=== PATIENT | male | born 1945 | race Caucasian/White ===

== ENCOUNTER → 2017-12-19 | Outpatient (CLI) | payer OTHER, MEDICARE ==
--- NOTE | 2017-12-19 10:43 | CT ---
EXAMINATION TYPE: CT foot LT wo con DATE OF EXAM: 12/19/2017 COMPARISON: HISTORY: LT calcaneal fracture CT DLP: 231 mGycm Automated exposure control for dose reduction was used. Unenhanced CT of the left foot was performed with bone and soft tissue window settings submitted. Axi al coronal and sagittal images are reviewed. FINDINGS: There is a chronic appearing fracture superior posterior margin of the os calcis. Margins are sclerot ic without significant callus formation seen. Screw defects are noted from prior surgical interventio n. No additional fractures identified of the os calcis or visualized osseous structures. Intramedulla ry lian distal tibia. Mild degenerative narrowing various PIP and DIP joints. IMPRESSION: NONUNION FRACTURE INVOLVING THE POSTERIOR SUPERIOR MARGIN OF THE OS CALCIS WITH EVIDENCE OF PRIOR RUBENS GICAL INTERVENTION.
== END | disposition home or self-care (01) ==
LOC: RADCTMAIN 08:44
PROVIDERS: ATTEND Podiatrist
DX: S92.002K Unspecified fracture of left calcaneus, subsequent encounter for fracture with nonunion (principal); Z98.890 Other specified postprocedural states

== ENCOUNTER → 2020-02-08 | Outpatient (CLI) | payer MEDICARE ==
--- NOTE | 2020-02-08 12:28 | CT ---
EXAMINATION TYPE: CT urogram wo/w con DATE OF EXAM: 02/08/2020 COMPARISON: None. HISTORY: gross hematuria CT DLP: 2644 mGycm, Automated Exposure Control for Dose Reduction was Utilized. CONTRAST: CT scan of the abdomen and pelvis is performed without oral and without and with IV Contrast, patient injected with 100 mL of Isovue 300. Urogram protocol with 3-D reconstructed images created on an [employer] workstation and reviewed. FINDINGS: KUB: Noncontrast images show no renal calculi bilaterally. Postcontrast images show symmetric cortica l medullary uptake and excretion from both kidneys. There is exophytic thin-walled 1.1 cm cyst medial ly lower pole left kidney series 10 image 42. Ureters are adequately distended without suspicious cristopher culus or hydronephrosis. There is lobulated hyperdense mass arising from the inferior bladder measuri ng 4.0 x 4.4 cm transversely axial image 78 series 10 x 3.0 cm craniocaudal dimension sagittal image 94. Poor visualization of connection to bladder wall but presumed arising from inferior portion. It i s not causing post obstructive hydronephrosis. Prostate gland below this is felt upper limits of norm al or perhaps slightly enlarged in size and mass is strongly suspicious given patient's symptoms. Bryan dder is mild moderately distended without abnormal wall thickening. LUNG BASES: No significant abnormality is appreciated. LIVER/GB: No significant abnormality is appreciated. PANCREAS: No significant abnormality is seen. SPLEEN: No significant abnormality is seen. ADRENALS: No significant abnormality is seen. BOWEL: No significant abnormality is seen. PROSTATE/SEMINAL VESICLES: Upper limits of normal in size or perhaps mildly enlarged. LYMPH NODES: No greater than 1cm abdominal or pelvic lymph nodes are appreciated. OSSEOUS STRUCTURES: Bilateral pars defect L5 level with slight grade 1 anterolisthesis L5 on S1. Mode rate disc space narrowing and vacuum disc phenomenon L5-S1 level. Mild to moderate disc space narrowi ng and anterior spurring L4-L5 level. Additional mild to moderate multilevel anterior and lateral spu rring. Facet arthropathy lower lumbar spine. OTHER: No significant additional abnormality is seen. IMPRESSION: Suspicious inferior posterior heterogeneous hyperdense bladder mass worrisome for neoplas m, other etiologies such as fungal ball or large intraluminal hematoma is not entirely excluded thoug h felt less likely. Direct visualization is warranted.
== END | disposition home or self-care (01) ==
LOC: RADCTMAIN 09:51
PROVIDERS: ATTEND Urology
DX: R31.9 Hematuria, unspecified (principal)
CPT/HCPCS: 82565; 84520; 74178; 36415; 74400; Q9967

== ENCOUNTER → 2020-02-16 | Outpatient (CLI) | payer MEDICARE ==
[2020-02-16 11:31] LABS: African American GFR (CKD) >90 (>60 ml/min/1.73 sqM); Anion Gap 6 mmol/L; Blood Urea Nitrogen 15 mg/dL (9-20); Calcium 9.2 mg/dL (8.4-10.2); Carbon Dioxide 23 mmol/L (22-30); Chloride 104 mmol/L (98-107); Glucose 88 mg/dL (74-99); Non-African American GFR(CKD) 78 (>60 ml/min/1.73 sqM); Potassium 4.6 mmol/L (3.5-5.1); Sodium 133 mmol/L (137-145)
[2020-02-16 11:36] LABS: Basophils # (A) 0.1 k/uL (0-0.2); Basophils % (A) 1 %; Eosinophils # (A) 0.2 k/uL (0-0.7); Eosinophils % (A) 3 %; HCT 40.8 % (39.0-53.0); Lymphocytes # (A) 0.8 k/uL (1.0-4.8); Lymphocytes % (A) 15 %; MCH 29.4 pg (25.0-35.0); MCHC 31.9 g/dL (31.0-37.0); MCV 92.3 fL (80.0-100.0); Mean Platelet Volume 6.8; Monocytes # (A) 0.4 k/uL (0-1.0); Monocytes % (A) 8 %; Neutrophils # (A) 3.8 k/uL (1.3-7.7); Neutrophils % (A) 71 %; Platelet Count 240 k/uL (150-450); RBC 4.43 m/uL (4.30-5.90); RDW 12.8 % (11.5-15.5); WBC 5.3 k/uL (3.8-10.6)
== END | disposition home or self-care (01) ==
LOC: LABPAT 10:36
PROVIDERS: ATTEND Urology
DX: Z01.818 Encounter for other preprocedural examination (principal); C67.9 Malignant neoplasm of bladder, unspecified
CPT/HCPCS: 36415; 80048; 85025

== ENCOUNTER → 2020-02-24 | Day surgery (SDC) | payer MEDICARE ==
[2020-02-22 12:54] VITALS: BMI 29.2
--- NOTE | 2020-02-23 20:30 | P.HPIHPCON ---
History of Present Illness H&P Date: 02/23/20 Mr tabares a 74 yo male with hx of gross hematuria, he underwent an office cystoscopy which showed a large bladder tumor, He also had a CT Urogram which showed that the bladder mass measured 10 cm. Discussed with him given this finding I recommend to proceed with TURBT. I also discussed with him the right ureteral orfice was not visualized secondary to the tumor and there is potential will need to do a right ureteral stent placement at the same setting. I discussed with him the risk of surgery includes but not limited to bleeding, infection, bladder perforation. Also discussed with him the risk from anesthesia. He understood all risks and agreed to proceed with TURBT with possibile right stent placement Consent for Procedure: I have explained the operation/procedure to the patient, including the risks, benefits, side effects, alternative therapies (including not receiving the proposed treatment or service), the likelihood of the patient achieving his/her goals, and potential recuperation problems for the procedure/sedation/analgesia, as well as any blood products, if indicated. I also explained to the patient the risks, benefits and side effects of the alternatives, as well as the risks related to not receiving the proposed procedure, care, treatment, or services. - Constitutional Constitutional: Denies chills, Denies fever Past Medical History Past Medical History: Cancer, Hyperlipidemia, Myocardial Infarction ([place]), Prostate Disorder Additional Past Medical History / Comment(s): recent blood in urine intermittently, enlarged prostate, recent dx bladder cancer Last Myocardial Infarction Date:: 2011 History of Any Multi-Drug Resistant Organisms: None Reported Past Surgical History: Heart Catheterization With Stent, Orthopedic Surgery Additional Past Surgical History / Comment(s): bilateral cataracts with lens implants, lt heel surgery bone removed Past Anesthesia/Blood Transfusion Reactions: No Reported Reaction Date of Last Stent Placement:: 2011 Smoking Status: Former smoker - Past Family History Mother Family Medical History: Cancer Medications and Allergies Home Medications Medication Instructions Recorded Confirmed Type Aspirin [Adult Low Dose Aspirin EC] 81 mg PO DAILY 08/23/15 02/22/20 History Simvastatin [Zocor] 40 mg PO DAILY 08/23/15 02/22/20 History risperiDONE [RisperDAL] 2 mg PO DAILY 08/23/15 02/22/20 History Stelazine(Unknown Dose) 1 tab PO DAILY 02/22/20 History Allergies Allergy/AdvReac Type Severity Reaction Status Date / Time No Known Allergies Allergy Verified 02/22/20 11:43 Surgical - Exam - General well developed, well nourished, no distress, no pain - Eyes PERRL, normal ocular movement - ENT normal nares, normal mucosa - Respiratory normal expansion, normal respiratory effort - Abdomen Abdomen: soft, non tender - Psychiatric oriented to time, oriented to person, oriented to place Assessment and Plan Assessment: 74 yo male with hx of large bladder tumor -OR for TURBT and possible stent placement
[~2020-02-24] MED LIST: DEXAMETHASONE SOD PHOSPHATE 4 MG/ML 1 ML VIAL IV ONE; GLYCOPYRROLATE 0.2 MG/ML 2 ML VIAL ONE; HYDROmorphone (PF) 1 MG/ML ONE; HYDROmorphone 0.5 MG/0.5 ML SYRINGE IVP PRN; LACTATED RINGERS 1,000 ML IV ONE; LACTATED RINGERS 1,000 ML IV SCH; LIDOCAINE 1% (10MG/ML) FOR IV START INTRADERMA ONE; LIDOCAINE 1% INJ 10MG/ML (20 ML MDV) ONE; NEOSTIGMINE 1 MG/ML 10 ML VIAL ONE; ONDANSETRON 4 MG/2 ML VIAL IVP ONE; PROPOFOL 10 MG/ML 20 ML VIAL IV ONE; ROCURONIUM 10 MG/ML (10 ML VIAL) IV ONE; SUCCINYLCHOLINE CHLORIDE 100 MG/5 ML SYR IV ONE; ePHEDrine SULFATE/0.9% NACL/PF 50 MG/5 ML SYRINGE IV ONE; fentaNYL (PF) 50 MCG/ML 2 ML AMP ONE
--- NOTE | 2020-02-24 13:57 | P.OP ---
Date of Procedure: 02/24/20 Preoperative Diagnosis: Bladder tumor Postoperative Diagnosis: Same Procedure(s) Performed: TURBT (large) Implants: None Anesthesia: DRAKE Surgeon: Ramana Hernandez Estimated Blood Loss (ml): 25 Pathology: other (Bladder tumor) Condition: stable Disposition: PACU Indications for Procedure: Mr tabares a 74 yo male with hx of gross hematuria, he underwent an office cystoscopy which showed a large bladder tumor, He also had a CT Urogram which showed that the bladder mass measured 10 cm. Discussed with him given this finding I recommend to proceed with TURBT. I also discussed with him the right ureteral orfice was not visualized secondary to the tumor and there is potential will need to do a right ureteral stent placement at the same setting. I discussed with him the risk of surgery includes but not limited to bleeding, infection, bladder perforation. Also discussed with him the risk from anesthesia. He understood all risks and agreed to proceed with TURBT with possible right stent placement Operative Findings: Large tumor extending from the right trigone and along the right lateral wall, approximately resection site was approximately 10 cm Description of Procedure: Patient was brought to the operating room, general anesthesia was induced. He was prepped and draped in sterile fashion placed in a dorsolithotomy position. The resectoscope fitted with a 25-Slovak sheath was inserted per urethra, cystoscopy was performed showed a large bladder tumor involving the right trigone and right lateral wall. Using the bipolar resectoscope the tumor was resected down to muscle, total area of resection was approximately 10 cm . The specimen was irrigated out using the Ellik evacuator. The area of resection was thoroughly fulgurated using cautery. Both ureteral orifices were visualized and neither were involved in the resection. Repeat cystoscopy at the end of the case showed no additional bladder tumors or evidence of bleeding. The resectoscope was withdrawn, and a 22-Slovak Hernandez was inserted with return of clear urine. The balloon was inflated with 20 mL. The patient tolerated procedure well taken to PACU in stable condition
[2020-02-24 14:05] VITALS: RESP 16; TEMP 98.6
[2020-02-24 15:38] VITALS: BP 155/78; PULSE 63
== END ==
LOC: OR 10:21
PROVIDERS: ATTEND Urology
DX: C67.2 Malignant neoplasm of lateral wall of bladder (principal); I10 Essential (primary) hypertension; R06.00 Dyspnea, unspecified; R94.39 Abnormal result of other cardiovascular function study; R42 Dizziness and giddiness; R94.31 Abnormal electrocardiogram [ECG] [EKG]; I49.1 Atrial premature depolarization; I49.3 Ventricular premature depolarization; F99 Mental disorder, not otherwise specified; E78.5 Hyperlipidemia, unspecified; I25.2 Old myocardial infarction; N40.0 Benign prostatic hyperplasia without lower urinary tract symptoms; Z79.899 Other long term (current) drug therapy; Z79.82 Long term (current) use of aspirin; Z95.5 Presence of coronary angioplasty implant and graft; Z98.890 Other specified postprocedural states; Z98.41 Cataract extraction status, right eye; Z98.42 Cataract extraction status, left eye; Z96.1 Presence of intraocular lens; Z87.39 Personal history of other diseases of the musculoskeletal system and connective tissue; Z87.891 Personal history of nicotine dependence; Z97.2 Presence of dental prosthetic device (complete) (partial); Z82.49 Family history of ischemic heart disease and other diseases of the circulatory system; Z80.9 Family history of malignant neoplasm, unspecified
CPT/HCPCS: 52240; 88307; C1769; J1100; J2710; J0690; J2405; J2001; J3010; J1170; J0330; J2704

== ENCOUNTER 2020-05-19 23:55 | Inpatient (IN) | payer MEDICARE ==
[2020-05-20 07:53] LABS: Creatine Kinase MB 1.5 ng/mL (0.0-2.4)
[2020-05-20 07:57] LABS: ALT 23 U/L (4-49); AST 71 U/L (17-59); African American GFR (CKD) 67 (>60 ml/min/1.73 sqM); Albumin 3.2 g/dL (3.5-5.0); Albumin/Globulin Ratio 0.9; Alkaline Phosphatase 49 U/L (38-126); Anion Gap 9 mmol/L; Blood Urea Nitrogen 28 mg/dL (9-20); Calcium 7.4 mg/dL (8.4-10.2); Carbon Dioxide 21 mmol/L (22-30); Chloride 100 mmol/L (98-107); Globulin 3.4 g/dL; Glucose 110 mg/dL (74-99); LDH 2017 U/L (313-618); Non-African American GFR(CKD) 58 (>60 ml/min/1.73 sqM); Potassium 5.7 mmol/L (3.5-5.1); Sodium 130 mmol/L (137-145); Total Bilirubin 0.9 mg/dL (0.2-1.3); Total Protein 6.6 g/dL (6.3-8.2)
[2020-05-20 07:59] LABS: C Reactive Protein 163.7 mg/L (<10.0)
[2020-05-20 08:04] LABS: Troponin I 0.642 ng/mL (0.000-0.034)
[2020-05-20 08:11] LABS: Appearance,Urine Cloudy (Clear); Bacteria,Urine Rare /hpf; Bilirubin,Urine Negative (Negative); Blood,Urine Moderate (Negative); Color,Urine Yellow; Glucose,Urine (UA) Negative (Negative); Granular Casts,Urine 13 /lpf (0); Hyaline Casts,Urine 10 /lpf (0-2); Ketones,Urine Negative (Negative); Leukocyte Esterase,Urine Moderate (Negative); Mucus,Urine Occasional /hpf; Nitrite,Urine Negative (Negative); Protein,Urine 2+ (Negative); RBC,Urine 48 /hpf (0-5); Specific Gravity,Urine 1.023 (1.001-1.035); Squamous Epithelial Cell,Urine <1 /hpf (0-4); Urobilinogen,Urine <2.0 mg/dL (<2.0); WBC,Urine 36 /hpf (0-5)
[2020-05-20 08:23] LABS: Basophils % (A) 0 %; Eosinophils % (A) 0 %; HCT 43.2 % (39.0-53.0); HGB 14.6 gm/dL (13.0-17.5); Lymphocytes # (A) 0.2 k/uL (1.0-4.8); Lymphocytes % (A) 6 %; MCH 28.3 pg (25.0-35.0); MCHC 33.7 g/dL (31.0-37.0); MCV 84.2 fL (80.0-100.0); Mean Platelet Volume 7.4; Monocytes # (A) 0.1 k/uL (0-1.0); Monocytes % (A) 4 %; Neutrophils # (A) 2.3 k/uL (1.3-7.7); Neutrophils % (A) 88 %; Platelet Count 155 k/uL (150-450); RBC 5.14 m/uL (4.30-5.90); RDW 12.9 % (11.5-15.5); WBC 2.7 k/uL (3.8-10.6)
[2020-05-20] MEDS ORDERED: dexAMETHasone 2 MG TAB PO SCH (09:00)
[2020-05-20] MEDS ORDERED: FAMOTIDINE 20 MG TAB PO SCH (09:00)
[2020-05-20] MEDS ORDERED: IPRATROPIUM-ALBUTEROL 3 ML NEB INHALATION PRN (09:02)
[2020-05-20] MEDS ORDERED: ACETAMINOPHEN TAB 325 MG TAB PO PRN (09:02)
--- NOTE | 2020-05-20 09:08 | P.HPIM ---
History of Present Illness This is a pleasant 75 years old male with past medical history of hyperlipidemia , coronary artery disease status post stent. Patient of Dr. Cole. His somewhat poor historian. Patient presents with dyspnea and a dry with no chest pain or abdominal pain or diarrhea. No headache or weakness or numbness. However he was complaining of from upper respiratory symptoms and sore throat as well. Patient also and he was confused, last time he got lost at [place] and he was taken to [facility] where he stayed there for 4-5 days for Covid infection as he states, he went home after that however he did not feel better. . He denies smoking, alcohol or illicit drugs Patient also states that he has history of urinary bladder cancer status post surgery [address] zee to 2 months ago as he states. He does not follow up with oncologist or has chemotherapy Vitals are stable except he has oxygen saturation of 91% on 15 L oxygen via nonrebreather BMP showed a glucose of 110, potassium 5.7, creatinine 1.24 with baseline 1.0- 1.2 C-reactive protein is elevated to 163 and LDH is also elevated at 2017. Troponin is 0.6. ProBNP 1790. Sodium 130, liver enzymes not significantly elevated. Bilirubin is normal 0.9. WBC is 2.7K with lymphopenia 0.2. Trace CBC is unremarkable. urine test strip : plus 2 protein , moderate blood and leukocytes, cloudy, while microscopy RBC 48 (H), WBC 36 (H) Chest x-ray: Diffuse airspace opacity which may represent pulmonary edema versus an infectious process with questionable small right pleural effusion per radiologist reports EKG showing normal sinus rhythm at [address]PM with no significant ST-T changes except for T-wave inversion in lead III and aVF and lead 5 and 6 patient was already started on dexamethasone, zinc and vitamin C Review of Systems CONSTITUTIONAL: No fever, no malaise, no fatigue. HEENT: No recent visual problems or hearing problems. Denied any sore throat. CARDIOVASCULAR: No orthopnea, PND, no palpitations, no syncope. PULMONARY: No chest wall tenderness, no hemoptysis. GASTROINTESTINAL: No diarrhea, no nausea, no vomiting, no abdominal pain. Normoactive bowel sounds. NEUROLOGICAL: No headaches, no weakness, no numbness. HEMATOLOGICAL: Denies any bleeding or petechiae. GENITOURINARY: Denies any burning micturition, frequency, or urgency. MUSCULOSKELETAL/RHEUMATOLOGICAL: Denies any joint pain, swelling, or any muscle pain. ENDOCRINE: Denies any polyuria or polydipsia. Past Medical History Past Medical History: Hyperlipidemia, Myocardial Infarction ([place]), Prostate Disorder, Skin Disorder Additional Past Medical History / Comment(s): wound lt heel Last Myocardial Infarction Date:: 2011 History of Any Multi-Drug Resistant Organisms: None Reported Past Surgical History: Heart Catheterization With Stent Additional Past Surgical History / Comment(s): bilateral cataracts with lens implants, lt heel surgery bone removed Past Anesthesia/Blood Transfusion Reactions: No Reported Reaction Date of Last Stent Placement:: 2011 Past Psychological History: Anxiety Smoking Status: Former smoker Past Alcohol Use History: None Reported Additional Past Alcohol Use History / Comment(s): quit smoking 1985 Past Drug Use History: None Reported - Past Family History Mother Family Medical History: Cancer Medications and Allergies Home Medications Medication Instructions Recorded Confirmed Type Aspirin [Adult Low Dose Aspirin EC] 81 mg PO DAILY 08/23/15 05/20/20 History risperiDONE [RisperDAL] 2 mg PO DAILY 08/23/15 05/20/20 History Ascorbic Acid [Vitamin C] 250 mg PO DAILY 05/20/20 05/20/20 History Atorvastatin Calcium [Lipitor] 80 mg PO DAILY 05/20/20 05/20/20 History Cholecalciferol [Vitamin D3 (10 10 mcg PO DAILY 05/20/20 05/20/20 History Mcg = 400 Iu)] Zinc 50 mg PO DAILY 05/20/20 05/20/20 History Allergies Allergy/AdvReac Type Severity Reaction Status Date / Time No Known Allergies Allergy Verified 05/20/20 07:02 Physical Exam Vitals: Vital Signs Temp Pulse Resp BP Pulse Ox 05/20/20 08:00 98.3 F 60 18 110/91 91 L Intake and Output 05/19/20 05/20/20 05/20/20 22:59 06:59 14:59 Other: Voiding Method Toilet Urinal Weight 71 kg GENERAL: The patient is alert and oriented x3, not in any acute distress. Well developed, well nourished. HEENT: Pupils are round and equally reacting to light. EOMI. No scleral icterus. No conjunctival pallor. Normocephalic, atraumatic. No pharyngeal erythema. No thyromegaly. CARDIOVASCULAR: S1 and S2 present. No murmurs, rubs, or gallops. -PULMONARY: Chest is clear to auscultation, no wheezing. Bilateral basal crepitations ABDOMEN: Soft, nontender, nondistended, normoactive bowel sounds. No palpable organomegaly. MUSCULOSKELETAL: No joint swelling or deformity. EXTREMITIES: No cyanosis, clubbing, or pedal edema. NEUROLOGICAL: Gross neurological examination did not reveal any focal deficits. SKIN: No rashes. No petechiae Results CBC & Chem 7: 05/20/20 00:30 05/20/20 00:30 Labs: Abnormal Lab Results - Last 24 Hours (Table) 05/20/20 05/20/20 05/20/20 Range/Units 00:30 00:30 00:30 WBC 2.7 L (3.8-10.6) k/uL Lymphocytes # 0.2 L (1.0-4.8) k/uL D-Dimer 0.64 H (<0.60) mg/L FEU Sodium 130 L (137-145) mmol/L Potassium 5.7 H (3.5-5.1) mmol/L Carbon Dioxide 21 L (22-30) mmol/L BUN 28 H (9-20) mg/dL Glucose 110 H (74-99) mg/dL Calcium 7.4 L (8.4-10.2) mg/dL AST 71 H (17-59) U/L Lactate Dehydrogenase 2017 H (313-618) U/L Total Creatine Kinase (55-170) U/L Troponin I (0.000-0.034) ng/mL C-Reactive Protein 163.7 H (<10.0) mg/L Albumin 3.2 L (3.5-5.0) g/dL Urine Protein (Negative) Urine Blood (Negative) Ur Leukocyte Esterase (Negative) Urine RBC (0-5) /hpf Urine WBC (0-5) /hpf Urine Bacteria (None) /hpf Hyaline Casts (0-2) /lpf Urine Mucus (None) /hpf 05/20/20 05/20/20 Range/Units 00:30 00:30 WBC (3.8-10.6) k/uL Lymphocytes # (1.0-4.8) k/uL D-Dimer (<0.60) mg/L FEU Sodium (137-145) mmol/L Potassium (3.5-5.1) mmol/L Carbon Dioxide (22-30) mmol/L BUN (9-20) mg/dL Glucose (74-99) mg/dL Calcium (8.4-10.2) mg/dL AST (17-59) U/L Lactate Dehydrogenase (313-618) U/L Total Creatine Kinase 198 H (55-170) U/L Troponin I 0.642 H* (0.000-0.034) ng/mL C-Reactive Protein (<10.0) mg/L Albumin (3.5-5.0) g/dL Urine Protein 2+ H (Negative) Urine Blood Moderate H (Negative) Ur Leukocyte Esterase Moderate H (Negative) Urine RBC 48 H (0-5) /hpf Urine WBC 36 H (0-5) /hpf Urine Bacteria Rare H (None) /hpf Hyaline Casts 10 H (0-2) /lpf Urine Mucus Occasional H (None) /hpf Thrombosis Risk Factor Assmnt - Choose All That Apply Any of the Below Risk Factors Present?: Yes Each Factor Represents 1 point: Obesity (BMI >25), Serious lung disease incl. pneumonia (< 1month) Other Risk Factors: Yes Each Risk Factor Represents 2 Points: Age 61-74 years Other congenital or acquired thrombophilia - If yes, enter type in comment: No Thrombosis Risk Factor Assessment Total Risk Factor Score: 4 Thrombosis Risk Factor Assessment Level: Moderate Risk Assessment and Plan Assessment: Acute bilateral covid pneumonia Increased inflammatory markers Acute hypoxic respiratory failure secondary to both Possible pulmonary congestion metabolic encephalopathy mild Acute kidney injury, Versus chronic kidney disease possible UTI Possible history of urinary cancer status post surgery [address] Pantoja Hyperlipidemia History of coronary artery disease Plan: this is a pleasant 75 years old male who presents with bilateral Covid pneumonia and venous congestion. He knew with steroids, zinc, vitamin C and Lovenox with pulmonary consult Elevated troponin, Check serial troponin, echocardiogram and cardiology consult. Continue with aspirin Labs and medication were reviewed.. Continue same treatment. Continue with symptomatic treatment. Resume home medication. Monitor lytes and vitals. DVT and GI prophylaxis. Further recommendations depends on the clinical course of the patient DVT prophylaxis: Subcutaneous Lovenox GI Prophylaxis: Pepcid PT/OT: Pending Prognosis is guarded
--- NOTE | 2020-05-20 09:11 | XR ---
EXAM: XR Chest, 1 View CLINICAL HISTORY: SOB, covid + TECHNIQUE: Frontal view of the chest. COMPARISON: No relevant prior studies available. FINDINGS: Lungs: Diffuse airspace opacities which may represent pulmonary edema versus an infectious process. Pleural space: Question small right pleural effusion. Heart: Mild prominence of the cardiomediastinal silhouette. Mediastinum: See above. Bones/joints: Unremarkable. IMPRESSION: 1. Diffuse airspace opacities which may represent pulmonary edema versus an infectious process. 2. Question small right pleural effusion.
[2020-05-20] MEDS: ASPIRIN 81 MG PO SCH (09:41)
[2020-05-20] MEDS: ATORVASTATIN 80 MG TAB PO SCH (09:41)
[2020-05-20] MEDS: FUROSEMIDE 10 MG/ML 4 ML VIAL IV SCH ×2 (09:41→20:15)
[2020-05-20] MEDS: ENOXAPARIN 40 MG/0.4 ML SYRINGE SQ SCH (09:42)
[2020-05-20] MEDS: risperiDONE 2 MG TAB PO SCH (09:42)
[2020-05-20] MEDS: CHOLECALCIFEROL 10 MCG (400 IU) TABLET PO SCH (09:42)
[2020-05-20] MEDS: ASCORBIC ACID 500 MG TAB PO SCH (10:22)
[2020-05-20] MEDS: ZINC SULFATE 220 MG CAP PO SCH (10:22)
--- NOTE | 2020-05-20 11:00 | ECHOF ---
Referral Reason:lv function MEASUREMENTS -------- HEIGHT: 162.6 cm WEIGHT: 70.8 kg BP: RVIDd: 3.7 cm (< 3.3) IVSd: 1.2 cm (0.6 - 1.1) LVIDd: 5.7 cm (3.9 - 5.3) LVPWd: 1.2 cm (0.6 - 1.1) IVSs: 2.0 cm LVIDs: 4.1 cm LVPWs: 2.1 cm LA Diam: 3.9 cm (2.7 - 3.8) Ao Diam: 3.5 cm (2.0 - 3.7) MV EXCURSION: 16.973 mm (> 18.000) MV EF SLOPE: 112 mm/s (70 - 150) EPSS: 1.3 cm MV E Joel: 0.82 m/s MV DecT: 231 ms MV A Joel: 0.83 m/s MV E/A Ratio: 0.99 RAP: 5.00 mmHg RVSP: 62.83 mmHg FINDINGS -------- Sinus rhythm. This was a technically good study. The left ventricular size is normal. There is borderline concentric left ventricular hypertrophy. Overall left ventricular systolic function is mild-moderately impaired with, an EF between 40 - 45 % . Basal lateral LV wall motion is hypokinetic. Basal inferior LV wall motion is hypokinetic. Basal inferoseptal LV wall motion is hypokinetic. The right ventricle is mildly enlarged. The left atrium is normal in size. The right atrium is normal in size. Interatrial and interventricular septum intact. The aortic valve is trileaflet, and appears structurally normal. No aortic stenosis or regurgitation. The mitral valve is normal. Mild tricuspid regurgitation present. There is severe pulmonary hypertension. The right ventricul ar systolic pressure, as measured by Doppler, is 62.83mmHg. Moderate pulmonic regurgitation. The aortic root size is normal. Normal inferior vena cava with normal inspiratory collapse consistent with estimated right atrial pre ssure of 5 mmHg. There is no pericardial effusion. CONCLUSIONS -------- 1. The left ventricular size is normal. 2. There is borderline concentric left ventricular hypertrophy. 3. Overall left ventricular systolic function is mild-moderately impaired with, an EF between 40 - 45 %. 4. Basal lateral LV wall motion is hypokinetic. 5. Basal inferior LV wall motion is hypokinetic. 6. Basal inferoseptal LV wall motion is hypokinetic. 7. The right ventricle is mildly enlarged. 8. The aortic valve is trileaflet, and appears structurally normal. No aortic stenosis or regurgitati on. 9. There is severe pulmonary hypertension. 10. The right ventricular systolic pressure, as measured by Doppler, is 62.83mmHg. 11. Moderate pulmonic regurgitation. 12. There is no pericardial effusion. APARTMENT GROUNDSKEEPER: Evie Flores RDCS
--- NOTE | 2020-05-20 12:31 | P.CNPUL ---
<Vonnie Sifuentes - Last Filed: 05/20/20 12:14> History of Present Illness Consult date: 05/20/20 Requesting physician: Randall E Sheet Reason for consult: dyspnea, abnormal CXR/CT Chief complaint: Denies weakness, fatigue, shortness of breath History of present illness: This is a very pleasant 75-year-old gentleman who follows with Dr. komal ward as his primary care provider. He has a history of hyperlipidemia, anxiety, bladder cancer with TURBT in January 2020. Approximately 10 days ago the patient states he was doing well and was driving from [place] to [place] to get gas. That is the last thing he remembers. He somehow ended up at [facility] and transferred later to [facility] diagnosed with CoVID 19 infection. He states he was also told he had a myocardial infarction. He was there about 1 week and then discharged home. He was discharged on vitamin C, D and zinc. He is unsure if he received any other treatment for CoVID. He's been home about 3 days and then last night he was brought here by EMS after continuing with progressive weakness, shortness of breath, poor appetite. He l suraj with his daughter [place]. Chest x-ray reveals diffuse airspace opacities representing pulmonary edema versus infectious process. Echocardiogram reveals mild to moderately impaired left ventricular systolic function with ejection fraction 40-45%. Severe pulmonary hypertension. White count 2.7. Hemoglobin 14.6. Lymphocytes 0.2. D-dimer 0.64. Sodium 1:30. Potassium 5.7. Creatinine 1.24. LDH 2017. C-reactive protein 163. Troponin 0.64, 0.70. Urine with moderate leukocytes and high WBCs. Oscar virus by PCR detected. He's been initiated on vitamin C, vitamin D, zinc. Dexamethasone at 6 mg daily. Lovenox 40 mg subcu daily. He is also started on ceftriaxone and IV diuretics. He is seen today in consultation in the emergency room. He is currently awake and alert. Resting comfortably in bed. He is oriented 3. He is currently on a nonrebreather mask with O2 saturation of 91%. He is afebrile. Hemodynamically stable. Review of Systems REVIEW OF SYSTEMS: CONSTITUTIONAL: Generalized weakness, fatigue. Denies any recent significant weight loss or weight gain. EYES: Denies change in vision. EARS, NOSE, MOUTH, THROAT: Denies headaches, denies sore throat. CARDIOVASCULAR: Denies chest pain, palpitations or syncopal episodes. RESPIRATORY: Positive for shortness of breath, cough, congestion no hemoptysis. GASTROINTESTINAL: Denies change in appetite, denies abdominal pain GENITOURINARY: Denies hematuria, denies infections. MUSKULOSKELETAL: Denies pain, denies swelling. INTEGUMENTARY: Denies rash, denies eczema. NEUROLOGICAL: Denies recent memory loss, no recent seizure activity. PSYCHIATRIC: Denies anxiety, denies depression. HEMATOLOGIC/LYMPHATIC: Denies anemia, denies enlarged lymph nodes. Past Medical History Past Medical History: Hyperlipidemia, Myocardial Infarction (DC), Prostate D isorder, Skin Disorder Additional Past Medical History / Comment(s): wound lt heel Last Myocardial Infarction Date:: 2011 History of Any Multi-Drug Resistant Organisms: None Reported Past Surgical History: Heart Catheterization With Stent Additional Past Surgical History / Comment(s): bilateral cataracts with lens implants, lt heel surgery bone removed Past Anesthesia/Blood Transfusion Reactions: No Reported Reaction Date of Last Stent Placement:: 2011 Past Psychological History: Anxiety Smoking Status: Former smoker Past Alcohol Use History: None Reported Additional Past Alcohol Use History / Comment(s): quit smoking 1985 Past Drug Use History: None Reported - Past Family History Mother Family Medical History: Cancer Medications and Allergies Home Medications Medication Instructions Recorded Confirmed Type Aspirin [Adult Low Dose Aspirin EC] 81 mg PO DAILY 08/23/15 05/20/20 History risperiDONE [RisperDAL] 2 mg PO DAILY 08/23/15 05/20/20 History Ascorbic Acid [Vitamin C] 250 mg PO DAILY 05/20/20 05/20/20 History Atorvastatin Calcium [Lipitor] 80 mg PO DAILY 05/20/20 05/20/20 History Cholecalciferol [Vitamin D3 (10 10 mcg PO DAILY 05/20/20 05/20/20 History Mcg = 400 Iu)] Zinc 50 mg PO DAILY 05/20/20 05/20/20 History Allergies Allergy/AdvReac Type Severity Reaction Status Date / Time No Known Allergies Allergy Verified 05/20/20 07:02 Physical Exam Vitals: Vital Signs Temp Pulse Resp BP Pulse Ox 05/20/20 08:00 98.3 F 60 18 110/91 91 L Intake and Output 05/19/20 05/20/20 05/20/20 22:59 06:59 14:59 Other: Voiding Method Toilet Urinal Weight 71 kg GENERAL EXAM: Alert, pleasant 75-year-old gentleman, on nonrebreather mask with O2 saturation 91%, comfortable in no apparent distress. HEAD: Normocephalic. EYES: Normal reaction of pupils, equal size. NOSE: Clear with pink turbinates. THROAT: No erythema or exudates. NECK: No masses, no JVD. CHEST: No chest wall deformity. LUNGS: Equal air entry with crackles in the bilateral posterior bases. CVS: S1 and S2 normal with no audible murmur, regular rhythm. ABDOMEN: No hepatosplenomegaly, normal bowel sounds, no guarding or rigidity. SPINE: No scoliosis or deformity SKIN: No rashes CENTRAL NERVOUS SYSTEM: No focal deficits, tone is normal in all 4 extremities. EXTREMITIES: There is no peripheral edema. No clubbing, no cyanosis. Peripheral pulses are intact. Results - Laboratory Findings CBC and BMP: 05/20/20 00:30 05/20/20 00:30 PT/INR, D-dimer D-Dimer 0.64 mg/L FEU (<0.60) H 05/20/20 00:30 Abnormal lab findings: Abnormal Labs 05/20/20 05/20/20 05/20/20 00:30 00:30 00:30 WBC 2.7 L Lymphocytes # 0.2 L D-Dimer 0.64 H Sodium 130 L Potassium 5.7 H Carbon Dioxide 21 L BUN 28 H Glucose 110 H Calcium 7.4 L AST 71 H Lactate Dehydrogenase 2017 H Total Creatine Kinase Troponin I C-Reactive Protein 163.7 H Albumin 3.2 L Urine Protein Urine Blood Ur Leukocyte Esterase Urine RBC Urine WBC Urine Bacteria Hyaline Casts Urine Mucus Coronavirus (PCR) 05/20/20 05/20/20 05/20/20 00:30 00:30 02:50 WBC Lymphocytes # D-Dimer Sodium Potassium Carbon Dioxide BUN Glucose Calcium AST Lactate Dehydrogenase Total Creatine Kinase 198 H Troponin I 0.642 H* C-Reactive Protein Albumin Urine Protein 2+ H Urine Blood Moderate H Ur Leukocyte Esterase Moderate H Urine RBC 48 H Urine WBC 36 H Urine Bacteria Rare H Hyaline Casts 10 H Urine Mucus Occasional H Coronavirus (PCR) Detected A 05/20/20 10:10 WBC Lymphocytes # D-Dimer Sodium Potassium Carbon Dioxide BUN Glucose Calcium AST Lactate Dehydrogenase Total Creatine Kinase Troponin I 0.703 H* C-Reactive Protein Albumin Urine Protein Urine Blood Ur Leukocyte Esterase Urine RBC Urine WBC Urine Bacteria Hyaline Casts Urine Mucus Coronavirus (PCR) - Diagnostic Findings Chest x-ray: image reviewed Assessment and Plan Assessment: 1 Acute hypoxic respiratory failure secondary to CoVID 19 pneumonia and the patient is currently on a nonrebreather mask with O2 saturation at 91% 2 Lymphocytopenia secondary to above 3 Elevated inflammatory markers secondary to above 4 Recent hospitalization in [place] for CoVID 19 infection for approximately one week, home 3 days prior to her returning here 5 Recent myocardial infarction according to the patient as told in [place], possible stent placement 6 Suspect ischemic cardiomyopathy with ejection fraction 40-45% 7 Troponin leak 8 Pulmonary hypertension 9 Urinary tract infection, cultures pending 10 Hyperlipidemia 11 History of anxiety 12 History of bladder cancer status post TURBT in January 2020 Plan: The patient was seen and evaluated by Dr. Perez Chest x-ray and labs reviewed Continue Decadron, Lovenox, vitamin supplements Outside the window for any further treatment Unsure of any treatment in [facility] Follow up chest x-ray, inflammatory markers in a.m. Titrate FiO2 as tolerated Continue diuretics Pro calcitonin pending We will continue to follow and make further recommendations based on his clinical status <Jerri Perez - Last Filed: 05/20/20 15:05> Physical Exam Vitals: Vital Signs Temp Pulse Resp BP Pulse Ox 05/20/20 08:00 98.3 F 60 18 110/91 91 L Intake and Output 05/20/20 05/20/20 05/20/20 06:59 14:59 22:59 Other: Voiding Method Toilet Urinal Weight 71 kg Results - Laboratory Findings CBC and BMP: 05/20/20 00:30 05/20/20 00:30 PT/INR, D-dimer D-Dimer 0.64 mg/L FEU (<0.60) H 05/20/20 00:30 Abnormal lab findings: Abnormal Labs 05/20/20 05/20/20 05/20/20 00:30 00:30 00:30 WBC 2.7 L Lymphocytes # 0.2 L D-Dimer 0.64 H Sodium 130 L Potassium 5.7 H Carbon Dioxide 21 L BUN 28 H Glucose 110 H Calcium 7.4 L AST 71 H Lactate Dehydrogenase 2017 H Total Creatine Kinase Troponin I C-Reactive Protein 163.7 H Albumin 3.2 L Urine Protein Urine Blood Ur Leukocyte Esterase Urine RBC Urine WBC Urine Bacteria Hyaline Casts Urine Mucus Coronavirus (PCR) 05/20/20 05/20/20 05/20/20 00:30 00:30 02:50 WBC Lymphocytes # D-Dimer Sodium Potassium Carbon Dioxide BUN Glucose Calcium AST Lactate Dehydrogenase Total Creatine Kinase 198 H Troponin I 0.642 H* C-Reactive Protein Albumin Urine Protein 2+ H Urine Blood Moderate H Ur Leukocyte Esterase Moderate H Urine RBC 48 H Urine WBC 36 H Urine Bacteria Rare H Hyaline Casts 10 H Urine Mucus Occasional H Coronavirus (PCR) Detected A 05/20/20 10:10 WBC Lymphocytes # D-Dimer Sodium Potassium Carbon Dioxide BUN Glucose Calcium AST Lactate Dehydrogenase Total Creatine Kinase Troponin I 0.703 H* C-Reactive Protein Albumin Urine Protein Urine Blood Ur Leukocyte Esterase Urine RBC Urine WBC Urine Bacteria Hyaline Casts Urine Mucus Coronavirus (PCR) Assessment and Plan Plan: Is a joint evaluation that was done along with the nurse practitioner. This 75-year-old male patient comes in with severe hypoxic respiratory failure and currently is on 100% nonrebreather facemask with a pulse ox of 92%. He has progressed rapidly over the past 10 days. His chest x-ray showing diffuse bilateral pulmonary infiltrates. The plan is to treat this patient's condition with a combination of IV Solu-Medrol, anticoagulation with Lovenox and if possible Tocilizumab. Note that the patient falls out of the window for Remdesivir and convalescent plasma. He is a monitored very closely. We'll monitor his chest x-ray. We'll monitor his oxygenation. Will monitor his inflammatory markers. There is a concern that he may have an underlying coronary artery disease. Echocardiogram showing impaired LV function with segmental wall motion abnormalities and he did have a positive troponin. We'll continue to follow.
--- NOTE | 2020-05-20 14:08 | P.CRDCN ---
History of Present Illness History of present illness: HISTORY OF PRESENTING ILLNESS This is a pleasant 75-year-old occasion male past medical history significant for coronary artery exact details unknown, hypertension, bladder cancer s/p TURP and dyslipidemia. He follows in the office with Mehdi. We have been asked to see in consultation for elevated troponin. He presented to the hospital with cough, increased weakness and shortness of breath. He has been diagnosed with Covid 19. He states he had previously been diagnosed with Covid at [place] and was transferred to [place] where he was told he had an CT. He was apparently discharged from there 3 days ago and was getting progressively more weak. He saw Dr. Harding in December 2019 for pre-op evaluation prior to TURP. At that time he had an echo and stress test. EF was 55%, moderate LVH, dilated LA, mild MR and mild TR. Lexiscan stress test at that time revealed a fixed defect inferiorly thought to be related to diaphragmatic attenuation. Limited echo obtained on this admission revealed impaired LV systolic function with EF 40- 45%, basal lateral, basal inferior and basal inferoseptal wall motion hypokinesia with severe pulmonary hypertension noted. RVSP 62 mmHg. DIAGNOSTICS EKG reveals sinus mechanism with T-wave inversion inferior/laterally. This is a change from the previous EKG obtained in the office last year. Chest xray duffuse airspace disease with small pleural effusion. Laboratory reviewed, WBC 2.7, hgb 14.6, plt 155, d-dimer 0.64, sodium 130, potassium 5.7 ,creatinine 1.24, troponin 0.642 and 0.703. Current cardiac medications include aspirin 81 mg daiy and atorvastatin 80 mg daily. REVIEW OF SYSTEMS At the time of my exam: CONSTITUTIONAL: Denies fever or chills. CARDIOVASCULAR: Complains of shortness of breath. Denies chest pain, orthopnea, PND or palpitations. RESPIRATORY: Denies cough. GASTROINTESTINAL: Denies abdominal pain, diarrhea, constipation, nausea or vomiting. MUSCULOSKELETAL: Denies myalgias. NEUROLOGIC: Denies numbness, tingling, headacbe or weakness. ENDOCRINE: Denies fatigue, weight change, polydipsia or polyurina. GENITOURINARY: Denies burning, hematuria or urgency with micturation. HEMATOLOGIC: Denies history of anemia or bleeding. PHYSICAL EXAMINATION Blood pressure 110/91 heart rate 60 afebrile and maintaining oxygen saturation on non-rebreather. CONSTITUTIONAL: No apparent distress. Full thorough examination was deferred secondary to cough 19 infection to prevent spread of infection. ASSESSMENT Troponin elevation secondary to COVID Covid19 Ischemic cardiomyopathy Acute systolic heart failure, clinically euvolemic. Hypertension Dyslipidemia PLAN His previous hospitalization records will need to be reviewed. It is unclear if he previously had a cardiac event to explain these echo, EKG and troponin changes. If compared to reports from the office in 12/2019 these are all new findings. Recommend optimizing his medical regimen with addition of beta blockers and VENU inhibitor, however his blood pressure and heart rates are borderline. We will continue to monitor and make recommendations accordingly. Continue aspirin and atorvastatin as previously ordered. Thank you kindly for this consultation. Nurse Practitioner note has been reviewed, I agree with a documented findings and plan of care. Patient was seen and examined. Past Medical History Past Medical History: Hyperlipidemia, Myocardial Infarction (CT), Prostate Disorder, Skin Disorder Additional Past Medical History / Comment(s): wound lt heel Last Myocardial Infarction Date:: 2011 History of Any Multi-Drug Resistant Organisms: None Reported Past Surgical History: Heart Catheterization With Stent Additional Past Surgical History / Comment(s): bilateral cataracts with lens implants, lt heel surgery bone removed Past Anesthesia/Blood Transfusion Reactions: No Reported Reaction Date of Last Stent Placement:: 2011 Past Psychological History: Anxiety Smoking Status: Former smoker Past Alcohol Use History: None Reported Additional Past Alcohol Use History / Comment(s): quit smoking 1985 Past Drug Use History: None Reported - Past Family History Mother Family Medical History: Cancer Medications and Allergies Home Medications Medication Instructions Recorded Confirmed Type Aspirin [Adult Low Dose Aspirin EC] 81 mg PO DAILY 08/23/15 05/20/20 History risperiDONE [RisperDAL] 2 mg PO DAILY 08/23/15 05/20/20 History Ascorbic Acid [Vitamin C] 250 mg PO DAILY 05/20/20 05/20/20 History Atorvastatin Calcium [Lipitor] 80 mg PO DAILY 05/20/20 05/20/20 History Cholecalciferol [Vitamin D3 (10 10 mcg PO DAILY 05/20/20 05/20/20 History Mcg = 400 Iu)] Zinc 50 mg PO DAILY 05/20/20 05/20/20 History Allergies Allergy/AdvReac Type Severity Reaction Status Date / Time No Known Allergies Allergy Verified 05/20/20 07:02 Physical Exam Vitals: Vital Signs Temp Pulse Resp BP Pulse Ox 05/20/20 08:00 98.3 F 60 18 110/91 91 L Intake and Output 05/19/20 05/20/20 05/20/20 22:59 06:59 14:59 Other: Voiding Method Toilet Urinal Weight 71 kg Results 05/20/20 00:30 05/20/20 00:30 Cardiac Enzymes 05/20/20 05/20/20 Range/Units 00:30 00:30 AST 71 H (17-59) U/L Lactate Dehydrogenase 2017 H (313-618) U/L CK-MB (CK-2) 1.5 (0.0-2.4) ng/mL Troponin I 0.642 H* (0.000-0.034) ng/mL CBC 05/20/20 Range/Units 00:30 WBC 2.7 L (3.8-10.6) k/uL RBC 5.14 (4.30-5.90) m/uL Hgb 14.6 (13.0-17.5) gm/dL Hct 43.2 (39.0-53.0) % Plt Count 155 (150-450) k/uL Comprehensive Metabolic Panel 05/20/20 Range/Units 00:30 Sodium 130 L (137-145) mmol/L Potassium 5.7 H (3.5-5.1) mmol/L Chloride 100 (98-107) mmol/L Carbon Dioxide 21 L (22-30) mmol/L BUN 28 H (9-20) mg/dL Creatinine 1.24 (0.66-1.25) mg/dL Glucose 110 H (74-99) mg/dL Calcium 7.4 L (8.4-10.2) mg/dL AST 71 H (17-59) U/L ALT 23 (4-49) U/L Alkaline Phosphatase 49 (38-126) U/L Total Protein 6.6 (6.3-8.2) g/dL Albumin 3.2 L (3.5-5.0) g/dL Current Medications Generic Name Dose Route Start Last Admin Trade Name Freq PRN Reason Stop Dose Admin Acetaminophen 325 mg 05/20/20 09:02 Acetaminophen Tab 325 Mg Tab PO Q6HR PRN Fever and/ or Pain Albuterol Sulfate 2 puff 05/20/20 09:11 Albuterol Hfa Inhaler INHALATION RT-QID PRN Shortness Of Breath Or Wheezing Ascorbic Acid 1,000 mg 05/20/20 09:00 Ascorbic Acid 500 Mg Tab PO DAILY SANKET Aspirin 81 mg 05/20/20 09:00 05/20/20 09:41 Aspirin 81 Mg PO 81 mg DAILY SANKET Administration Atorvastatin Calcium 80 mg 05/20/20 09:00 05/20/20 09:41 Atorvastatin 80 Mg Tab PO 80 mg DAILY SANKET Administration Cholecalciferol 10 mcg 05/20/20 09:00 05/20/20 09:42 Cholecalciferol 10 Mcg (400 Iu) Tablet PO 10 mcg DAILY SANKET Administration Dexamethasone 6 mg 05/20/20 09:00 05/20/20 09:41 Dexamethasone 2 Mg Tab PO 6 mg DAILY SANKET Administration Enoxaparin Sodium 40 mg 05/20/20 09:00 05/20/20 09:42 Enoxaparin 40 Mg/0.4 Ml Syringe SQ 40 mg DAILY SANKET Administration Famotidine 40 mg 05/20/20 09:00 05/20/20 09:41 Famotidine 20 Mg Tab PO 40 mg DAILY SANKET Administration Furosemide 40 mg 05/20/20 09:15 05/20/20 09:41 Furosemide 10 Mg/Ml 4 Ml Vial IV 40 mg Q12HR SANKET Administration Ceftriaxone Sodium 1 gm/ 50 mls @ 100 mls/hr 05/20/20 09:15 05/20/20 09:41 Sodium Chloride IVPB 100 mls/hr Q24HR SANKTE Administration Risperidone 2 mg 05/20/20 09:00 05/20/20 09:42 Risperidone 2 Mg Tab PO 2 mg DAILY SANKET Administration Zinc Sulfate 220 mg 05/20/20 09:00 Zinc Sulfate 220 Mg Cap PO DAILY SANKET Intake and Output 05/19/20 05/20/20 05/20/20 22:59 06:59 14:59 Other: Voiding Method Toilet Urinal Weight 71 kg 05/20/20 00:30 05/20/20 00:30
[2020-05-20] MEDS ORDERED: TOCILIZUMAB 600 MG in SODIUM CHLORIDE 0.9% 70 ML IV ONE ×2 (14:30→16:30)
[2020-05-20] MEDS ORDERED: TOCILIZUMAB 400 MG in SODIUM CHLORIDE 0.9% 80 ML IV ONE (15:06)
[2020-05-20] MEDS: methylPREDNISolone SOD SUCCI 125 MG/2 ML VIAL IV SCH (18:43)
[2020-05-20 20:20] LABS: Glucose,Whole Blood 143 mg/dL (75-99)
[2020-05-20] MEDS: INSULIN ASPART (NovoLOG) 100 UNIT/ML VIAL SQ SCH (21:07)
[2020-05-20] MEDS: ALBUTEROL HFA INHALER INHALATION PRN (22:42)
[2020-05-21] MEDS: methylPREDNISolone SOD SUCCI 125 MG/2 ML VIAL IV SCH ×5 (00:27→23:14)
[2020-05-21 01:29] LABS: Calcium 7.9 mg/dL (8.4-10.2); Magnesium 2.7 mg/dL (1.6-2.3); Potassium 4.6 mmol/L (3.5-5.1)
[2020-05-21 06:37] LABS: Glucose,Whole Blood 168 mg/dL (75-99)
[2020-05-21] MEDS: INSULIN ASPART (NovoLOG) 100 UNIT/ML VIAL SQ SCH ×4 (06:53→21:08)
--- NOTE | 2020-05-21 07:53 | XR ---
EXAMINATION TYPE: XR chest 1V DATE OF EXAM: 05/21/2020 COMPARISON: 05/20/2020 HISTORY: Shortness of breath TECHNIQUE: Single frontal view of the chest is obtained. FINDINGS: Diffuse pattern of all Dl partially consolidative airspace opacity in both lungs. Compared to the prior study difficult due to significant differences in technique but likely unchanged in the interv al. No pleural effusion or pneumothorax. Heart size normal. The osseous structures are intact. Impression: diffuse lung infiltrates when allowing for differences in technique likely unchanged since the prior study.
[2020-05-21] MEDS: ALBUTEROL HFA INHALER INHALATION PRN ×2 (08:25→11:49)
[2020-05-21 08:28] LABS: Basophils % (A) 0 %; Eosinophils % (A) 1 %; HCT 39.3 % (39.0-53.0); HGB 13.4 gm/dL (13.0-17.5); Lymphocytes # (A) 0.2 k/uL (1.0-4.8); Lymphocytes % (A) 7 %; MCH 28.9 pg (25.0-35.0); MCHC 34.2 g/dL (31.0-37.0); MCV 84.4 fL (80.0-100.0); Mean Platelet Volume 7.3; Monocytes # (A) 0.1 k/uL (0-1.0); Monocytes % (A) 4 %; Neutrophils # (A) 1.7 k/uL (1.3-7.7); Neutrophils % (A) 86 %; Platelet Count 235 k/uL (150-450); RBC 4.66 m/uL (4.30-5.90); RDW 12.8 % (11.5-15.5)
[2020-05-21 08:38] LABS: C Reactive Protein 67.4 mg/L (<10.0); Potassium 4.7 mmol/L (3.5-5.1)
[2020-05-21] MEDS: ATORVASTATIN 80 MG TAB PO SCH (10:12)
[2020-05-21] MEDS: FAMOTIDINE 20 MG TAB PO SCH (10:12)
[2020-05-21] MEDS: ENOXAPARIN 40 MG/0.4 ML SYRINGE SQ SCH (10:12)
[2020-05-21] MEDS: FUROSEMIDE 40 MG TAB PO SCH (10:13)
[2020-05-21] MEDS: CHOLECALCIFEROL 10 MCG (400 IU) TABLET PO SCH (10:13)
[2020-05-21] MEDS: ASCORBIC ACID 500 MG TAB PO SCH (10:13)
[2020-05-21] MEDS: risperiDONE 2 MG TAB PO SCH (10:13)
[2020-05-21] MEDS: ASPIRIN 81 MG PO SCH (10:13)
[2020-05-21] MEDS: ZINC SULFATE 220 MG CAP PO SCH (10:13)
[2020-05-21 12:03] LABS: Glucose,Whole Blood 239 mg/dL (75-99)
--- NOTE | 2020-05-21 12:04 | P.PN ---
Subjective Progress Note Date: 05/21/20 HISTORY OF PRESENT ILLNESS: 05/20/2020 This is a pleasant 75-year-old occasion male past medical history significant for coronary artery exact details unknown, hypertension, bladder cancer s/p TURP and dyslipidemia. He follows in the office with Mehdi. We have been asked to see in consultation for elevated troponin. He presented to the hospital with cough, increased weakness and shortness of breath. He has been diagnosed with Covid 19. He states he had previously been diagnosed with Covid at [place] and was transferred to [place] where he was told he had an [place]. He was apparently discharged from there 3 days ago and was getting progressively more weak. He saw Dr. Harding in December 2019 for pre-op evaluation prior to TURP. At that time he had an echo and stress test. EF was 55%, moderate LVH, dilated LA, mild MR and mild TR. Lexiscan stress test at that time revealed a fixed defect inferiorly thought to be related to diaphragmatic attenuation. Limited echo ob tained on this admission revealed impaired LV systolic function with EF 40-45%, basal lateral, basal inferior and basal inferoseptal wall motion hypokinesia with severe pulmonary hypertension noted. RVSP 62 mmHg. EKG reveals sinus mechanism with T-wave inversion inferior/laterally. This is a change from the previous EKG obtained in the office last year. Chest xray duffuse airspace disease with small pleural effusion. Laboratory reviewed, WBC 2.7, hgb 14.6, plt 155, d-dimer 0.64, sodium 130, p otassium 5.7 ,creatinine 1.24, troponin 0.642 and 0.703. Current cardiac medications include aspirin 81 mg daiy and atorvastatin 80 mg daily. 05/20/2020 patient remains on 15 L nonrebreather mask. Oxygen saturations around 90%. Blood pressure 125/70. He is bradycardic in the 50s on telemetry. BUN 48. Creatinine 1.65 today, up from 1.56 yesterday. chest x-ray from this morning reveals diffuse lung infiltrates that appear to be unchanged since prior exam. PHYSICAL EXAM: Thorough physical exam not completed secondary to limited evaluation/examination and due to Covid19 ASSESSMENT: Troponin elevation secondary to COVID Covid19 acute kidney injury Ischemic cardiomyopathy Acute systolic heart failure, clinically euvolemic. Hypertension Dyslipidemia PLAN: Await records from [place] to determine if patient had a recent cardiac event to explain echo and EKG findings Continue aspirin and atorvastatin Will hold off on initiating beta thierry as patient is bradycardic on telemetry Will hold off on initiating VENU/ARB due to kidney function Further recommendations pending patient course Nurse practitioner note has been reviewed by physician. Signing provider agrees with the documented findings, assessment, and plan of care. Objective - Vital Signs Vital signs: Vital Signs Temp 97.7 F 05/21/20 10:00 Pulse 59 L 05/21/20 10:00 Resp 22 05/21/20 10:00 BP 125/70 05/21/20 10:00 Pulse Ox 90 L 05/21/20 10:00 Intake & Output 05/20/20 05/21/20 05/21/20 18:59 06:59 18:59 Intake Total 330 130 Output Total 700 Balance -370 130 Weight 70 kg Intake: IV 10 10 Invasive Line 2 10 10 Intake, IV Titration 70 Amount Tocilizumab 600 mg In 70 Sodium Chloride 0.9% 70 ml @ 100 mls/hr IV ONCE ONE Rx#:[id number] Oral 250 120 Output: Urine 700 Other: Voiding Method Toilet Toilet Toilet Urinal Urinal Urinal # Voids 0 - Labs CBC & Chem 7: 05/21/20 07:57 05/21/20 07:57 Labs: Abnormal Lab Results - Last 24 Hours (Table) 05/20/20 05/20/20 05/20/20 Range/Units 00:30 10:10 20:19 WBC (3.8-10.6) k/uL Lymphocytes # (1.0-4.8) k/uL Sodium (137-145) mmol/L BUN (9-20) mg/dL Creatinine (0.66-1.25) mg/dL Glucose (74-99) mg/dL POC Glucose (mg/dL) 143 H (75-99) mg/dL Calcium (8.4-10.2) mg/dL Magnesium (1.6-2.3) mg/dL Lactate Dehydrogenase (313-618) U/L Troponin I 0.703 H* (0.000-0.034) ng/mL C-Reactive Protein (<10.0) mg/L Procalcitonin 0.19 H (0.02-0.09) ng/mL 05/21/20 05/21/20 05/21/20 Range/Units 01:00 06:25 07:57 WBC 2.0 L (3.8-10.6) k/uL Lymphocytes # 0.2 L (1.0-4.8) k/uL Sodium 133 L (137-145) mmol/L BUN 42 H (9-20) mg/dL Creatinine 1.56 H (0.66-1.25) mg/dL Glucose 154 H (74-99) mg/dL POC Glucose (mg/dL) 168 H (75-99) mg/dL Calcium 7.9 L (8.4-10.2) mg/dL Magnesium 2.7 H (1.6-2.3) mg/dL Lactate Dehydrogenase (313-618) U/L Troponin I (0.000-0.034) ng/mL C-Reactive Protein (<10.0) mg/L Procalcitonin (0.02-0.09) ng/mL 05/21/20 Range/Units 07:57 WBC (3.8-10.6) k/uL Lymphocytes # (1.0-4.8) k/uL Sodium 133 L (137-145) mmol/L BUN 48 H (9-20) mg/dL Creatinine 1.65 H (0.66-1.25) mg/dL Glucose 163 H (74-99) mg/dL POC Glucose (mg/dL) (75-99) mg/dL Calcium 8.0 L (8.4-10.2) mg/dL Magnesium (1.6-2.3) mg/dL Lactate Dehydrogenase 1556 H (313-618) U/L Troponin I (0.000-0.034) ng/mL C-Reactive Protein 67.4 H (<10.0) mg/L Procalcitonin (0.02-0.09) ng/mL
--- NOTE | 2020-05-21 13:11 | P.PN ---
Subjective Progress Note Date: 05/21/20 This is a very pleasant 75-year-old gentleman who follows with Dr. komal ward as his primary care provider. He has a history of hyperlipidemia, anxiety, bladder cancer with TURBT in January 2020. Approximately 10 days ago the patient states he was doing well and was driving from [place] to [place] to get gas. That is the last thing he remembers. He somehow ended up at [facility] and transferred later to [facility] diagnosed with CoVID 19 infection. He states he was also told he had a myocardial infarction. He was there about 1 week and then discharged home. He was discharged on vitamin C, D and zinc. He is unsure if he received any other treatment for CoVID. He's been home about 3 days and then last night he was brought here by EMS after continuing with progressive weakness, shortness of breath, poor appetite. He lives with his daughter [place]. Chest x-ray reveals diffuse airspace opacities representing pulmonary edema versus infectious process. Echocardiogram reveals mild to moderately impaired left ventricular systolic function with ejection fraction 40-45%. Severe pulmonary hypertension. White count 2.7. Hemoglobin 14.6. Lymphocytes 0.2. D-dimer 0.64. Sodium 1:30. Potassium 5.7. Creatinine 1.24. LDH 2017. C-reactive protein 163. Troponin 0.64, 0.70. Urine with moderate leukocytes and high WBCs. Oscar virus by PCR detected. He's been initiated on vitamin C, vitamin D, zinc. Dexamethasone at 6 mg daily. Lovenox 40 mg subcu daily. He is also started on ceftriaxone and IV diuretics. He is seen today in consultation in the emergency room. He is currently awake and alert. Resting comfortably in bed. He is oriented 3. He is currently on a nonrebreather mask with O2 saturation of 91%. He is afebrile. Hemodynamically stable. On today's evaluation of 05/21/2020, the patient is still doing poorly. He is currently on 100% nonrebreather facemask and a 15 L high flow. His chest x-ray showing diffuse bilateral pulmonary infiltrates, interstitial, peripherally distributed, without any major interval change compared to yesterday's chest x- ray. His oxygenation is still poor. With this current oxygen flow, the patient is pulse oxing 97%. His LDH level today that 1556 and his CRP level is at 67. His creatinine is at 1.6 with a BUN of 48 and a sodium level of 133. His white cell count is currently at 2 with a hemoglobin of 13.4 and platelets of 255. His pro-calcitonin level was 0.22. I have this patient currently on IV Solu- Medrol 60 mg every 6 hours. He is on Lovenox for DVT prophylaxis. His d-dimer was at 0.48. He is lethargic. He is communicating. He is not altered mentally for now. He is quite weak. Occasional cough. No significant sputum production. Objective - Vital Signs Vital signs: Vital Signs Temp 97.7 F 05/21/20 10:00 Pulse 59 L 05/21/20 10:00 Resp 22 05/21/20 10:00 BP 125/70 05/21/20 10:00 Pulse Ox 90 L 05/21/20 10:00 Intake & Output 05/20/20 05/21/20 05/21/20 18:59 06:59 18:59 Intake Total 330 130 Output Total 700 Balance -370 130 Weight 70 kg Intake: IV 10 10 Invasive Line 2 10 10 Intake, IV Titration 70 Amount Tocilizumab 600 mg In 70 Sodium Chloride 0.9% 70 ml @ 100 mls/hr IV ONCE ONE Rx#:[id number] Oral 250 120 Output: Urine 700 Other: Voiding Method Toilet Toilet Toilet Urinal Urinal Urinal # Voids 0 - Exam GENERAL EXAM: Alert, pleasant 75-year-old gentleman, on nonrebreather mask with O2 saturation 91%, comfortable in no apparent distress. The patient is on 100% nonrebreather facemask and the patient is also on 15 L oxygen by nasal cannula, high flow. He is assuming this I was shiloh position. He was also requested to sleep on his abdomen. HEAD: Normocephalic. EYES: Normal reaction of pupils, equal size. NOSE: Clear with pink turbinates. THROAT: No erythema or exudates. NECK: No masses, no JVD. CHEST: No chest wall deformity. LUNGS: Equal air entry with crackles in the bilateral posterior bases. CVS: S1 and S2 normal with no audible murmur, regular rhythm. ABDOMEN: No hepatosplenomegaly, normal bowel sounds, no guarding or rigidity. SPINE: No scoliosis or deformity SKIN: No rashes CENTRAL NERVOUS SYSTEM: No focal deficits, tone is normal in all 4 extremities. EXTREMITIES: There is no peripheral edema. No clubbing, no cyanosis. Peripheral pulses are intact. - Labs CBC & Chem 7: 05/21/20 07:57 05/21/20 07:57 Labs: Abnormal Lab Results - Last 24 Hours (Table) 05/20/20 05/20/20 05/21/20 Range/Units 00:30 20:19 01:00 WBC (3.8-10.6) k/uL Lymphocytes # (1.0-4.8) k/uL Sodium 133 L (137-145) mmol/L BUN 42 H (9-20) mg/dL Creatinine 1.56 H (0.66-1.25) mg/dL Glucose 154 H (74-99) mg/dL POC Glucose (mg/dL) 143 H (75-99) mg/dL Calcium 7.9 L (8.4-10.2) mg/dL Magnesium 2.7 H (1.6-2.3) mg/dL Lactate Dehydrogenase (313-618) U/L C-Reactive Protein (<10.0) mg/L Procalcitonin 0.19 H (0.02-0.09) ng/mL 05/21/20 05/21/20 05/21/20 Range/Units 06:25 07:57 07:57 WBC 2.0 L (3.8-10.6) k/uL Lymphocytes # 0.2 L (1.0-4.8) k/uL Sodium (137-145) mmol/L BUN (9-20) mg/dL Creatinine (0.66-1.25) mg/dL Glucose (74-99) mg/dL POC Glucose (mg/dL) 168 H (75-99) mg/dL Calcium (8.4-10.2) mg/dL Magnesium (1.6-2.3) mg/dL Lactate Dehydrogenase (313-618) U/L C-Reactive Protein (<10.0) mg/L Procalcitonin 0.22 H (0.02-0.09) ng/mL 05/21/20 05/21/20 Range/Units 07:57 12:01 WBC (3.8-10.6) k/uL Lymphocytes # (1.0-4.8) k/uL Sodium 133 L (137-145) mmol/L BUN 48 H (9-20) mg/dL Creatinine 1.65 H (0.66-1.25) mg/dL Glucose 163 H (74-99) mg/dL POC Glucose (mg/dL) 239 H (75-99) mg/dL Calcium 8.0 L (8.4-10.2) mg/dL Magnesium (1.6-2.3) mg/dL Lactate Dehydrogenase 1556 H (313-618) U/L C-Reactive Protein 67.4 H (<10.0) mg/L Procalcitonin (0.02-0.09) ng/mL Assessment and Plan Plan: 1 Acute hypoxic respiratory failure secondary to CoVID 19 pneumonia and the patient is currently on a nonrebreather mask with O2 saturation at 91% in a ddition to high flow oxygen at 15 L. Condition probably is either stable or slightly worse compared to yesterday as the patient is still having some episodes of desaturation. His oxygen saturations are positional, better when he is on his side or on his abdomen. Will prefer some prone positioning while him being on a high flow oxygen and 100% nonrebreather facemask. LDH is elevated. D-dimer is nonelevated. 2 Lymphocytopenia secondary to above 3 Elevated inflammatory markers secondary to above, his LDH level is coming down is downtrending so is the CRP. LDH is 1556 and the CRP is down to 67 4 Recent hospitalization in [place] for CoVID 19 infection for approximately one week, home 3 days prior to her returning here 5 Recent myocardial infarction according to the patient as told in [place], possible stent placement 6 Suspect ischemic cardiomyopathy with ejection fraction 40-45% 7 Troponin leak 8 Pulmonary hypertension 9 Urinary tract infection is suspected, cultures are pending and the patient is on no antibiotics for now 10 Hyperlipidemia 11 History of anxiety 12 History of bladder cancer status post TURBT in January 2020 Plan: Chest x-ray and labs reviewed Continue IV Solu-Medrol, Lovenox, vitamin supplements Outside the window for any further treatment Unsure of any treatment in [place] [facility] Follow up chest x-ray, inflammatory markers the findings are stable for now. Titrate FiO2 as tolerated Continue diuretics Pro calcitonin is low at 0.1 and 0.2 We will continue to follow and make further recommendations based on his clinical status, condition is critical and the patient may end up being transferred to the ICU there is any worsening or decompensation in his respiratory status.
[2020-05-21 16:42] LABS: Glucose,Whole Blood 144 mg/dL (75-99)
--- NOTE | 2020-05-21 17:35 | P.PN ---
Subjective This is a pleasant 75 years old male with past medical history of hyperlipidemia , coronary artery disease status post stent. Patient of Dr. Cole. His somewhat poor historian. Patient presents with dyspnea and a dry with no chest pain or abdominal pain or diarrhea. No headache or weakness or numbness. However he was complaining of from upper respiratory symptoms and sore throat as well. Patient also and he was confused, last time he got lost at [place] and he was taken to [facility] where he stayed there for 4-5 days for Covid infection as he states, he went home after that however he did not feel better. . He denies smoking, alcohol or illicit drugs Patient also states that he has history of urinary bladder cancer status post surgery [address] zee to 2 months ago as he states. He does not follow up with oncologist or has chemotherapy Vitals are stable except he has oxygen saturation of 91% on 15 L oxygen via nonrebreather BMP showed a glucose of 110, potassium 5.7, creatinine 1.24 with baseline 1.0- 1.2 C-reactive protein is elevated to 163 and LDH is also elevated at 2017. Troponin is 0.6. ProBNP 1790. Sodium 130, liver enzymes not significantly elevated. Bilirubin is normal 0.9. WBC is 2.7K with lymphopenia 0.2. Trace CBC is unremarkable. urine test strip : plus 2 protein , moderate blood and leukocytes, cloudy, while microscopy RBC 48 (H), WBC 36 (H) Chest x-ray: Diffuse airspace opacity which may represent pulmonary edema versus an infectious process with questionable small right pleural effusion per radiologist reports EKG showing normal sinus rhythm at [address]PM with no significant ST-T changes except for T-wave inversion in lead III and aVF and lead 5 and 6 patient was already started on dexamethasone, zinc and vitamin C 05/21/2020 Patient feels better regarding his dyspnea however he still hypoxic and low 90s high 80s needeing 15 L/m Oxygen via nasal cannula Creatinine trended up slightly, change Lasix to oral. Echocardiogram showed ejection fraction of 40-45% showing ischemic cardiomyopathy, he is on oral Lasix currently. Also His urine analysis is suspicious for UTI, recent urine culture. Ceftriaxone was started Patient currently on Solu-Medrol, vitamin C, zinc and aspirin 81 mg with Lovenox DVT prophylaxis. 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 HEENT: No recent visual problems or hearing problems. Denied any sore throat. CARDIOVASCULAR: No orthopnea, PND, no palpitations, no syncope. PULMONARY: No chest wall tenderness, no hemoptysis. GASTROINTESTINAL: No diarrhea, no nausea, no vomiting, no abdominal pain. Normoactive bowel sounds. NEUROLOGICAL: No headaches, no weakness, no numbness. Active Medications Generic Name Dose Route Start Last Admin Trade Name Freq PRN Reason Stop Dose Admin Acetaminophen 325 mg 05/20/20 09:02 Acetaminophen Tab 325 Mg Tab PO Q6HR PRN Fever and/ or Pain Albuterol Sulfate 2 puff 05/20/20 09:11 05/21/20 11:49 Albuterol Hfa Inhaler INHALATION 2 puff RT-QID PRN Administration Shortness Of Breath Or Wheezing Ascorbic Acid 1,000 mg 05/20/20 09:00 05/21/20 10:13 Ascorbic Acid 500 Mg Tab PO 1,000 mg DAILY SANKET Administration Aspirin 81 mg 05/20/20 09:00 05/21/20 10:13 Aspirin 81 Mg PO 81 mg DAILY SANKET Administration Atorvastatin Calcium 80 mg 05/20/20 09:00 05/21/20 10:12 Atorvastatin 80 Mg Tab PO 80 mg DAILY SANKET Administration Cholecalciferol 10 mcg 05/20/20 09:00 05/21/20 10:13 Cholecalciferol 10 Mcg (400 Iu) Tablet PO 10 mcg DAILY SANKET Administration Enoxaparin Sodium 40 mg 05/20/20 09:00 05/21/20 10:12 Enoxaparin 40 Mg/0.4 Ml Syringe SQ 40 mg DAILY SANKET Administration Famotidine 40 mg 05/21/20 09:00 05/21/20 10:12 Famotidine 20 Mg Tab PO 40 mg DAILY SANKET Administration Furosemide 40 mg 05/21/20 09:00 05/21/20 10:13 Furosemide 40 Mg Tab PO 40 mg DAILY SANKET Administration Insulin Aspart 0 unit 05/20/20 21:00 05/21/20 12:33 Insulin Aspart (Novolog) 100 Unit/Ml Vial SQ 8 unit ACHS SANKET Administration Protocol Methylprednisolone Sodium Succinate 60 mg 05/20/20 18:00 05/21/20 12:34 Methylprednisolone Sod Succi 125 Mg/2 Ml Vial IV 60 mg Q6HR SANKET Administration Risperidone 2 mg 05/20/20 09:00 05/21/20 10:13 Risperidone 2 Mg Tab PO 2 mg DAILY SANKET Administration Zinc Sulfate 220 mg 05/20/20 09:00 05/21/20 10:13 Zinc Sulfate 220 Mg Cap PO 220 mg DAILY SANKET Administration Objective - Vital Signs Vital signs: Vital Signs Temp 97.7 F 05/21/20 10:00 Pulse 59 L 05/21/20 10:00 Resp 22 05/21/20 10:00 BP 125/70 05/21/20 10:00 Pulse Ox 90 L 05/21/20 10:00 Intake & Output 05/20/20 05/21/20 05/21/20 18:59 06:59 18:59 Intake Total 330 130 Output Total 700 Balance -370 130 Weight 70 kg Intake: IV 10 10 Invasive Line 2 10 10 Intake, IV Titration 70 Amount Tocilizumab 600 mg In 70 Sodium Chloride 0.9% 70 ml @ 100 mls/hr IV ONCE ONE Rx#:[id number] Oral 250 120 Output: Urine 700 Other: Voiding Method Toilet Toilet Toilet Urinal Urinal Urinal # Voids 0 - Exam GENERAL: The patient is alert and oriented x3, not in any acute distress. Well developed, well nourished. HEENT: Pupils are round and equally reacting to light. EOMI. No scleral icterus. No conjunctival pallor. Normocephalic, atraumatic. No pharyngeal erythema. No thyromegaly. CARDIOVASCULAR: S1 and S2 present. No murmurs, rubs, or gallops. PULMONARY: Chest is clear to auscultation, no wheezing or crackles. ABDOMEN: Soft, nontender, nondistended, normoactive bowel sounds. No palpable organomegaly. MUSCULOSKELETAL: No joint swelling or deformity. EXTREMITIES: No cyanosis, clubbing, or pedal edema. NEUROLOGICAL: Gross neurological examination did not reveal any focal deficits. SKIN: No rashes. no petechiae. - Labs CBC & Chem 7: 05/21/20 07:57 05/21/20 07:57 Labs: Abnormal Lab Results - Last 24 Hours (Table) 05/20/20 05/20/20 05/21/20 Range/Units 00:30 20:19 01:00 WBC (3.8-10.6) k/uL Lymphocytes # (1.0-4.8) k/uL Sodium 133 L (137-145) mmol/L BUN 42 H (9-20) mg/dL Creatinine 1.56 H (0.66-1.25) mg/dL Glucose 154 H (74-99) mg/dL POC Glucose (mg/dL) 143 H (75-99) mg/dL Calcium 7.9 L (8.4-10.2) mg/dL Magnesium 2.7 H (1.6-2.3) mg/dL Lactate Dehydrogenase (313-618) U/L C-Reactive Protein (<10.0) mg/L Procalcitonin 0.19 H (0.02-0.09) ng/mL 05/21/20 05/21/20 05/21/20 Range/Units 06:25 07:57 07:57 WBC 2.0 L (3.8-10.6) k/uL Lymphocytes # 0.2 L (1.0-4.8) k/uL Sodium (137-145) mmol/L BUN (9-20) mg/dL Creatinine (0.66-1.25) mg/dL Glucose (74-99) mg/dL POC Glucose (mg/dL) 168 H (75-99) mg/dL Calcium (8.4-10.2) mg/dL Magnesium (1.6-2.3) mg/dL Lactate Dehydrogenase (313-618) U/L C-Reactive Protein (<10.0) mg/L Procalcitonin 0.22 H (0.02-0.09) ng/mL 05/21/20 05/21/20 Range/Units 07:57 12:01 WBC (3.8-10.6) k/uL Lymphocytes # (1.0-4.8) k/uL Sodium 133 L (137-145) mmol/L BUN 48 H (9-20) mg/dL Creatinine 1.65 H (0.66-1.25) mg/dL Glucose 163 H (74-99) mg/dL POC Glucose (mg/dL) 239 H (75-99) mg/dL Calcium 8.0 L (8.4-10.2) mg/dL Magnesium (1.6-2.3) mg/dL Lactate Dehydrogenase 1556 H (313-618) U/L C-Reactive Protein 67.4 H (<10.0) mg/L Procalcitonin (0.02-0.09) ng/mL Assessment and Plan Assessment: Acute bilateral covid pneumonia Increased inflammatory markers Acute hypoxic respiratory failure secondary to above ischemic cardiomyopathy with ejection fraction 40-45% with wall hypokinesia Severe pulmonary hypertension and moderate pulmonary regurgitation metabolic encephalopathy mild Acute kidney injury, Versus chronic kidney disease possible UTI Possible history of urinary cancer status post surgery [address] Pantoja Hyperlipidemia History of coronary artery disease Plan: this is a pleasant 75 years old male who presents with bilateral Covid pneumonia with cardiomyopathy, He knew with steroids, zinc, vitamin C and Lovenox with pulmonary consult Elevated troponin, change IV Lasix to oral, and cardiology consult. Continue wi th aspirin Labs and medication were reviewed.. Continue same treatment. Continue with symptomatic treatment. Resume home medication. Monitor lytes and vitals. DVT and GI prophylaxis. Further recommendations depends on the clinical course of the patient DVT prophylaxis: Subcutaneous Lovenox GI Prophylaxis: Pepcid PT/OT: Pending Prognosis is guarded
[2020-05-21 18:59] LABS: Appearance,Urine Clear (Clear); Bilirubin,Urine Negative (Negative); Blood,Urine Trace (Negative); Color,Urine Yellow; Glucose,Urine (UA) Negative (Negative); Hyaline Casts,Urine 10 /lpf (0-2); Ketones,Urine Negative (Negative); Leukocyte Esterase,Urine Negative (Negative); Mucus,Urine Rare /hpf; Nitrite,Urine Negative (Negative); PH, Urine 5.5 (5.0-8.0); Protein,Urine Trace (Negative); RBC,Urine 2 /hpf (0-5); Specific Gravity,Urine 1.017 (1.001-1.035); Urobilinogen,Urine <2.0 mg/dL (<2.0); WBC,Urine 5 /hpf (0-5)
[2020-05-21 20:30] LABS: Glucose,Whole Blood 120 mg/dL (75-99)
[2020-05-22] MEDS: INSULIN ASPART (NovoLOG) 100 UNIT/ML VIAL SQ SCH ×4 (06:57→20:47)
[2020-05-22] MEDS: methylPREDNISolone SOD SUCCI 125 MG/2 ML VIAL IV SCH ×4 (06:57→23:44)
[2020-05-22] MEDS: ALBUTEROL HFA INHALER INHALATION PRN ×4 (08:11→20:42)
[2020-05-22 09:43] LABS: Basophils % (A) 0 %; Eosinophils % (A) 0 %; HCT 39.3 % (39.0-53.0); HGB 13.6 gm/dL (13.0-17.5); Lymphocytes # (A) 0.1 k/uL (1.0-4.8); Lymphocytes % (A) 3 %; MCH 29.3 pg (25.0-35.0); MCHC 34.8 g/dL (31.0-37.0); MCV 84.4 fL (80.0-100.0); Mean Platelet Volume 7.1; Monocytes # (A) 0.2 k/uL (0-1.0); Monocytes % (A) 3 %; Neutrophils # (A) 5.2 k/uL (1.3-7.7); Neutrophils % (A) 93 %; Platelet Count 305 k/uL (150-450); RBC 4.65 m/uL (4.30-5.90); RDW 12.7 % (11.5-15.5); WBC 5.6 k/uL (3.8-10.6)
[2020-05-22 09:57] LABS: Magnesium 3.1 mg/dL (1.6-2.3); Potassium 4.9 mmol/L (3.5-5.1)
[2020-05-22] MEDS ORDERED: FUROSEMIDE 10 MG/ML 4 ML VIAL IV STA (10:22)
--- NOTE | 2020-05-22 10:22 | P.PN ---
Subjective Progress Note Date: 05/22/20 This is a very pleasant 75-year-old gentleman who follows with Dr. komal ward as his primary care provider. He has a history of hyperlipidemia, anxiety, bladder cancer with TURBT in January 2020. Approximately 10 days ago the patient states he was doing well and was driving from [place] to [place] to get gas. That is the last thing he remembers. He somehow ended up at [facility] and transferred later to [facility] diagnosed with CoVID 19 infection. He states he was also told he had a myocardial infarction. He was there about 1 week and then discharged home. He was discharged on vitamin C, D and zinc. He is unsure if he received any other treatment for CoVID. He's been home about 3 days and then last night he was brought here by EMS after continuing with progressive weakness, shortness of breath, poor appetite. He lives with his daughter [place]. Chest x-ray reveals diffuse airspace opacities representing pulmonary edema versus infectious process. Echocardiogram reveals mild to moderately impaired left ventricular systolic function with ejection fraction 40-45%. Severe pulmonary hypertension. White count 2.7. Hemoglobin 14.6. Lymphocytes 0.2. D-dimer 0.64. Sodium 1:30. Potassium 5.7. Creatinine 1.24. LDH 2017. C-reactive protein 163. Troponin 0.64, 0.70. Urine with moderate leukocytes and high WBCs. Oscar virus by PCR detected. He's been initiated on vitamin C, vitamin D, zinc. Dexamethasone at 6 mg daily. Lovenox 40 mg subcu daily. He is also started on ceftriaxone and IV diuretics. He is seen today in consultation in the emergency room. He is currently awake and alert. Resting comfortably in bed. He is oriented 3. He is currently on a nonrebreather mask with O2 saturation of 91%. He is afebrile. Hemodynamically stable. On today's evaluation of 05/21/2020, the patient is still doing poorly. He is currently on 100% nonrebreather facemask and a 15 L high flow. His chest x-ray showing diffuse bilateral pulmonary infiltrates, interstitial, peripherally distributed, without any major interval change compared to yesterday's chest x- ray. His oxygenation is still poor. With this current oxygen flow, the patient is pulse oxing 97%. His LDH level today that 1556 and his CRP level is at 67. His creatinine is at 1.6 with a BUN of 48 and a sodium level of 133. His white cell count is currently at 2 with a hemoglobin of 13.4 and platelets of 255. His pro-calcitonin level was 0.22. I have this patient currently on IV Solu- Medrol 60 mg every 6 hours. He is on Lovenox for DVT prophylaxis. His d-dimer was at 0.48. He is lethargic. He is communicating. He is not altered mentally for now. He is quite weak. Occasional cough. No significant sputum production. On 05/21/2020 at around 6. lactic this morning the patient was found to be profoundly hypoxic with a pulse ox of 84% as the patient was off his high flow and office 100% nonrebreather. Facemask. Immediately, he was placed on a BiPAP which is currently running at a pressure of 12/5 cm of water with an FiO2 of 80%. The patient is much more comfortable. However, he continues to be tachypneic with a respiratory rate of 35. Is able to generate a tidal volume of 418. His chest x-ray showing increased interstitial infiltrates bilaterally and the patient is still on a combination of treatment and he is on IV Solu-Medrol 60 mg every 6 hours and he is also recieved Tocilizumab 600 milligrams IV 1 dose on 05/20/2020. His echocardiogram also showed LV dysfunction with segmental wall motion abnormalities. His ejection fraction is around 45%. He is free of any chest pain. His blood work today and inflammatory markers are still pending. His LDH and CRP were quite elevated and he has a low pro- calcitonin level. His creatinine is at 1.5 and his white cell count is 5.6 with a hemoglobin of 15.6. No chest x-ray from today and this will be ordered based on his worsening oxygenation. His current FiO2 is at 85%. Objective - Vital Signs Vital signs: Vital Signs Temp 97.7 F 05/22/20 00:00 Pulse 55 L 05/22/20 06:55 Resp 31 H 05/22/20 06:55 BP 110/62 05/22/20 04:00 Pulse Ox 93 L 05/22/20 08:12 Intake & Output 05/21/20 05/22/20 05/22/20 18:59 06:59 18:59 Intake Total 130 100 Output Total 500 Balance 130 -400 Weight 70.5 kg Intake: IV 10 Invasive Line 2 10 Oral 120 100 Output: Urine 500 Other: Voiding Method Toilet Toilet Urinal Urinal # Voids 1 - Exam GENERAL EXAM: Alert, pleasant 75-year-old gentleman, and the patient is cu rrently on a BiPAP at a pressure of 13/5 with an FiO2 of 85%. He carries a high minute ventilation. He is short of breath even while on the BiPAP. HEAD: Normocephalic. EYES: Normal reaction of pupils, equal size. NOSE: Clear with pink turbinates. THROAT: No erythema or exudates. NECK: No masses, no JVD. CHEST: No chest wall deformity. LUNGS: Equal air entry with crackles in the bilateral posterior bases. CVS: S1 and S2 normal with no audible murmur, regular rhythm. ABDOMEN: No hepatosplenomegaly, normal bowel sounds, no guarding or rigidity. SPINE: No scoliosis or deformity SKIN: No rashes CENTRAL NERVOUS SYSTEM: No focal deficits, tone is normal in all 4 extremities. EXTREMITIES: There is no peripheral edema. No clubbing, no cyanosis. Peripheral pulses are intact. - Labs CBC & Chem 7: 05/22/20 08:59 05/22/20 08:59 Labs: Abnormal Lab Results - Last 24 Hours (Table) 05/21/20 05/21/20 05/21/20 Range/Units 07:57 12:01 16:41 Lymphocytes # (1.0-4.8) k/uL BUN (9-20) mg/dL Creatinine (0.66-1.25) mg/dL Glucose (74-99) mg/dL POC Glucose (mg/dL) 239 H 144 H (75-99) mg/dL Calcium (8.4-10.2) mg/dL Magnesium (1.6-2.3) mg/dL Procalcitonin 0.22 H (0.02-0.09) ng/mL Urine Protein (Negative) Urine Blood (Negative) Hyaline Casts (0-2) /lpf Urine Mucus (None) /hpf 05/21/20 05/21/20 05/22/20 Range/Units 18:15 20:28 08:59 Lymphocytes # 0.1 L (1.0-4.8) k/uL BUN (9-20) mg/dL Creatinine (0.66-1.25) mg/dL Glucose (74-99) mg/dL POC Glucose (mg/dL) 120 H (75-99) mg/dL Calcium (8.4-10.2) mg/dL Magnesium (1.6-2.3) mg/dL Procalcitonin (0.02-0.09) ng/mL Urine Protein Trace H (Negative) Urine Blood Trace H (Negative) Hyaline Casts 10 H (0-2) /lpf Urine Mucus Rare H (None) /hpf 05/22/20 Range/Units 08:59 Lymphocytes # (1.0-4.8) k/uL BUN 56 H (9-20) mg/dL Creatinine 1.52 H (0.66-1.25) mg/dL Glucose 142 H (74-99) mg/dL POC Glucose (mg/dL) (75-99) mg/dL Calcium 8.0 L (8.4-10.2) mg/dL Magnesium 3.1 H (1.6-2.3) mg/dL Procalcitonin (0.02-0.09) ng/mL Urine Protein (Negative) Urine Blood (Negative) Hyaline Casts (0-2) /lpf Urine Mucus (None) /hpf Assessment and Plan Plan: 1 Acute hypoxic respiratory failure secondary to CoVID 19 pneumonia , ages condition has decompensated. The patient is currently more short of breath and at the same time the patient failed nasal cannula high flow with 100% nonrebreather facemask. He is currently on a BiPAP at a pressure of 14/5 cm of water and FiO2 of 85%. He has high respiratory rate. He has a high minute ventilation. He may benefit from ICU transfer. The inflammatorymarkers and chest x-ray are to follow. 2 Lymphocytopenia secondary to above 3 Elevated inflammatory markers secondary to above, his LDH level is coming down is downtrending so is the CRP. LDH is 1556 and the CRP is down to 67 4 Recent hospitalization in [place] for CoVID 19 infection for approximately one week, home 3 days prior to her returning here 5 Recent myocardial infarction according to the patient as told in [place], possible stent placement 6 Suspect ischemic cardiomyopathy with ejection fraction 40-45% 7 Troponin leak 8 Pulmonary hypertension 9 Urinary tract infection is suspected, cultures are pending and the patient is on no antibiotics for now 10 Hyperlipidemia 11 History of anxiety 12 History of bladder cancer status post TURBT in January 2020 Plan: Chance for this patient to the intensive care unit Keep the same BiPAP settings Obtain a chest x-ray Obtain stat inflammatory markers He of Lasix 40 mg IV push, and stop the oral Lasix Continue IV Solu-Medrol, Lovenox, vitamin supplements Outside the window for any further treatment Unsure of any treatment in [facility] Received a dose of Tocilizamab 600 mg x1 Pro calcitonin is low at 0.1 and 0.2 We will continue to follow
[2020-05-22] MEDS: ASCORBIC ACID 500 MG TAB PO SCH (10:27)
[2020-05-22] MEDS: FAMOTIDINE 20 MG TAB PO SCH (10:27)
[2020-05-22] MEDS: CHOLECALCIFEROL 10 MCG (400 IU) TABLET PO SCH (10:27)
[2020-05-22] MEDS: ASPIRIN 81 MG PO SCH (10:27)
[2020-05-22] MEDS: ATORVASTATIN 80 MG TAB PO SCH (10:27)
[2020-05-22] MEDS: ZINC SULFATE 220 MG CAP PO SCH (10:28)
[2020-05-22] MEDS: risperiDONE 2 MG TAB PO SCH (10:28)
[2020-05-22] MEDS: ENOXAPARIN 40 MG/0.4 ML SYRINGE SQ SCH (10:36)
[2020-05-22 11:11] LABS: Glucose,Whole Blood 151 mg/dL (75-99)
--- NOTE | 2020-05-22 12:33 | P.PN ---
Subjective Progress Note Date: 05/22/20 HISTORY OF PRESENT ILLNESS: 05/20/2020 This is a pleasant 75-year-old occasion male past medical history significant for coronary artery exact details unknown, hypertension, bladder cancer s/p TURP and dyslipidemia. He follows in the office with Mehdi. We have been asked to see in consultation for elevated troponin. He presented to the hospital with cough, increased weakness and shortness of breath. He has been diagnosed with Covid 19. He states he had previously been diagnosed with Covid at [facility] and was transferred to [place] where he was told he had an MN. He was apparently discharged from there 3 days ago and was getting progressively more weak. He saw Dr. Harding in December 2019 for pre-op evaluation prior to TURP. At that time he had an echo and stress test. EF was 55%, moderate LVH, dilated LA, mild MR and mild TR. Lexiscan stress test at that time revealed a fixed defect inferiorly thought to be related to diaphragmatic attenuation. Limited echo ob tained on this admission revealed impaired LV systolic function with EF 40-45%, basal lateral, basal inferior and basal inferoseptal wall motion hypokinesia with severe pulmonary hypertension noted. RVSP 62 mmHg. EKG reveals sinus mechanism with T-wave inversion inferior/laterally. This is a change from the previous EKG obtained in the office last year. Chest xray duffuse airspace disease with small pleural effusion. Laboratory reviewed, WBC 2.7, hgb 14.6, plt 155, d-dimer 0.64, sodium 130, p otassium 5.7 ,creatinine 1.24, troponin 0.642 and 0.703. Current cardiac medications include aspirin 81 mg daiy and atorvastatin 80 mg daily. 05/21/2020 patient remains on 15 L nonrebreather mask. Oxygen saturations around 90%. Blood pressure 125/70. He is bradycardic in the 50s on telemetry. BUN 48. Creatinine 1.65 today, up from 1.56 yesterday. chest x-ray from this morning reveals diffuse lung infiltrates that appear to be unchanged since prior exam. 05/22/2020 Patient continued to have worsening oxygen saturations. He was placed on BiPAP this morning. Blood pressure 105/64. He is afebrile. He remains in sinus mechanism on telemetry. Records from [place] have not been received yet. PHYSICAL EXAM: Thorough physical exam not completed secondary to limited evaluation/examination and due to Covid19 ASSESSMENT: Troponin elevation secondary to COVID Covid19 acute kidney injury Ischemic cardiomyopathy Acute systolic heart failure, clinically euvolemic. Hypertension Dyslipidemia PLAN: Await records from [place] to determine if patient had a recent cardiac event to explain echo and EKG findings Continue aspirin and atorvastatin Will hold off on initiating beta thierry as patient is bradycardic on telemetry Will hold off on initiating VENU/ARB due to kidney function Further recommendations pending patient course Nurse practitioner note has been reviewed by physician. Signing provider agrees with the documented findings, assessment, and plan of care. Objective - Vital Signs Vital signs: Vital Signs Temp 98.3 F 05/22/20 11:30 Pulse 48 L 05/22/20 12:00 Resp 29 H 05/22/20 12:00 BP 129/75 05/22/20 12:00 Pulse Ox 92 L 05/22/20 12:00 Intake & Output 05/21/20 05/22/20 05/22/20 18:59 06:59 18:59 Intake Total 130 100 20 Output Total 500 675 Balance 130 -400 -655 Weight 70.5 kg Intake: IV 10 20 0.9 sodium chloride 20 Invasive Line 2 10 Oral 120 100 Output: Urine 500 675 Other: Voiding Method Toilet Toilet Toilet Urinal Urinal Urinal # Voids 1 1 - Labs CBC & Chem 7: 05/22/20 08:59 05/22/20 08:59 Labs: Abnormal Lab Results - Last 24 Hours (Table) 05/21/20 05/21/20 05/21/20 Range/Units 16:41 18:15 20:28 Lymphocytes # (1.0-4.8) k/uL BUN (9-20) mg/dL Creatinine (0.66-1.25) mg/dL Glucose (74-99) mg/dL POC Glucose (mg/dL) 144 H 120 H (75-99) mg/dL Calcium (8.4-10.2) mg/dL Magnesium (1.6-2.3) mg/dL C-Reactive Protein (<10.0) mg/L Urine Protein Trace H (Negative) Urine Blood Trace H (Negative) Hyaline Casts 10 H (0-2) /lpf Urine Mucus Rare H (None) /hpf 05/22/20 05/22/20 05/22/20 Range/Units 08:59 08:59 08:59 Lymphocytes # 0.1 L (1.0-4.8) k/uL BUN 56 H (9-20) mg/dL Creatinine 1.52 H (0.66-1.25) mg/dL Glucose 142 H (74-99) mg/dL POC Glucose (mg/dL) (75-99) mg/dL Calcium 8.0 L (8.4-10.2) mg/dL Magnesium 3.1 H (1.6-2.3) mg/dL C-Reactive Protein 32.0 H (<10.0) mg/L Urine Protein (Negative) Urine Blood (Negative) Hyaline Casts (0-2) /lpf Urine Mucus (None) /hpf 05/22/20 Range/Units 11:10 Lymphocytes # (1.0-4.8) k/uL BUN (9-20) mg/dL Creatinine (0.66-1.25) mg/dL Glucose (74-99) mg/dL POC Glucose (mg/dL) 151 H (75-99) mg/dL Calcium (8.4-10.2) mg/dL Magnesium (1.6-2.3) mg/dL C-Reactive Protein (<10.0) mg/L Urine Protein (Negative) Urine Blood (Negative) Hyaline Casts (0-2) /lpf Urine Mucus (None) /hpf
--- NOTE | 2020-05-22 13:16 | XR ---
EXAMINATION TYPE: XR chest 1V portable DATE OF EXAM: 05/22/2020 COMPARISON: 05/21/2020 HISTORY: Shortness of breath TECHNIQUE: Single frontal view of the chest is obtained. FINDINGS: Diffuse tiny airspace opacities diffusely throughout both lungs unchanged when compared to the prior study. There is no pleural effusion or pneumothorax. Heart size is normal. The osseous structures are intact. IMPRESSION: Diffuse lung opacities unchanged compared to prior study.
--- NOTE | 2020-05-22 14:34 | P.PN ---
Subjective This is a pleasant 75 years old male with past medical history of hyperlipidemia , coronary artery disease status post stent. Patient of Dr. Cole. His somewhat poor historian. Patient presents with dyspnea and a dry with no chest pain or abdominal pain or diarrhea. No headache or weakness or numbness. However he was complaining of from upper respiratory symptoms and sore throat as well. Patient also and he was confused, last time he got lost at [place] and he was taken to [facility] where he stayed there for 4-5 days for Covid infection as he states, he went home after that however he did not feel better. . He denies smoking, alcohol or illicit drugs Patient also states that he has history of urinary bladder cancer status post surgery [address] zee to 2 months ago as he states. He does not follow up with oncologist or has chemotherapy Vitals are stable except he has oxygen saturation of 91% on 15 L oxygen via nonrebreather BMP showed a glucose of 110, potassium 5.7, creatinine 1.24 with baseline 1.0- 1.2 C-reactive protein is elevated to 163 and LDH is also elevated at 2017. Troponin is 0.6. ProBNP 1790. Sodium 130, liver enzymes not significantly elevated. Bilirubin is normal 0.9. WBC is 2.7K with lymphopenia 0.2. Trace CBC is unremarkable. urine test strip : plus 2 protein , moderate blood and leukocytes, cloudy, while microscopy RBC 48 (H), WBC 36 (H) Chest x-ray: Diffuse airspace opacity which may represent pulmonary edema versus an infectious process with questionable small right pleural effusion per radiologist reports EKG showing normal sinus rhythm at [address] with no significant [address]-T changes except for T-wave inversion in lead III and aVF and lead 5 and 6 patient was already started on dexamethasone, zinc and vitamin C 05/21/2020 Patient feels better regarding his dyspnea however he still hypoxic and low 90s high 80s needeing 15 L/m Oxygen via nasal cannula Creatinine trended up slightly, change Lasix to oral. Echocardiogram showed ejection fraction of 40-45% showing ischemic cardiomyopathy, he is on oral Lasix currently. Also His urine analysis is suspicious for UTI, recent urine culture. Ceftriaxone was started Patient currently on Solu-Medrol, vitamin C, zinc and aspirin 81 mg with Lovenox DVT prophylaxis. Patient is status post 1 dose of actemra per public relations sales marketing 05/22/2020 Dear morning around 6:00 patient was A-teamed for hypoxia with oxygen saturation dropped to 79% while on her home and nonrebreather mask. Eventually patient was placed on BiPAP and his saturation improved, patient needed to go to the ICU for close monitoring and risk of intubation if his breathing got worse. History is x-ray showing worsening infiltrate when I reviewed by myself especially on both lower areas of the lungs. He remains on Solu-Medrol 60 mg, vitamin C and zinc and he is status post 1 dose of actemra 2 days ago, today he got 1 dose of IV Lasix. Ceftriaxone was discontinued today because repeat urinalysis showing no signs of infection. Cardiology on the case for his ischemic cardiomyopathy and acute systolic CHF, he is on aspirin 81 mg but no beta thierry for bradycardia or VENU inhibitor for ANITA, creatinine is stable about 1.5, was 1.2 upon admission Prognosis remains guarded Review of Systems CONSTITUTIONAL: No fever, no malaise, no fatigue. HEENT: No recent visual problems or hearing problems. Denied any sore throat. CARDIOVASCULAR: No orthopnea, PND, no palpitations, no syncope. PULMONARY: No chest wall tenderness, no hemoptysis. GASTROINTESTINAL: No diarrhea, no nausea, no vomiting, no abdominal pain. Normoactive bowel sounds. NEUROLOGICAL: No headaches, no weakness, no numbness. Active Medications Generic Name Dose Route Start Last Admin Trade Name Freq PRN Reason Stop Dose Admin Acetaminophen 325 mg 05/20/20 09:02 Acetaminophen Tab 325 Mg Tab PO Q6HR PRN Fever and/ or Pain Albuterol Sulfate 2 puff 05/20/20 09:11 05/22/20 11:14 Albuterol Hfa Inhaler INHALATION 2 puff RT-QID PRN Administration Shortness Of Breath Or Wheezing Ascorbic Acid 1,000 mg 05/20/20 09:00 05/22/20 10:27 Ascorbic Acid 500 Mg Tab PO Not Given DAILY [facility] Aspirin 81 mg 05/20/20 09:00 05/22/20 10:27 Aspirin 81 Mg PO Not Given DAILY [facility] Atorvastatin Calcium 80 mg 05/20/20 09:00 05/22/20 10:27 Atorvastatin 80 Mg Tab PO Not Given DAILY [facility] Cholecalciferol 10 mcg 05/20/20 09:00 05/22/20 10:27 Cholecalciferol 10 Mcg (400 Iu) Tablet PO Not Given DAILY [facility] Enoxaparin Sodium 40 mg 05/20/20 09:00 05/22/20 10:36 Enoxaparin 40 Mg/0.4 Ml Syringe SQ 40 mg DAILY [facility] Administration Famotidine 40 mg 05/21/20 09:00 05/22/20 10:27 Famotidine 20 Mg Tab PO Not Given DAILY [facility] Insulin Aspart 0 unit 05/20/20 21:00 05/22/20 12:44 Insulin Aspart (Novolog) 100 Unit/Ml Vial SQ 2 unit ACHS [facility] Administration Protocol Methylprednisolone Sodium Succinate 60 mg 05/20/20 18:00 05/22/20 12:43 Methylprednisolone Sod Succi 125 Mg/2 Ml Vial IV 60 mg Q6HR [facility] Administration Risperidone 2 mg 05/20/20 09:00 05/22/20 10:28 Risperidone 2 Mg Tab PO Not Given DAILY [facility] Zinc Sulfate 220 mg 05/20/20 09:00 05/22/20 10:28 Zinc Sulfate 220 Mg Cap PO Not Given DAILY [facility] Objective - Vital Signs Vital signs: Vital Signs Temp 98.3 F 05/22/20 11:30 Pulse 48 L 05/22/20 12:00 Resp 29 H 05/22/20 12:00 BP 129/75 05/22/20 12:00 Pulse Ox 92 L 05/22/20 12:00 Intake & Output 05/21/20 05/22/20 05/22/20 18:59 06:59 18:59 Intake Total 130 100 20 Output Total 500 675 Balance 130 -400 -655 Weight 70.5 kg Intake: IV 10 20 0.9 sodium chloride 20 Invasive Line 2 10 Oral 120 100 Output: Urine 500 675 Other: Voiding Method Toilet Toilet Toilet Urinal Urinal Urinal # Voids 1 1 - Exam GENERAL: The patient is alert and oriented x3, not in any acute distress. Well developed, well nourished. HEENT: Pupils are round and equally reacting to light. EOMI. No scleral icterus. No conjunctival pallor. Normocephalic, atraumatic. No pharyngeal erythema. No thyromegaly. CARDIOVASCULAR: S1 and S2 present. No murmurs, rubs, or gallops. PULMONARY: Chest is clear to auscultation, no wheezing or crackles. ABDOMEN: Soft, nontender, nondistended, normoactive bowel sounds. No palpable organomegaly. MUSCULOSKELETAL: No joint swelling or deformity. EXTREMITIES: No cyanosis, clubbing, or pedal edema. NEUROLOGICAL: Gross neurological examination did not reveal any focal deficits. SKIN: No rashes. no petechiae. - Labs CBC & Chem 7: 05/22/20 08:59 05/22/20 08:59 Labs: Abnormal Lab Results - Last 24 Hours (Table) 05/21/20 05/21/20 05/21/20 Range/Units 16:41 18:15 20:28 Lymphocytes # (1.0-4.8) k/uL BUN (9-20) mg/dL Creatinine (0.66-1.25) mg/dL Glucose (74-99) mg/dL POC Glucose (mg/dL) 144 H 120 H (75-99) mg/dL Calcium (8.4-10.2) mg/dL Magnesium (1.6-2.3) mg/dL C-Reactive Protein (<10.0) mg/L Urine Protein Trace H (Negative) Urine Blood Trace H (Negative) Hyaline Casts 10 H (0-2) /lpf Urine Mucus Rare H (None) /hpf 05/22/20 05/22/20 05/22/20 Range/Units 08:59 08:59 08:59 Lymphocytes # 0.1 L (1.0-4.8) k/uL BUN 56 H (9-20) mg/dL Creatinine 1.52 H (0.66-1.25) mg/dL Glucose 142 H (74-99) mg/dL POC Glucose (mg/dL) (75-99) mg/dL Calcium 8.0 L (8.4-10.2) mg/dL Magnesium 3.1 H (1.6-2.3) mg/dL C-Reactive Protein 32.0 H (<10.0) mg/L Urine Protein (Negative) Urine Blood (Negative) Hyaline Casts (0-2) /lpf Urine Mucus (None) /hpf 05/22/20 Range/Units 11:10 Lymphocytes # (1.0-4.8) k/uL BUN (9-20) mg/dL Creatinine (0.66-1.25) mg/dL Glucose (74-99) mg/dL POC Glucose (mg/dL) 151 H (75-99) mg/dL Calcium (8.4-10.2) mg/dL Magnesium (1.6-2.3) mg/dL C-Reactive Protein (<10.0) mg/L Urine Protein (Negative) Urine Blood (Negative) Hyaline Casts (0-2) /lpf Urine Mucus (None) /hpf Assessment and Plan Assessment: Acute bilateral covid pneumonia Increased inflammatory markers Acute hypoxic respiratory failure secondary to above ischemic cardiomyopathy with ejection fraction 40-45% with wall hypokinesia Severe pulmonary hypertension and moderate pulmonary regurgitation metabolic encephalopathy mild Acute kidney injury, Versus chronic kidney disease possible UTI Possible history of urinary cancer status post surgery [address] Pantoja Hyperlipidemia History of coronary artery disease Plan: this is a pleasant 75 years old male who presents with bilateral Covid pneumonia with cardiomyopathy, He knew with steroids, zinc, vitamin C and Lovenox with pulmonary/critical care consult Continue with Lasix as needed, cardiology consult. Continue with aspirin Labs and medication were reviewed.. Continue same treatment. Continue with symptomatic treatment. Resume home medication. Monitor lytes and vitals. DVT and GI prophylaxis. Further recommendations depends on the clinical course of the patient DVT prophylaxis: Subcutaneous Lovenox GI Prophylaxis: Pepcid PT/OT: Pending Prognosis is guarded
[2020-05-22 17:38] LABS: Glucose,Whole Blood 155 mg/dL (75-99)
[2020-05-22 20:26] LABS: Glucose,Whole Blood 144 mg/dL (75-99)
[2020-05-23 04:34] LABS: Basophils % (A) 0 %; Eosinophils % (A) 0 %; HCT 40.2 % (39.0-53.0); HGB 13.2 gm/dL (13.0-17.5); Lymphocytes # (A) 0.2 k/uL (1.0-4.8); Lymphocytes % (A) 3 %; MCH 28.2 pg (25.0-35.0); MCHC 32.9 g/dL (31.0-37.0); MCV 85.7 fL (80.0-100.0); Monocytes # (A) 0.2 k/uL (0-1.0); Monocytes % (A) 4 %; Neutrophils # (A) 5.3 k/uL (1.3-7.7); Neutrophils % (A) 92 %; Platelet Count 334 k/uL (150-450); RBC 4.69 m/uL (4.30-5.90); RDW 12.7 % (11.5-15.5); WBC 5.8 k/uL (3.8-10.6)
[2020-05-23] MEDS: methylPREDNISolone SOD SUCCI 125 MG/2 ML VIAL IV SCH ×4 (05:03→23:05)
[2020-05-23 05:37] LABS: Albumin 3.2 g/dL (3.5-5.0); C Reactive Protein 23.2 mg/L (<10.0); Calcium 8.1 mg/dL (8.4-10.2); Total Bilirubin 0.4 mg/dL (0.2-1.3); Total Protein 6.2 g/dL (6.3-8.2)
[2020-05-23] MEDS: INSULIN ASPART (NovoLOG) 100 UNIT/ML VIAL SQ SCH ×4 (06:35→22:01)
[2020-05-23 06:36] LABS: Glucose,Whole Blood 128 mg/dL (75-99)
[2020-05-23] MEDS: ALBUTEROL HFA INHALER INHALATION PRN ×3 (07:14→20:03)
--- NOTE | 2020-05-23 07:38 | XR ---
EXAMINATION TYPE: XR chest 1V portable DATE OF EXAM: 05/23/2020 Comparison: 05/22/2020 Clinical History: 75-year-old male shortness of breath, covid positive Findings: Heart upper limits of normal in size. Fine interstitial and groundglass opacities bilaterally persist without significant change. No pleural effusion. Impression: Fine ground glass infiltrates persist bilaterally.
[2020-05-23] MEDS: ATORVASTATIN 80 MG TAB PO SCH (11:06)
[2020-05-23] MEDS: FAMOTIDINE 20 MG TAB PO SCH (11:06)
[2020-05-23] MEDS: ENOXAPARIN 40 MG/0.4 ML SYRINGE SQ SCH (11:06)
[2020-05-23] MEDS: ASPIRIN 81 MG PO SCH (11:06)
[2020-05-23] MEDS: risperiDONE 2 MG TAB PO SCH (11:06)
[2020-05-23] MEDS: ZINC SULFATE 220 MG CAP PO SCH (11:07)
[2020-05-23] MEDS: ASCORBIC ACID 500 MG TAB PO SCH (11:07)
[2020-05-23] MEDS: CHOLECALCIFEROL 10 MCG (400 IU) TABLET PO SCH (11:08)
--- NOTE | 2020-05-23 11:12 | P.PN ---
Subjective Progress Note Date: 05/23/20 Principal diagnosis: CoVID 19 pneumonia This is a very pleasant 75-year-old gentleman who follows with Dr. Cole as his primary care provider. He has a history of hyperlipidemia, anxiety, bladder cancer with TURBT in January 2020. Approximately 10 days ago the patient sta celia he was doing well and was driving from [place] to [place] to get gas. That is the last thing he remembers. He somehow ended up at [facility] and transferred later to [facility] diagnosed with CoVID 19 infection. He states he was also told he had a myocardial infarction. He was there about 1 week and then discharged home. He was discharged on vitamin C, D and zinc. He is unsure if he received any other treatment for CoVID. He's been home about 3 days and then last night he was brought here by EMS after continuing with progressive weakness, shortness of breath, poor appetite. He lives with his daughter [place]. Chest x-ray reveals diffuse airspace opacities representing pulmonary edema versus infectious process. Echocardiogram reveals mild to moderately impaired left ventricular systolic function with ejection fraction 40-45%. Severe pulmonary hypertension. White count 2.7. Hemoglobin 14.6. Lymphocytes 0.2. D-dimer 0.64. Sodium 1:30. Potassium 5.7. Creatinine 1.24. LDH 2017. C-reactive protein 163. Troponin 0.64, 0.70. Urine with moderate leukocytes and high WBCs. Oscar virus by PCR detected. He's been initiated on vitamin C, vitamin D, zinc. Dexamethasone at 6 mg daily. Lovenox 40 mg subcu daily. He is also started on ceftriaxone and IV diuretics. He is seen today in consultation in the emergency room. He is currently awake and alert. Resting comfortably in bed. He is oriented 3. He is currently on a nonrebreather mask with O2 saturation of 91%. He is afebrile. Hemodynamically stable. On today's evaluation of 05/21/2020, the patient is still doing poorly. He is currently on 100% nonrebreather facemask and a 15 L high flow. His chest x-ray showing diffuse bilateral pulmonary infiltrates, interstitial, peripherally distributed, without any major interval change compared to yesterday's chest x- ray. His oxygenation is still poor. With this current oxygen flow, the patient is pulse oxing 97%. His LDH level today that 1556 and his CRP level is at 67. His creatinine is at 1.6 with a BUN of 48 and a sodium level of 133. His white cell count is currently at 2 with a hemoglobin of 13.4 and platelets of 255. His pro-calcitonin level was 0.22. I have this patient currently on IV Solu- Medrol 60 mg every 6 hours. He is on Lovenox for DVT prophylaxis. His d-dimer was at 0.48. He is lethargic. He is communicating. He is not altered mentally for now. He is quite weak. Occasional cough. No significant sputum production. On 05/21/2020 at around 6. lactic this morning the patient was found to be pro foundly hypoxic with a pulse ox of 84% as the patient was off his high flow and office 100% nonrebreather. Facemask. Immediately, he was placed on a BiPAP which is currently running at a pressure of 12/5 cm of water with an FiO2 of 80%. The patient is much more comfortable. However, he continues to be tachypneic with a respiratory rate of 35. Is able to generate a tidal volume of 418. His chest x-ray showing increased interstitial infiltrates bilaterally and the patient is still on a combination of treatment and he is on IV Solu-Medrol 60 mg every 6 hours and he is also recieved Tocilizumab 600 milligrams IV 1 dose on 05/20/2020. His echocardiogram also showed LV dysfunction with seg mental wall motion abnormalities. His ejection fraction is around 45%. He is free of any chest pain. His blood work today and inflammatory markers are still pending. His LDH and CRP were quite elevated and he has a low pro-calcitonin level. His creatinine is at 1.5 and his white cell count is 5.6 with a hemoglobin of 15.6. No chest x-ray from today and this will be ordered based on his worsening oxygenation. His current FiO2 is at 85%. The patient is seen today 05/23/2020 in follow-up in the intensive care unit. He is currently sitting up in bed. Awake and alert in no acute distress. He remains on BiPAP 15/5 and 75% FiO2 to maintain O2 saturation the high 80s and low 90s. He is somewhat anxious. Asking to go home. A bit confused this morning. This x-ray continues to show fine groundglass infiltrates bilaterally. White count 5.8. Hemoglobin 13.2. Lymphocytes 0.2. D-dimer 0.56. Sodium 140. Potassium 5.0. Creatinine 1.45. LDH 1450. C-reactive protein 23.2. Follow up urinalysis clear. He remains on IV Solu-Medrol, vitamin supplements. Objective - Vital Signs Vital signs: Vital Signs Temp 97.9 F 05/23/20 04:00 Pulse 48 L 05/23/20 07:00 Resp 25 H 05/23/20 07:00 BP 137/88 05/23/20 07:00 Pulse Ox 94 L 05/23/20 07:00 Intake & Output 05/22/20 05/23/20 05/23/20 18:59 06:59 18:59 Intake Total 550 100 Output Total 1125 400 0 Balance -575 -300 0 Weight 70.1 kg Intake: IV 100 0.9 sodium chloride 100 Oral 450 100 Output: Urine 1125 400 0 Other: Voiding Method Urinal Urinal # Voids 1 - Exam GENERAL EXAM: Alert, pleasant 75-year-old gentleman, and the patient is currently on a BiPAP at a pressure of 15/ with an FiO2 of 75%. He carries a high minute ventilation. He is short of breath even while on the BiPAP. HEAD: Normocephalic. EYES: Normal reaction of pupils, equal size. NOSE: Clear with pink turbinates. THROAT: No erythema or exudates. NECK: No masses, no JVD. CHEST: No chest wall deformity. LUNGS: Equal air entry with crackles in the bilateral posterior bases. CVS: S1 and S2 normal with no audible murmur, regular rhythm. ABDOMEN: No hepatosplenomegaly, normal bowel sounds, no guarding or rigidity. SPINE: No scoliosis or deformity SKIN: No rashes CENTRAL NERVOUS SYSTEM: No focal deficits, tone is normal in all 4 extremities. EXTREMITIES: There is no peripheral edema. No clubbing, no cyanosis. Peripheral pulses are intact. - Labs CBC & Chem 7: 05/23/20 03:09 05/23/20 03:09 Labs: Abnormal Lab Results - Last 24 Hours (Table) 05/22/20 05/22/20 05/22/20 Range/Units 08:59 08:59 11:10 Lymphocytes # (1.0-4.8) k/uL BUN (9-20) mg/dL Creatinine (0.66-1.25) mg/dL Glucose (74-99) mg/dL POC Glucose (mg/dL) 151 H (75-99) mg/dL Calcium (8.4-10.2) mg/dL Lactate Dehydrogenase (313-618) U/L Creatine Kinase (55-170) U/L C-Reactive Protein 32.0 H (<10.0) mg/L Total Protein (6.3-8.2) g/dL Albumin (3.5-5.0) g/dL Procalcitonin 0.10 H (0.02-0.09) ng/mL 05/22/20 05/22/20 05/23/20 Range/Units 17:36 20:25 03:09 Lymphocytes # 0.2 L (1.0-4.8) k/uL BUN (9-20) mg/dL Creatinine (0.66-1.25) mg/dL Glucose (74-99) mg/dL POC Glucose (mg/dL) 155 H 144 H (75-99) mg/dL Calcium (8.4-10.2) mg/dL Lactate Dehydrogenase (313-618) U/L Creatine Kinase (55-170) U/L C-Reactive Protein (<10.0) mg/L Total Protein (6.3-8.2) g/dL Albumin (3.5-5.0) g/dL Procalcitonin (0.02-0.09) ng/mL 05/23/20 05/23/20 Range/Units 03:09 06:34 Lymphocytes # (1.0-4.8) k/uL BUN 58 H (9-20) mg/dL Creatinine 1.45 H (0.66-1.25) mg/dL Glucose 139 H (74-99) mg/dL POC Glucose (mg/dL) 128 H (75-99) mg/dL Calcium 8.1 L (8.4-10.2) mg/dL Lactate Dehydrogenase 1450 H (313-618) U/L Creatine Kinase 376 H (55-170) U/L C-Reactive Protein 23.2 H (<10.0) mg/L Total Protein 6.2 L (6.3-8.2) g/dL Albumin 3.2 L (3.5-5.0) g/dL Procalcitonin (0.02-0.09) ng/mL Assessment and Plan Assessment: 1 Acute hypoxic respiratory failure secondary to CoVID 19 pneumonia and the patient is currently on BiPAP 15/5 and 75% FiO2. 2 Lymphocytopenia secondary to above 3 Elevated inflammatory markers secondary to above 4 Recent hospitalization in [place] for CoVID 19 infection for approximately one week, home 3 days prior to her returning here 5 Recent myocardial infarction according to the patient as told in [place], possible stent placement 6 Suspect ischemic cardiomyopathy with ejection fraction 40-45% 7 Troponin leak 8 Pulmonary hypertension 9 Urinary tract infection, cultures pending 10 Hyperlipidemia 11 History of anxiety 12 History of bladder cancer status post TURBT in January 2020 Plan: The patient was seen and evaluated by Dr. Kaba Chest x-ray and labs reviewed We'll attempt to switch to AirVo high flow versus the BiPAP Continue Solu-Medrol, Lovenox, vitamin supplements Unsure of any treatment in [facility] He did receive a dose of [id number] mg 1 Follow up chest x-ray, inflammatory markers in a.m. Titrate FiO2 as tolerated We will continue to follow and make further recommendations based on his clinical status
[2020-05-23 11:26] LABS: Glucose,Whole Blood 143 mg/dL (75-99)
--- NOTE | 2020-05-23 12:11 | P.PN ---
Subjective Progress Note Date: 05/23/20 HISTORY OF PRESENT ILLNESS: 05/20/2020 This is a pleasant 75-year-old occasion male past medical history significant for coronary artery exact details unknown, hypertension, bladder cancer s/p TURP and dyslipidemia. He follows in the office with Mehdi. We have been asked to see in consultation for elevated troponin. He presented to the hospital with cough, increased weakness and shortness of breath. He has been diagnosed with Covid 19. He states he had previously been diagnosed with Covid at [place] and was transferred to [place] where he was told he had an NE. He was apparently discharged from there 3 days ago and was getting progressively more weak. He saw Dr. Harding in December 2019 for pre-op evaluation prior to TURP. At that time he had an echo and stress test. EF was 55%, moderate LVH, dilated LA, mild MR and mild TR. Lexiscan stress test at that time revealed a fixed defect inferiorly thought to be related to diaphragmatic attenuation. Limited echo ob tained on this admission revealed impaired LV systolic function with EF 40-45%, basal lateral, basal inferior and basal inferoseptal wall motion hypokinesia with severe pulmonary hypertension noted. RVSP 62 mmHg. EKG reveals sinus mechanism with T-wave inversion inferior/laterally. This is a change from the previous EKG obtained in the office last year. Chest xray duffuse airspace disease with small pleural effusion. Laboratory reviewed, WBC 2.7, hgb 14.6, plt 155, d-dimer 0.64, sodium 130, p otassium 5.7 ,creatinine 1.24, troponin 0.642 and 0.703. Current cardiac medications include aspirin 81 mg daiy and atorvastatin 80 mg daily. 05/21/2020 patient remains on 15 L nonrebreather mask. Oxygen saturations around 90%. Blood pressure 125/70. He is bradycardic in the 50s on telemetry. BUN 48. Creatinine 1.65 today, up from 1.56 yesterday. chest x-ray from this morning reveals diffuse lung infiltrates that appear to be unchanged since prior exam. 05/22/2020 Patient continued to have worsening oxygen saturations. He was placed on BiPAP this morning. Blood pressure 105/64. He is afebrile. He remains in sinus mechanism on telemetry. Records from [place] have not been received yet. Addendum entered and electronically signed by Rubia Gavin NP-C 05/22/20 13:24: Records from [facility] in [place] received and reviewed: Patient hospitalized there from 05/12/2020-05/17/2020 after being transferred from [facility]. Diagnosed with acute coronary syndrome/NSTEMI and nonsustained ventricular tachycardia. Patient had 2 runs of ventricular tachycardia at [place]. Patient received Lopressor which resolved his arrhythmias but dropped his blood pressure. Patient was found to have ST depressions on his EKG when he arrived at [facility]. Patient remained bradycardic with a heart rate in the 40s at that time. Troponin level was 32.0. Echocardiogram at that time revealed ejection fraction 45-50% Initially cardiac catheterization was recommended. However after talking with the patient and his sister they decided on medical management as patient did not want to have a cardiac catheterization performed and the sister stated that the patient has a history of schizophrenia with multiple personalities and is not compliant with his medications. 05/23/2020 Patient remains in intensive care unit. Patient remains on BiPAP. Blood pressure 137/88. He is maintaining sinus mechanism in the 40s. BUN 50. Creat inine 1.45. PHYSICAL EXAM: Thorough physical exam not completed secondary to limited evaluation/examination and due to Covid19 ASSESSMENT: Troponin elevation secondary to COVID Covid19 Acute kidney injury Ischemic cardiomyopathy Acute systolic heart failure, clinically euvolemic. Hypertension Dyslipidemia Recent NSTEMI, treated medically PLAN: Continue ICU management per Dr. Kaba Continue aspirin and atorvastatin Will hold off on initiating beta thierry as patient is bradycardic on telemetry Will hold off on initiating VENU/ARB due to kidney function Further recommendations pending patient course Nurse practitioner note has been reviewed by physician. Signing provider agrees with the documented findings, assessment, and plan of care. Objective - Vital Signs Vital signs: Vital Signs Temp 97.6 F 05/23/20 08:00 Pulse 54 L 05/23/20 11:00 Resp 12 05/23/20 11:00 BP 133/73 05/23/20 11:00 Pulse Ox 97 05/23/20 11:00 Intake & Output 05/22/20 05/23/20 05/23/20 18:59 06:59 18:59 Intake Total 550 100 300 Output Total 1125 400 500 Balance -575 -300 -200 Weight 70.1 kg Intake: IV 100 0.9 sodium chloride 100 Oral 450 100 300 Output: Urine 1125 400 500 Other: Voiding Method Urinal Urinal # Voids 1 1 - Labs CBC & Chem 7: 05/23/20 03:09 05/23/20 03:09 Labs: Abnormal Lab Results - Last 24 Hours (Table) 05/22/20 05/22/20 05/22/20 Range/Units 08:59 08:59 17:36 Lymphocytes # (1.0-4.8) k/uL BUN (9-20) mg/dL Creatinine (0.66-1.25) mg/dL Glucose (74-99) mg/dL POC Glucose (mg/dL) 155 H (75-99) mg/dL Calcium (8.4-10.2) mg/dL Lactate Dehydrogenase (313-618) U/L Creatine Kinase (55-170) U/L C-Reactive Protein 32.0 H (<10.0) mg/L Total Protein (6.3-8.2) g/dL Albumin (3.5-5.0) g/dL Procalcitonin 0.10 H (0.02-0.09) ng/mL 05/22/20 05/23/20 05/23/20 Range/Units 20:25 03:09 03:09 Lymphocytes # 0.2 L (1.0-4.8) k/uL BUN 58 H (9-20) mg/dL Creatinine 1.45 H (0.66-1.25) mg/dL Glucose 139 H (74-99) mg/dL POC Glucose (mg/dL) 144 H (75-99) mg/dL Calcium 8.1 L (8.4-10.2) mg/dL Lactate Dehydrogenase 1450 H (313-618) U/L Creatine Kinase 376 H (55-170) U/L C-Reactive Protein 23.2 H (<10.0) mg/L Total Protein 6.2 L (6.3-8.2) g/dL Albumin 3.2 L (3.5-5.0) g/dL Procalcitonin (0.02-0.09) ng/mL 05/23/20 05/23/20 Range/Units 06:34 11:24 Lymphocytes # (1.0-4.8) k/uL BUN (9-20) mg/dL Creatinine (0.66-1.25) mg/dL Glucose (74-99) mg/dL POC Glucose (mg/dL) 128 H 143 H (75-99) mg/dL Calcium (8.4-10.2) mg/dL Lactate Dehydrogenase (313-618) U/L Creatine Kinase (55-170) U/L C-Reactive Protein (<10.0) mg/L Total Protein (6.3-8.2) g/dL Albumin (3.5-5.0) g/dL Procalcitonin (0.02-0.09) ng/mL
[2020-05-23 16:29] LABS: Glucose,Whole Blood 152 mg/dL (75-99)
[2020-05-23 16:51] LABS: Ferritin 374.3 ng/mL (22.0-322.0)
[2020-05-23] MEDS: FUROSEMIDE 40 MG TAB PO SCH (21:54)
[2020-05-23 21:56] LABS: Glucose,Whole Blood 209 mg/dL (75-99)
--- NOTE | 2020-05-23 23:41 | P.PN ---
Subjective This is a pleasant 75 years old male with past medical history of hyperlipidemia , coronary artery disease status post stent. Patient of Dr. Cole. His somewhat poor historian. Patient presents with dyspnea and a dry with no chest pain or abdominal pain or diarrhea. No headache or weakness or numbness. However he was complaining of from upper respiratory symptoms and sore throat as well. Patient also and he was confused, last time he got lost at [place] and he was taken to [facility] where he stayed there for 4-5 days for Covid infection as he states, he went home after that however he did not feel better. . He denies smoking, alcohol or illicit drugs Patient also states that he has history of urinary bladder cancer status post surgery [address] zee to 2 months ago as he states. He does not follow up with oncologist or has chemotherapy Vitals are stable except he has oxygen saturation of 91% on 15 L oxygen via nonrebreather BMP showed a glucose of 110, potassium 5.7, creatinine 1.24 with baseline 1.0- 1.2 C-reactive protein is elevated to 163 and LDH is also elevated at 2017. Troponin is 0.6. ProBNP 1790. Sodium 130, liver enzymes not significantly elevated. Bilirubin is normal 0.9. WBC is 2.7K with lymphopenia 0.2. Trace CBC is unremarkable. urine test strip : plus 2 protein , moderate blood and leukocytes, cloudy, while microscopy RBC 48 (H), WBC 36 (H) Chest x-ray: Diffuse airspace opacity which may represent pulmonary edema versus an infectious process with questionable small right pleural effusion per radiologist reports EKG showing normal sinus rhythm at [address]PM with no significant [address]-T changes except for T-wave inversion in lead III and aVF and lead 5 and 6 patient was already started on dexamethasone, zinc and vitamin C 05/21/2020 Patient feels better regarding his dyspnea however he still hypoxic and low 90s high 80s needeing 15 L/m Oxygen via nasal cannula Creatinine trended up slightly, change Lasix to oral. Echocardiogram showed ejection fraction of 40-45% showing ischemic cardiomyopathy, he is on oral Lasix currently. Also His urine analysis is suspicious for UTI, recent urine culture. Ceftriaxone was started Patient currently on Solu-Medrol, vitamin C, zinc and aspirin 81 mg with Lovenox DVT prophylaxis. Patient is status post 1 dose of actemra per sequins stringer 05/22/2020 Dear morning around 6:00 patient was A-teamed for hypoxia with oxygen saturation dropped to 79% while on her home and nonrebreather mask. Eventually patient was placed on BiPAP and his saturation improved, patient needed to go to the ICU for close monitoring and risk of intubation if his breathing got worse. History is x-ray showing worsening infiltrate when I reviewed by myself especially on both lower areas of the lungs. He remains on Solu-Medrol 60 mg, vitamin C and zinc and he is status post 1 dose of actemra 2 days ago, today he got 1 dose of IV Lasix. Ceftriaxone was discontinued today because repeat urinalysis showing no signs of infection. Cardiology on the case for his ischemic cardiomyopathy and acute systolic CHF, he is on aspirin 81 mg but no beta thierry for bradycardia or VENU inhibitor for ANITA, creatinine is stable about 1.5, was 1.2 upon admission Prognosis remains guarded 05/23/2020 Patient today showed improvement in his respiratory status as he was able to be taken off the BiPAP machine and placed on AIRVO 60 L. Also on and off through the chest x-ray by myself it shows there is some worsening atelectasis centrally but better aeration and improved interstitial infiltrates at the periphery Also creatinine showing slightly trending down to 1.4, no more Lasix. Inflammatory markers slightly improving with LDH down to 1450 and C-reactive protein down to 23 while the 2073. Patient still slightly bradycardic but less tachypneic He remains on Solu-Medrol 60 mg and vitamin C and zinc (he is status post 1 dose of actemra days ago.) Review of Systems CONSTITUTIONAL: No fever, no malaise, no fatigue. HEENT: No recent visual problems or hearing problems. Denied any sore throat. CARDIOVASCULAR: No orthopnea, PND, no palpitations, no syncope. PULMONARY: No chest wall tenderness, no hemoptysis. GASTROINTESTINAL: No diarrhea, no nausea, no vomiting, no abdominal pain. Normoactive bowel sounds. NEUROLOGICAL: No headaches, no weakness, no numbness. Active Medications Generic Name Dose Route Start Last Admin Trade Name Freq PRN Reason Stop Dose Admin Acetaminophen 325 mg 05/20/20 09:02 Acetaminophen Tab 325 Mg Tab PO Q6HR PRN Fever and/ or Pain Albuterol Sulfate 2 puff 03/26/21 09:11 05/23/20 20:03 Albuterol Hfa Inhaler INHALATION 2 puff RT-QID PRN Administration Shortness Of Breath Or Wheezing Ascorbic Acid 1,000 mg 05/20/20 09:00 05/23/20 11:07 Ascorbic Acid 500 Mg Tab PO 1,000 mg DAILY SANKET Administration Aspirin 81 mg 05/20/20 09:00 05/23/20 11:06 Aspirin 81 Mg PO 81 mg DAILY SANKET Administration Atorvastatin Calcium 80 mg 05/20/20 09:00 05/23/20 11:06 Atorvastatin 80 Mg Tab PO 80 mg DAILY SANKET Administration Cholecalciferol 10 mcg 05/20/20 09:00 05/23/20 11:08 Cholecalciferol 10 Mcg (400 Iu) Tablet PO 10 mcg DAILY SANKET Administration Enoxaparin Sodium 40 mg 05/20/20 09:00 05/23/20 11:06 Enoxaparin 40 Mg/0.4 Ml Syringe SQ 40 mg DAILY SANKET Administration Famotidine 40 mg 05/21/20 09:00 05/23/20 11:06 Famotidine 20 Mg Tab PO 40 mg DAILY SANKET Administration Insulin Aspart 0 unit 05/20/20 21:00 05/23/20 22:01 Insulin Aspart (Novolog) 100 Unit/Ml Vial SQ 6 unit ACHS SANKET Administration Protocol Methylprednisolone Sodium Succinate 60 mg 05/20/20 18:00 05/23/20 23:05 Methylprednisolone Sod Succi 125 Mg/2 Ml Vial IV 60 mg Q6HR SANKET Administration Risperidone 2 mg 05/20/20 09:00 05/23/20 11:06 Risperidone 2 Mg Tab PO 2 mg DAILY SANKET Administration Zinc Sulfate 220 mg 05/20/20 09:00 05/23/20 11:07 Zinc Sulfate 220 Mg Cap PO 220 mg DAILY SANKET Administration Objective - Vital Signs Vital signs: Vital Signs Temp 97.6 F 05/23/20 08:00 Pulse 54 L 05/23/20 11:00 Resp 12 05/23/20 11:00 BP 133/73 05/23/20 11:00 Pulse Ox 97 05/23/20 11:00 Intake & Output 05/22/20 05/23/20 05/23/20 18:59 06:59 18:59 Intake Total 550 100 300 Output Total 1125 400 500 Balance -575 -300 -200 Weight 70.1 kg Intake: IV 100 0.9 sodium chloride 100 Oral 450 100 300 Output: Urine 1125 400 500 Other: Voiding Method Urinal Urinal # Voids 1 1 - Exam GENERAL: The patient is alert and oriented x3, not in any acute distress. Well developed, well nourished. HEENT: Pupils are round and equally reacting to light. EOMI. No scleral icterus. No conjunctival pallor. Normocephalic, atraumatic. No pharyngeal erythema. No thyromegaly. CARDIOVASCULAR: S1 and S2 present. No murmurs, rubs, or gallops. PULMONARY: Chest is clear to auscultation, no wheezing or crackles. ABDOMEN: Soft, nontender, nondistended, normoactive bowel sounds. No palpable organomegaly. MUSCULOSKELETAL: No joint swelling or deformity. EXTREMITIES: No cyanosis, clubbing, or pedal edema. NEUROLOGICAL: Gross neurological examination did not reveal any focal deficits. SKIN: No rashes. no petechiae. - Labs CBC & Chem 7: 05/23/20 03:09 05/23/20 03:09 Labs: Abnormal Lab Results - Last 24 Hours (Table) 05/22/20 05/22/20 05/22/20 Range/Units 08:59 17:36 20:25 Lymphocytes # (1.0-4.8) k/uL BUN (9-20) mg/dL Creatinine (0.66-1.25) mg/dL Glucose (74-99) mg/dL POC Glucose (mg/dL) 155 H 144 H (75-99) mg/dL Calcium (8.4-10.2) mg/dL Lactate Dehydrogenase (313-618) U/L Creatine Kinase (55-170) U/L C-Reactive Protein (<10.0) mg/L Total Protein (6.3-8.2) g/dL Albumin (3.5-5.0) g/dL Procalcitonin 0.10 H (0.02-0.09) ng/mL 05/23/20 05/23/20 05/23/20 Range/Units 03:09 03:09 06:34 Lymphocytes # 0.2 L (1.0-4.8) k/uL BUN 58 H (9-20) mg/dL Creatinine 1.45 H (0.66-1.25) mg/dL Glucose 139 H (74-99) mg/dL POC Glucose (mg/dL) 128 H (75-99) mg/dL Calcium 8.1 L (8.4-10.2) mg/dL Lactate Dehydrogenase 1450 H (313-618) U/L Creatine Kinase 376 H (55-170) U/L C-Reactive Protein 23.2 H (<10.0) mg/L Total Protein 6.2 L (6.3-8.2) g/dL Albumin 3.2 L (3.5-5.0) g/dL Procalcitonin (0.02-0.09) ng/mL 05/23/20 Range/Units 11:24 Lymphocytes # (1.0-4.8) k/uL BUN (9-20) mg/dL Creatinine (0.66-1.25) mg/dL Glucose (74-99) mg/dL POC Glucose (mg/dL) 143 H (75-99) mg/dL Calcium (8.4-10.2) mg/dL Lactate Dehydrogenase (313-618) U/L Creatine Kinase (55-170) U/L C-Reactive Protein (<10.0) mg/L Total Protein (6.3-8.2) g/dL Albumin (3.5-5.0) g/dL Procalcitonin (0.02-0.09) ng/mL Assessment and Plan Assessment: Acute bilateral covid pneumonia Increased inflammatory markers Acute hypoxic respiratory failure secondary to above ischemic cardiomyopathy with ejection fraction 40-45% with wall hypokinesia Severe pulmonary hypertension and moderate pulmonary regurgitation metabolic encephalopathy mild Acute kidney injury, Versus chronic kidney disease possible UTI Possible history of urinary cancer status post surgery [address] Pantoja Hyperlipidemia History of coronary artery disease Plan: this is a pleasant 75 years old male who presents with bilateral Covid pneumo dot with cardiomyopathy, He knew with steroids, zinc, vitamin C and Lovenox with pulmonary/critical care consult Continue with Lasix as needed, cardiology consult. Continue with aspirin Labs and medication were reviewed.. Continue same treatment. Continue with symptomatic treatment. Resume home medication. Monitor lytes and vitals. DVT and GI prophylaxis. Further recommendations depends on the clinical course of the patient DVT prophylaxis: Subcutaneous Lovenox GI Prophylaxis: Pepcid PT/OT: Pending Prognosis is guarded
[2020-05-24] MEDS: methylPREDNISolone SOD SUCCI 125 MG/2 ML VIAL IV SCH ×4 (05:25→23:08)
[2020-05-24 07:06] LABS: Glucose,Whole Blood 137 mg/dL (75-99)
[2020-05-24] MEDS: INSULIN ASPART (NovoLOG) 100 UNIT/ML VIAL SQ SCH ×4 (07:15→20:30)
[2020-05-24] MEDS: ATORVASTATIN 80 MG TAB PO SCH (07:16)
[2020-05-24] MEDS: FAMOTIDINE 20 MG TAB PO SCH (07:16)
[2020-05-24] MEDS: ASCORBIC ACID 500 MG TAB PO SCH (07:16)
[2020-05-24] MEDS: ASPIRIN 81 MG PO SCH (07:16)
[2020-05-24] MEDS: ENOXAPARIN 40 MG/0.4 ML SYRINGE SQ SCH (07:16)
[2020-05-24] MEDS: ZINC SULFATE 220 MG CAP PO SCH (07:16)
[2020-05-24] MEDS: CHOLECALCIFEROL 10 MCG (400 IU) TABLET PO SCH (07:17)
[2020-05-24] MEDS: risperiDONE 2 MG TAB PO SCH (07:17)
[2020-05-24 07:34] LABS: Calcium 8.4 mg/dL (8.4-10.2)
[2020-05-24 11:39] LABS: Glucose,Whole Blood 140 mg/dL (75-99)
[2020-05-24] MEDS: ALBUTEROL HFA INHALER INHALATION PRN ×2 (11:56→15:56)
--- NOTE | 2020-05-24 12:36 | P.PN ---
Subjective This is a pleasant 75-year-old occasion male past medical history significant for coronary artery exact details unknown, hypertension, bladder cancer s/p TURP and dyslipidemia. He follows in the office with Mehdi. We have been asked to see in consultation for elevated troponin. He presented to the hospital with cough, increased weakness and shortness of breath. He has been diagnosed with Covid 19. He states he had previously been diagnosed with Covid at [place] and was transferred to [place] where he was told he had an ND. He was apparently discharged from there 3 days ago and was getting progressively more weak. He saw Dr. Harding in December 2019 for pre-op evaluation prior to TURP. At that time he had an echo and stress test. EF was 55%, moderate LVH, dilated LA, mild MR and mild TR. Lexiscan stress test at that time revealed a fixed defect inferiorly thought to be related to diaphragmatic attenuation. Limited echo obtained on this admission revealed impaired LV systolic function with EF 40- 45%, basal lateral, basal inferior and basal inferoseptal wall motion hypokinesia with severe pulmonary hypertension noted. RVSP 62 mmHg. EKG reveals sinus mechanism with T-wave inversion inferior/laterally. This is a change from the previous EKG obtained in the office last year. Chest xray duffuse airspace disease with small pleural effusion. Laboratory reviewed on 05/20/20: , WBC 2.7, hgb 14.6, plt 155, d-dimer 0.64, sodium 130, potassium 5.7 ,creatinine 1.24, troponin 0.642 and 0.703. Records from [facility] in [place] received and reviewed: Patient hospitalized there from 05/12/2020-05/17/2020 after being transferred from [facility]. Diagnosed with acute coronary syndrome/NSTEMI and nonsustained ventricular tachycardia. Patient had 2 runs of ventricular tachycardia at [facility]. Patient received Lopressor which resolved his arrhythmias but dropped his blood pressure. Patient was found to have ST depressions on his EKG when he arrived at [facility]. Patient remained bradycardic with a heart rate in the 40s at that time. Troponin level was 32.0. Echocardiogram at that time revealed ejection fraction 45-50% Initially cardiac catheterization was recommended. However after talking with the patient and his sister they decided on medical management as patient did not want to have a cardiac catheterization performed and the sister stated that the patient has a history of schizophrenia with multiple personalities and is not compliant with his medications. 05/24/2020 Patient transferred out of ICU. BP 119/64, HR 57, afebrile, maintaing oxygen saturations on airvo, Laboratory reviewed, sodium 142, K 5.0, serum creatinine improving at 1.00, BUN 51. Current cardiac medications include aspirin 81 mg daily and atorvastatin 80 mg daily. PHYSICAL EXAM: Thorough physical exam not completed secondary to limited evaluation/examination and due to Covid19 ASSESSMENT: Troponin elevation secondary to COVID Covid19 infection Acute kidney injury- improving Ischemic cardiomyopathy Acute systolic heart failure, clinically euvolemic. Hypertension Dyslipidemia Recent NSTEMI, treated medically PLAN: Continue aspirin and atorvastatin Will continue to hold off on initiating beta thierry as patient is bradycardic on telemetry Will continue to hold off on initiating VENU/ARB due to kidney function We will sign at this time. Please reach out for any other questions or concerns. Patient will follow up in the office with Dr. Harding. Nurse practitioner note has been reviewed by physician. Signing provider agrees with the documented findings, assessment, and plan of care. Objective - Vital Signs Vital signs: Vital Signs Temp 97.8 F 05/24/20 08:38 Pulse 57 L 05/24/20 08:38 Resp 18 05/24/20 08:38 BP 119/64 05/24/20 08:38 Pulse Ox 99 05/24/20 08:38 Intake & Output 05/23/20 05/24/20 05/24/20 18:59 06:59 18:59 Intake Total 300 300 Output Total 625 125 Balance -325 -125 300 Weight 68.5 kg Intake: Oral 300 300 Output: Urine 625 125 Other: Voiding Method Urinal Urinal Urinal # Voids 1 - Labs CBC & Chem 7: 05/23/20 03:09 05/24/20 06:29 Labs: Abnormal Lab Results - Last 24 Hours (Table) 05/23/20 05/23/20 05/23/20 Range/Units 03:09 11:24 16:28 Chloride (98-107) mmol/L BUN (9-20) mg/dL Glucose (74-99) mg/dL POC Glucose (mg/dL) 143 H 152 H (75-99) mg/dL Ferritin 374.3 H (22.0-322.0) ng/mL 05/23/20 05/24/20 05/24/20 Range/Units 21:55 06:29 07:05 Chloride 109 H (98-107) mmol/L BUN 51 H (9-20) mg/dL Glucose 148 H (74-99) mg/dL POC Glucose (mg/dL) 209 H 137 H (75-99) mg/dL Ferritin (22.0-322.0) ng/mL
--- NOTE | 2020-05-24 14:20 | P.PN ---
Subjective This is a pleasant 75 years old male with past medical history of hyperlipidemia , coronary artery disease status post stent. Patient of Dr. Cole. His somewhat poor historian. Patient presents with dyspnea and a dry with no chest pain or abdominal pain or diarrhea. No headache or weakness or numbness. However he was complaining of from upper respiratory symptoms and sore throat as well. Patient also and he was confused, last time he got lost at [place] and he was taken to [facility] where he stayed there for 4-5 days for Covid infection as he states, he went home after that however he did not feel better. . He denies smoking, alcohol or illicit drugs Patient also states that he has history of urinary bladder cancer status post surgery [address] zee to 2 months ago as he states. He does not follow up with oncologist or has chemotherapy Vitals are stable except he has oxygen saturation of 91% on 15 L oxygen via nonrebreather BMP showed a glucose of 110, potassium 5.7, creatinine 1.24 with baseline 1.0- 1.2 C-reactive protein is elevated to 163 and LDH is also elevated at 2017. Troponin is 0.6. ProBNP 1790. Sodium 130, liver enzymes not significantly elevated. Bilirubin is normal 0.9. WBC is 2.7K with lymphopenia 0.2. Trace CBC is unremarkable. urine test strip : plus 2 protein , moderate blood and leukocytes, cloudy, while microscopy RBC 48 (H), WBC 36 (H) Chest x-ray: Diffuse airspace opacity which may represent pulmonary edema versus an infectious process with questionable small right pleural effusion per radiologist reports EKG showing normal sinus rhythm at 73 BPM with no significant ST-T changes except for T-wave inversion in lead III and aVF and lead 5 and 6 patient was already started on dexamethasone, zinc and vitamin C 05/21/2020 Patient feels better regarding his dyspnea however he still hypoxic and low 90s high 80s needeing 15 L/m Oxygen via nasal cannula Creatinine trended up slightly, change Lasix to oral. Echocardiogram showed ejection fraction of 40-45% showing ischemic cardiomyopathy, he is on oral Lasix currently. Also His urine analysis is suspicious for UTI, recent urine culture. Ceftriaxone was started Patient currently on Solu-Medrol, vitamin C, zinc and aspirin 81 mg with Lovenox DVT prophylaxis. Patient is status post 1 dose of actemra per fretted instruments inspector 05/22/2020 Dear morning around 6:00 patient was A-teamed for hypoxia with oxygen saturation dropped to 79% while on her home and nonrebreather mask. Eventually patient was placed on BiPAP and his saturation improved, patient needed to go to the ICU for close monitoring and risk of intubation if his breathing got worse. History is x-ray showing worsening infiltrate when I reviewed by myself especially on both lower areas of the lungs. He remains on Solu-Medrol 60 mg, vitamin C and zinc and he is status post 1 dose of actemra 2 days ago, today he got 1 dose of IV Lasix. Ceftriaxone was discontinued today because repeat urinalysis showing no signs of infection. Cardiology on the case for his ischemic cardiomyopathy and acute systolic CHF, he is on aspirin 81 mg but no beta thierry for bradycardia or VENU inhibitor for ANITA, creatinine is stable about 1.5, was 1.2 upon admission Prognosis remains guarded 05/23/2020 Patient today showed improvement in his respiratory status as he was able to be taken off the BiPAP machine and placed on AIRVO 60 L. Also on and off through the chest x-ray by myself it shows there is some worsening atelectasis centrally but better aeration and improved interstitial infiltrates at the periphery Also creatinine showing slightly trending down to 1.4, no more Lasix. Inflammatory markers slightly improving with LDH down to 1450 and C-reactive protein down to 23 while the 2073. Patient still slightly bradycardic but less tachypneic He remains on Solu-Medrol 60 mg and vitamin C and zinc (he is status post 1 dose of actemra days ago.) 05/24/2020 Patient was transferred to the general medical floor today. He is seen in 4 S. unit. Distal with some dyspnea needing 60 L of oxygen via airvo. Still slightly bradycardic but his breathing is easy or compared to yesterday. Patient with no chest pain or dyspnea. Patient remains on salmeterol 6 mg, oral Lasix 40 mg daily. Antibiotics are stopped, continue with vitamin C and zinc Review of Systems CONSTITUTIONAL: No fever, no malaise, no fatigue. HEENT: No recent visual problems or hearing problems. Denied any sore throat. CARDIOVASCULAR: No orthopnea, PND, no palpitations, no syncope. PULMONARY: No chest wall tenderness, no hemoptysis. GASTROINTESTINAL: No diarrhea, no nausea, no vomiting, no abdominal pain. Normoactive bowel sounds. NEUROLOGICAL: No headaches, no weakness, no numbness. Active Medications Generic Name Dose Route Start Last Admin Trade Name Freq PRN Reason Stop Dose Admin Acetaminophen 325 mg 05/20/20 09:02 Acetaminophen Tab 325 Mg Tab PO Q6HR PRN Fever and/ or Pain Albuterol Sulfate 2 puff 05/20/20 09:11 05/23/20 20:03 Albuterol Hfa Inhaler INHALATION 2 puff RT-QID PRN Administration Shortness Of Breath Or Wheezing Ascorbic Acid 1,000 mg 05/20/20 09:00 05/23/20 11:07 Ascorbic Acid 500 Mg Tab PO 1,000 mg DAILY SANKET Administration Aspirin 81 mg 05/20/20 09:00 05/23/20 11:06 Aspirin 81 Mg PO 81 mg DAILY SANKET Administration Atorvastatin Calcium 80 mg 05/20/20 09:00 05/23/20 11:06 Atorvastatin 80 Mg Tab PO 80 mg DAILY SANKET Administration Cholecalciferol 10 mcg 05/20/20 09:00 05/23/20 11:08 Cholecalciferol 10 Mcg (400 Iu) Tablet PO 10 mcg DAILY SANKET Administration Enoxaparin Sodium 40 mg 05/20/20 09:00 05/23/20 11:06 Enoxaparin 40 Mg/0.4 Ml Syringe SQ 40 mg DAILY SANKET Administration Famotidine 40 mg 05/21/20 09:00 05/23/20 11:06 Famotidine 20 Mg Tab PO 40 mg DAILY SANKET Administration Insulin Aspart 0 unit 05/20/20 21:00 05/23/20 22:01 Insulin Aspart (Novolog) 100 Unit/Ml Vial SQ 6 unit ACHS SANKET Administration Protocol Methylprednisolone Sodium Succinate 60 mg 05/20/20 18:00 05/23/20 23:05 Methylprednisolone Sod Succi 125 Mg/2 Ml Vial IV 60 mg Q6HR SANKET Administration Risperidone 2 mg 05/20/20 09:00 05/23/20 11:06 Risperidone 2 Mg Tab PO 2 mg DAILY SANKET Administration Zinc Sulfate 220 mg 05/20/20 09:00 05/23/20 11:07 Zinc Sulfate 220 Mg Cap PO 220 mg DAILY SANKET Administration Objective - Vital Signs Vital signs: Vital Signs Temp 97.8 F 05/24/20 08:38 Pulse 57 L 05/24/20 08:38 Resp 18 05/24/20 08:38 BP 119/64 05/24/20 08:38 Pulse Ox 95 05/24/20 11:56 Intake & Output 05/23/20 05/24/20 05/24/20 18:59 06:59 18:59 Intake Total 300 300 Output Total 625 125 Balance -325 -125 300 Weight 68.5 kg Intake: Oral 300 300 Output: Urine 625 125 Other: Voiding Method Urinal Urinal Urinal # Voids 1 - Exam GENERAL: The patient is alert and oriented x3, not in any acute distress. Well developed, well nourished. HEENT: Pupils are round and equally reacting to light. EOMI. No scleral icterus. No conjunctival pallor. Normocephalic, atraumatic. No pharyngeal erythema. No thyromegaly. CARDIOVASCULAR: S1 and S2 present. No murmurs, rubs, or gallops. PULMONARY: Chest is clear to auscultation, no wheezing or crackles. ABDOMEN: Soft, nontender, nondistended, normoactive bowel sounds. No palpable organomegaly. MUSCULOSKELETAL: No joint swelling or deformity. EXTREMITIES: No cyanosis, clubbing, or pedal edema. NEUROLOGICAL: Gross neurological examination did not reveal any focal deficits. SKIN: No rashes. no petechiae. - Labs CBC & Chem 7: 05/23/20 03:09 05/24/20 06:29 Labs: Abnormal Lab Results - Last 24 Hours (Table) 05/23/20 05/23/20 05/23/20 Range/Units 03:09 16:28 21:55 Chloride (98-107) mmol/L BUN (9-20) mg/dL Glucose (74-99) mg/dL POC Glucose (mg/dL) 152 H 209 H (75-99) mg/dL Ferritin 374.3 H (22.0-322.0) ng/mL 05/24/20 05/24/20 05/24/20 Range/Units 06:29 07:05 11:38 Chloride 109 H (98-107) mmol/L BUN 51 H (9-20) mg/dL Glucose 148 H (74-99) mg/dL POC Glucose (mg/dL) 137 H 140 H (75-99) mg/dL Ferritin (22.0-322.0) ng/mL Assessment and Plan Assessment: Acute bilateral covid pneumonia Increased inflammatory markers Acute hypoxic respiratory failure secondary to above ischemic cardiomyopathy with ejection fraction 40-45% with wall hypokinesia Severe pulmonary hypertension and moderate pulmonary regurgitation metabolic encephalopathy mild Acute kidney injury, Versus chronic kidney disease possible UTI Possible history of urinary cancer status post surgery [address] Pantoja Hyperlipidemia History of coronary artery disease Plan: this is a pleasant 75 years old male who presents with bilateral Covid pneumonia with cardiomyopathy, He knew with steroids, zinc, vitamin C and Lovenox with pulmonary/critical care consult Continue with Lasix as needed, cardiology consult. Continue with aspirin Labs and medication were reviewed.. Continue same treatment. Continue with symptomatic treatment. Resume home medication. Monitor lytes and vitals. DVT and GI prophylaxis. Further recommendations depends on the clinical course of the patient DVT prophylaxis: Subcutaneous Lovenox GI Prophylaxis: Pepcid PT/OT: Pending Prognosis is guarded
[2020-05-24 16:47] LABS: Glucose,Whole Blood 205 mg/dL (75-99)
--- NOTE | 2020-05-24 18:33 | P.PN ---
Subjective Progress Note Date: 05/24/20 Principal diagnosis: CoVID 19 pneumonia This is a very pleasant 75-year-old gentleman who follows with Dr. Cole as his primary care provider. He has a history of hyperlipidemia, anxiety, bladder cancer with TURBT in January 2020. Approximately 10 days ago the patient sta celia he was doing well and was driving from [place] to [place] to get gas. That is the last thing he remembers. He somehow ended up at [facility] and transferred later to [facility] diagnosed with CoVID 19 infection. He states he was also told he had a myocardial infarction. He was there about 1 week and then discharged home. He was discharged on vitamin C, D and zinc. He is unsure if he received any other treatment for CoVID. He's been home about 3 days and then last night he was brought here by EMS after continuing with progressive weakness, shortness of breath, poor appetite. He lives with his daughter [place]. Chest x-ray reveals diffuse airspace opacities representing pulmonary edema versus infectious process. Echocardiogram reveals mild to moderately impaired left ventricular systolic function with ejection fraction 40-45%. Severe pulmonary hypertension. White count 2.7. Hemoglobin 14.6. Lymphocytes 0.2. D-dimer 0.64. Sodium 1:30. Potassium 5.7. Creatinine 1.24. LDH 2017. C-reactive protein 163. Troponin 0.64, 0.70. Urine with moderate leukocytes and high WBCs. Oscar virus by PCR detected. He's been initiated on vitamin C, vitamin D, zinc. Dexamethasone at 6 mg daily. Lovenox 40 mg subcu daily. He is also started on ceftriaxone and IV diuretics. He is seen today in consultation in the emergency room. He is currently awake and alert. Resting comfortably in bed. He is oriented 3. He is currently on a nonrebreather mask with O2 saturation of 91%. He is afebrile. Hemodynamically stable. On today's evaluation of 05/21/2020, the patient is still doing poorly. He is currently on 100% nonrebreather facemask and a 15 L high flow. His chest x-ray showing diffuse bilateral pulmonary infiltrates, interstitial, peripherally distributed, without any major interval change compared to yesterday's chest x- ray. His oxygenation is still poor. With this current oxygen flow, the patient is pulse oxing 97%. His LDH level today that 1556 and his CRP level is at 67. His creatinine is at 1.6 with a BUN of 48 and a sodium level of 133. His white cell count is currently at 2 with a hemoglobin of 13.4 and platelets of 255. His pro-calcitonin level was 0.22. I have this patient currently on IV Solu- Medrol 60 mg every 6 hours. He is on Lovenox for DVT prophylaxis. His d-dimer was at 0.48. He is lethargic. He is communicating. He is not altered mentally for now. He is quite weak. Occasional cough. No significant sputum production. On 05/21/2020 at around 6. lactic this morning the patient was found to be pro foundly hypoxic with a pulse ox of 84% as the patient was off his high flow and office 100% nonrebreather. Facemask. Immediately, he was placed on a BiPAP which is currently running at a pressure of 12/5 cm of water with an FiO2 of 80%. The patient is much more comfortable. However, he continues to be tachypneic with a respiratory rate of 35. Is able to generate a tidal volume of 418. His chest x-ray showing increased interstitial infiltrates bilaterally and the patient is still on a combination of treatment and he is on IV Solu-Medrol 60 mg every 6 hours and he is also recieved Tocilizumab 600 milligrams IV 1 dose on 05/20/2020. His echocardiogram also showed LV dysfunction with seg mental wall motion abnormalities. His ejection fraction is around 45%. He is free of any chest pain. His blood work today and inflammatory markers are still pending. His LDH and CRP were quite elevated and he has a low pro-calcitonin level. His creatinine is at 1.5 and his white cell count is 5.6 with a hemoglobin of 15.6. No chest x-ray from today and this will be ordered based on his worsening oxygenation. His current FiO2 is at 85%. The patient is seen today 05/23/2020 in follow-up in the intensive care unit. He is currently sitting up in bed. Awake and alert in no acute distress. He remains on BiPAP 15/5 and 75% FiO2 to maintain O2 saturation the high 80s and low 90s. He is somewhat anxious. Asking to go home. A bit confused this morning. This x-ray continues to show fine groundglass infiltrates bilaterally. White count 5.8. Hemoglobin 13.2. Lymphocytes 0.2. D-dimer 0.56. Sodium 140. Potassium 5.0. Creatinine 1.45. LDH 1450. C-reactive protein 23.2. Follow up urinalysis clear. He remains on IV Solu-Medrol, vitamin supplements. The patient is seen today 05/24/2020 in follow-up in the intensive care unit. He is currently sitting up in a chair at the bedside. Awake and alert in no acute distress. He is currently on AirVo high flow oxygen at 60 L and 80% FiO2 with O2 saturation 90%. Sodium 142. Potassium 5.0. Creatinine 1.00. Glucose 148. He remains on IV Solu-Medrol, Lovenox, vitamin supplements. Objective - Vital Signs Vital signs: Vital Signs Temp 97.8 F 05/24/20 13:31 Pulse 51 L 05/24/20 13:31 Resp 18 05/24/20 13:31 BP 119/50 05/24/20 13:31 Pulse Ox 97 05/24/20 13:31 Intake & Output 05/23/20 05/24/20 05/24/20 18:59 06:59 18:59 Intake Total 300 600 Output Total 625 125 Balance -325 -125 600 Weight 68.5 kg Intake: Oral 300 600 Output: Urine 625 125 Other: Voiding Method Urinal Urinal Urinal # Voids 1 - Exam GENERAL EXAM: Alert, pleasant 75-year-old gentleman, and the patient is currently on AirVo high flow oxygen at 60 L and 80% FiO2 HEAD: Normocephalic. EYES: Normal reaction of pupils, equal size. NOSE: Clear with pink turbinates. THROAT: No erythema or exudates. NECK: No masses, no JVD. CHEST: No chest wall deformity. LUNGS: Equal air entry with crackles in the bilateral posterior bases. CVS: S1 and S2 normal with no audible murmur, regular rhythm. ABDOMEN: No hepatosplenomegaly, normal bowel sounds, no guarding or rigidity. SPINE: No scoliosis or deformity SKIN: No rashes CENTRAL NERVOUS SYSTEM: No focal deficits, tone is normal in all 4 extremities. EXTREMITIES: There is no peripheral edema. No clubbing, no cyanosis. Peripheral pulses are intact. - Labs CBC & Chem 7: 05/23/20 03:09 05/24/20 06:29 Labs: Abnormal Lab Results - Last 24 Hours (Table) 05/23/20 05/24/20 05/24/20 Range/Units 21:55 06:29 07:05 Chloride 109 H (98-107) mmol/L BUN 51 H (9-20) mg/dL Glucose 148 H (74-99) mg/dL POC Glucose (mg/dL) 209 H 137 H (75-99) mg/dL 05/24/20 05/24/20 Range/Units 11:38 16:45 Chloride (98-107) mmol/L BUN (9-20) mg/dL Glucose (74-99) mg/dL POC Glucose (mg/dL) 140 H 205 H (75-99) mg/dL Assessment and Plan Assessment: 1 Acute hypoxic respiratory failure secondary to CoVID 19 pneumonia and the patient is currently on AirVo high flow oxygen at 60 L and 80% FiO2 2 Lymphocytopenia secondary to above 3 Elevated inflammatory markers secondary to above 4 Recent hospitalization in [place] for CoVID 19 infection for approximately one week, home 3 days prior to her returning here 5 Recent myocardial infarction according to the patient as told in [place], possible stent placement 6 Suspect ischemic cardiomyopathy with ejection fraction 40-45% 7 Troponin leak 8 Pulmonary hypertension 9 Urinary tract infection, cultures pending 10 Hyperlipidemia 11 History of anxiety 12 History of bladder cancer status post TURBT in January 2020 Plan: The patient was seen and evaluated by Dr. Kaba Continue Solu-Medrol, Lovenox, vitamin supplements He did receive a dose of Tocilizumab 600 mg 1 Titrate FiO2 as tolerated We will continue to follow I, the cosigning physician, performed a history & physical examination of the patient. Lungs sounds crackles in the bilateral posterior bases. Maintaining good O2 saturations in the 90s on AirVo high flow oxygen at 60 L and 80% FiO2. I discussed the assessment and plan of care with my nurse practitioner, Vonnie Sifuentes. I attest to the above note as dictated by her.
[2020-05-24 20:23] LABS: Glucose,Whole Blood 181 mg/dL (75-99)
[2020-05-25] MEDS: methylPREDNISolone SOD SUCCI 125 MG/2 ML VIAL IV SCH ×3 (05:04→17:32)
[2020-05-25 06:57] LABS: Glucose,Whole Blood 118 mg/dL (75-99)
[2020-05-25] MEDS: INSULIN ASPART (NovoLOG) 100 UNIT/ML VIAL SQ SCH ×4 (07:59→21:04)
[2020-05-25] MEDS: ASCORBIC ACID 500 MG TAB PO SCH ×2 (08:17→08:18)
[2020-05-25] MEDS: ATORVASTATIN 80 MG TAB PO SCH (08:17)
[2020-05-25] MEDS: ZINC SULFATE 220 MG CAP PO SCH (08:17)
[2020-05-25] MEDS: ASPIRIN 81 MG PO SCH (08:17)
[2020-05-25] MEDS: ENOXAPARIN 40 MG/0.4 ML SYRINGE SQ SCH (08:17)
[2020-05-25] MEDS: FAMOTIDINE 20 MG TAB PO SCH (08:17)
[2020-05-25] MEDS: risperiDONE 2 MG TAB PO SCH (08:18)
[2020-05-25] MEDS: CHOLECALCIFEROL 10 MCG (400 IU) TABLET PO SCH (08:28)
--- NOTE | 2020-05-25 10:44 | XR ---
EXAMINATION TYPE: XR chest 1V portable DATE OF EXAM: 05/25/2020 COMPARISON: 05/23/2020 INDICATION: Covid. TECHNIQUE: Single frontal view of the chest is obtained. FINDINGS: The heart size is normal. The pulmonary vasculature is prominent. Diffuse opacity through the bilateral lung ruvalcaba. Degree of inspiration is somewhat limited. IMPRESSION: 1. Diffuse increased lung markings and prominent pulmonary vascular markings. Correlate for atypical pneumonia or volume overload with pulmonary edema. Findings are worsening from comparison.
[2020-05-25 11:26] LABS: Glucose,Whole Blood 136 mg/dL (75-99)
[2020-05-25] MEDS: ALBUTEROL HFA INHALER INHALATION PRN ×3 (11:38→20:06)
--- NOTE | 2020-05-25 14:16 | P.PN ---
Subjective This is a pleasant 75 years old male with past medical history of hyperlipidemia , coronary artery disease status post stent. Patient of Dr. Cole. His somewhat poor historian. Patient presents with dyspnea and a dry with no chest pain or abdominal pain or diarrhea. No headache or weakness or numbness. However he was complaining of from upper respiratory symptoms and sore throat as well. Patient also and he was confused, last time he got lost at [place] and he was taken to [facility] where he stayed there for 4-5 days for Covid infection as he states, he went home after that however he did not feel better. . He denies smoking, alcohol or illicit drugs Patient also states that he has history of urinary bladder cancer status post surgery [address] zee to 2 months ago as he states. He does not follow up with oncologist or has chemotherapy Vitals are stable except he has oxygen saturation of 91% on 15 L oxygen via nonrebreather BMP showed a glucose of 110, potassium 5.7, creatinine 1.24 with baseline 1.0- 1.2 C-reactive protein is elevated to 163 and LDH is also elevated at 2017. Troponin is 0.6. ProBNP 1790. Sodium 130, liver enzymes not significantly elevated. Bilirubin is normal 0.9. WBC is 2.7K with lymphopenia 0.2. Trace CBC is unremarkable. urine test strip : plus 2 protein , moderate blood and leukocytes, cloudy, while microscopy RBC 48 (H), WBC 36 (H) Chest x-ray: Diffuse airspace opacity which may represent pulmonary edema versus an infectious process with questionable small right pleural effusion per radiologist reports EKG showing normal sinus rhythm at [address]PM with no significant ST-T changes except for T-wave inversion in lead III and aVF and lead 5 and 6 patient was already started on dexamethasone, zinc and vitamin C 05/21/2020 Patient feels better regarding his dyspnea however he still hypoxic and low 90s high 80s needeing 15 L/m Oxygen via nasal cannula Creatinine trended up slightly, change Lasix to oral. Echocardiogram showed ejection fraction of 40-45% showing ischemic cardiomyopathy, he is on oral Lasix currently. Also His urine analysis is suspicious for UTI, recent urine culture. Ceftriaxone was started Patient currently on Solu-Medrol, vitamin C, zinc and aspirin 81 mg with Lovenox DVT prophylaxis. Patient is status post 1 dose of actemra per manager general 05/22/2020 Dear morning around 6:00 patient was A-teamed for hypoxia with oxygen saturation dropped to 79% while on her home and nonrebreather mask. Eventually patient was placed on BiPAP and his saturation improved, patient needed to go to the ICU for close monitoring and risk of intubation if his breathing got worse. History is x-ray showing worsening infiltrate when I reviewed by myself especially on both lower areas of the lungs. He remains on Solu-Medrol 60 mg, vitamin C and zinc and he is status post 1 dose of actemra 2 days ago, today he got 1 dose of IV Lasix. Ceftriaxone was discontinued today because repeat urinalysis showing no signs of infection. Cardiology on the case for his ischemic cardiomyopathy and acute systolic CHF, he is on aspirin 81 mg but no beta thierry for bradycardia or VENU inhibitor for ANITA, creatinine is stable about 1.5, was 1.2 upon admission Prognosis remains guarded 05/23/2020 Patient today showed improvement in his respiratory status as he was able to be taken off the BiPAP machine and placed on AIRVO 60 L. Also on and off through the chest x-ray by myself it shows there is some worsening atelectasis centrally but better aeration and improved interstitial infiltrates at the periphery Also creatinine showing slightly trending down to 1.4, no more Lasix. Inflammatory markers slightly improving with LDH down to 1450 and C-reactive protein down to 23 while the 2073. Patient still slightly bradycardic but less tachypneic He remains on Solu-Medrol 60 mg and vitamin C and zinc (he is status post 1 dose of actemra days ago.) 05/24/2020 Patient was transferred to the general medical floor today. He is seen in 4 S. unit. Distal with some dyspnea needing 60 L of oxygen via airvo. Still slightly bradycardic but his breathing is easy or compared to yesterday. Patient with no chest pain or dyspnea. Patient remains on salmeterol 6 mg, oral Lasix 40 mg daily. Antibiotics are stopped, continue with vitamin C and zinc 05/25/2020 Patient still on airvo at 60 L/m. Patient is able to talk without interruption due to dyspnea however his toe mildly tachypneic. Patient is with no new complaints He has no labs today but chest x-ray showed increased lung markings suspicious for atypical pneumonia versus fluid overload No change in her recommendation by pulmonary team. To continue with Medrol 60 mg and vitamins. While keep monitoring closely his pulmonary function. Prognosis remains guarded Review of Systems CONSTITUTIONAL: No fever, no malaise, no fatigue. HEENT: No recent visual problems or hearing problems. Denied any sore throat. CARDIOVASCULAR: No orthopnea, PND, no palpitations, no syncope. PULMONARY: No chest wall tenderness, no hemoptysis. GASTROINTESTINAL: No diarrhea, no nausea, no vomiting, no abdominal pain. Normoactive bowel sounds. NEUROLOGICAL: No headaches, no weakness, no numbness. Active Medications Generic Name Dose Route Start Last Admin Trade Name Freq PRN Reason Stop Dose Admin Acetaminophen 325 mg 05/20/20 09:02 Acetaminophen Tab 325 Mg Tab PO Q6HR PRN Fever and/ or Pain Albuterol Sulfate 2 puff 05/20/20 09:11 05/25/20 11:38 Albuterol Hfa Inhaler INHALATION 2 puff RT-QID PRN Administration Shortness Of Breath Or Wheezing Ascorbic Acid 1,000 mg 05/20/20 09:00 05/25/20 08:18 Ascorbic Acid 500 Mg Tab PO 1,000 mg DAILY SANKET Administration Aspirin 81 mg 05/20/20 09:00 05/25/20 08:17 Aspirin 81 Mg PO 81 mg DAILY SANKET Administration Atorvastatin Calcium 80 mg 05/20/20 09:00 05/25/20 08:17 Atorvastatin 80 Mg Tab PO 80 mg DAILY SANKET Administration Cholecalciferol 10 mcg 05/20/20 09:00 05/25/20 08:28 Cholecalciferol 10 Mcg (400 Iu) Tablet PO 10 mcg DAILY SANKET Administration Enoxaparin Sodium 40 mg 05/20/20 09:00 05/25/20 08:17 Enoxaparin 40 Mg/0.4 Ml Syringe SQ 40 mg DAILY SANKET Administration Famotidine 40 mg 05/21/20 09:00 05/25/20 08:17 Famotidine 20 Mg Tab PO 40 mg DAILY SANKET Administration Insulin Aspart 0 unit 05/20/20 21:00 05/25/20 12:05 Insulin Aspart (Novolog) 100 Unit/Ml Vial SQ 1 unit ACHS SANKET Administration Protocol Methylprednisolone Sodium Succinate 60 mg 05/20/20 18:00 05/25/20 12:05 Methylprednisolone Sod Succi 125 Mg/2 Ml Vial IV 60 mg Q6HR SNAKET Administration Risperidone 2 mg 05/20/20 09:00 05/25/20 08:18 Risperidone 2 Mg Tab PO 2 mg DAILY SANKET Administration Zinc Sulfate 220 mg 05/20/20 09:00 05/25/20 08:17 Zinc Sulfate 220 Mg Cap PO 220 mg DAILY SANKET Administration Objective - Vital Signs Vital signs: Vital Signs Temp 97.9 F 05/25/20 09:44 Pulse 56 L 05/25/20 09:44 Resp 18 05/25/20 09:44 BP 123/62 05/25/20 09:44 Pulse Ox 96 05/25/20 09:44 Intake & Output 05/24/20 05/25/20 05/25/20 18:59 06:59 18:59 Intake Total 600 600 Output Total 700 500 Balance 600 -700 100 Weight 66.5 kg Intake: Oral 600 600 Output: Urine 700 500 Other: Voiding Method Urinal Urinal Urinal # Voids 1 - Exam GENERAL: The patient is alert and oriented x3, not in any acute distress. Well developed, well nourished. HEENT: Pupils are round and equally reacting to light. EOMI. No scleral icterus. No conjunctival pallor. Normocephalic, atraumatic. No pharyngeal erythema. No thyromegaly. CARDIOVASCULAR: S1 and S2 present. No murmurs, rubs, or gallops. PULMONARY: Chest is clear to auscultation, no wheezing or crackles. ABDOMEN: Soft, nontender, nondistended, normoactive bowel sounds. No palpable organomegaly. MUSCULOSKELETAL: No joint swelling or deformity. EXTREMITIES: No cyanosis, clubbing, or pedal edema. NEUROLOGICAL: Gross neurological examination did not reveal any focal deficits. SKIN: No rashes. no petechiae. - Labs CBC & Chem 7: 05/23/20 03:09 05/24/20 06:29 Labs: Abnormal Lab Results - Last 24 Hours (Table) 05/24/20 05/24/20 05/25/20 Range/Units 16:45 20:21 06:54 POC Glucose (mg/dL) 205 H 181 H 118 H (75-99) mg/dL 05/25/20 Range/Units 11:22 POC Glucose (mg/dL) 136 H (75-99) mg/dL Assessment and Plan Assessment: Acute bilateral covid pneumonia Increased inflammatory markers Acute hypoxic respiratory failure secondary to above ischemic cardiomyopathy with ejection fraction 40-45% with wall hypokinesia Severe pulmonary hypertension and moderate pulmonary regurgitation metabolic encephalopathy mild Acute kidney injury, Versus chronic kidney disease possible UTI Possible history of urinary cancer status post surgery [address] Pantoja Hyperlipidemia History of coronary artery disease Plan: this is a pleasant 75 years old male who presents with bilateral Covid pneumonia with cardiomyopathy, He knew with steroids, zinc, vitamin C and Lovenox with pulmonary/critical care consult Continue with Lasix as needed, cardiology consult. Continue with aspirin Labs and medication were reviewed.. Continue same treatment. Continue with symptomatic treatment. Resume home medication. Monitor lytes and vitals. DVT and GI prophylaxis. Further recommendations depends on the clinical course of the patient DVT prophylaxis: Subcutaneous Lovenox GI Prophylaxis: Pepcid PT/OT: Pending Prognosis is guarded
[2020-05-25] MEDS ORDERED: HALOPERIDOL LACTATE 5 MG/ML 1 ML VIAL IM ONE (15:00)
[2020-05-25 16:44] LABS: Glucose,Whole Blood 167 mg/dL (75-99)
--- NOTE | 2020-05-25 18:43 | P.PN ---
Subjective Progress Note Date: 05/25/20 Principal diagnosis: CoVID 19 pneumonia This is a very pleasant 75-year-old gentleman who follows with Dr. Cole as his primary care provider. He has a history of hyperlipidemia, anxiety, bladder cancer with TURBT in January 2020. Approximately 10 days ago the patient sta celia he was doing well and was driving from [place] to [place] to get gas. That is the last thing he remembers. He somehow ended up at [facility] and transferred later to [facility] diagnosed with CoVID 19 infection. He states he was also told he had a myocardial infarction. He was there about 1 week and then discharged home. He was discharged on vitamin C, D and zinc. He is unsure if he received any other treatment for CoVID. He's been home about 3 days and then last night he was brought here by EMS after continuing with progressive weakness, shortness of breath, poor appetite. He lives with his daughter [place]. Chest x-ray reveals diffuse airspace opacities representing pulmonary edema versus infectious process. Echocardiogram reveals mild to moderately impaired left ventricular systolic function with ejection fraction 40-45%. Severe pulmonary hypertension. White count 2.7. Hemoglobin 14.6. Lymphocytes 0.2. D-dimer 0.64. Sodium 1:30. Potassium 5.7. Creatinine 1.24. LDH 2017. C-reactive protein 163. Troponin 0.64, 0.70. Urine with moderate leukocytes and high WBCs. Oscar virus by PCR detected. He's been initiated on vitamin C, vitamin D, zinc. Dexamethasone at 6 mg daily. Lovenox 40 mg subcu daily. He is also started on ceftriaxone and IV diuretics. He is seen today in consultation in the emergency room. He is currently awake and alert. Resting comfortably in bed. He is oriented 3. He is currently on a nonrebreather mask with O2 saturation of 91%. He is afebrile. Hemodynamically stable. On today's evaluation of 05/21/2020, the patient is still doing poorly. He is currently on 100% nonrebreather facemask and a 15 L high flow. His chest x-ray showing diffuse bilateral pulmonary infiltrates, interstitial, peripherally distributed, without any major interval change compared to yesterday's chest x- ray. His oxygenation is still poor. With this current oxygen flow, the patient is pulse oxing 97%. His LDH level today that 1556 and his CRP level is at 67. His creatinine is at 1.6 with a BUN of 48 and a sodium level of 133. His white cell count is currently at 2 with a hemoglobin of 13.4 and platelets of 255. His pro-calcitonin level was 0.22. I have this patient currently on IV Solu- Medrol 60 mg every 6 hours. He is on Lovenox for DVT prophylaxis. His d-dimer was at 0.48. He is lethargic. He is communicating. He is not altered mentally for now. He is quite weak. Occasional cough. No significant sputum production. On 05/21/2020 at around 6. lactic this morning the patient was found to be pro foundly hypoxic with a pulse ox of 84% as the patient was off his high flow and office 100% nonrebreather. Facemask. Immediately, he was placed on a BiPAP which is currently running at a pressure of 12/5 cm of water with an FiO2 of 80%. The patient is much more comfortable. However, he continues to be tachypneic with a respiratory rate of 35. Is able to generate a tidal volume of 418. His chest x-ray showing increased interstitial infiltrates bilaterally and the patient is still on a combination of treatment and he is on IV Solu-Medrol 60 mg every 6 hours and he is also recieved Tocilizumab 600 milligrams IV 1 dose on 05/20/2020. His echocardiogram also showed LV dysfunction with seg mental wall motion abnormalities. His ejection fraction is around 45%. He is free of any chest pain. His blood work today and inflammatory markers are still pending. His LDH and CRP were quite elevated and he has a low pro-calcitonin level. His creatinine is at 1.5 and his white cell count is 5.6 with a hemoglobin of 15.6. No chest x-ray from today and this will be ordered based on his worsening oxygenation. His current FiO2 is at 85%. The patient is seen today 05/23/2020 in follow-up in the intensive care unit. He is currently sitting up in bed. Awake and alert in no acute distress. He remains on BiPAP 15/5 and 75% FiO2 to maintain O2 saturation the high 80s and low 90s. He is somewhat anxious. Asking to go home. A bit confused this morning. This x-ray continues to show fine groundglass infiltrates bilaterally. White count 5.8. Hemoglobin 13.2. Lymphocytes 0.2. D-dimer 0.56. Sodium 140. Potassium 5.0. Creatinine 1.45. LDH 1450. C-reactive protein 23.2. Follow up urinalysis clear. He remains on IV Solu-Medrol, vitamin supplements. The patient is seen today 05/24/2020 in follow-up in the intensive care unit. He is currently sitting up in a chair at the bedside. Awake and alert in no acute distress. He is currently on AirVo high flow oxygen at 60 L and 80% FiO2 with O2 saturation 90%. Sodium 142. Potassium 5.0. Creatinine 1.00. Glucose 148. He remains on IV Solu-Medrol, Lovenox, vitamin supplements. The patient is seen today 05/25/2020 in follow-up on the regular medical floor. He is currently resting comfortably in bed. Awake and alert in no acute distress. He is still requiring AirVo high flow oxygen at 15 L and 90% FiO2. Utilizing BiPAP at night at 14/5 and 75% FiO2. Continued on IV Solu-Medrol, Lovenox, vitamin supplements. Chest x-ray continues to show diffuse increased lung markings and prominent pulmonary vascular markings. A bit worse compared to previous. Blood glucose 167. Objective - Vital Signs Vital signs: Vital Signs Temp 98 F 05/25/20 17:38 Pulse 55 L 05/25/20 17:38 Resp 18 05/25/20 17:38 BP 141/65 05/25/20 17:38 Pulse Ox 95 05/25/20 17:38 Intake & Output 05/24/20 05/25/20 05/25/20 18:59 06:59 18:59 Intake Total 600 600 Output Total 700 500 Balance 600 -700 100 Weight 66.5 kg Intake: Oral 600 600 Output: Urine 700 500 Other: Voiding Method Urinal Urinal Urinal # Voids 1 - Exam GENERAL EXAM: Alert, pleasant 75-year-old gentleman, currently on AirVo high flow oxygen at 60 L and 90% FiO2 HEAD: Normocephalic. EYES: Normal reaction of pupils, equal size. NOSE: Clear with pink turbinates. THROAT: No erythema or exudates. NECK: No masses, no JVD. CHEST: No chest wall deformity. LUNGS: Equal air entry with crackles in the bilateral posterior bases. CVS: S1 and S2 normal with no audible murmur, regular rhythm. ABDOMEN: No hepatosplenomegaly, normal bowel sounds, no guarding or rigidity. SPINE: No scoliosis or deformity SKIN: No rashes CENTRAL NERVOUS SYSTEM: No focal deficits, tone is normal in all 4 extremities. EXTREMITIES: There is no peripheral edema. No clubbing, no cyanosis. Peripheral pulses are intact. - Labs CBC & Chem 7: 05/23/20 03:09 05/24/20 06:29 Labs: Abnormal Lab Results - Last 24 Hours (Table) 05/24/20 05/25/20 05/25/20 Range/Units 20:21 06:54 11:22 POC Glucose (mg/dL) 181 H 118 H 136 H (75-99) mg/dL 05/25/20 Range/Units 16:42 POC Glucose (mg/dL) 167 H (75-99) mg/dL Assessment and Plan Assessment: 1 Acute hypoxic respiratory failure secondary to CoVID 19 pneumonia. Received tocilizumab 2 Lymphocytopenia secondary to above 3 Elevated inflammatory markers secondary to above 4 Recent hospitalization in [place] for CoVID 19 infection for approximately one week, home 3 days prior to her returning here 5 Recent myocardial infarction according to the patient as told in [place], possible stent placement 6 Suspect ischemic cardiomyopathy with ejection fraction 40-45% 7 Troponin leak 8 Pulmonary hypertension 9 Hyperlipidemia 10 History of anxiety 11 History of bladder cancer status post TURBT in January 2020 Plan: The patient was seen and evaluated by Dr. Kaba Continue Solu-Medrol, Lovenox, vitamin supplements Remains on AirVo high flow nasal cannula alternating with BiPAP Titrate FiO2 as tolerated Prognosis is guarded We will continue to follow I, the cosigning physician, performed a history & physical examination of the patient. Lungs sounds crackles in the bilateral posterior bases. Maintaining g ood O2 saturations in the 90s on AirVo high flow oxygen at 60 L and 90% FiO2. I discussed the assessment and plan of care with my nurse practitioner, Vonnie Sifuentes. I attest to the above note as dictated by her.
[2020-05-25 20:14] LABS: Glucose,Whole Blood 163 mg/dL (75-99)
[2020-05-26] MEDS ORDERED: HALOPERIDOL LACTATE 5 MG/ML 1 ML VIAL IM ONE (00:04)
[2020-05-26] MEDS: methylPREDNISolone SOD SUCCI 125 MG/2 ML VIAL IV SCH ×5 (00:21→22:41)
[2020-05-26] MEDS ORDERED: HALOPERIDOL LACTATE 5 MG/ML 1 ML VIAL ONE (04:02)
[2020-05-26 07:11] LABS: Glucose,Whole Blood 120 mg/dL (75-99)
[2020-05-26] MEDS: INSULIN ASPART (NovoLOG) 100 UNIT/ML VIAL SQ SCH ×4 (08:24→20:33)
[2020-05-26 09:08] LABS: African American GFR (CKD) >90 (>60 ml/min/1.73 sqM); Anion Gap 3 mmol/L; Blood Urea Nitrogen 40 mg/dL (9-20); C Reactive Protein 7.7 mg/L (<10.0); Calcium 8.5 mg/dL (8.4-10.2); Carbon Dioxide 27 mmol/L (22-30); Chloride 106 mmol/L (98-107); Glucose 153 mg/dL (74-99); LDH 1603 U/L (313-618); Magnesium 3.1 mg/dL (1.6-2.3); Non-African American GFR(CKD) 85 (>60 ml/min/1.73 sqM); Potassium 5.2 mmol/L (3.5-5.1); Sodium 136 mmol/L (137-145)
[2020-05-26] MEDS: ASPIRIN 81 MG PO SCH (09:35)
[2020-05-26] MEDS: ATORVASTATIN 80 MG TAB PO SCH (09:35)
[2020-05-26] MEDS: FAMOTIDINE 20 MG TAB PO SCH (09:35)
[2020-05-26] MEDS: CHOLECALCIFEROL 10 MCG (400 IU) TABLET PO SCH (09:35)
[2020-05-26] MEDS: risperiDONE 2 MG TAB PO SCH (09:35)
[2020-05-26] MEDS: ENOXAPARIN 40 MG/0.4 ML SYRINGE SQ SCH (09:35)
[2020-05-26] MEDS: ASCORBIC ACID 500 MG TAB PO SCH (09:35)
[2020-05-26] MEDS: ZINC SULFATE 220 MG CAP PO SCH (09:35)
[2020-05-26 11:41] LABS: Glucose,Whole Blood 128 mg/dL (75-99)
[2020-05-26] MEDS: ALBUTEROL HFA INHALER INHALATION PRN ×3 (12:05→20:44)
--- NOTE | 2020-05-26 12:22 | P.PN ---
Subjective This is a pleasant 75 years old male with past medical history of hyperlipidemia , coronary artery disease status post stent. Patient of Dr. Cole. His somewhat poor historian. Patient presents with dyspnea and a dry with no chest pain or abdominal pain or diarrhea. No headache or weakness or numbness. However he was complaining of from upper respiratory symptoms and sore throat as well. Patient also and he was confused, last time he got lost at [place] and he was taken to [facility] where he stayed there for 4-5 days for Covid infection as he states, he went home after that however he did not feel better. . He denies smoking, alcohol or illicit drugs Patient also states that he has history of urinary bladder cancer status post surgery [address] zee to 2 months ago as he states. He does not follow up with oncologist or has chemotherapy Vitals are stable except he has oxygen saturation of 91% on 15 L oxygen via nonrebreather BMP showed a glucose of 110, potassium 5.7, creatinine 1.24 with baseline 1.0- 1.2 C-reactive protein is elevated to 163 and LDH is also elevated at 2017. Troponin is 0.6. ProBNP 1790. Sodium 130, liver enzymes not significantly elevated. Bilirubin is normal 0.9. WBC is 2.7K with lymphopenia 0.2. Trace CBC is unremarkable. urine test strip : plus 2 protein , moderate blood and leukocytes, cloudy, while microscopy RBC 48 (H), WBC 36 (H) Chest x-ray: Diffuse airspace opacity which may represent pulmonary edema versus an infectious process with questionable small right pleural effusion per radiologist reports EKG showing normal sinus rhythm at [address] with no significant ST-T changes except for T-wave inversion in lead III and aVF and lead 5 and 6 patient was already started on dexamethasone, zinc and vitamin C 05/21/2020 Patient feels better regarding his dyspnea however he still hypoxic and low 90s high 80s needeing 15 L/m Oxygen via nasal cannula Creatinine trended up slightly, change Lasix to oral. Echocardiogram showed ejection fraction of 40-45% showing ischemic cardiomyopathy, he is on oral Lasix currently. Also His urine analysis is suspicious for UTI, recent urine culture. Ceftriaxone was started Patient currently on Solu-Medrol, vitamin C, zinc and aspirin 81 mg with Lovenox DVT prophylaxis. 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 Eventually patient was placed on BiPAP and his saturation improved, patient needed to go to the ICU for close monitoring and risk of intubation if his breathing got worse. History is x-ray showing worsening infiltrate when I reviewed by myself especially on both lower areas of the lungs. He remains on Solu-Medrol 60 mg, vitamin C and zinc and he is status post 1 dose of actemra 2 days ago, today he got 1 dose of IV Lasix. Ceftriaxone was discontinued today because repeat urinalysis showing no signs of infection. Cardiology on the case for his ischemic cardiomyopathy and acute systolic CHF, he is on aspirin 81 mg but no beta thierry for bradycardia or VENU inhibitor for ANITA, creatinine is stable about 1.5, was 1.2 upon admission Prognosis remains guarded 05/23/2020 Patient today showed improvement in his respiratory status as he was able to be taken off the BiPAP machine and placed on AIRVO 60 L. Also on and off through the chest x-ray by myself it shows there is some worsening atelectasis centrally but better aeration and improved interstitial infiltrates at the periphery Also creatinine showing slightly trending down to 1.4, no more Lasix. Inflammatory markers slightly improving with LDH down to 1450 and C-reactive protein down to 23 while the 2073. Patient still slightly bradycardic but less tachypneic He remains on Solu-Medrol 60 mg and vitamin C and zinc (he is status post 1 dose of actemra days ago.) 05/24/2020 Patient was transferred to the general medical floor today. He is seen in 4 S. unit. Distal with some dyspnea needing 60 L of oxygen via airvo. Still slightly bradycardic but his breathing is easy or compared to yesterday. Patient with no chest pain or dyspnea. Patient remains on salmeterol 6 mg, oral Lasix 40 mg daily. Antibiotics are stopped, continue with vitamin C and zinc 05/25/2020 Patient still on airvo at 60 L/m. Patient is able to talk without interruption due to dyspnea however his toe mildly tachypneic. Patient is with no new complaints He has no labs today but chest x-ray showed increased lung markings suspicious for atypical pneumonia versus fluid overload No change in her recommendation by pulmonary team. To continue with Medrol 60 mg and vitamins. While keep monitoring closely his pulmonary function. Prognosis remains guarded 05/26/2020 The patient today shown some improvement in his dyspnea and tachypnea, his oxygen delivery is lowered to 30 L/m via high flow nasal cannula with keeping oxygen saturation at 92% d-dimer is only slightly up at 1.2.lactate dehydrogenase is still elevated to 1603. But C-reactive protein came back to normal at 7.7 Patient is currently on Solu-Medrol 60 mg, vitamin C, D and zinc. and baby aspirin Review of Systems CONSTITUTIONAL: No fever, no malaise, no fatigue. HEENT: No recent visual problems or hearing problems. Denied any sore throat. CARDIOVASCULAR: No orthopnea, PND, no palpitations, no syncope. PULMONARY: No chest wall tenderness, no hemoptysis. GASTROINTESTINAL: No diarrhea, no nausea, no vomiting, no abdominal pain. Normoactive bowel sounds. NEUROLOGICAL: No headaches, no weakness, no numbness. Active Medications Generic Name Dose Route Start Last Admin Trade Name Freq PRN Reason Stop Dose Admin Acetaminophen 325 mg 05/20/20 09:02 Acetaminophen Tab 325 Mg Tab PO Q6HR PRN Fever and/ or Pain Albuterol Sulfate 2 puff 05/20/20 09:11 05/26/20 12:05 Albuterol Hfa Inhaler INHALATION 2 puff RT-QID PRN Administration Shortness Of Breath Or Wheezing Ascorbic Acid 1,000 mg 05/20/20 09:00 05/26/20 09:35 Ascorbic Acid 500 Mg Tab PO 1,000 mg DAILY SANKET Administration Aspirin 81 mg 05/20/20 09:00 05/26/20 09:35 Aspirin 81 Mg PO 81 mg DAILY SANKET Administration Atorvastatin Calcium 80 mg 05/20/20 09:00 05/26/20 09:35 Atorvastatin 80 Mg Tab PO 80 mg DAILY SANKET Administration Cholecalciferol 10 mcg 05/20/20 09:00 05/26/20 09:35 Cholecalciferol 10 Mcg (400 Iu) Tablet PO 10 mcg DAILY SANKET Administration Enoxaparin Sodium 40 mg 05/20/20 09:00 05/26/20 09:35 Enoxaparin 40 Mg/0.4 Ml Syringe SQ 40 mg DAILY SANKET Administration Famotidine 40 mg 05/21/20 09:00 05/26/20 09:35 Famotidine 20 Mg Tab PO 40 mg DAILY SANKET Administration Insulin Aspart 0 unit 05/20/20 21:00 05/26/20 11:57 Insulin Aspart (Novolog) 100 Unit/Ml Vial SQ Not Given ACHS SANKET Protocol Methylprednisolone Sodium Succinate 60 mg 05/20/20 18:00 05/26/20 12:02 Methylprednisolone Sod Succi 125 Mg/2 Ml Vial IV 60 mg Q6HR SANKET Administration Risperidone 2 mg 05/20/20 09:00 05/26/20 09:35 Risperidone 2 Mg Tab PO 2 mg DAILY SANKET Administration Zinc Sulfate 220 mg 05/20/20 09:00 05/26/20 09:35 Zinc Sulfate 220 Mg Cap PO 220 mg DAILY SANKET Administration Objective - Vital Signs Vital signs: Vital Signs Temp 97.7 F 05/26/20 09:22 Pulse 58 L 05/26/20 09:22 Resp 18 05/26/20 09:22 BP 136/66 05/26/20 09:22 Pulse Ox 92 L 05/26/20 09:22 Intake & Output 05/25/20 05/26/20 05/26/20 18:59 06:59 18:59 Intake Total 600 Output Total 500 Balance 100 Weight 67.5 kg Intake: Oral 600 Output: Urine 500 Other: Voiding Method Urinal Urinal # Voids 1 - Exam GENERAL: The patient is alert and oriented x3, not in any acute distress. Well developed, well nourished. HEENT: Pupils are round and equally reacting to light. EOMI. No scleral icterus. No conjunctival pallor. Normocephalic, atraumatic. No pharyngeal erythema. No thyromegaly. CARDIOVASCULAR: S1 and S2 present. No murmurs, rubs, or gallops. PULMONARY: Chest is clear to auscultation, no wheezing or crackles. ABDOMEN: Soft, nontender, nondistended, normoactive bowel sounds. No palpable organomegaly. MUSCULOSKELETAL: No joint swelling or deformity. EXTREMITIES: No cyanosis, clubbing, or pedal edema. NEUROLOGICAL: Gross neurological examination did not reveal any focal deficits. SKIN: No rashes. no petechiae. - Labs CBC & Chem 7: 05/23/20 03:09 05/26/20 08:30 Labs: Abnormal Lab Results - Last 24 Hours (Table) 05/25/20 05/25/20 05/26/20 Range/Units 16:42 20:14 07:09 D-Dimer (<0.60) mg/L FEU Sodium (137-145) mmol/L Potassium (3.5-5.1) mmol/L BUN (9-20) mg/dL Glucose (74-99) mg/dL POC Glucose (mg/dL) 167 H 163 H 120 H (75-99) mg/dL Magnesium (1.6-2.3) mg/dL Lactate Dehydrogenase (313-618) U/L 05/26/20 05/26/20 05/26/20 Range/Units 08:30 08:30 11:39 D-Dimer 1.27 H (<0.60) mg/L FEU Sodium 136 L (137-145) mmol/L Potassium 5.2 H (3.5-5.1) mmol/L BUN 40 H (9-20) mg/dL Glucose 153 H (74-99) mg/dL POC Glucose (mg/dL) 128 H (75-99) mg/dL Magnesium 3.1 H (1.6-2.3) mg/dL Lactate Dehydrogenase 1603 H (313-618) U/L Assessment and Plan Assessment: Acute bilateral covid pneumonia Increased inflammatory markers Acute hypoxic respiratory failure secondary to above ischemic cardiomyopathy with ejection fraction 40-45% with wall hypokinesia Severe pulmonary hypertension and moderate pulmonary regurgitation metabolic encephalopathy mild Acute kidney injury, Versus chronic kidney disease possible UTI Possible history of urinary cancer status post surgery [address] Pantoja Hyperlipidemia History of coronary artery disease Plan: this is a pleasant 75 years old male who presents with bilateral Covid pneumonia with cardiomyopathy, He knew with steroids, zinc, vitamin C and Lovenox with pulmonary/critical care consult Continue with Lasix as needed, cardiology consult. Continue with aspirin Labs and medication were reviewed.. Continue same treatment. Continue with symptomatic treatment. Resume home medication. Monitor lytes and vitals. DVT and GI prophylaxis. Further recommendations depends on the clinical course of the patient DVT prophylaxis: Subcutaneous Lovenox GI Prophylaxis: Pepcid PT/OT: Pending Prognosis is guarded
--- NOTE | 2020-05-26 15:51 | P.PN ---
Subjective Progress Note Date: 05/26/20 Principal diagnosis: CoVID 19 pneumonia This is a very pleasant 75-year-old gentleman who follows with Dr. Cole as his primary care provider. He has a history of hyperlipidemia, anxiety, bladder cancer with TURBT in January 2020. Approximately 10 days ago the patient sta celia he was doing well and was driving from [place] to [place] to get gas. That is the last thing he remembers. He somehow ended up at [facility] and transferred later to [facility] diagnosed with CoVID 19 infection. He states he was also told he had a myocardial infarction. He was there about 1 week and then discharged home. He was discharged on vitamin C, D and zinc. He is unsure if he received any other treatment for CoVID. He's been home about 3 days and then last night he was brought here by EMS after continuing with progressive weakness, shortness of breath, poor appetite. He lives with his daughter [place]. Chest x-ray reveals diffuse airspace opacities representing pulmonary edema versus infectious process. Echocardiogram reveals mild to moderately impaired left ventricular systolic function with ejection fraction 40-45%. Severe pulmonary hypertension. White count 2.7. Hemoglobin 14.6. Lymphocytes 0.2. D-dimer 0.64. Sodium 1:30. Potassium 5.7. Creatinine 1.24. LDH 2017. C-reactive protein 163. Troponin 0.64, 0.70. Urine with moderate leukocytes and high WBCs. Oscar virus by PCR detected. He's been initiated on vitamin C, vitamin D, zinc. Dexamethasone at 6 mg daily. Lovenox 40 mg subcu daily. He is also started on ceftriaxone and IV diuretics. He is seen today in consultation in the emergency room. He is currently awake and alert. Resting comfortably in bed. He is oriented 3. He is currently on a nonrebreather mask with O2 saturation of 91%. He is afebrile. Hemodynamically stable. On today's evaluation of 05/21/2020, the patient is still doing poorly. He is currently on 100% nonrebreather facemask and a 15 L high flow. His chest x-ray showing diffuse bilateral pulmonary infiltrates, interstitial, peripherally distributed, without any major interval change compared to yesterday's chest x- ray. His oxygenation is still poor. With this current oxygen flow, the patient is pulse oxing 97%. His LDH level today that 1556 and his CRP level is at 67. His creatinine is at 1.6 with a BUN of 48 and a sodium level of 133. His white cell count is currently at 2 with a hemoglobin of 13.4 and platelets of 255. His pro-calcitonin level was 0.22. I have this patient currently on IV Solu- Medrol 60 mg every 6 hours. He is on Lovenox for DVT prophylaxis. His d-dimer was at 0.48. He is lethargic. He is communicating. He is not altered mentally for now. He is quite weak. Occasional cough. No significant sputum production. On 05/21/2020 at around 6. lactic this morning the patient was found to be pro foundly hypoxic with a pulse ox of 84% as the patient was off his high flow and office 100% nonrebreather. Facemask. Immediately, he was placed on a BiPAP which is currently running at a pressure of 12/5 cm of water with an FiO2 of 80%. The patient is much more comfortable. However, he continues to be tachypneic with a respiratory rate of 35. Is able to generate a tidal volume of 418. His chest x-ray showing increased interstitial infiltrates bilaterally and the patient is still on a combination of treatment and he is on IV Solu-Medrol 60 mg every 6 hours and he is also recieved Tocilizumab 600 milligrams IV 1 dose on 05/20/2020. His echocardiogram also showed LV dysfunction with seg mental wall motion abnormalities. His ejection fraction is around 45%. He is free of any chest pain. His blood work today and inflammatory markers are still pending. His LDH and CRP were quite elevated and he has a low pro-calcitonin level. His creatinine is at 1.5 and his white cell count is 5.6 with a hemoglobin of 15.6. No chest x-ray from today and this will be ordered based on his worsening oxygenation. His current FiO2 is at 85%. The patient is seen today 05/23/2020 in follow-up in the intensive care unit. He is currently sitting up in bed. Awake and alert in no acute distress. He remains on BiPAP 15/5 and 75% FiO2 to maintain O2 saturation the high 80s and low 90s. He is somewhat anxious. Asking to go home. A bit confused this morning. This x-ray continues to show fine groundglass infiltrates bilaterally. White count 5.8. Hemoglobin 13.2. Lymphocytes 0.2. D-dimer 0.56. Sodium 140. Potassium 5.0. Creatinine 1.45. LDH 1450. C-reactive protein 23.2. Follow up urinalysis clear. He remains on IV Solu-Medrol, vitamin supplements. The patient is seen today 05/24/2020 in follow-up in the intensive care unit. He is currently sitting up in a chair at the bedside. Awake and alert in no acute distress. He is currently on AirVo high flow oxygen at 60 L and 80% FiO2 with O2 saturation 90%. Sodium 142. Potassium 5.0. Creatinine 1.00. Glucose 148. He remains on IV Solu-Medrol, Lovenox, vitamin supplements. The patient is seen today 05/25/2020 in follow-up on the regular medical floor. He is currently resting comfortably in bed. Awake and alert in no acute distress. He is still requiring AirVo high flow oxygen at 15 L and 90% FiO2. Utilizing BiPAP at night at 14/5 and 75% FiO2. Continued on IV Solu-Medrol, Lovenox, vitamin supplements. Chest x-ray continues to show diffuse increased lung markings and prominent pulmonary vascular markings. A bit worse compared to previous. Blood glucose 167. The patient is seen today 05/26/2020 in follow-up on the regular medical floor. He is awake and alert in no acute distress. Resting comfortably in bed. He continues on the AirVo high flow oxygen device at 30 L and 80% FiO2 to maintain O2 saturations in the 90s. He did pull off his device earlier this morning and found to have O2 saturations in the 40s. He did recover and is improved. Chest x-ray is stable.D-dimer 1.27. Sodium 136. Potassium 5.2. Bicarb 27. Creatinine 0.88. LDH 1603. C-reactive protein 7.7. Continued on IV Solu- Medrol, Lovenox, vitamin supplements. Objective - Vital Signs Vital signs: Vital Signs Temp 97.6 F 05/26/20 14:24 Pulse 51 L 05/26/20 14:24 Resp 17 05/26/20 14:24 BP 136/60 05/26/20 14:24 Pulse Ox 94 L 05/26/20 14:24 Intake & Output 05/25/20 05/26/20 05/26/20 18:59 06:59 18:59 Intake Total 600 Output Total 500 Balance 100 Weight 67.5 kg 67.5 kg Intake: Oral 600 Output: Urine 500 Other: Voiding Method Urinal Urinal # Voids 1 - Exam GENERAL EXAM: Alert, pleasant 75-year-old gentleman, currently on AirVo high flow oxygen at 30 L and 80% FiO2 HEAD: Normocephalic. EYES: Normal reaction of pupils, equal size. NOSE: Clear with pink turbinates. THROAT: No erythema or exudates. NECK: No masses, no JVD. CHEST: No chest wall deformity. LUNGS: Equal air entry with crackles in the bilateral posterior bases. CVS: S1 and S2 normal with no audible murmur, regular rhythm. ABDOMEN: No hepatosplenomegaly, normal bowel sounds, no guarding or rigidity. SPINE: No scoliosis or deformity SKIN: No rashes CENTRAL NERVOUS SYSTEM: No focal deficits, tone is normal in all 4 extremities. EXTREMITIES: There is no peripheral edema. No clubbing, no cyanosis. Peripheral pulses are intact. - Labs CBC & Chem 7: 05/23/20 03:09 05/26/20 08:30 Labs: Abnormal Lab Results - Last 24 Hours (Table) 05/25/20 05/25/20 05/26/20 Range/Units 16:42 20:14 07:09 D-Dimer (<0.60) mg/L FEU Sodium (137-145) mmol/L Potassium (3.5-5.1) mmol/L BUN (9-20) mg/dL Glucose (74-99) mg/dL POC Glucose (mg/dL) 167 H 163 H 120 H (75-99) mg/dL Magnesium (1.6-2.3) mg/dL Lactate Dehydrogenase (313-618) U/L 05/26/20 05/26/20 05/26/20 Range/Units 08:30 08:30 11:39 D-Dimer 1.27 H (<0.60) mg/L FEU Sodium 136 L (137-145) mmol/L Potassium 5.2 H (3.5-5.1) mmol/L BUN 40 H (9-20) mg/dL Glucose 153 H (74-99) mg/dL POC Glucose (mg/dL) 128 H (75-99) mg/dL Magnesium 3.1 H (1.6-2.3) mg/dL Lactate Dehydrogenase 1603 H (313-618) U/L Assessment and Plan Assessment: 1 Acute hypoxic respiratory failure secondary to CoVID 19 pneumonia. Received tocilizumab 2 Lymphocytopenia secondary to above 3 Elevated inflammatory markers secondary to above 4 Recent hospitalization in [place] for CoVID 19 infection for approximately one week, home 3 days prior to her returning here 5 Recent myocardial infarction according to the patient as told in [place], possible stent placement 6 Suspect ischemic cardiomyopathy with ejection fraction 40-45% 7 Troponin leak 8 Pulmonary hypertension 9 Hyperlipidemia 10 History of anxiety 11 History of bladder cancer status post TURBT in January 2020 Plan: The patient was seen and evaluated by Dr. Kaba Continue Solu-Medrol, Lovenox, vitamin supplements Titrate FiO2 as tolerated Prognosis is guarded We will continue to follow I, the cosigning physician, performed a history & physical examination of the patient. Lungs sounds crackles in the bilateral posterior bases. Maintaining good O2 saturations in the 90s on AirVo high flow oxygen at 30 L and 80% FiO2. I discussed the assessment and plan of care with my nurse practitioner, Vonnie Sifuentes. I attest to the above note as dictated by her.
[2020-05-26 17:07] LABS: Glucose,Whole Blood 226 mg/dL (75-99)
[2020-05-26 20:23] LABS: Glucose,Whole Blood 212 mg/dL (75-99)
[2020-05-26 22:44] LABS: LD Isoenzymes 1 22 % (19-38); LD Isoenzymes 2 34 % (30-43); LD Isoenzymes 3 25 % (16-26); LD Isoenzymes 4 12 % (3-12); LD Isoenzymes 5 7 % (3-14); Lactacte Dehydrogenase(LD) ISO 579 U/L (120-250)
[2020-05-27] MEDS: methylPREDNISolone SOD SUCCI 125 MG/2 ML VIAL IV SCH ×3 (05:13→17:04)
[2020-05-27 07:13] LABS: Glucose,Whole Blood 121 mg/dL (75-99)
[2020-05-27] MEDS: ALBUTEROL HFA INHALER INHALATION PRN ×4 (07:31→19:53)
[2020-05-27] MEDS: ZINC SULFATE 220 MG CAP PO SCH (08:45)
[2020-05-27] MEDS: ENOXAPARIN 40 MG/0.4 ML SYRINGE SQ SCH (08:45)
[2020-05-27] MEDS: ATORVASTATIN 80 MG TAB PO SCH (08:45)
[2020-05-27] MEDS: ASPIRIN 81 MG PO SCH (08:45)
[2020-05-27] MEDS: FAMOTIDINE 20 MG TAB PO SCH (08:45)
[2020-05-27] MEDS: CHOLECALCIFEROL 10 MCG (400 IU) TABLET PO SCH (08:46)
[2020-05-27] MEDS: risperiDONE 2 MG TAB PO SCH (08:46)
[2020-05-27] MEDS: INSULIN ASPART (NovoLOG) 100 UNIT/ML VIAL SQ SCH ×4 (08:46→21:19)
[2020-05-27 11:31] LABS: Glucose,Whole Blood 200 mg/dL (75-99)
--- NOTE | 2020-05-27 16:25 | P.PN ---
Subjective Progress Note Date: 05/27/20 The patient is seen today 05/27/2020 in follow-up in the regular medical floor. He is currently sitting up in a chair at the bedside. Awake and alert in no acute distress. He remains on Arava high flow oxygen down to 30 L and 65% FiO2. Still desaturates with minimal activity. He's been afebrile. Hemodynamically stable. Blood glucose 200. The chest on 0.03. He remains on Lovenox, IV Solu-Medrol, vitamin supplements. Objective - Vital Signs Vital signs: Vital Signs Temp 97.4 F L 05/27/20 14:00 Pulse 58 L 05/27/20 14:00 Resp 20 05/27/20 14:00 BP 103/57 05/27/20 14:00 Pulse Ox 91 L 05/27/20 14:00 Intake & Output 05/26/20 05/27/20 05/27/20 18:59 06:59 18:59 Output Total 700 Balance -700 Weight 67.5 kg 69 kg Output: Urine 700 Other: Voiding Method Urinal - Exam GENERAL EXAM: Alert, pleasant 75-year-old gentleman, currently on AirVo high flow oxygen at 30 L and 65% FiO2 HEAD: Normocephalic. EYES: Normal reaction of pupils, equal size. NOSE: Clear with pink turbinates. THROAT: No erythema or exudates. NECK: No masses, no JVD. CHEST: No chest wall deformity. LUNGS: Equal air entry with crackles in the bilateral posterior bases. CVS: S1 and S2 normal with no audible murmur, regular rhythm. ABDOMEN: No hepatosplenomegaly, normal bowel sounds, no guarding or rigidity. SPINE: No scoliosis or deformity SKIN: No rashes CENTRAL NERVOUS SYSTEM: No focal deficits, tone is normal in all 4 extremities. EXTREMITIES: There is no peripheral edema. No clubbing, no cyanosis. Peripheral pulses are intact. - Labs CBC & Chem 7: 05/23/20 03:09 05/26/20 08:30 Labs: Abnormal Lab Results - Last 24 Hours (Table) 05/22/20 05/26/20 05/26/20 Range/Units 11:43 16:44 20:14 POC Glucose (mg/dL) 226 H 212 H (75-99) mg/dL LD Isoenzymes 579 H (120-250) U/L 05/27/20 05/27/20 Range/Units 07:11 11:29 POC Glucose (mg/dL) 121 H 200 H (75-99) mg/dL LD Isoenzymes (120-250) U/L Assessment and Plan Assessment: 1 Acute hypoxic respiratory failure secondary to CoVID 19 pneumonia. Received t ocilizumab 2 Lymphocytopenia secondary to above 3 Elevated inflammatory markers secondary to above 4 Recent hospitalization in [place] for CoVID 19 infection for approximately one week, home 3 days prior to her returning here 5 Recent myocardial infarction according to the patient as told in [place], possible stent placement 6 Suspect ischemic cardiomyopathy with ejection fraction 40-45% 7 Troponin leak 8 Pulmonary hypertension 9 Hyperlipidemia 10 History of anxiety 11 History of bladder cancer status post TURBT in January 2020 Plan: The patient was seen and evaluated by Dr. Kaba Continue Solu-Medrol, Lovenox, vitamin supplements Titrate FiO2 as tolerated, may switch over to high flow nasal cannula We will continue to follow I, the cosigning physician, performed a history & physical examination of the patient. Lungs sounds crackles in the bilateral posterior bases. Maintaining good O2 saturations in the 90s on AirVo high flow oxygen at 30 L and 65% FiO2. I discussed the assessment and plan of care with my nurse practitioner, Vonnie Sifuentes. I attest to the above note as dictated by her.
[2020-05-27 16:37] LABS: Glucose,Whole Blood 191 mg/dL (75-99)
[2020-05-27 20:44] LABS: Glucose,Whole Blood 188 mg/dL (75-99)
[2020-05-28] MEDS: methylPREDNISolone SOD SUCCI 125 MG/2 ML VIAL IV SCH ×5 (00:35→23:11)
[2020-05-28 07:04] LABS: Glucose,Whole Blood 118 mg/dL (75-99)
[2020-05-28] MEDS: INSULIN ASPART (NovoLOG) 100 UNIT/ML VIAL SQ SCH ×4 (07:15→21:11)
--- NOTE | 2020-05-28 07:55 | P.PN ---
Subjective Progress Note Date: 05/27/20 75 years old male with past medical history of hyperlipidemia , coronary artery disease status post stent. Patient of Dr. Cole. His somewhat poor historian. Patient presents with dyspnea and a dry with no chest pain or abdominal pain or diarrhea. No headache or weakness or numbness. However he wa s complaining of from upper respiratory symptoms and sore throat as well. Patient also and he was confused, last time he got lost at [place] and he was taken to [facility] where he stayed there for 4-5 days for Covid infection as he states, he went home after that however he did not feel better. . He denies smoking, alcohol or illicit drugs Patient also states that he has history of urinary bladder cancer status post surgery [address] zee to 2 months ago as he states. He does not follow up with oncologist or has chemotherapy 05/27/2020 Patient is seen and evaluated in follow-up in the regular medical floor. He is currently sitting up in a chair at the bedside. Awake and alert in no acute distress. He remains on Arava high flow oxygen down to 30 L and 65% FiO2. Still desaturates with minimal activity. He's been afebrile. Hemodynamically stable. Blood glucose 200. The chest on 0.03. He remains on Lovenox, IV Solu- Medrol, vitamin supplements. Pulmonary service on board and recommending to titrate FiO2 as able; patient might be switched over to high flow nasal cannula Objective - Vital Signs Vital signs: Vital Signs Temp 97.8 F 05/27/20 05:09 Pulse 42 L 05/27/20 05:09 Resp 19 05/27/20 05:09 BP 156/66 05/27/20 05:09 Pulse Ox 99 05/27/20 09:04 Intake & Output 05/26/20 05/27/20 05/27/20 18:59 06:59 18:59 Output Total 700 Balance -700 Weight 67.5 kg 69 kg Output: Urine 700 Other: Voiding Method Urinal - Exam GENERAL EXAM: Alert, pleasant 75-year-old gentleman, currently on AirVo high flow oxygen at 30 L and 65% FiO2 HEAD: Normocephalic. NECK: No masses, no JVD. CHEST: No chest wall deformity. LUNGS: Equal air entry with crackles in the bilateral posterior bases. CVS: S1 and S2 normal with no audible murmur, regular rhythm. ABDOMEN: No hepatosplenomegaly, normal bowel sounds, no guarding or rigidity. CENTRAL NERVOUS SYSTEM: No focal deficits, tone is normal in all 4 extremities. EXTREMITIES: There is no peripheral edema. No clubbing, no cyanosis. Peripheral pulses are intact. - Labs CBC & Chem 7: 05/23/20 03:09 05/26/20 08:30 Labs: Abnormal Lab Results - Last 24 Hours (Table) 05/22/20 05/26/20 05/26/20 Range/Units 11:43 11:39 16:44 POC Glucose (mg/dL) 128 H 226 H (75-99) mg/dL LD Isoenzymes 579 H (120-250) U/L 05/26/20 05/27/20 Range/Units 20:14 07:11 POC Glucose (mg/dL) 212 H 121 H (75-99) mg/dL LD Isoenzymes (120-250) U/L Assessment and Plan Assessment: Acute bilateral covid pneumonia Increased inflammatory markers Acute hypoxic respiratory failure secondary to above ischemic cardiomyopathy with ejection fraction 40-45% with wall hypokinesia Severe pulmonary hypertension and moderate pulmonary regurgitation metabolic encephalopathy mild Acute kidney injury, Versus chronic kidney disease possible UTI Possible history of urinary cancer status post surgery [address] Pantoja Hyperlipidemia History of coronary artery disease Plan: 75 years old male who presents with bilateral Covid pneumonia with cardiomyopathy, He knew with steroids, zinc, vitamin C and Lovenox with pulmonary/critical care consult Continue with Lasix as needed, cardiology consult. Continue with aspirin Labs and medication were reviewed.. Continue same treatment. Continue with symptomatic treatment. Resume home medication. Monitor lytes and vitals. DVT and GI prophylaxis. Further recommendations depends on the clinical course of the patient DVT prophylaxis: Subcutaneous Lovenox GI Prophylaxis: Pepcid PT/OT: Pending Prognosis is guarded
[2020-05-28] MEDS: ALBUTEROL HFA INHALER INHALATION PRN ×4 (08:22→20:40)
[2020-05-28] MEDS: ASPIRIN 81 MG PO SCH (09:25)
[2020-05-28] MEDS: FAMOTIDINE 20 MG TAB PO SCH (09:25)
[2020-05-28] MEDS: ZINC SULFATE 220 MG CAP PO SCH (09:25)
[2020-05-28] MEDS: ATORVASTATIN 80 MG TAB PO SCH (09:25)
[2020-05-28] MEDS: CHOLECALCIFEROL 10 MCG (400 IU) TABLET PO SCH (09:25)
[2020-05-28] MEDS: risperiDONE 2 MG TAB PO SCH (09:25)
[2020-05-28] MEDS: ASCORBIC ACID 500 MG TAB PO SCH (09:25)
[2020-05-28] MEDS: ENOXAPARIN 40 MG/0.4 ML SYRINGE SQ SCH (09:26)
[2020-05-28 11:49] LABS: Glucose,Whole Blood 116 mg/dL (75-99)
--- NOTE | 2020-05-28 16:21 | P.PN ---
Subjective Progress Note Date: 05/28/20 The patient is seen today 05/27/2020 in follow-up in the regular medical floor. He is currently sitting up in a chair at the bedside. Awake and alert in no acute distress. He remains on Arava high flow oxygen down to 30 L and 65% FiO2. Still desaturates with minimal activity. He's been afebrile. Hemodynamically stable. Blood glucose 200. The chest on 0.03. He remains on Lovenox, IV Solu-Medrol, vitamin supplements. The patient is seen today 05/28/2020 in follow-up on the regular medical floor. He is currently sitting up in a chair at the bedside. Awake and alert in no acute distress. He remains on AirVo high flow oxygen at 50 L and 85% FiO2. He had pulled it off at one point his O2 saturation dropped into the 70s. Subsequently required within minutes of replacing that device. He remains on Lovenox, IV Solu-Medrol, vitamin supplements. Objective - Vital Signs Vital signs: Vital Signs Temp 97.7 F 05/28/20 14:00 Pulse 65 05/28/20 14:00 Resp 22 05/28/20 14:00 BP 113/59 05/28/20 14:00 Pulse Ox 93 L 05/28/20 14:00 Intake & Output 05/27/20 05/28/20 05/28/20 18:59 06:59 18:59 Intake Total 250 Output Total 500 900 Balance -500 -650 Weight 69.5 kg Intake: Oral 250 Output: Urine 500 900 Other: Voiding Method Urinal # Voids 2 # Bowel Movements 2 - Exam GENERAL EXAM: Alert, pleasant 75-year-old gentleman, currently on AirVo high flow oxygen at 50 L and 85% FiO2 HEAD: Normocephalic. EYES: Normal reaction of pupils, equal size. NOSE: Clear with pink turbinates. THROAT: No erythema or exudates. NECK: No masses, no JVD. CHEST: No chest wall deformity. LUNGS: Equal air entry with crackles in the bilateral posterior bases. CVS: S1 and S2 normal with no audible murmur, regular rhythm. ABDOMEN: No hepatosplenomegaly, normal bowel sounds, no guarding or rigidity. SPINE: No scoliosis or deformity SKIN: No rashes CENTRAL NERVOUS SYSTEM: No focal deficits, tone is normal in all 4 extremities. EXTREMITIES: There is no peripheral edema. No clubbing, no cyanosis. Peripheral pulses are intact. - Labs CBC & Chem 7: 05/23/20 03:09 05/26/20 08:30 Labs: Abnormal Lab Results - Last 24 Hours (Table) 05/27/20 05/27/20 05/28/20 Range/Units 16:36 20:39 07:02 POC Glucose (mg/dL) 191 H 188 H 118 H (75-99) mg/dL 05/28/20 Range/Units 11:48 POC Glucose (mg/dL) 116 H (75-99) mg/dL Assessment and Plan Assessment: 1 Acute hypoxic respiratory failure secondary to CoVID 19 pneumonia. Received tocilizumab 2 Lymphocytopenia secondary to above 3 Elevated inflammatory markers secondary to above 4 Recent hospitalization in [place] for CoVID 19 infection for approximately one week, home 3 days prior to her returning here 5 Recent myocardial infarction according to the patient as told in [place], possible stent placement 6 Suspect ischemic cardiomyopathy with ejection fraction 40-45% 7 Troponin leak 8 Pulmonary hypertension 9 Hyperlipidemia 10 History of anxiety 11 History of bladder cancer status post TURBT in January 2020 Plan: The patient was seen and evaluated by Dr. Kaba Continue Solu-Medrol, Lovenox, vitamin supplements Titrate FiO2 down to 70% May need subacute rehabilitation We will continue to follow I, the cosigning physician, performed a history & physical examination of the patient. Lungs sounds crackles in the bilateral posterior bases. Maintaining good O2 saturations in the 90s on AirVo high flow oxygen at 50 L and 85% FiO2. I discussed the assessment and plan of care with my nurse practitioner, Vonnie Sifuentes. I attest to the above note as dictated by her.
[2020-05-28 16:45] LABS: Glucose,Whole Blood 137 mg/dL (75-99)
--- NOTE | 2020-05-28 17:21 | P.PN ---
Subjective Progress Note Date: 05/28/20 Principal diagnosis: Acute hypoxic respiratory failure secondary to CoVID 19 pneumonia 75 years old male with past medical history of hyperlipidemia , coronary artery disease status post stent. Patient of Dr. Cole. His somewhat poor historian. Patient presents with dyspnea and a dry with no chest pain or abdominal pain or diarrhea. No headache or weakness or numbness. However he was complaining of from upper respiratory symptoms and sore throat as well. Patient also and he was confused, last time he got lost at [place] and he was taken to [facility] where he stayed there for 4-5 days for Covid infection as he states, he went home after that however he did not feel better. . He denies smoking, alcohol or illicit drugs Patient also states that he has history of urinary bladder cancer status post surgery [address] zee to 2 months ago as he states. He does not follow up with oncologist or has chemotherapy 05/27/2020 Patient is seen and evaluated in follow-up in the regular medical floor. He is currently sitting up in a chair at the bedside. Awake and alert in no acute distress. He remains on Arava high flow oxygen down to 30 L and 65% FiO2. Still desaturates with minimal activity. He's been afebrile. Hemodynamically stable. Blood glucose 200. The chest on 0.03. He remains on Lovenox, IV Solu- Medrol, vitamin supplements. Pulmonary service on board and recommending to titrate FiO2 as able; patient anna ht be switched over to high flow nasal cannula 05/28/2020 Patient is seen and evaluated in follow-up on the regular medical floor. He is currently sitting up in a chair at the bedside. Awake and alert in no acute distress. He remains on AirVo high flow oxygen at 50 L and 85% FiO2. He had pulled it off at one point his O2 saturation dropped into the 70s. Subsequently required within minutes of replacing that device. He remains on Lovenox, IV Solu-Medrol, vitamin supplements. Patient is being followed by pulmonary service and recommending to continue Solu-Medrol, Lovenox and vitamin supplements; continue to titrate FiO2 down as able; recommending possible subacute rehab once stable for discharge Objective - Vital Signs Vital signs: Vital Signs Temp 98.1 F 05/28/20 10:08 Pulse 67 05/28/20 10:08 Resp 19 05/28/20 10:08 BP 116/62 05/28/20 10:08 Pulse Ox 90 L 05/28/20 10:08 Intake & Output 05/27/20 05/28/20 05/28/20 18:59 06:59 18:59 Intake Total 250 Output Total 500 900 Balance -500 -650 Weight 69.5 kg Intake: Oral 250 Output: Urine 500 900 Other: Voiding Method Urinal - Exam GENERAL EXAM: Alert, pleasant 75-year-old gentleman, currently on AirVo high flow oxygen at 30 L and 65% FiO2 HEAD: Normocephalic. NECK: No masses, no JVD. CHEST: No chest wall deformity. LUNGS: Equal air entry with crackles in the bilateral posterior bases. CVS: S1 and S2 normal with no audible murmur, regular rhythm. ABDOMEN: No hepatosplenomegaly, normal bowel sounds, no guarding or rigidity. CENTRAL NERVOUS SYSTEM: No focal deficits, tone is normal in all 4 extremities. EXTREMITIES: There is no peripheral edema. No clubbing, no cyanosis. Peripheral pulses are intact. - Labs CBC & Chem 7: 05/23/20 03:09 05/26/20 08:30 Labs: Abnormal Lab Results - Last 24 Hours (Table) 05/27/20 05/27/20 05/28/20 Range/Units 16:36 20:39 07:02 POC Glucose (mg/dL) 191 H 188 H 118 H (75-99) mg/dL Assessment and Plan Assessment: Acute bilateral covid pneumonia Increased inflammatory markers Acute hypoxic respiratory failure secondary to above ischemic cardiomyopathy with ejection fraction 40-45% with wall hypokinesia Severe pulmonary hypertension and moderate pulmonary regurgitation metabolic encephalopathy mild Acute kidney injury, Versus chronic kidney disease possible UTI Possible history of urinary cancer status post surgery [address] Pantoja Hyperlipidemia History of coronary artery disease Plan: 75 years old male who presents with bilateral Covid pneumonia with cardiomyopathy, He knew with steroids, zinc, vitamin C and Lovenox with pulmonary/critical care consult Continue with Lasix as needed, cardiology consult. Continue with aspirin Labs and medication were reviewed.. Continue same treatment. Continue with symptomatic treatment. Resume home medication. Monitor lytes and vitals. DVT and GI prophylaxis. Further recommendations depends on the clinical course of the patient DVT prophylaxis: Subcutaneous Lovenox GI Prophylaxis: Pepcid PT/OT: Pending Prognosis is guarded
[2020-05-28 21:03] LABS: Glucose,Whole Blood 222 mg/dL (75-99)
[2020-05-29] MEDS: methylPREDNISolone SOD SUCCI 125 MG/2 ML VIAL IV SCH ×4 (05:19→23:03)
[2020-05-29 07:18] LABS: Glucose,Whole Blood 113 mg/dL (75-99)
[2020-05-29] MEDS: INSULIN ASPART (NovoLOG) 100 UNIT/ML VIAL SQ SCH ×4 (07:28→21:14)
[2020-05-29] MEDS: ALBUTEROL HFA INHALER INHALATION PRN ×4 (08:04→19:48)
[2020-05-29] MEDS: ENOXAPARIN 40 MG/0.4 ML SYRINGE SQ SCH (08:17)
[2020-05-29] MEDS: FAMOTIDINE 20 MG TAB PO SCH (08:18)
[2020-05-29] MEDS: ZINC SULFATE 220 MG CAP PO SCH (08:18)
[2020-05-29] MEDS: risperiDONE 2 MG TAB PO SCH (08:18)
[2020-05-29] MEDS: ATORVASTATIN 80 MG TAB PO SCH (08:18)
[2020-05-29] MEDS: CHOLECALCIFEROL 10 MCG (400 IU) TABLET PO SCH (08:18)
[2020-05-29] MEDS: ASCORBIC ACID 500 MG TAB PO SCH (08:18)
[2020-05-29] MEDS: ASPIRIN 81 MG PO SCH (08:18)
[2020-05-29 10:49] LABS: Basophils % (A) 0 %; Eosinophils % (A) 0 %; HCT 41.2 % (39.0-53.0); HGB 13.6 gm/dL (13.0-17.5); Lymphocytes # (A) 0.2 k/uL (1.0-4.8); Lymphocytes % (A) 2 %; MCH 28.5 pg (25.0-35.0); MCHC 33.1 g/dL (31.0-37.0); Mean Platelet Volume 7.2; Monocytes # (A) 0.4 k/uL (0-1.0); Monocytes % (A) 4 %; Neutrophils % (A) 94 %; Platelet Count 370 k/uL (150-450); RBC 4.79 m/uL (4.30-5.90); RDW 13.1 % (11.5-15.5); WBC 9.6 k/uL (3.8-10.6)
[2020-05-29 10:58] LABS: African American GFR (CKD) >90 (>60 ml/min/1.73 sqM); Anion Gap 3 mmol/L; Blood Urea Nitrogen 38 mg/dL (9-20); Calcium 8.2 mg/dL (8.4-10.2); Carbon Dioxide 27 mmol/L (22-30); Chloride 102 mmol/L (98-107); Glucose 109 mg/dL (74-99); LDH 1242 U/L (313-618); Non-African American GFR(CKD) 88 (>60 ml/min/1.73 sqM); Potassium 5.3 mmol/L (3.5-5.1); Sodium 132 mmol/L (137-145)
[2020-05-29 11:10] LABS: C Reactive Protein 5.5 mg/L (<10.0)
[2020-05-29 11:35] LABS: Glucose,Whole Blood 100 mg/dL (75-99)
--- NOTE | 2020-05-29 16:10 | P.PN ---
Subjective Progress Note Date: 05/29/20 Principal diagnosis: Acute hypoxic respiratory failure secondary to CoVID 19 pneumonia 75 years old male with past medical history of hyperlipidemia , coronary artery disease status post stent. Patient of Dr. Cole. His somewhat poor historian. Patient presents with dyspnea and a dry with no chest pain or abdominal pain or diarrhea. No headache or weakness or numbness. However he was complaining of from upper respiratory symptoms and sore throat as well. Patient also and he was confused, last time he got lost at [place] and he was taken to [facility] where he stayed there for 4-5 days for Covid infection as he states, he went home after that however he did not feel better. . He denies smoking, alcohol or illicit drugs Patient also states that he has history of urinary bladder cancer status post surgery [address] zee to 2 months ago as he states. He does not follow up with oncologist or has chemotherapy 05/27/2020 Patient is seen and evaluated in follow-up in the regular medical floor. He is currently sitting up in a chair at the bedside. Awake and alert in no acute distress. He remains on Arava high flow oxygen down to 30 L and 65% FiO2. Still desaturates with minimal activity. He's been afebrile. Hemodynamically stable. Blood glucose 200. The chest on 0.03. He remains on Lovenox, IV Solu- Medrol, vitamin supplements. Pulmonary service on board and recommending to titrate FiO2 as able; patient anna ht be switched over to high flow nasal cannula 05/28/2020 Patient is seen and evaluated in follow-up on the regular medical floor. He is currently sitting up in a chair at the bedside. Awake and alert in no acute distress. He remains on AirVo high flow oxygen at 50 L and 85% FiO2. He had pulled it off at one point his O2 saturation dropped into the 70s. Subsequently required within minutes of replacing that device. He remains on Lovenox, IV Solu-Medrol, vitamin supplements. Patient is being followed by pulmonary service and recommending to continue Solu-Medrol, Lovenox and vitamin supplements; continue to titrate FiO2 down as able; recommending possible subacute rehab once stable for discharge 05/29/2020 Patient is seen and evaluated in room at bedside; remains on O2 with HFNC at 50%; remains on 55 L with SpO2 90 Lab review shows an upward trend in d-dimer from 1.27 on initial exam up to 1.44; potassium at 5.3; B UN/creatinine of 38/0.8 to; LDH trending down slowly down to 1242; patient remains on subcu Lovenox, IV Solu-Medrol and vitamin supplements; we will continue to trend inflammatory markers and continue to wean oxygen off as able; plan for discharge to skilled rehab once clinically stable Objective - Vital Signs Vital signs: Vital Signs Temp 97.7 F 05/29/20 05:24 Pulse 49 L 05/29/20 05:24 Resp 18 05/29/20 08:00 BP 118/76 05/29/20 05:24 Pulse Ox 90 L 05/29/20 08:04 Intake & Output 05/28/20 05/29/20 05/29/20 18:59 06:59 18:59 Output Total 700 Balance -700 Weight 68 kg Output: Urine 700 Other: Voiding Method Urinal # Voids 2 # Bowel Movements 2 0 - Exam GENERAL EXAM: Alert, pleasant 75-year-old gentleman, currently on AirVo high flow oxygen at 30 L and 65% FiO2 HEAD: Normocephalic. NECK: No masses, no JVD. CHEST: No chest wall deformity. LUNGS: Equal air entry with crackles in the bilateral posterior bases. CVS: S1 and S2 normal with no audible murmur, regular rhythm. ABDOMEN: No hepatosplenomegaly, normal bowel sounds, no guarding or rigidity. CENTRAL NERVOUS SYSTEM: No focal deficits, tone is normal in all 4 extremities. EXTREMITIES: There is no peripheral edema. No clubbing, no cyanosis. Peripheral pulses are intact. - Labs CBC & Chem 7: 05/29/20 10:08 05/29/20 10:08 Labs: Abnormal Lab Results - Last 24 Hours (Table) 05/28/20 05/28/20 05/28/20 Range/Units 11:48 16:43 21:01 POC Glucose (mg/dL) 116 H 137 H 222 H (75-99) mg/dL 05/29/20 Range/Units 07:17 POC Glucose (mg/dL) 113 H (75-99) mg/dL Assessment and Plan Assessment: Acute bilateral covid pneumonia Increased inflammatory markers Acute hypoxic respiratory failure secondary to above ischemic cardiomyopathy with ejection fraction 40-45% with wall hypokinesia Severe pulmonary hypertension and moderate pulmonary regurgitation metabolic encephalopathy mild Acute kidney injury, Versus chronic kidney disease possible UTI Possible history of urinary cancer status post surgery [address] Pantoja Hyperlipidemia History of coronary artery disease Plan: 75 years old male who presents with bilateral Covid pneumonia with cardiomyopathy, He knew with steroids, zinc, vitamin C and Lovenox with pulmonary/critical care consult Continue with Lasix as needed, cardiology consult. Continue with aspirin Labs and medication were reviewed.. Continue same treatment. Continue with symptomatic treatment. Resume home medication. Monitor lytes and vitals. DVT and GI prophylaxis. Further recommendations depends on the clinical course of the patient DVT prophylaxis: Subcutaneous Lovenox GI Prophylaxis: Pepcid PT/OT: Pending Prognosis is guarded
--- NOTE | 2020-05-29 16:11 | P.PN ---
Subjective Progress Note Date: 05/29/20 The patient is seen today 05/27/2020 in follow-up in the regular medical floor. He is currently sitting up in a chair at the bedside. Awake and alert in no acute distress. He remains on Arava high flow oxygen down to 30 L and 65% FiO2. Still desaturates with minimal activity. He's been afebrile. Hemodynamically stable. Blood glucose 200. The chest on 0.03. He remains on Lovenox, IV Solu-Medrol, vitamin supplements. The patient is seen today 05/28/2020 in follow-up on the regular medical floor. He is currently sitting up in a chair at the bedside. Awake and alert in no acute distress. He remains on AirVo high flow oxygen at 50 L and 85% FiO2. He had pulled it off at one point his O2 saturation dropped into the 70s. Subsequently required within minutes of replacing that device. He remains on Lovenox, IV Solu-Medrol, vitamin supplements. Patient is seen today 05/29/2020 in follow-up on the regular medical floor. Currently resting comfortably in bed. Awake and alert in no acute distress. Still requiring 50 L high flow AirVo nasal cannula at 55% FiO2. White count 9.6. Hemoglobin 13.6. D-dimer 1.44. Sodium 132. Potassium 5.3. Creatinine 0.82. LDH 1242. C-reactive protein 5.5. He remains on IV Solu-Medrol, Lovenox, vitamin supplements. Objective - Vital Signs Vital signs: Vital Signs Temp 97.9 F 05/29/20 14:00 Pulse 87 05/29/20 14:00 Resp 19 05/29/20 14:00 BP 116/67 05/29/20 14:00 Pulse Ox 89 L 05/29/20 15:58 Intake & Output 05/28/20 05/29/20 05/29/20 18:59 06:59 18:59 Output Total 700 Balance -700 Weight 68 kg Output: Urine 700 Other: Voiding Method Urinal # Voids 2 1 # Bowel Movements 2 0 - Exam GENERAL EXAM: Alert, pleasant 75-year-old gentleman, currently on AirVo high flow oxygen at 50 L and 55% FiO2 HEAD: Normocephalic. EYES: Normal reaction of pupils, equal size. NOSE: Clear with pink turbinates. THROAT: No erythema or exudates. NECK: No masses, no JVD. CHEST: No chest wall deformity. LUNGS: Equal air entry with crackles in the bilateral posterior bases. CVS: S1 and S2 normal with no audible murmur, regular rhythm. ABDOMEN: No hepatosplenomegaly, normal bowel sounds, no guarding or rigidity. SPINE: No scoliosis or deformity SKIN: No rashes CENTRAL NERVOUS SYSTEM: No focal deficits, tone is normal in all 4 extremities. EXTREMITIES: There is no peripheral edema. No clubbing, no cyanosis. Peripheral pulses are intact. - Labs CBC & Chem 7: 05/29/20 10:08 05/29/20 10:08 Labs: Abnormal Lab Results - Last 24 Hours (Table) 05/28/20 05/28/20 05/29/20 Range/Units 16:43 21:01 07:17 Neutrophils # (1.3-7.7) k/uL Lymphocytes # (1.0-4.8) k/uL D-Dimer (<0.60) mg/L FEU Sodium (137-145) mmol/L Potassium (3.5-5.1) mmol/L BUN (9-20) mg/dL Glucose (74-99) mg/dL POC Glucose (mg/dL) 137 H 222 H 113 H (75-99) mg/dL Calcium (8.4-10.2) mg/dL Lactate Dehydrogenase (313-618) U/L 05/29/20 05/29/20 05/29/20 Range/Units 10:08 10:08 10:08 Neutrophils # 9.0 H (1.3-7.7) k/uL Lymphocytes # 0.2 L (1.0-4.8) k/uL D-Dimer 1.44 H (<0.60) mg/L FEU Sodium 132 L (137-145) mmol/L Potassium 5.3 H (3.5-5.1) mmol/L BUN 38 H (9-20) mg/dL Glucose 109 H (74-99) mg/dL POC Glucose (mg/dL) (75-99) mg/dL Calcium 8.2 L (8.4-10.2) mg/dL Lactate Dehydrogenase 1242 H (313-618) U/L 05/29/20 Range/Units 11:33 Neutrophils # (1.3-7.7) k/uL Lymphocytes # (1.0-4.8) k/uL D-Dimer (<0.60) mg/L FEU Sodium (137-145) mmol/L Potassium (3.5-5.1) mmol/L BUN (9-20) mg/dL Glucose (74-99) mg/dL POC Glucose (mg/dL) 100 H (75-99) mg/dL Calcium (8.4-10.2) mg/dL Lactate Dehydrogenase (313-618) U/L Assessment and Plan Assessment: 1 Acute hypoxic respiratory failure secondary to CoVID 19 pneumonia. Received tocilizumab 2 Lymphocytopenia secondary to above 3 Elevated inflammatory markers secondary to above 4 Recent hospitalization in [place] for CoVID 19 infection for approximately one week, home 3 days prior to her returning here 5 Recent myocardial infarction according to the patient as told in [place], possible stent placement 6 Suspect ischemic cardiomyopathy with ejection fraction 40-45% 7 Troponin leak 8 Pulmonary hypertension 9 Hyperlipidemia 10 History of anxiety 11 History of bladder cancer status post TURBT in January 2020 Plan: The patient was seen and evaluated by Dr. Kaba Continue Solu-Medrol, Lovenox, vitamin supplements Continue to titrate down the FiO2 as tolerated Probable home oxygen Follow-up chest x-ray in a.m. May need subacute rehabilitation We will continue to follow I, the cosigning physician, performed a history & physical examination of the patient. Lungs sounds crackles in the bilateral posterior bases. Maintaining good O2 saturations in the 90s on AirVo high flow oxygen at 50 L and 55% FiO2. I discussed the assessment and plan of care with my nurse practitioner, Vonnie Sifuentes. I attest to the above note as dictated by her.
[2020-05-29 16:28] LABS: Ferritin 323.9 ng/mL (22.0-322.0)
[2020-05-29 17:41] LABS: Glucose,Whole Blood 126 mg/dL (75-99)
[2020-05-29 20:50] LABS: Glucose,Whole Blood 157 mg/dL (75-99)
[2020-05-30] MEDS: methylPREDNISolone SOD SUCCI 125 MG/2 ML VIAL IV SCH ×3 (05:11→17:48)
[2020-05-30 07:16] LABS: Glucose,Whole Blood 105 mg/dL (75-99)
[2020-05-30] MEDS: INSULIN ASPART (NovoLOG) 100 UNIT/ML VIAL SQ SCH ×4 (07:23→21:34)
[2020-05-30] MEDS: ALBUTEROL HFA INHALER INHALATION PRN ×3 (07:38→15:55)
--- NOTE | 2020-05-30 08:25 | XR ---
OF EXAM: 05/30/2020 Comparison: 05/25/2020 Clinical History: 75-year-old male CoVID pneumonia Findings: Heart upper limits of normal in size. Diffuse interstitial and peripheral groundglass opacities persi st without significant change. No pleural effusion. Impression: Similar interstitial and peripheral changes of COVID pneumonia.
[2020-05-30 08:52] LABS: Basophils # (A) 0.02 X 10*3/uL (0.00-0.10); Basophils % (A) 0.2 %; Eosinophils # (A) 0 X 10*3/uL (0.04-0.35); Eosinophils % (A) 0 %; HCT 39.5 % (39.6-50.0); HGB 13.1 g/dL (13.0-17.0); Lymphocytes # (A) 0.19 X 10*3/uL (0.90-5.00); Lymphocytes % (A) 1.9 %; MCH 28.5 pg (27.0-32.0); MCHC 33.2 g/dL (32.0-37.0); MCV 85.9 fL (80.0-97.0); Mean Platelet Volume 10.6 fL (9.5-12.2); Monocytes # (A) 0.57 X 10*3/uL (0.20-1.00); Monocytes % (A) 5.7 %; Neutrophils # (A) 9.14 X 10*3/uL (1.80-7.70); Neutrophils % (A) 90.6 %; Platelet Count 375 X 10*3/uL (140-440); RDW 12.9 % (11.5-14.5); WBC 10.08 X 10*3/uL (4.50-10.00)
[2020-05-30 09:09] LABS: African American GFR (CKD) 108.5 (60.0-200.0); Anion Gap 2.8 mmol/L (4.00-12.00); BUN/Creat Ratio 48.57 Ratio (12.00-20.00); Calcium 8.1 mg/dL (8.7-10.3); Carbon Dioxide 25.2 mmol/L (21.6-31.8); Non-African American GFR(CKD) 93.6 (60.0-200.0); Potassium 5.5 mmol/L (3.5-5.5)
[2020-05-30] MEDS: risperiDONE 2 MG TAB PO SCH (09:47)
[2020-05-30] MEDS: ASPIRIN 81 MG PO SCH (09:47)
[2020-05-30] MEDS: CHOLECALCIFEROL 10 MCG (400 IU) TABLET PO SCH (09:47)
[2020-05-30] MEDS: ATORVASTATIN 80 MG TAB PO SCH (09:47)
[2020-05-30] MEDS: ENOXAPARIN 40 MG/0.4 ML SYRINGE SQ SCH (09:48)
[2020-05-30] MEDS: ASCORBIC ACID 500 MG TAB PO SCH (09:48)
[2020-05-30] MEDS: ZINC SULFATE 220 MG CAP PO SCH (09:48)
[2020-05-30] MEDS: FAMOTIDINE 20 MG TAB PO SCH (09:49)
[2020-05-30 12:10] LABS: Glucose,Whole Blood 114 mg/dL (75-99)
[2020-05-30 13:29] VITALS: BMI 26.3
[2020-05-30] MEDS ORDERED: SODIUM POLYSTYRENE SULFONATE 15 GM/60 ML BOTTLE PO STA (13:43)
--- NOTE | 2020-05-30 13:45 | P.PN ---
Subjective Principal diagnosis: Acute hypoxic respiratory failure secondary to CoVID 19 pneumonia 75 years old male with past medical history of hyperlipidemia , coronary artery disease status post stent. Patient of Dr. Cole. His somewhat poor historian. Patient presents with dyspnea and a dry with no chest pain or abdominal pain or diarrhea. No headache or weakness or numbness. However he was complaining of from upper respiratory symptoms and sore throat as well. Patient also and he was confused, last time he got lost at [place] and he was taken to [facility] where he stayed there for 4-5 days for Covid infection as he states, he went home after that however he did not feel better. . He denies smoking, alcohol or illicit drugs Patient also states that he has history of urinary bladder cancer status post surgery [address] zee to 2 months ago as he states. He does not follow up with oncologist or has chemotherapy 05/27/2020 Patient is seen and evaluated in follow-up in the regular medical floor. He is currently sitting up in a chair at the bedside. Awake and alert in no acute distress. He remains on Arava high flow oxygen down to 30 L and 65% FiO2. Still desaturates with minimal activity. He's been afebrile. Hemodynamically stable. Blood glucose 200. The chest on 0.03. He remains on Lovenox, IV Solu- Medrol, vitamin supplements. Pulmonary service on board and recommending to titrate FiO2 as able; patient might be switched over to high flow nasal cannula 05/28/2020 Patient is seen and evaluated in follow-up on the regular medical floor. He is currently sitting up in a chair at the bedside. Awake and alert in no acute distress. He remains on AirVo high flow oxygen at 50 L and 85% FiO2. He had pulled it off at one point his O2 saturation dropped into the 70s. Subsequently required within minutes of replacing that device. He remains on Lovenox, IV Solu-Medrol, vitamin supplements. Patient is being followed by pulmonary service and recommending to continue Solu-Medrol, Lovenox and vitamin supplements; continue to titrate FiO2 down as able; recommending possible subacute rehab once stable for discharge 05/29/2020 Patient is seen and evaluated in room at bedside; remains on O2 with HFNC at 50%; remains on 55 L with SpO2 90 Lab review shows an upward trend in d-dimer from 1.27 on initial exam up to 1.44; potassium at 5.3; B UN/creatinine of 38/0.8 to; LDH trending down slowly down to 1242; patient remains on subcu Lovenox, IV Solu-Medrol and vitamin supplements; we will continue to trend inflammatory markers and continue to wean oxygen off as able; plan for discharge to skilled rehab once clinically stable 05/30/2020 Patient remains on Airvo presently 90% FiO2 with the oxygen flow rate of around 25 L patient clinically looks well at this time. Serum sodium remains at 133 potassium is 5.5. Patient will be given a dose of And patient was started on low potassium diet Constitutional: Denied any fatigue denied any fever. Cardio vascular: denied any chest pain, palpitations Gastrointestinal denied any nausea vomiting Pulmonary: Denied any shortness of breath cough Neurologic denied any new focal deficits All inpatient medications were reviewed and appropriate changes in these medications as dictated in the interval history and assessment and plan. Objective - Vital Signs Vital signs: Vital Signs Temp 96.8 F L 05/30/20 10:00 Pulse 55 L 05/30/20 10:00 Resp 19 05/30/20 08:00 BP 113/63 05/30/20 10:00 Pulse Ox 94 L 05/30/20 11:28 Intake & Output 05/29/20 05/30/20 05/30/20 18:59 06:59 18:59 Intake Total 600 Output Total 600 Balance 600 -600 Weight 69.5 kg 69.5 kg Intake: Oral 600 Output: Urine 600 Other: Voiding Method Urinal # Voids 2 # Bowel Movements 0 - Exam PHYSICAL EXAMINATION: GENERAL: The patient is alert and oriented x3, not in any acute distress. Well developed, well nourished. is on high flow oxygen HEENT: Pupils are round and equally reacting to light. EOMI. No scleral icterus. No conjunctival pallor. Normocephalic, atraumatic. No pharyngeal erythema. No thyromegaly. CARDIOVASCULAR: S1 and S2 present. No murmurs, rubs, or gallops. PULMONARY: Chest is clear to auscultation, no wheezing or crackles. ABDOMEN: Soft, nontender, nondistended, normoactive bowel sounds. No palpable organomegaly. MUSCULOSKELETAL: No joint swelling or deformity. EXTREMITIES: No cyanosis, clubbing, or pedal edema. NEUROLOGICAL: Gross neurological examination did not reveal any focal deficits. SKIN: No rashes. - Labs CBC & Chem 7: 05/30/20 05:53 05/30/20 05:53 Labs: Abnormal Lab Results - Last 24 Hours (Table) 05/29/20 05/29/20 05/29/20 Range/Units 10:08 17:40 20:47 WBC (4.50-10.00) X 10*3/uL Hct (39.6-50.0) % Immature Gran # (0.00-0.04) X 10*3/uL Neutrophils # (1.80-7.70) X 10*3/uL Lymphocytes # (0.90-5.00) X 10*3/uL Eosinophils # (0.04-0.35) X 10*3/uL Sodium (135-145) mmol/L Anion Gap (4.00-12.00) mmol/L BUN (9.0-27.0) mg/dL BUN/Creatinine Ratio (12.00-20.00) Ratio Glucose (70-110) mg/dL POC Glucose (mg/dL) 126 H 157 H (75-99) mg/dL Calcium (8.7-10.3) mg/dL Ferritin 323.9 H (22.0-322.0) ng/mL 05/30/20 05/30/20 05/30/20 Range/Units 05:53 05:53 07:14 WBC 10.08 H (4.50-10.00) X 10*3/uL Hct 39.5 L (39.6-50.0) % Immature Gran # 0.16 H (0.00-0.04) X 10*3/uL Neutrophils # 9.14 H (1.80-7.70) X 10*3/uL Lymphocytes # 0.19 L (0.90-5.00) X 10*3/uL Eosinophils # 0 L (0.04-0.35) X 10*3/uL Sodium 133 L (135-145) mmol/L Anion Gap 2.80 L (4.00-12.00) mmol/L BUN 34.0 H (9.0-27.0) mg/dL BUN/Creatinine Ratio 48.57 H (12.00-20.00) Ratio Glucose 112 H (70-110) mg/dL POC Glucose (mg/dL) 105 H (75-99) mg/dL Calcium 8.1 L (8.7-10.3) mg/dL Ferritin (22.0-322.0) ng/mL 05/30/20 Range/Units 12:08 WBC (4.50-10.00) X 10*3/uL Hct (39.6-50.0) % Immature Gran # (0.00-0.04) X 10*3/uL Neutrophils # (1.80-7.70) X 10*3/uL Lymphocytes # (0.90-5.00) X 10*3/uL Eosinophils # (0.04-0.35) X 10*3/uL Sodium (135-145) mmol/L Anion Gap (4.00-12.00) mmol/L BUN (9.0-27.0) mg/dL BUN/Creatinine Ratio (12.00-20.00) Ratio Glucose (70-110) mg/dL POC Glucose (mg/dL) 114 H (75-99) mg/dL Calcium (8.7-10.3) mg/dL Ferritin (22.0-322.0) ng/mL Assessment and Plan Plan: Acute bilateral covid pneumonia : Patient is in requirements have, patient remains on steroids, zinc, vitamin C pulmonary following the patient, monitor inflammatory markers Acute hypoxic respiratory failure secondary to above ischemic cardiomyopathy with ejection fraction 40-45% with wall hypokinesia, pat ient is a euvolemic at this time Severe pulmonary hypertension and moderate pulmonary regurgitation metabolic encephalopathy mild Acute kidney injury, Versus chronic kidney disease possible UTI Possible history of urinary cancer status post surgery 2 Hyperlipidemia History of coronary artery disease DVT prophylaxis: Subcutaneous Lovenox GI Prophylaxis: Pepcid PT/OT: Evaluating Prognosis is guarded
[2020-05-30 17:01] LABS: Glucose,Whole Blood 114 mg/dL (75-99)
--- NOTE | 2020-05-30 18:10 | P.PN ---
Subjective Progress Note Date: 05/30/20 Principal diagnosis: COVID 19 pneumonia This is a very pleasant 75-year-old gentleman who follows with Dr. komal ward as his primary care provider. He has a history of hyperlipidemia, anxiety, bladder cancer with TURBT in January 2020. Approximately [address] ates he was doing well and was driving from [place] to [place] to get gas. That is the last thing he remembers. He somehow ended up at [facility] and transferred later to [facility] diagnosed with CoVID 19 infection. He states he was also told he had a myocardial infarction. He was there about 1 week and then discharged home. He was discharged on vitamin C, D and zinc. He is unsure if he received any other treatment for CoVID. He's been home about 3 days and then last night he was brought here by EMS after continuing with progressive weakness, shortness of breath, poor appetite. He lives with his daughter [place]. Chest x-ray reveals diffuse airspace opacities representing pulmonary edema versus infectious process. Echocardiogram reveals mild to moderately impaired left ventricular systolic function with ejection fraction 40-45%. Severe pulmonary hypertension. White count 2.7. Hemoglobin 14.6. Lymphocytes 0.2. D-dimer 0.64. Sodium 1:30. Potassium 5.7. Creatinine 1.24. LDH 2017. C-reactive protein 163. Troponin 0.64, 0.70. Urine with moderate leukocytes and high WBCs. Oscar virus by PCR detected. He's been initiated on vitamin C, vitamin D, zinc. Dexamethasone at 6 mg daily. Lovenox 40 mg subcu daily. He is also started on ceftriaxone and IV diuretics. He is seen today in consultation in the emergency room. He is currently awake and alert. Resting comfortably in bed. He is oriented 3. He is currently on a nonrebreather mask with O2 saturation of 91%. He is afebrile. Hemodynamically stable. On 05/30/2020 patient seen in follow-up medical surgical floor, patient remains on interval currently at 25 L and FiO2 of 90%, and partial nonrebreather mask his pulse ox is 88-94%, he looks comfortable, she is sitting up in the chair, no acute distress, no worsening dyspnea, no compressive chest pain, no cough or congestion. His chest x-ray shows similar interstitial and peripheral changes of Covid pneumonia. She remains on IV steroids in the form Solu-Medrol 60 mg every 6 hours, he is on prophylactic Lovenox 40 mg daily, he is on vitamins. Patient was not a candidate for Remdesivir, she was treated with standard treatm ent. He also received antibiotics for possibility of urinary tract infection. Objective - Vital Signs Vital signs: Vital Signs Temp 96.9 F L 05/30/20 14:00 Pulse 59 L 05/30/20 14:00 Resp 16 05/30/20 14:00 BP 123/61 05/30/20 14:00 Pulse Ox 94 L 05/30/20 15:55 Intake & Output 05/29/20 05/30/20 05/30/20 18:59 06:59 18:59 Intake Total 600 Output Total 600 Balance 600 -600 Weight 69.5 kg 69.5 kg Intake: Oral 600 Output: Urine 600 Other: Voiding Method Urinal # Voids 2 # Bowel Movements 0 - Exam GENERAL EXAM: Alert, very pleasant, 75-year-old white male, on interval, at 25 L and FiO2 of 90% in addition to partial nonrebreather mask, comfortable in no apparent distress. HEAD: Normocephalic/atraumatic. EYES: Normal reaction of pupils, equal size. Conjunctiva pink, sclera white. NOSE: Clear with pink turbinates. THROAT: No erythema or exudates. NECK: No masses, no JVD, no thyroid enlargement, no adenopathy. CHEST: No chest wall deformity. Symmetrical expansion. LUNGS: Equal air entry with no crackles, wheeze, rhonchi or dullness. CVS: Regular rate and rhythm, normal S1 and S2, no gallops, no murmurs, no rubs ABDOMEN: Soft, nontender. No hepatosplenomegaly, normal bowel sounds, no guarding or rigidity. EXTREMITIES: No clubbing, no edema, no cyanosis, 2+ pulses and upper and lower extremities. MUSCULOSKELETAL: Muscle strength and tone normal. SPINE: No scoliosis or deformity SKIN: No rashes CENTRAL NERVOUS SYSTEM: Alert and oriented -3. No focal deficits, tone is normal in all 4 extremities. PSYCHIATRIC: Alert and oriented -3. Appropriate affect. Intact judgment and insight. - Labs CBC & Chem 7: 05/30/20 05:53 05/30/20 05:53 Labs: Abnormal Lab Results - Last 24 Hours (Table) 05/29/20 05/30/20 05/30/20 Range/Units 20:47 05:53 05:53 WBC 10.08 H (4.50-10.00) X 10*3/uL Hct 39.5 L (39.6-50.0) % Immature Gran # 0.16 H (0.00-0.04) X 10*3/uL Neutrophils # 9.14 H (1.80-7.70) X 10*3/uL Lymphocytes # 0.19 L (0.90-5.00) X 10*3/uL Eosinophils # 0 L (0.04-0.35) X 10*3/uL Sodium 133 L (135-145) mmol/L Anion Gap 2.80 L (4.00-12.00) mmol/L BUN 34.0 H (9.0-27.0) mg/dL BUN/Creatinine Ratio 48.57 H (12.00-20.00) Ratio Glucose 112 H (70-110) mg/dL POC Glucose (mg/dL) 157 H (75-99) mg/dL Calcium 8.1 L (8.7-10.3) mg/dL 05/30/20 05/30/20 05/30/20 Range/Units 07:14 12:08 17:00 WBC (4.50-10.00) X 10*3/uL Hct (39.6-50.0) % Immature Gran # (0.00-0.04) X 10*3/uL Neutrophils # (1.80-7.70) X 10*3/uL Lymphocytes # (0.90-5.00) X 10*3/uL Eosinophils # (0.04-0.35) X 10*3/uL Sodium (135-145) mmol/L Anion Gap (4.00-12.00) mmol/L BUN (9.0-27.0) mg/dL BUN/Creatinine Ratio (12.00-20.00) Ratio Glucose (70-110) mg/dL POC Glucose (mg/dL) 105 H 114 H 114 H (75-99) mg/dL Calcium (8.7-10.3) mg/dL Assessment and Plan Plan: Assessment: #1. Acute hypoxic rest or failure secondary to COVID 19 pneumonia, was not candidate for Remdesivir #2. Increased inflammatory markers lymphopenia related to the above #3. Recent hospitalization in [place] for COVID 19 infection for one week and patient was home for 3 days prior to returning to the hospital at [facility] #4. Recent myocardial infarction with stent placement #5. Suspect ischemic cardiomyopathy with ejection fraction of 40-45% #6. Troponin leak #7. Pulmonary hypertension #8. Hyperlipidemia #9. History of anxiety #10. History of bladder cancer status post TURBT in January 2020 Plan: We will remove the ear fold, keep the patient partial non-rebreather mask, wean FiO2, obtain follow-up d-dimer, and follow-up inflammatory markers, provided sounds from her, encourage deep breathing and coughing, continue current dose s teroids, vitamins, and anti-coagulation. Increase activity as tolerated, we'll continue to follow I performed a history & physical examination of the patient and discussed their management with my nurse practitioner, Nydia Oviedo. I reviewed the nurse practitioner's note and agree with the documented findings and plan of care. Lung sounds are positive for diminished breath sounds The findings and the impression was discussed with the patient. I attest to the documentation by the nurse practitioner. Time with Patient: Less than 30
[2020-05-30 21:09] LABS: Glucose,Whole Blood 221 mg/dL (75-99)
[2020-05-31] MEDS: methylPREDNISolone SOD SUCCI 125 MG/2 ML VIAL IV SCH ×3 (00:15→09:56)
[2020-05-31 07:03] LABS: Glucose,Whole Blood 97 mg/dL (75-99)
[2020-05-31] MEDS: INSULIN ASPART (NovoLOG) 100 UNIT/ML VIAL SQ SCH ×4 (08:09→23:06)
[2020-05-31] MEDS: ALBUTEROL HFA INHALER INHALATION PRN ×4 (08:50→19:51)
[2020-05-31] MEDS: CHOLECALCIFEROL 10 MCG (400 IU) TABLET PO SCH (09:56)
[2020-05-31] MEDS: ASCORBIC ACID 500 MG TAB PO SCH (09:56)
[2020-05-31] MEDS: ZINC SULFATE 220 MG CAP PO SCH (09:56)
[2020-05-31] MEDS: risperiDONE 2 MG TAB PO SCH (09:56)
[2020-05-31] MEDS: ATORVASTATIN 80 MG TAB PO SCH (09:56)
[2020-05-31] MEDS: ASPIRIN 81 MG PO SCH (09:56)
[2020-05-31] MEDS: FAMOTIDINE 20 MG TAB PO SCH (09:56)
[2020-05-31] MEDS: ENOXAPARIN 40 MG/0.4 ML SYRINGE SQ SCH (09:57)
[2020-05-31 11:27] LABS: Glucose,Whole Blood 157 mg/dL (75-99)
[2020-05-31 13:20] LABS: African American GFR (CKD) 102.7 (60.0-200.0); C Reactive Protein <0.4 mg/dL (0.0-0.8); Calcium 8.5 mg/dL (8.7-10.3); Carbon Dioxide 26.8 mmol/L (21.6-31.8); Chloride 102 mmol/L (96-109); Glucose 96 mg/dL (70-110); LDH 525 U/L (120-246); Non-African American GFR(CKD) 88.6 (60.0-200.0); Potassium 5.5 mmol/L (3.5-5.5); Sodium 134 mmol/L (135-145)
--- NOTE | 2020-05-31 15:13 | P.PN ---
Subjective Principal diagnosis: Acute hypoxic respiratory failure secondary to CoVID 19 pneumonia 75 years old male with past medical history of hyperlipidemia , coronary artery disease status post stent. Patient of Dr. Cole. His somewhat poor historian. Patient presents with dyspnea and a dry with no chest pain or abdominal pain or diarrhea. No headache or weakness or numbness. However he was complaining of from upper respiratory symptoms and sore throat as well. Patient also and he was confused, last time he got lost at [place] and he was taken to [facility] where he stayed there for 4-5 days for Covid infection as he states, he went home after that however he did not feel better. . He denies smoking, alcohol or illicit drugs Patient also states that he has history of urinary bladder cancer status post surgery [address] zee to 2 months ago as he states. He does not follow up with oncologist or has chemotherapy 05/27/2020 Patient is seen and evaluated in follow-up in the regular medical floor. He is currently sitting up in a chair at the bedside. Awake and alert in no acute distress. He remains on Arava high flow oxygen down to 30 L and 65% FiO2. Still desaturates with minimal activity. He's been afebrile. Hemodynamically stable. Blood glucose 200. The chest on 0.03. He remains on Lovenox, IV Solu- Medrol, vitamin supplements. Pulmonary service on board and recommending to titrate FiO2 as able; patient might be switched over to high flow nasal cannula 05/28/2020 Patient is seen and evaluated in follow-up on the regular medical floor. He is currently sitting up in a chair at the bedside. Awake and alert in no acute distress. He remains on AirVo high flow oxygen at 50 L and 85% FiO2. He had pulled it off at one point his O2 saturation dropped into the 70s. Subsequently required within minutes of replacing that device. He remains on Lovenox, IV Solu-Medrol, vitamin supplements. Patient is being followed by pulmonary service and recommending to continue Solu-Medrol, Lovenox and vitamin supplements; continue to titrate FiO2 down as able; recommending possible subacute rehab once stable for discharge 05/29/2020 Patient is seen and evaluated in room at bedside; remains on O2 with HFNC at 50%; remains on 55 L with SpO2 90 Lab review shows an upward trend in d-dimer from 1.27 on initial exam up to 1.44; potassium at 5.3; B UN/creatinine of 38/0.8 to; LDH trending down slowly down to 1242; patient remains on subcu Lovenox, IV Solu-Medrol and vitamin supplements; we will continue to trend inflammatory markers and continue to wean oxygen off as able; plan for discharge to skilled rehab once clinically stable 05/30/2020 Patient remains on Airvo presently 90% FiO2 with the oxygen flow rate of around 25 L patient clinically looks well at this time. Serum sodium remains at 133 potassium is 5.5. Patient will be given a dose of And patient was started on low potassium diet. 05/31/2020 Patient's potassium is still high but stable at around 5.5 serum sodium did improve patient remains on defer liters of oxygen with 85% FiO2. Constitutional: Denied any fatigue denied any fever. Cardio vascular: denied any chest pain, palpitations Gastrointestinal denied any nausea vomiting Pulmonary: Denied any shortness of breath cough Neurologic denied any new focal deficits All inpatient medications were reviewed and appropriate changes in these medications as dictated in the interval history and assessment and plan. Objective - Vital Signs Vital signs: Vital Signs Temp 98.3 F 05/31/20 14:25 Pulse 52 L 05/31/20 14:25 Resp 22 05/31/20 14:25 BP 122/65 05/31/20 14:25 Pulse Ox 85 L 05/31/20 14:25 Intake & Output 05/30/20 05/31/20 05/31/20 18:59 06:59 18:59 Intake Total 600 Output Total 2100 Balance 600 -2100 Weight 69.5 kg 67.5 kg Intake: Oral 600 Output: Urine 2100 Other: Voiding Method Urinal Urinal # Voids 4 # Bowel Movements 0 - Exam PHYSICAL EXAMINATION: GENERAL: The patient is alert and oriented x3, not in any acute distress. Well developed, well nourished. is on high flow oxygen HEENT: Pupils are round and equally reacting to light. EOMI. No scleral icterus. No conjunctival pallor. Normocephalic, atraumatic. No pharyngeal erythema. No thyromegaly. CARDIOVASCULAR: S1 and S2 present. No murmurs, rubs, or gallops. PULMONARY: Chest is clear to auscultation, no wheezing or crackles. ABDOMEN: Soft, nontender, nondistended, normoactive bowel sounds. No palpable organomegaly. MUSCULOSKELETAL: No joint swelling or deformity. EXTREMITIES: No cyanosis, clubbing, or pedal edema. NEUROLOGICAL: Gross neurological examination did not reveal any focal deficits. SKIN: No rashes. - Labs CBC & Chem 7: 05/30/20 05:53 05/31/20 06:05 Labs: Abnormal Lab Results - Last 24 Hours (Table) 05/30/20 05/30/20 05/31/20 Range/Units 17:00 21:09 06:05 D-Dimer 1.30 H (<0.60) mg/L FEU Sodium (135-145) mmol/L BUN (9.0-27.0) mg/dL BUN/Creatinine Ratio (12.00-20.00) Ratio POC Glucose (mg/dL) 114 H 221 H (75-99) mg/dL Calcium (8.7-10.3) mg/dL Lactate Dehydrogenase (120-246) U/L 05/31/20 05/31/20 Range/Units 06:05 11:24 D-Dimer (<0.60) mg/L FEU Sodium 134 L (135-145) mmol/L BUN 32.0 H (9.0-27.0) mg/dL BUN/Creatinine Ratio 40.00 H (12.00-20.00) Ratio POC Glucose (mg/dL) 157 H (75-99) mg/dL Calcium 8.5 L (8.7-10.3) mg/dL Lactate Dehydrogenase 525 H (120-246) U/L Assessment and Plan Plan: Acute bilateral covid pneumonia : Patient is in requirements have, patient remains on steroids, zinc, vitamin C pulmonary following the patient, monitor inflammatory markers Acute hypoxic respiratory failure secondary to above ischemic cardiomyopathy with ejection fraction 40-45% with wall hypokinesia, patient is a euvolemic at this time Severe pulmonary hypertension and moderate pulmonary regurgitation metabolic encephalopathy mild Acute kidney injury, Versus chronic kidney disease possible UTI Possible history of urinary cancer status post surgery 2 Hyperlipidemia History of coronary artery disease DVT prophylaxis: Subcutaneous Lovenox GI Prophylaxis: Pepcid PT/OT: Evaluating Prognosis is guarded
--- NOTE | 2020-05-31 16:27 | P.PN ---
Subjective Progress Note Date: 05/31/20 Principal diagnosis: COVID 19 pneumonia This is a very pleasant 75-year-old gentleman who follows with Dr. komal ward as his primary care provider. He has a history of hyperlipidemia, anxiety, bladder cancer with TURBT in January 2020. Approximately [address] ates he was doing well and was driving from [place] to [place] to get gas. That is the last thing he remembers. He somehow ended up at [facility] and transferred later to [facility] diagnosed with CoVID 19 infection. He states he was also told he had a myocardial infarction. He was there about 1 week and then discharged home. He was discharged on vitamin C, D and zinc. He is unsure if he received any other treatment for CoVID. He's been home about 3 days and then last night he was brought here by EMS after continuing with progressive weakness, shortness of breath, poor appetite. He lives with his daughter [place]. Chest x-ray reveals diffuse airspace opacities representing pulmonary edema versus infectious process. Echocardiogram reveals mild to moderately impaired left ventricular systolic function with ejection fraction 40-45%. Severe pulmonary hypertension. White count 2.7. Hemoglobin 14.6. Lymphocytes 0.2. D-dimer 0.64. Sodium 1:30. Potassium 5.7. Creatinine 1.24. LDH 2017. C-reactive protein 163. Troponin 0.64, 0.70. Urine with moderate leukocytes and high WBCs. Oscar virus by PCR detected. He's been initiated on vitamin C, vitamin D, zinc. Dexamethasone at 6 mg daily. Lovenox 40 mg subcu daily. He is also started on ceftriaxone and IV diuretics. He is seen today in consultation in the emergency room. He is currently awake and alert. Resting comfortably in bed. He is oriented 3. He is currently on a nonrebreather mask with O2 saturation of 91%. He is afebrile. Hemodynamically stable. On 05/30/2020 patient seen in follow-up medical surgical floor, patient remains on interval currently at 25 L and FiO2 of 90%, and partial nonrebreather mask his pulse ox is 88-94%, he looks comfortable, she is sitting up in the chair, no acute distress, no worsening dyspnea, no compressive chest pain, no cough or congestion. His chest x-ray shows similar interstitial and peripheral changes of Covid pneumonia. She remains on IV steroids in the form Solu-Medrol 60 mg every 6 hours, he is on prophylactic Lovenox 40 mg daily, he is on vitamins. Patient was not a candidate for Remdesivir, she was treated with standard treatm ent. He also received antibiotics for possibility of urinary tract infection. On 05/31/2020 patient seen in follow-up on medical floor, remains on interval at 45 L and FiO2 of 60%, and his pulse ox is greater than 94%, overall his FiO2 requirements are improving. No new chest x-ray today, no worsening dyspnea, in no acute distress, no fever or chills, no chest discomfort, no nausea or vomiting. Patient was not a candidate for Remdesivir, he was treated with Decadron, on prophylactic dose of Lovenox, and vitamins. D-dimer slightly improved on today's labs, 1.3, sodium is 134, and her serum electrolytes are within normal limits, B1 is 32, creatinine 0.8, LDH is 525, CRP is less than 0.4 Objective - Vital Signs Vital signs: Vital Signs Temp 98.3 F 05/31/20 14:25 Pulse 52 L 05/31/20 14:25 Resp 22 05/31/20 14:25 BP 122/65 05/31/20 14:25 Pulse Ox 85 L 05/31/20 14:25 Intake & Output 05/30/20 05/31/20 05/31/20 18:59 06:59 18:59 Intake Total 600 Output Total 2100 Balance 600 -2100 Weight 69.5 kg 67.5 kg Intake: Oral 600 Output: Urine 2100 Other: Voiding Method Urinal Urinal # Voids 4 # Bowel Movements 0 - Exam GENERAL EXAM: Alert, very pleasant, 75-year-old white male, onAirvo at 45 L/m, FiO2 of 60% pulse ox of 94% comfortable in no apparent distress. HEAD: Normocephalic/atraumatic. EYES: Normal reaction of pupils, equal size. Conjunctiva pink, sclera white. NOSE: Clear with pink turbinates. THROAT: No erythema or exudates. NECK: No masses, no JVD, no thyroid enlargement, no adenopathy. CHEST: No chest wall deformity. Symmetrical expansion. LUNGS: Equal air entry with no crackles, wheeze, rhonchi or dullness. CVS: Regular rate and rhythm, normal S1 and S2, no gallops, no murmurs, no rubs ABDOMEN: Soft, nontender. No hepatosplenomegaly, normal bowel sounds, no guarding or rigidity. EXTREMITIES: No clubbing, no edema, no cyanosis, 2+ pulses and upper and lower extremities. MUSCULOSKELETAL: Muscle strength and tone normal. SPINE: No scoliosis or deformity SKIN: No rashes CENTRAL NERVOUS SYSTEM: Alert and oriented -3. No focal deficits, tone is normal in all 4 extremities. PSYCHIATRIC: Alert and oriented -3. Appropriate affect. Intact judgment and insight. - Labs CBC & Chem 7: 05/30/20 05:53 05/31/20 06:05 Labs: Abnormal Lab Results - Last 24 Hours (Table) 05/30/20 05/30/20 05/31/20 Range/Units 17:00 21:09 06:05 D-Dimer 1.30 H (<0.60) mg/L FEU Sodium (135-145) mmol/L BUN (9.0-27.0) mg/dL BUN/Creatinine Ratio (12.00-20.00) Ratio POC Glucose (mg/dL) 114 H 221 H (75-99) mg/dL Calcium (8.7-10.3) mg/dL Lactate Dehydrogenase (120-246) U/L 05/31/20 05/31/20 Range/Units 06:05 11:24 D-Dimer (<0.60) mg/L FEU Sodium 134 L (135-145) mmol/L BUN 32.0 H (9.0-27.0) mg/dL BUN/Creatinine Ratio 40.00 H (12.00-20.00) Ratio POC Glucose (mg/dL) 157 H (75-99) mg/dL Calcium 8.5 L (8.7-10.3) mg/dL Lactate Dehydrogenase 525 H (120-246) U/L Assessment and Plan Plan: Assessment: #1. Acute hypoxic rest or failure secondary to COVID 19 pneumonia, was not c andidate for Remdesivir #2. Increased inflammatory markers lymphopenia related to the above #3. Recent hospitalization in [place] for COVID 19 infection for one week and patient was home for 3 days prior to returning to the hospital at [facility] #4. Recent myocardial infarction with stent placement #5. Suspect ischemic cardiomyopathy with ejection fraction of 40-45% #6. Troponin leak #7. Pulmonary hypertension #8. Hyperlipidemia #9. History of anxiety #10. History of bladder cancer status post TURBT in January 2020 Plan: Continue current medical treatment, will cut back IV steroids to 40 mg every 8 hours, FiO2 requirements are improving, continue weaning FiO2 to maintain O2 sat between 88-90%, encourage deep breathing and coughing, continue current dose Lovenox, we'll continue to follow I performed a history & physical examination of the patient and discussed their management with my nurse practitioner, Nydia Oviedo. I reviewed the nurse practitioner's note and agree with the documented findings and plan of care. Lung sounds are positive for diminished breath sounds The findings and the impression was discussed with the patient. I attest to the documentation by the nurse practitioner. Time with Patient: Less than 30
[2020-05-31 17:13] LABS: Glucose,Whole Blood 120 mg/dL (75-99)
[2020-05-31 20:14] LABS: Glucose,Whole Blood 132 mg/dL (75-99)
[2020-05-31] MEDS: methylPREDNISolone SOD SUCCI 40 MG/ML 1 ML VIAL IV SCH (23:39)
[2020-06-01] MEDS: ALBUTEROL HFA INHALER INHALATION PRN ×4 (07:26→19:52)
[2020-06-01 07:37] LABS: Glucose,Whole Blood 82 mg/dL (75-99)
[2020-06-01] MEDS: INSULIN ASPART (NovoLOG) 100 UNIT/ML VIAL SQ SCH ×4 (09:09→21:18)
[2020-06-01] MEDS: ASPIRIN 81 MG PO SCH (09:13)
[2020-06-01] MEDS: ASCORBIC ACID 500 MG TAB PO SCH (09:13)
[2020-06-01] MEDS: ATORVASTATIN 80 MG TAB PO SCH (09:13)
[2020-06-01] MEDS: ZINC SULFATE 220 MG CAP PO SCH (09:13)
[2020-06-01] MEDS: FAMOTIDINE 20 MG TAB PO SCH (09:13)
[2020-06-01] MEDS: CHOLECALCIFEROL 10 MCG (400 IU) TABLET PO SCH (09:14)
[2020-06-01] MEDS: risperiDONE 2 MG TAB PO SCH (09:14)
[2020-06-01] MEDS: methylPREDNISolone SOD SUCCI 40 MG/ML 1 ML VIAL IV SCH ×2 (09:14→16:19)
[2020-06-01] MEDS: ENOXAPARIN 40 MG/0.4 ML SYRINGE SQ SCH (09:14)
[2020-06-01 11:56] LABS: Glucose,Whole Blood 102 mg/dL (75-99)
--- NOTE | 2020-06-01 15:31 | P.PN ---
Subjective Principal diagnosis: Acute hypoxic respiratory failure secondary to CoVID 19 pneumonia 75 years old male with past medical history of hyperlipidemia , coronary artery disease status post stent. Patient of Dr. Cole. His somewhat poor historian. Patient presents with dyspnea and a dry with no chest pain or abdominal pain or diarrhea. No headache or weakness or numbness. However he was complaining of from upper respiratory symptoms and sore throat as well. Patient also and he was confused, last time he got lost at [place] and he was taken to [facility] where he stayed there for 4-5 days for Covid infection as he states, he went home after that however he did not feel better. . He denies smoking, alcohol or illicit drugs Patient also states that he has history of urinary bladder cancer status post surgery [address] zee to 2 months ago as he states. He does not follow up with oncologist or has chemotherapy 05/27/2020 Patient is seen and evaluated in follow-up in the regular medical floor. He is currently sitting up in a chair at the bedside. Awake and alert in no acute distress. He remains on Arava high flow oxygen down to 30 L and 65% FiO2. Still desaturates with minimal activity. He's been afebrile. Hemodynamically stable. Blood glucose 200. The chest on 0.03. He remains on Lovenox, IV Solu- Medrol, vitamin supplements. Pulmonary service on board and recommending to titrate FiO2 as able; patient might be switched over to high flow nasal cannula 05/28/2020 Patient is seen and evaluated in follow-up on the regular medical floor. He is currently sitting up in a chair at the bedside. Awake and alert in no acute distress. He remains on AirVo high flow oxygen at 50 L and 85% FiO2. He had pulled it off at one point his O2 saturation dropped into the 70s. Subsequently required within minutes of replacing that device. He remains on Lovenox, IV Solu-Medrol, vitamin supplements. Patient is being followed by pulmonary service and recommending to continue Solu-Medrol, Lovenox and vitamin supplements; continue to titrate FiO2 down as able; recommending possible subacute rehab once stable for discharge 05/29/2020 Patient is seen and evaluated in room at bedside; remains on O2 with HFNC at 50%; remains on 55 L with SpO2 90 Lab review shows an upward trend in d-dimer from 1.27 on initial exam up to 1.44; potassium at 5.3; B UN/creatinine of 38/0.8 to; LDH trending down slowly down to 1242; patient remains on subcu Lovenox, IV Solu-Medrol and vitamin supplements; we will continue to trend inflammatory markers and continue to wean oxygen off as able; plan for discharge to skilled rehab once clinically stable 05/30/2020 Patient remains on Airvo presently 90% FiO2 with the oxygen flow rate of around 25 L patient clinically looks well at this time. Serum sodium remains at 133 potassium is 5.5. Patient will be given a dose of And patient was started on low potassium diet. 05/31/2020 Patient's potassium is still high but stable at around 5.5 serum sodium did improve patient remains on defer liters of oxygen with 85% FiO2. 06/01/2020 Patient still remains on a 50 L of oxygen and 90% FiO2 on airvo, although patient clinically looks good denied any complaints at this time. Constitutional: Denied any fatigue denied any fever. Cardio vascular: denied any chest pain, palpitations Gastrointestinal denied any nausea vomiting Pulmonary: Denied any shortness of breath cough Neurologic denied any new focal deficits All inpatient medications were reviewed and appropriate changes in these medications as dictated in the interval history and assessment and plan. Objective - Vital Signs Vital signs: Vital Signs Temp 97.7 F 06/01/20 10:00 Pulse 53 L 06/01/20 10:00 Resp 18 06/01/20 10:00 BP 94/60 06/01/20 10:00 Pulse Ox 89 L 06/01/20 11:19 Intake & Output 05/31/20 06/01/20 06/01/20 18:59 06:59 18:59 Weight 66 kg Other: Voiding Method Urinal Urinal Urinal # Voids 4 # Bowel Movements 2 - Exam PHYSICAL EXAMINATION: GENERAL: The patient is alert and oriented x3, not in any acute distress. Well developed, well nourished. is on high flow oxygen HEENT: Pupils are round and equally reacting to light. EOMI. No scleral icterus. No conjunctival pallor. Normocephalic, atraumatic. No pharyngeal erythema. No thyromegaly. CARDIOVASCULAR: S1 and S2 present. No murmurs, rubs, or gallops. PULMONARY: Chest is clear to auscultation, no wheezing or crackles. ABDOMEN: Soft, nontender, nondistended, normoactive bowel sounds. No palpable organomegaly. MUSCULOSKELETAL: No joint swelling or deformity. EXTREMITIES: No cyanosis, clubbing, or pedal edema. NEUROLOGICAL: Gross neurological examination did not reveal any focal deficits. SKIN: No rashes. - Labs CBC & Chem 7: 05/30/20 05:53 05/31/20 06:05 Labs: Abnormal Lab Results - Last 24 Hours (Table) 05/31/20 05/31/20 06/01/20 Range/Units 16:26 20:12 11:54 POC Glucose (mg/dL) 120 H 132 H 102 H (75-99) mg/dL Assessment and Plan Plan: Acute bilateral covid pneumonia : Patient is in requirements have, patient remains on steroids, zinc, vitamin C pulmonary following the patient, monitor inflammatory markers Acute hypoxic respiratory failure secondary to above ischemic cardiomyopathy with ejection fraction 40-45% with wall hypokinesia, patient is a euvolemic at this time Severe pulmonary hypertension and moderate pulmonary regurgitation metabolic encephalopathy mild Acute kidney injury, Versus chronic kidney disease possible UTI Possible history of urinary cancer status post surgery 2 Hyperlipidemia History of coronary artery disease DVT prophylaxis: Subcutaneous Lovenox GI Prophylaxis: Pepcid PT/OT: Evaluating Prognosis is guarded
--- NOTE | 2020-06-01 16:09 | P.PN ---
Subjective Progress Note Date: 06/01/20 Principal diagnosis: COVID 19 pneumonia This is a very pleasant 75-year-old gentleman who follows with Dr. komal ward as his primary care provider. He has a history of hyperlipidemia, anxiety, bladder cancer with TURBT in January 2020. Approximately [address] ates he was doing well and was driving from [place] to [place] to get gas. That is the last thing he remembers. He somehow ended up at [facility] and transferred later to [facility] diagnosed with CoVID 19 infection. He states he was also told he had a myocardial infarction. He was there about 1 week and then discharged home. He was discharged on vitamin C, D and zinc. He is unsure if he received any other treatment for CoVID. He's been home about 3 days and then last night he was brought here by EMS after continuing with progressive weakness, shortness of breath, poor appetite. He lives with his daughter [place]. Chest x-ray reveals diffuse airspace opacities representing pulmonary edema versus infectious process. Echocardiogram reveals mild to moderately impaired left ventricular systolic function with ejection fraction 40-45%. Severe pulmonary hypertension. White count 2.7. Hemoglobin 14.6. Lymphocytes 0.2. D-dimer 0.64. Sodium 1:30. Potassium 5.7. Creatinine 1.24. LDH 2017. C-reactive protein 163. Troponin 0.64, 0.70. Urine with moderate leukocytes and high WBCs. Oscar virus by PCR detected. He's been initiated on vitamin C, vitamin D, zinc. Dexamethasone at 6 mg daily. Lovenox 40 mg subcu daily. He is also started on ceftriaxone and IV diuretics. He is seen today in consultation in the emergency room. He is currently awake and alert. Resting comfortably in bed. He is oriented 3. He is currently on a nonrebreather mask with O2 saturation of 91%. He is afebrile. Hemodynamically stable. On 05/30/2020 patient seen in follow-up medical surgical floor, patient remains on interval currently at 25 L and FiO2 of 90%, and partial nonrebreather mask his pulse ox is 88-94%, he looks comfortable, she is sitting up in the chair, no acute distress, no worsening dyspnea, no compressive chest pain, no cough or congestion. His chest x-ray shows similar interstitial and peripheral changes of Covid pneumonia. She remains on IV steroids in the form Solu-Medrol 60 mg every 6 hours, he is on prophylactic Lovenox 40 mg daily, he is on vitamins. Patient was not a candidate for Remdesivir, she was treated with standard treatm ent. He also received antibiotics for possibility of urinary tract infection. On 05/31/2020 patient seen in follow-up on medical floor, remains on interval at 45 L and FiO2 of 60%, and his pulse ox is greater than 94%, overall his FiO2 requirements are improving. No new chest x-ray today, no worsening dyspnea, in no acute distress, no fever or chills, no chest discomfort, no nausea or vomiting. Patient was not a candidate for Remdesivir, he was treated with Decadron, on prophylactic dose of Lovenox, and vitamins. D-dimer slightly improved on today's labs, 1.3, sodium is 134, and her serum electrolytes are within normal limits, B1 is 32, creatinine 0.8, LDH is 525, CRP is less than 0.4 On 06/01/2020 patient seen in follow-up on medical surgical floor, morning he had episode of resp distress, he remains on Airvo, at 50 L and FiO2 of 90%, in addition to 100% non-rebreather mask because of the earlier episode and the soles of desaturation into the 70s, 100% nonrebreather mask was removed, the flow was increased to 60 L and FiO2 was less than 90%, and his pulse ox is 89- 94%, patient is breathing comfortably, he states he is feeling much better since this morning, afebrile, no complaints of chest pain, she was outside the window for Remdesivir, he is receiving standard treatment in the form of Solu-Medrol, vitamins, and prophylactic Lovenox, his labs have been reviewed, showing d-dimer of 1.30, sodium is 134, the rest of electrolytes were unremarkable, BUN is 32, creatinine 0.8, limits her markers are improving, LDH is down to 525, and CRP is down to less than 0.4 on today's labs Objective - Vital Signs Vital signs: Vital Signs Temp 97.7 F 06/01/20 10:00 Pulse 53 L 06/01/20 10:00 Resp 18 06/01/20 10:00 BP 94/60 06/01/20 10:00 Pulse Ox 90 L 06/01/20 16:05 Intake & Output 05/31/20 06/01/20 06/01/20 18:59 06:59 18:59 Weight 66 kg Other: Voiding Method Urinal Urinal Urinal # Voids 4 # Bowel Movements 2 - Exam GENERAL EXAM: Alert, very pleasant, 75-year-old white male, onAirvo at 50 L/m, FiO2 of 90% in addition to 100% nonrebreather pulse ox of 98% comfortable in no apparent distress. HEAD: Normocephalic/atraumatic. EYES: Normal reaction of pupils, equal size. Conjunctiva pink, sclera white. NOSE: Clear with pink turbinates. THROAT: No erythema or exudates. NECK: No masses, no JVD, no thyroid enlargement, no adenopathy. CHEST: No chest wall deformity. Symmetrical expansion. LUNGS: Equal air entry with no crackles, wheeze, rhonchi or dullness. CVS: Regular rate and rhythm, normal S1 and S2, no gallops, no murmurs, no rubs ABDOMEN: Soft, nontender. No hepatosplenomegaly, normal bowel sounds, no guar ding or rigidity. EXTREMITIES: No clubbing, no edema, no cyanosis, 2+ pulses and upper and lower extremities. MUSCULOSKELETAL: Muscle strength and tone normal. SPINE: No scoliosis or deformity SKIN: No rashes CENTRAL NERVOUS SYSTEM: Alert and oriented -3. No focal deficits, tone is normal in all 4 extremities. PSYCHIATRIC: Alert and oriented -3. Appropriate affect. Intact judgment and insight. - Labs CBC & Chem 7: 05/30/20 05:53 05/31/20 06:05 Labs: Abnormal Lab Results - Last 24 Hours (Table) 05/31/20 05/31/20 06/01/20 Range/Units 16:26 20:12 11:54 POC Glucose (mg/dL) 120 H 132 H 102 H (75-99) mg/dL Assessment and Plan Plan: Assessment: #1. Acute hypoxic respiratory failure secondary to COVID 19 pneumonia, was not candidate for Remdesivir #2. Increased inflammatory markers lymphopenia related to the above #3. Recent hospitalization in [place] for COVID 19 infection for one week and patient was home for 3 days prior to returning to the hospital at [facility] #4. Recent myocardial infarction with stent placement #5. Suspect ischemic cardiomyopathy with ejection fraction of 40-45% #6. Troponin leak #7. Pulmonary hypertension #8. Hyperlipidemia #9. History of anxiety #10. History of bladder cancer status post TURBT in January 2020 Plan: Continue current medical treatment, continue Solu-Medrol, we'll increase the flow on Airvo to 60 L, FiO2 is currently at 90%, nonrebreather mask was removed, maintaining O2 saturations between 89-98%, continue current dose Lovenox, follow-up chest x-ray in the morning, follow inflammatory markers, we'll continue to follow clinical course and make recommendations accordingly. I performed a history & physical examination of the patient and discussed their management with my nurse practitioner, Nydia Oveido. I reviewed the nurse practitioner's note and agree with the documented findings and plan of care. Lung sounds are positive for diminished breath sounds The findings and the im pression was discussed with the patient. I attest to the documentation by the nurse practitioner. Time with Patient: Less than 30
[2020-06-01 17:04] LABS: Glucose,Whole Blood 88 mg/dL (75-99)
[2020-06-01 21:10] LABS: Glucose,Whole Blood 142 mg/dL (75-99)
[2020-06-02] MEDS: methylPREDNISolone SOD SUCCI 40 MG/ML 1 ML VIAL IV SCH ×3 (00:38→15:57)
[2020-06-02 07:14] LABS: Glucose,Whole Blood 101 mg/dL (75-99)
[2020-06-02] MEDS: INSULIN ASPART (NovoLOG) 100 UNIT/ML VIAL SQ SCH ×4 (07:25→21:04)
[2020-06-02] MEDS: ZINC SULFATE 220 MG CAP PO SCH (07:29)
[2020-06-02] MEDS: ASCORBIC ACID 500 MG TAB PO SCH (07:29)
[2020-06-02] MEDS: ATORVASTATIN 80 MG TAB PO SCH (07:30)
[2020-06-02] MEDS: ASPIRIN 81 MG PO SCH (07:30)
[2020-06-02] MEDS: risperiDONE 2 MG TAB PO SCH (07:30)
[2020-06-02] MEDS: CHOLECALCIFEROL 10 MCG (400 IU) TABLET PO SCH (07:30)
[2020-06-02] MEDS: ENOXAPARIN 40 MG/0.4 ML SYRINGE SQ SCH (07:30)
[2020-06-02] MEDS: FAMOTIDINE 20 MG TAB PO SCH (07:30)
[2020-06-02] MEDS: ALBUTEROL HFA INHALER INHALATION PRN ×4 (08:03→19:09)
[2020-06-02 11:46] LABS: Glucose,Whole Blood 98 mg/dL (75-99)
--- NOTE | 2020-06-02 12:52 | P.PN ---
Subjective Principal diagnosis: Acute hypoxic respiratory failure secondary to CoVID 19 pneumonia 75 years old male with past medical history of hyperlipidemia , coronary artery disease status post stent. Patient of Dr. Cole. His somewhat poor historian. Patient presents with dyspnea and a dry with no chest pain or abdominal pain or diarrhea. No headache or weakness or numbness. However he was complaining of from upper respiratory symptoms and sore throat as well. Patient also and he was confused, last time he got lost at [place] and he was taken to [facility] where he stayed there for 4-5 days for Covid infection as he states, he went home after that however he did not feel better. . He denies smoking, alcohol or illicit drugs Patient also states that he has history of urinary bladder cancer status post surgery [address] zee to 2 months ago as he states. He does not follow up with oncologist or has chemotherapy 05/27/2020 Patient is seen and evaluated in follow-up in the regular medical floor. He is currently sitting up in a chair at the bedside. Awake and alert in no acute distress. He remains on Arava high flow oxygen down to 30 L and 65% FiO2. Still desaturates with minimal activity. He's been afebrile. Hemodynamically stable. Blood glucose 200. The chest on 0.03. He remains on Lovenox, IV Solu- Medrol, vitamin supplements. Pulmonary service on board and recommending to titrate FiO2 as able; patient might be switched over to high flow nasal cannula 05/28/2020 Patient is seen and evaluated in follow-up on the regular medical floor. He is currently sitting up in a chair at the bedside. Awake and alert in no acute distress. He remains on AirVo high flow oxygen at 50 L and 85% FiO2. He had pulled it off at one point his O2 saturation dropped into the 70s. Subsequently required within minutes of replacing that device. He remains on Lovenox, IV Solu-Medrol, vitamin supplements. Patient is being followed by pulmonary service and recommending to continue Solu-Medrol, Lovenox and vitamin supplements; continue to titrate FiO2 down as able; recommending possible subacute rehab once stable for discharge 05/29/2020 Patient is seen and evaluated in room at bedside; remains on O2 with HFNC at 50%; remains on 55 L with SpO2 90 Lab review shows an upward trend in d-dimer from 1.27 on initial exam up to 1.44; potassium at 5.3; B UN/creatinine of 38/0.8 to; LDH trending down slowly down to 1242; patient remains on subcu Lovenox, IV Solu-Medrol and vitamin supplements; we will continue to trend inflammatory markers and continue to wean oxygen off as able; plan for discharge to skilled rehab once clinically stable 05/30/2020 Patient remains on Airvo presently 90% FiO2 with the oxygen flow rate of around 25 L patient clinically looks well at this time. Serum sodium remains at 133 potassium is 5.5. Patient will be given a dose of And patient was started on low potassium diet. 05/31/2020 Patient's potassium is still high but stable at around 5.5 serum sodium did improve patient remains on defer liters of oxygen with 85% FiO2. 06/01/2020 Patient still remains on a 50 L of oxygen and 90% FiO2 on airvo, although patient clinically looks good denied any complaints at this time. 06/02/2020 . There is no change in the his oxygen requirements. obtain basic metabolic profile for tomorrow. Constitutional: Denied any fatigue denied any fever. Cardio vascular: denied any chest pain, palpitations Gastrointestinal denied any nausea vomiting Pulmonary: Denied any shortness of breath cough Neurologic denied any new focal deficits All inpatient medications were reviewed and appropriate changes in these medications as dictated in the interval history and assessment and plan. Objective - Vital Signs Vital signs: Vital Signs Temp 97.8 F 06/02/20 10:00 Pulse 66 06/02/20 10:00 Resp 20 06/02/20 10:00 BP 111/55 06/02/20 10:00 Pulse Ox 93 L 06/02/20 10:00 Intake & Output 06/01/20 06/02/20 06/02/20 18:59 06:59 18:59 Intake Total 500 650 Output Total 200 Balance 500 450 Weight 67 kg Intake: Oral 650 Other 500 Output: Urine 200 Other: Voiding Method Urinal Urinal Urinal # Voids 2 - Exam PHYSICAL EXAMINATION: GENERAL: The patient is alert and oriented x3, not in any acute distress. Well developed, well nourished. is on high flow oxygen HEENT: Pupils are round and equally reacting to light. EOMI. No scleral icterus. No conjunctival pallor. Normocephalic, atraumatic. No pharyngeal erythema. No thyromegaly. CARDIOVASCULAR: S1 and S2 present. No murmurs, rubs, or gallops. PULMONARY: Chest is clear to auscultation, no wheezing or crackles. ABDOMEN: Soft, nontender, nondistended, normoactive bowel sounds. No palpable organomegaly. MUSCULOSKELETAL: No joint swelling or deformity. EXTREMITIES: No cyanosis, clubbing, or pedal edema. NEUROLOGICAL: Gross neurological examination did not reveal any focal deficits. SKIN: No rashes. - Labs CBC & Chem 7: 05/30/20 05:53 05/31/20 06:05 Labs: Abnormal Lab Results - Last 24 Hours (Table) 06/01/20 06/02/20 Range/Units 20:55 07:09 POC Glucose (mg/dL) 142 H 101 H (75-99) mg/dL Assessment and Plan Plan: Acute bilateral covid pneumonia : Patient is in requirements have, patient remains on steroids, zinc, vitamin C pulmonary following the patient, monitor inflammatory markers Acute hypoxic respiratory failure secondary to above ischemic cardiomyopathy with ejection fraction 40-45% with wall hypokinesia, patient is a euvolemic at this time Severe pulmonary hypertension and moderate pulmonary regurgitation metabolic encephalopathy mild Acute kidney injury, Versus chronic kidney disease possible UTI Possible history of urinary cancer status post surgery 2 Hyperlipidemia History of coronary artery disease DVT prophylaxis: Subcutaneous Lovenox GI Prophylaxis: Pepcid PT/OT: Evaluating Prognosis is guarded
--- NOTE | 2020-06-02 15:10 | XR ---
EXAMINATION TYPE: XR chest 1V portable DATE OF EXAM: 06/02/2020 HISTORY: Shortness of breath. COMPARISON: 05/30/2020 TECHNIQUE: Single view of the chest is submitted. FINDINGS: Demonstrated are scattered senescent parenchymal change. Worsening infiltrates throughout both lung [place]. The heart is stable. Hilar and mediastinal structures are within normal limits. Degenerative changes are seen of the dorsal spine. IMPRESSION: 1. Worsening infiltrates throughout both lung ruvalc[place].
[2020-06-02 16:55] LABS: Glucose,Whole Blood 98 mg/dL (75-99)
--- NOTE | 2020-06-02 16:56 | P.PN ---
Subjective Progress Note Date: 06/02/20 Principal diagnosis: COVID 19 pneumonia This is a very pleasant 75-year-old gentleman who follows with Dr. komal ward as his primary care provider. He has a history of hyperlipidemia, anxiety, bladder cancer with TURBT in January 2020. Approximately [address] ates he was doing well and was driving from [place] to [place] to get gas. That is the last thing he remembers. He somehow ended up at [facility] and transferred later to [facility] diagnosed with CoVID 19 infection. He states he was also told he had a myocardial infarction. He was there about 1 week and then discharged home. He was discharged on vitamin C, D and zinc. He is unsure if he received any other treatment for CoVID. He's been home about 3 days and then last night he was brought here by EMS after continuing with progressive weakness, shortness of breath, poor appetite. He lives with his daughter [place]. Chest x-ray reveals diffuse airspace opacities representing pulmonary edema versus infectious process. Echocardiogram reveals mild to moderately impaired left ventricular systolic function with ejection fraction 40-45%. Severe pulmonary hypertension. White count 2.7. Hemoglobin 14.6. Lymphocytes 0.2. D-dimer 0.64. Sodium 1:30. Potassium 5.7. Creatinine 1.24. LDH 2017. C-reactive protein 163. Troponin 0.64, 0.70. Urine with moderate leukocytes and high WBCs. Oscar virus by PCR detected. He's been initiated on vitamin C, vitamin D, zinc. Dexamethasone at 6 mg daily. Lovenox 40 mg subcu daily. He is also started on ceftriaxone and IV diuretics. He is seen today in consultation in the emergency room. He is currently awake and alert. Resting comfortably in bed. He is oriented 3. He is currently on a nonrebreather mask with O2 saturation of 91%. He is afebrile. Hemodynamically stable. On 05/30/2020 patient seen in follow-up medical surgical floor, patient remains on interval currently at 25 L and FiO2 of 90%, and partial nonrebreather mask his pulse ox is 88-94%, he looks comfortable, she is sitting up in the chair, no acute distress, no worsening dyspnea, no compressive chest pain, no cough or congestion. His chest x-ray shows similar interstitial and peripheral changes of Covid pneumonia. She remains on IV steroids in the form Solu-Medrol 60 mg every 6 hours, he is on prophylactic Lovenox 40 mg daily, he is on vitamins. Patient was not a candidate for Remdesivir, she was treated with standard treatm ent. He also received antibiotics for possibility of urinary tract infection. On 05/31/2020 patient seen in follow-up on medical floor, remains on interval at 45 L and FiO2 of 60%, and his pulse ox is greater than 94%, overall his FiO2 requirements are improving. No new chest x-ray today, no worsening dyspnea, in no acute distress, no fever or chills, no chest discomfort, no nausea or vomiting. Patient was not a candidate for Remdesivir, he was treated with Decadron, on prophylactic dose of Lovenox, and vitamins. D-dimer slightly improved on today's labs, 1.3, sodium is 134, and her serum electrolytes are within normal limits, B1 is 32, creatinine 0.8, LDH is 525, CRP is less than 0.4 On 06/01/2020 patient seen in follow-up on medical surgical floor, morning he had episode of resp distress, he remains on Airvo, at 50 L and FiO2 of 90%, in addition to 100% non-rebreather mask because of the earlier episode and the soles of desaturation into the 70s, 100% nonrebreather mask was removed, the flow was increased to 60 L and FiO2 was less than 90%, and his pulse ox is 89- 94%, patient is breathing comfortably, he states he is feeling much better since this morning, afebrile, no complaints of chest pain, she was outside the window for Remdesivir, he is receiving standard treatment in the form of Solu-Medrol, vitamins, and prophylactic Lovenox, his labs have been reviewed, showing d-dimer of 1.30, sodium is 134, the rest of electrolytes were unremarkable, BUN is 32, creatinine 0.8, limits her markers are improving, LDH is down to 525, and CRP is down to less than 0.4 on today's labs On 06/02/2020 patient seen in follow-up on medical surgical floor. Still requiring high flow oxygen and nonrebreather mask, Airvo is currently at 60 L and FiO2 of 90% in addition to 100% nonrebreather and his pulse ox is 93%, intermittently patient is experiencing respiratory distress, desaturates when he removes his nonrebreather mask into the 70s. At rest he is breathing comfortably, no acute distress, he did sit up in the chair today, he is currently back in bed, complains of chest discomfort, his been afebrile, hemodynamically has been stable. Chest x-ray today shows worsening infiltrates throughout both lung ruvalcaba. Sounds are positive for coarse crackles throughout his lung ruvalcaba. Clinically he does not appear to be fluid overload although his previous echocardiogram did show mild to moderate impairment of left ventricular systolic function and EF of 40-45%, no lower extremity swelling, no JVD. No nausea or vomiting, he is tolerating oral intake. Objective - Vital Signs Vital signs: Vital Signs Temp 97.6 F 06/02/20 14:00 Pulse 56 L 06/02/20 14:00 Resp 22 06/02/20 14:00 BP 128/73 06/02/20 14:00 Pulse Ox 91 L 06/02/20 14:00 Intake & Output 06/01/20 06/02/20 06/02/20 18:59 06:59 18:59 Intake Total 500 650 Output Total 200 775 Balance 500 450 -775 Weight 67 kg Intake: Oral 650 Other 500 Output: Urine 200 775 Other: Voiding Method Urinal Urinal Urinal # Voids 2 - Exam GENERAL EXAM: Alert, very pleasant, 75-year-old white male, onAirvo at 50 L/m, FiO2 of 90% in addition to 100% nonrebreather pulse ox of 91% comfortable in no apparent distress. HEAD: Normocephalic/atraumatic. EYES: Normal reaction of pupils, equal size. Conjunctiva pink, sclera white. NOSE: Clear with pink turbinates. THROAT: No erythema or exudates. NECK: No masses, no JVD, no thyroid enlargement, no adenopathy. CHEST: No chest wall deformity. Symmetrical expansion. LUNGS: Equal air entry with no crackles, wheeze, rhonchi or dullness. CVS: Regular rate and rhythm, normal S1 and S2, no gallops, no murmurs, no rubs ABDOMEN: Soft, nontender. No hepatosplenomegaly, normal bowel sounds, no guarding or rigidity. EXTREMITIES: No clubbing, no edema, no cyanosis, 2+ pulses and upper and lower extremities. MUSCULOSKELETAL: Muscle strength and tone normal. SPINE: No scoliosis or deformity SKIN: No rashes CENTRAL NERVOUS SYSTEM: Alert and oriented -3. No focal deficits, tone is normal in all 4 extremities. PSYCHIATRIC: Alert and oriented -3. Appropriate affect. Intact judgment and insight. - Labs CBC & Chem 7: 05/30/20 05:53 05/31/20 06:05 Labs: Abnormal Lab Results - Last 24 Hours (Table) 06/01/20 06/02/20 Range/Units 20:55 07:09 POC Glucose (mg/dL) 142 H 101 H (75-99) mg/dL Assessment and Plan Plan: Assessment: #1. Acute hypoxic respiratory failure secondary to COVID 19 pneumonia, was not candidate for Remdesivir #2. Increased inflammatory markers lymphopenia related to the above #3. Recent hospitalization in [place] for COVID 19 infection for one week and patient was home for 3 days prior to returning to the hospital at [facility] #4. Recent myocardial infarction with stent placement #5. Suspect ischemic cardiomyopathy with ejection fraction of 40-45% #6. Troponin leak #7. Pulmonary hypertension #8. Hyperlipidemia #9. History of anxiety #10. History of bladder cancer status post TURBT in January 2020 Plan: Continue current medical treatment, today's chest x-ray shows worsening infiltrates throughout both lung ruvalcaba, we'll send her proBNP level although clinically patient does not look fluid overloaded, we will increase the IV Solu- Medrol to 60 mg every 6 hours, he may be placed on BiPAP support if develops respiratory fatigue. Overall prognosis is extremely guarded I performed a history & physical examination of the patient and discussed their management with my nurse practitioner, Nydia Oviedo. I reviewed the nurse practitioner's note and agree with the documented findings and plan of care. Lung sounds are positive for diminished breath sounds The findings and the impression was discussed with the patient. I attest to the documentation by the nurse practitioner. Time with Patient: Less than 30
[2020-06-02] MEDS: methylPREDNISolone SOD SUCCI 125 MG/2 ML VIAL IV SCH (17:23)
[2020-06-02 20:33] LABS: Glucose,Whole Blood 212 mg/dL (75-99)
[2020-06-03] MEDS: methylPREDNISolone SOD SUCCI 125 MG/2 ML VIAL IV SCH ×4 (00:59→17:07)
[2020-06-03 06:59] LABS: Glucose,Whole Blood 97 mg/dL (75-99)
[2020-06-03] MEDS: INSULIN ASPART (NovoLOG) 100 UNIT/ML VIAL SQ SCH ×3 (07:15→17:04)
[2020-06-03] MEDS: ALBUTEROL HFA INHALER INHALATION PRN ×2 (07:28→16:13)
[2020-06-03] MEDS: ASCORBIC ACID 500 MG TAB PO SCH (08:19)
[2020-06-03] MEDS: ASPIRIN 81 MG PO SCH (08:19)
[2020-06-03] MEDS: ATORVASTATIN 80 MG TAB PO SCH (08:20)
[2020-06-03] MEDS: CHOLECALCIFEROL 10 MCG (400 IU) TABLET PO SCH (08:20)
[2020-06-03] MEDS: risperiDONE 2 MG TAB PO SCH (08:20)
[2020-06-03] MEDS: FAMOTIDINE 20 MG TAB PO SCH (08:20)
[2020-06-03] MEDS: ZINC SULFATE 220 MG CAP PO SCH (08:20)
[2020-06-03] MEDS: ENOXAPARIN 40 MG/0.4 ML SYRINGE SQ SCH (08:24)
[2020-06-03 08:59] LABS: HCT 44.2 % (39.6-50.0); HGB 14.5 g/dL (13.0-17.0); MCH 28.3 pg (27.0-32.0); MCHC 32.8 g/dL (32.0-37.0); MCV 86.3 fL (80.0-97.0); Mean Platelet Volume 10.6 fL (9.5-12.2); Platelet Count 264 X 10*3/uL (140-440); RBC 5.12 X 10*6/uL (4.40-5.60); RDW 13.2 % (11.5-14.5); WBC 10.33 X 10*3/uL (4.50-10.00)
[2020-06-03 10:31] LABS: African American GFR (CKD) 102.7 (60.0-200.0); Anion Gap 6.8 mmol/L (4.00-12.00); BUN/Creat Ratio 36.25 Ratio (12.00-20.00); Calcium 8.5 mg/dL (8.7-10.3); Carbon Dioxide 27.2 mmol/L (21.6-31.8); Non-African American GFR(CKD) 88.6 (60.0-200.0); Potassium 5.4 mmol/L (3.5-5.5)
[2020-06-03 11:21] LABS: Glucose,Whole Blood 217 mg/dL (75-99)
[2020-06-03] MEDS: MORPHINE SULFATE 2 MG/ML SYRINGE IVP PRN (11:26)
--- NOTE | 2020-06-03 12:21 | XR ---
EXAMINATION TYPE: XR chest 1V portable DATE OF EXAM: 06/03/2020 Comparison: 06/02/2020 Clinical History: 75-year-old male worsening hypoxia Findings: Heart upper limits of normal in size. Patchy bilateral airspace opacity is relatively unchanged. No p neumothorax or pleural effusion. Impression: Patchy bilateral airspace disease remains unchanged. No pneumothorax or pleural effusion.
--- NOTE | 2020-06-03 15:34 | P.PN ---
Subjective Progress Note Date: 06/03/20 Acute hypoxic respiratory failure secondary to CoVID 19 pneumonia 75 years old male with past medical history of hyperlipidemia , coronary artery disease status post stent. Patient of Dr. Cole. His somewhat poor historian. Patient presents with dyspnea and a dry with no chest pain or abdominal pain or diarrhea. No headache or weakness or numbness. However he was complaining of from upper respiratory symptoms and sore throat as well. Patient also and he was confused, last time he got lost at [place] and he was taken to [facility] where he stayed there for 4-5 days for Covid infe ction as he states, he went home after that however he did not feel better. . He denies smoking, alcohol or illicit drugs Patient also states that he has history of urinary bladder cancer status post surgery [address] zee to 2 months ago as he states. He does not follow up with oncologist or has chemotherapy 05/27/2020 Patient is seen and evaluated in follow-up in the regular medical floor. He is currently sitting up in a chair at the bedside. Awake and alert in no acute distress. He remains on Arava high flow oxygen down to 30 L and 65% FiO2. Still desaturates with minimal activity. He's been afebrile. Hemodynamically stable. Blood glucose 200. The chest on 0.03. He remains on Lovenox, IV Solu- Medrol, vitamin supplements. Pulmonary service on board and recommending to titrate FiO2 as able; patient might be switched over to high flow nasal cannula 05/28/2020 Patient is seen and evaluated in follow-up on the regular medical floor. He is currently sitting up in a chair at the bedside. Awake and alert in no acute distress. He remains on AirVo high flow oxygen at 50 L and 85% FiO2. He had pulled it off at one point his O2 saturation dropped into the 70s. Subsequently required within minutes of replacing that device. He remains on Lovenox, IV Solu-Medrol, vitamin supplements. Patient is being followed by pulmonary service and recommending to continue Solu-Medrol, Lovenox and vitamin supplements; continue to titrate FiO2 down as able; recommending possible subacute rehab once stable for discharge 05/29/2020 Patient is seen and evaluated in room at bedside; remains on O2 with HFNC at 50%; remains on 55 L with SpO2 90 Lab review shows an upward trend in d-dimer from 1.27 on initial exam up to 1.44; potassium at 5.3; B UN/creatinine of 38/0.8 to; LDH trending down slowly down to 1242; patient remains on subcu Lovenox, IV Solu-Medrol and vitamin supplements; we will continue to trend inflammatory markers and continue to wean oxygen off as able; plan for discharge to skilled rehab once clinically stable 05/30/2020 Patient remains on Airvo presently 90% FiO2 with the oxygen flow rate of around 25 L patient clinically looks well at this time. Serum sodium remains at 133 p otassium is 5.5. Patient will be given a dose of And patient was started on low potassium diet. 05/31/2020 Patient's potassium is still high but stable at around 5.5 serum sodium did improve patient remains on defer liters of oxygen with 85% FiO2. 06/01/2020 Patient still remains on a 50 L of oxygen and 90% FiO2 on airvo, although patient clinically looks good denied any complaints at this time. 06/02/2020 . There is no change in the his oxygen requirements. obtain basic metabolic profile for tomorrow. 06/03/2020 Patient's oxygen requirements have increased and patient is now maintained on BiPAP as he continued to remove mask and nasal cannula multiple times. Discussed with the patient about CODE STATUS and patient will be no code. Pulmonary is following. Constitutional: Denied any fatigue denied any fever. Cardio vascular: denied any chest pain, palpitations Gastrointestinal denied any nausea vomiting Pulmonary: Denied any shortness of breath although is short of breath requiring more oxygen currently on BiPAP Neurologic denied any new focal deficits All inpatient medications were reviewed and appropriate changes in these medications as dictated in the interval history and assessment and plan. Objective - Vital Signs Vital signs: Vital Signs Temp 98.7 F 06/03/20 14:00 Pulse 53 L 06/03/20 14:00 Resp 22 06/03/20 14:00 BP 134/79 06/03/20 14:00 Pulse Ox 92 L 06/03/20 14:00 Intake & Output 06/02/20 06/03/20 06/03/20 18:59 06:59 18:59 Output Total 775 1300 Balance -775 -1300 Weight 67.2 kg Output: Urine 775 1300 Other: Voiding Method Urinal Urinal - Exam GENERAL: The patient is alert and oriented x3, not in any acute distress. Well developed, well nourished. Patient transitioned to BiPAP HEENT: Pupils are round and equally reacting to light. EOMI. No scleral icterus. No conjunctival pallor. Normocephalic, atraumatic. No pharyngeal erythema. No thyromegaly. CARDIOVASCULAR: S1 and S2 present. No murmurs, rubs, or gallops. PULMONARY: Diminished breath sounds with coarse bronchi noted ABDOMEN: Soft, nontender, nondistended, normoactive bowel sounds. No palpable organomegaly. MUSCULOSKELETAL: No joint swelling or deformity. EXTREMITIES: No cyanosis, clubbing, or pedal edema. NEUROLOGICAL: Gross neurological examination did not reveal any focal deficits. diffusely weak SKIN: No rashes. - Labs CBC & Chem 7: 06/03/20 04:49 06/03/20 04:49 Labs: Abnormal Lab Results - Last 24 Hours (Table) 06/02/20 06/03/20 06/03/20 Range/Units 20:31 04:49 04:49 WBC 10.33 H (4.50-10.00) X 10*3/uL Sodium 134 L (135-145) mmol/L BUN 29.0 H (9.0-27.0) mg/dL BUN/Creatinine Ratio 36.25 H (12.00-20.00) Ratio POC Glucose (mg/dL) 212 H (75-99) mg/dL Calcium 8.5 L (8.7-10.3) mg/dL 06/03/20 Range/Units 11:12 WBC (4.50-10.00) X 10*3/uL Sodium (135-145) mmol/L BUN (9.0-27.0) mg/dL BUN/Creatinine Ratio (12.00-20.00) Ratio POC Glucose (mg/dL) 217 H (75-99) mg/dL Calcium (8.7-10.3) mg/dL Assessment and Plan Assessment: Acute bilateral covid pneumonia : Patient oxygen requirements have increased and currently on BiPAP, patient remains on steroids, zinc, vitamin C pulmonary following the patient, monitor inflammatory markers Acute hypoxic respiratory failure secondary to above ischemic cardiomyopathy with ejection fraction 40-45% with wall hypokinesia, patient is a euvolemic at this time Severe pulmonary hypertension and moderate pulmonary regurgitation metabolic encephalopathy mild Acute kidney injury, Versus chronic kidney disease possible UTI Possible history of urinary cancer status post surgery 2 Hyperlipidemia History of coronary artery disease DVT prophylaxis: Subcutaneous Lovenox GI Prophylaxis: Pepcid Plan: Continue with current medications. Oxygen requirements have increased and patient is now maintained on BiPAP as patient continued to remove nasal cannula airvo and any facial masks. Oxygen is 91-92% on 100% BiPAP Discussed with the patient about CODE STATUS and patient is no code. Pulmonary is following. Chest x-ray today shows unchanged patchy bilateral airspace disease with no pneumothorax or pleural effusion noted. labs within normal limits. Prognosis remains extremely poor and guarded.
[2020-06-03 16:32] LABS: Glucose,Whole Blood 88 mg/dL (75-99)
--- NOTE | 2020-06-03 16:50 | P.PN ---
Subjective Progress Note Date: 06/03/20 Principal diagnosis: COVID 19 pneumonia This is a very pleasant 75-year-old gentleman who follows with Dr. komal ward as his primary care provider. He has a history of hyperlipidemia, anxiety, bladder cancer with TURBT in January 2020. Approximately [address] ates he was doing well and was driving from [place] to [place] to get gas. That is the last thing he remembers. He somehow ended up at [facility] and transferred later to [facility] diagnosed with CoVID 19 infection. He states he was also told he had a myocardial infarction. He was there about 1 week and then discharged home. He was discharged on vitamin C, D and zinc. He is unsure if he received any other treatment for CoVID. He's been home about 3 days and then last night he was brought here by EMS after continuing with progressive weakness, shortness of breath, poor appetite. He lives with his daughter [place]. Chest x-ray reveals diffuse airspace opacities representing pulmonary edema versus infectious process. Echocardiogram reveals mild to moderately impaired left ventricular systolic function with ejection fraction 40-45%. Severe pulmonary hypertension. White count 2.7. Hemoglobin 14.6. Lymphocytes 0.2. D-dimer 0.64. Sodium 1:30. Potassium 5.7. Creatinine 1.24. LDH 2017. C-reactive protein 163. Troponin 0.64, 0.70. Urine with moderate leukocytes and high WBCs. Oscar virus by PCR detected. He's been initiated on vitamin C, vitamin D, zinc. Dexamethasone at 6 mg daily. Lovenox 40 mg subcu daily. He is also started on ceftriaxone and IV diuretics. He is seen today in consultation in the emergency room. He is currently awake and alert. Resting comfortably in bed. He is oriented 3. He is currently on a nonrebreather mask with O2 saturation of 91%. He is afebrile. Hemodynamically stable. On 05/30/2020 patient seen in follow-up medical surgical floor, patient remains on interval currently at 25 L and FiO2 of 90%, and partial nonrebreather mask his pulse ox is 88-94%, he looks comfortable, she is sitting up in the chair, no acute distress, no worsening dyspnea, no compressive chest pain, no cough or congestion. His chest x-ray shows similar interstitial and peripheral changes of Covid pneumonia. She remains on IV steroids in the form Solu-Medrol 60 mg every 6 hours, he is on prophylactic Lovenox 40 mg daily, he is on vitamins. Patient was not a candidate for Remdesivir, she was treated with standard treatm ent. He also received antibiotics for possibility of urinary tract infection. On 05/31/2020 patient seen in follow-up on medical floor, remains on interval at 45 L and FiO2 of 60%, and his pulse ox is greater than 94%, overall his FiO2 requirements are improving. No new chest x-ray today, no worsening dyspnea, in no acute distress, no fever or chills, no chest discomfort, no nausea or vomiting. Patient was not a candidate for Remdesivir, he was treated with Decadron, on prophylactic dose of Lovenox, and vitamins. D-dimer slightly improved on today's labs, 1.3, sodium is 134, and her serum electrolytes are within normal limits, B1 is 32, creatinine 0.8, LDH is 525, CRP is less than 0.4 On 06/01/2020 patient seen in follow-up on medical surgical floor, morning he had episode of resp distress, he remains on Airvo, at 50 L and FiO2 of 90%, in addition to 100% non-rebreather mask because of the earlier episode and the soles of desaturation into the 70s, 100% nonrebreather mask was removed, the flow was increased to 60 L and FiO2 was less than 90%, and his pulse ox is 89- 94%, patient is breathing comfortably, he states he is feeling much better since this morning, afebrile, no complaints of chest pain, she was outside the window for Remdesivir, he is receiving standard treatment in the form of Solu-Medrol, vitamins, and prophylactic Lovenox, his labs have been reviewed, showing d-dimer of 1.30, sodium is 134, the rest of electrolytes were unremarkable, BUN is 32, creatinine 0.8, limits her markers are improving, LDH is down to 525, and CRP is down to less than 0.4 on today's labs On 06/02/2020 patient seen in follow-up on medical surgical floor. Still requiring high flow oxygen and nonrebreather mask, Airvo is currently at 60 L and FiO2 of 90% in addition to 100% nonrebreather and his pulse ox is 93%, intermittently patient is experiencing respiratory distress, desaturates when he removes his nonrebreather mask into the 70s. At rest he is breathing comfortably, no acute distress, he did sit up in the chair today, he is currently back in bed, complains of chest discomfort, his been afebrile, hemodynamically has been stable. Chest x-ray today shows worsening infiltrates throughout both lung ruvalcaba. Sounds are positive for coarse crackles throughout his lung ruvalcaba. Clinically he does not appear to be fluid overload although his previous echocardiogram did show mild to moderate impairment of left ventricular systolic function and EF of 40-45%, no lower extremity swelling, no JVD. No nausea or vomiting, he is tolerating oral intake. On 06/03/2020 is seen in follow-up on medical surgical floor, this morning he again removed his Airvo and significantly desaturated, was in significant respiratory distress, even with the Airvo and her percent nonrebreather mask was only saturating 83%. Subsequently he was placed on BiPAP support, with pressures of 14/7 and FiO2 of 100%, he was given a dose of morphine, he continues on high-dose IV steroids 60 mg every 6 hours, liver he has been very slow to improve, as a matter fact he has not shown much improvement in terms of oxygenation improvement on the chest x-ray. Follow-up chest x-ray today shows p atchy bilateral airspace disease which is unchanged compared to yesterday's exam. His labs have been reviewed, showing orbital, 10.3, hemoglobin is 14.5, sodium is 135, potassium is 5.4, BUN is 29, creatinine 0.8, his last set of LDH and CRP was back on 05/31/2020 and was improving and was down to 525 for LDH and CRP of less than 0.4. After stabilizing patient's respiratory status with BiPAP support, steroids, anxiolytics, and morphine, patient is looking of breathing much easier. Compliant with BiPAP, industrial health and safety professor was placed at the bedside to monitor the patient and prevent him from removing his oxygen. I discussed CODE STATUS with the patient, who made it clear he does not want to be placed on life-support, intubation, or resuscitation. This was communicated to the patient's daughter on the phone, the family agrees with patient's decision, for now we'll continue supportive care Objective - Vital Signs Vital signs: Vital Signs Temp 98.7 F 06/03/20 14:00 Pulse 53 L 06/03/20 14:00 Resp 22 06/03/20 14:00 BP 134/79 06/03/20 14:00 Pulse Ox 92 L 06/03/20 14:00 Intake & Output 06/02/20 06/03/20 06/03/20 18:59 06:59 18:59 Output Total 775 1300 Balance -775 -1300 Weight 67.2 kg Output: Urine 775 1300 Other: Voiding Method Urinal Urinal - Exam GENERAL EXAM: Alert, very pleasant, 75-year-old white male, placed on BiPAP burgos pport with pressures of 14/7 and FiO2 100%, appears to be much more comfortable, compliant with BiPAP HEAD: Normocephalic/atraumatic. EYES: Normal reaction of pupils, equal size. Conjunctiva pink, sclera white. NOSE: Clear with pink turbinates. THROAT: No erythema or exudates. NECK: No masses, no JVD, no thyroid enlargement, no adenopathy. CHEST: No chest wall deformity. Symmetrical expansion. LUNGS: Equal air entry with no crackles, wheeze, rhonchi or dullness. CVS: Regular rate and rhythm, normal S1 and S2, no gallops, no murmurs, no rubs ABDOMEN: Soft, nontender. No hepatosplenomegaly, normal bowel sounds, no guarding or rigidity. EXTREMITIES: No clubbing, no edema, no cyanosis, 2+ pulses and upper and lower extremities. MUSCULOSKELETAL: Muscle strength and tone normal. SPINE: No scoliosis or deformity SKIN: No rashes CENTRAL NERVOUS SYSTEM: Alert and oriented -3. No focal deficits, tone is normal in all 4 extremities. PSYCHIATRIC: Alert and oriented -3. Appropriate affect. Intact judgment and insight. - Labs CBC & Chem 7: 06/03/20 04:49 06/03/20 04:49 Labs: Abnormal Lab Results - Last 24 Hours (Table) 06/02/20 06/03/20 06/03/20 Range/Units 20:31 04:49 04:49 WBC 10.33 H (4.50-10.00) X 10*3/uL Sodium 134 L (135-145) mmol/L BUN 29.0 H (9.0-27.0) mg/dL BUN/Creatinine Ratio 36.25 H (12.00-20.00) Ratio POC Glucose (mg/dL) 212 H (75-99) mg/dL Calcium 8.5 L (8.7-10.3) mg/dL 06/03/20 Range/Units 11:12 WBC (4.50-10.00) X 10*3/uL Sodium (135-145) mmol/L BUN (9.0-27.0) mg/dL BUN/Creatinine Ratio (12.00-20.00) Ratio POC Glucose (mg/dL) 217 H (75-99) mg/dL Calcium (8.7-10.3) mg/dL Assessment and Plan Plan: Assessment: #1. Acute hypoxic respiratory failure secondary to COVID 19 pneumonia, was not candidate for Remdesivir #2. Increased inflammatory markers lymphopenia related to the above, improved #3. Recent hospitalization in [place] for COVID 19 infection for one week and patient was home for 3 days prior to returning to the hospital [facility] #4. Recent myocardial infarction with stent placement #5. Suspect ischemic cardiomyopathy with ejection fraction of 40-45% #6. Troponin leak #7. Pulmonary hypertension #8. Hyperlipidemia #9. History of anxiety #10. History of bladder cancer status post TURBT in January 2020 Plan: Continue current medical treatment, continue IV Solu-Medrol, BiPAP support with pressures of 14/70 and FiO2 of 100%, wean FiO2 to maintain O2 sat at or above 90% as well as the patient is asymptomatic, use morphine for episodes of breathlessness, and anxiety, and increased compliance with BiPAP support. Patient's breathing has improved he is tolerating BiPAP support very well, may need a dose of IV Lasix, continue same dose Lovenox, discussed CODE STATUS with the patient who is awake and alert and oriented 3, and patient does not wish to be intubated placed on life-support and does not wish aggressive resuscitation. Patient's daughter was notified of the patient's decision, she agrees with his wishes, code status will be switched to DO NOT RESUSCITATE, will continue with supportive treatment, overall prognosis is poor and guarded. spanish speaking babysitter placed at the bedside to prevent patient from removing his oxygen device I performed a history & physical examination of the patient and discussed their management with my nurse practitioner, Nydia Oviedo. I reviewed the nurse practitioner's note and agree with the documented findings and plan of care. Lung sounds are positive for diminished breath sounds The findings and the impression was discussed with the patient. I attest to the documentation by the nurse practitioner. Time with Patient: Less than 30
[2020-06-03 20:45] LABS: Glucose,Whole Blood 122 mg/dL (75-99)
[2020-06-04] MEDS: INSULIN ASPART (NovoLOG) 100 UNIT/ML VIAL SQ SCH ×5 (01:20→20:59)
[2020-06-04] MEDS: methylPREDNISolone SOD SUCCI 125 MG/2 ML VIAL IV SCH ×3 (01:21→12:25)
[2020-06-04 07:24] LABS: Glucose,Whole Blood 107 mg/dL (75-99)
[2020-06-04] MEDS: ALBUTEROL HFA INHALER INHALATION PRN ×3 (08:30→16:44)
[2020-06-04] MEDS: FAMOTIDINE 20 MG TAB PO SCH (08:32)
[2020-06-04] MEDS: ASCORBIC ACID 500 MG TAB PO SCH (08:32)
[2020-06-04] MEDS: ATORVASTATIN 80 MG TAB PO SCH (08:32)
[2020-06-04] MEDS: risperiDONE 2 MG TAB PO SCH (08:32)
[2020-06-04] MEDS: ZINC SULFATE 220 MG CAP PO SCH (08:32)
[2020-06-04] MEDS: ASPIRIN 81 MG PO SCH (08:32)
[2020-06-04] MEDS: CHOLECALCIFEROL 10 MCG (400 IU) TABLET PO SCH (08:32)
[2020-06-04] MEDS: ENOXAPARIN 40 MG/0.4 ML SYRINGE SQ SCH (08:35)
[2020-06-04 11:36] LABS: Glucose,Whole Blood 108 mg/dL (75-99)
--- NOTE | 2020-06-04 12:27 | P.PN ---
Subjective Progress Note Date: 06/04/20 Principal diagnosis: Acute hypoxic respiratory failure secondary to coVID 19 pneumonia This is a very pleasant 75-year-old gentleman who follows with Dr. komal ward as his primary care provider. He has a history of hyperlipidemia, anxiety, bladder cancer with TURBT in January 2020. Approximately 10 days ago the patient states he was doing well and was driving from [place] to [place] to get gas. That is the last thing he remembers. He somehow ended up at [facility] and transferred later to [facility] diagnosed with CoVID 19 infection. He states he was also told he had a myocardial infarction. He was there about 1 week and then discharged home. He was discharged on vitamin C, D and zinc. He is unsure if he received any other treatment for CoVID. He's been home about 3 days and then last night he was brought here by EMS after continuing with progressive weakness, shortness of breath, poor appetite. He lives with his daughter [place]. Chest x-ray reveals diffuse airspace opacities representing pulmonary edema versus infectious process. Echocardiogram reveals mild to moderately impaired left ventricular systolic function with ejection fraction 40-45%. Severe pulmonary hypertension. White count 2.7. Hemoglobin 14.6. Lymphocytes 0.2. D-dimer 0.64. Sodium 1:30. Potassium 5.7. Creatinine 1.24. LDH 2017. C-reactive protein 163. Troponin 0.64, 0.70. Urine with moderate leukocytes and high WBCs. Oscar virus by PCR detected. He's been initiated on vitamin C, vitamin D, zinc. Dexamethasone at 6 mg daily. Lovenox 40 mg subcu daily. He is also started on ceftriaxone and IV diuretics. He is seen today in consultation in the emergency room. He is currently awake and alert. Resting comfortably in bed. He is oriented 3. He is currently on a nonrebreather mask with O2 saturation of 91%. He is afebrile. Hemodynamically stable. On 05/30/2020 patient seen in follow-up medical surgical floor, patient remains on interval currently at 25 L and FiO2 of 90%, and partial nonrebreather mask his pulse ox is 88-94%, he looks comfortable, she is sitting up in the chair, no acute distress, no worsening dyspnea, no compressive chest pain, no cough or congestion. His chest x-ray shows similar interstitial and peripheral changes of Covid pneumonia. She remains on IV steroids in the form Solu-Medrol 60 mg every 6 hours, he is on prophylactic Lovenox 40 mg daily, he is on vitamins. Patient was not a candidate for Remdesivir, she was treated with standard treatment. He also received antibiotics for possibility of urinary tract infection. On 05/31/2020 patient seen in follow-up on medical floor, remains on interval at 45 L and FiO2 of 60%, and his pulse ox is greater than 94%, overall his FiO2 requirements are improving. No new chest x-ray today, no worsening dyspnea, in no acute distress, no fever or chills, no chest discomfort, no nausea or vomiting. Patient was not a candidate for Remdesivir, he was treated with Decadron, on prophylactic dose of Lovenox, and vitamins. D-dimer slightly improved on today's labs, 1.3, sodium is 134, and her serum electrolytes are within normal limits, B1 is 32, creatinine 0.8, LDH is 525, CRP is less than 0.4 On 06/01/2020 patient seen in follow-up on medical surgical floor, morning he had episode of resp distress, he remains on Airvo, at 50 L and FiO2 of 90%, in addition to 100% non-rebreather mask because of the earlier episode and the soles of desaturation into the 70s, 100% nonrebreather mask was removed, the flow was increased to 60 L and FiO2 was less than 90%, and his pulse ox is 89- 94%, patient is breathing comfortably, he states he is feeling much better since this morning, afebrile, no complaints of chest pain, she was outside the window for Remdesivir, he is receiving standard treatment in the form of Solu-Medrol, vitamins, and prophylactic Lovenox, his labs have been reviewed, showing d-dimer of 1.30, sodium is 134, the rest of electrolytes were unremarkable, BUN is 32, creatinine 0.8, limits her markers are improving, LDH is down to 525, and CRP is down to less than 0.4 on today's labs On 06/02/2020 patient seen in follow-up on medical surgical floor. Still requiring high flow oxygen and nonrebreather mask, Airvo is currently at 60 L and FiO2 of 90% in addition to 100% nonrebreather and his pulse ox is 93%, intermittently patient is experiencing respiratory distress, desaturates when he removes his nonrebreather mask into the 70s. At rest he is breathing comfortably, no acute distress, he did sit up in the chair today, he is currently back in bed, complains of chest discomfort, his been afebrile, hemodynamically has been stable. Chest x-ray today shows worsening infiltrates throughout both lung ruvalcaba. Sounds are positive for coarse crackles throughout his lung ruvalcaba. Clinically he does not appear to be fluid overload although his previous echocardiogram did show mild to moderate impairment of left ventricular systolic function and EF of 40-45%, no lower extremity swelling, no JVD. No nausea or vomiting, he is tolerating oral intake. On 06/03/2020 is seen in follow-up on medical surgical floor, this morning he again removed his Airvo and significantly desaturated, was in significant respiratory distress, even with the Airvo and her percent nonrebreather mask was only saturating 83%. Subsequently he was placed on BiPAP support, with pressures of 14/7 and FiO2 of 100%, he was given a dose of morphine, he continues on high-dose IV steroids 60 mg every 6 hours, liver he has been very slow to improve, as a matter fact he has not shown much improvement in terms of oxygenation improvement on the chest x-ray. Follow-up chest x-ray today shows patchy bilateral airspace disease which is unchanged compared to yesterday's exam. His labs have been reviewed, showing orbital, 10.3, hemoglobin is 14.5, sodium is 135, potassium is 5.4, BUN is 29, creatinine 0.8, his last set of LDH and CRP was back on 05/31/2020 and was improving and was down to 525 for LDH and CRP of less than 0.4. After stabilizing patient's respiratory status with BiPAP support, steroids, anxiolytics, and morphine, patient is looking of breathing much easier. Compliant with BiPAP, fire safety director was placed at the bedside to monitor the patient and prevent him from removing his oxygen. I discussed CODE STATUS with the patient, who made it clear he does not want to be placed on life-support, intubation, or resuscitation. This was communicated to the patient's daughter on the phone, the family agrees with patient's decision, for now we'll continue supportive care Patient was reevaluated today on 06/04/2020, remains on relatively significant amount of oxygen. Surprisingly the patient is not in much distress, he is now on BiPAP, FiO2 is 100%, and O2 sats is 92%. Intermittently on AIRVO with high flow. At any rate patient is basically about the same. Remains on the different medications as listed below. No labs were noted today except blood sugar 108. Elects lites are normal renal profile is normal CBC is relatively normal and his BNP level is normal his last LDH few days ago was 525. Chest x- ray continues to show bilateral interstitial infiltrates, seems to be more dense in the right lower lobe area. Objective - Vital Signs Vital signs: Vital Signs Temp 98.6 F 06/04/20 09:50 Pulse 86 06/04/20 09:50 Resp 15 06/04/20 09:50 BP 128/67 06/04/20 09:50 Pulse Ox 92 L 06/04/20 09:50 Intake & Output 06/03/20 06/04/20 06/04/20 18:59 06:59 18:59 Output Total 600 Balance -600 Weight 64.5 kg Output: Urine 600 Other: Voiding Method Urinal Urinal # Voids 2 - Exam Physical Exam: Revealed a 75-year-old white male on BiPAP at 14/7 FiO2 100%, seems to be comfortable. Head: Atraumatic, normocephalic. HEENT:[Neck is supple.] [No neck masses.] [No thyromegaly.] [No JVD.] Chest: [Symmetrical chest expansion and crackles at the bases. Cardiac Exam: [Normal S1 and S2, no S3 gallop, no murmur.] Abdomen: [Soft, nontender, no megaly, no rebound, no guarding, normal bowel sounds.] Extremities: [No clubbing, no edema, no cyanosis.] Neurological Exam: [No focal neurologic deficit.] Alert oriented 3. Psychiatric: Normal mood affect and normal mental status examination. Musculoskeletal: No deformities noted limitation range of motion - Labs CBC & Chem 7: 06/03/20 04:49 06/03/20 04:49 Labs: Abnormal Lab Results - Last 24 Hours (Table) 06/03/20 06/04/20 06/04/20 Range/Units 20:44 07:20 11:35 POC Glucose (mg/dL) 122 H 107 H 108 H (75-99) mg/dL Assessment and Plan Assessment: Impression: Acute hypoxic respiratory failure secondary to acute coVID 19 pneumonia History of ischemic cardiomyopathy and LV dysfunction with ejection fraction of 40%. Pulmonary hypertension Dyslipidemia History of bladder cancer Generalized anxiety disorder History of coronary artery disease and previous stent placement. Recommendation: Continue present supportive care measures Continue BiPAP and high FiO2, titrate accordingly. Intermittently placed on high flow nasal cannula Continue Lovenox. Agree with DO NOT RESUSCITATE CODE STATUS. Patient apparently wished DO NOT RESUSCITATE CODE STATUS few days ago Prognosis is quite poor and guarded We'll continue to follow. Time with Patient: Less than 30
--- NOTE | 2020-06-04 12:57 | P.PN ---
Subjective Principal diagnosis: Acute hypoxic respiratory failure secondary to CoVID 19 pneumonia 75 years old male with past medical history of hyperlipidemia , coronary artery disease status post stent. Patient of Dr. Cole. His somewhat poor historian. Patient presents with dyspnea and a dry with no chest pain or abdominal pain or diarrhea. No headache or weakness or numbness. However he was complaining of from upper respiratory symptoms and sore throat as well. Patient also and he was confused, last time he got lost at [place] and he was taken to [facility] where he stayed there for 4-5 days for Covid infection as he states, he went home after that however he did not feel better. . He denies smoking, alcohol or illicit drugs Patient also states that he has history of urinary bladder cancer status post surgery [address] zee to 2 months ago as he states. He does not follow up with oncologist or has chemotherapy 05/27/2020 Patient is seen and evaluated in follow-up in the regular medical floor. He is currently sitting up in a chair at the bedside. Awake and alert in no acute distress. He remains on Arava high flow oxygen down to 30 L and 65% FiO2. Still desaturates with minimal activity. He's been afebrile. Hemodynamically stable. Blood glucose 200. The chest on 0.03. He remains on Lovenox, IV Solu- Medrol, vitamin supplements. Pulmonary service on board and recommending to titrate FiO2 as able; patient might be switched over to high flow nasal cannula 05/28/2020 Patient is seen and evaluated in follow-up on the regular medical floor. He is currently sitting up in a chair at the bedside. Awake and alert in no acute distress. He remains on AirVo high flow oxygen at 50 L and 85% FiO2. He had pulled it off at one point his O2 saturation dropped into the 70s. Subsequently required within minutes of replacing that device. He remains on Lovenox, IV Solu-Medrol, vitamin supplements. Patient is being followed by pulmonary service and recommending to continue Solu-Medrol, Lovenox and vitamin supplements; continue to titrate FiO2 down as able; recommending possible subacute rehab once stable for discharge 05/29/2020 Patient is seen and evaluated in room at bedside; remains on O2 with HFNC at 50%; remains on 55 L with SpO2 90 Lab review shows an upward trend in d-dimer from 1.27 on initial exam up to 1.44; potassium at 5.3; B UN/creatinine of 38/0.8 to; LDH trending down slowly down to 1242; patient remains on subcu Lovenox, IV Solu-Medrol and vitamin supplements; we will continue to trend inflammatory markers and continue to wean oxygen off as able; plan for discharge to skilled rehab once clinically stable 05/30/2020 Patient remains on Airvo presently 90% FiO2 with the oxygen flow rate of around 25 L patient clinically looks well at this time. Serum sodium remains at 133 potassium is 5.5. Patient will be given a dose of And patient was started on low potassium diet. 05/31/2020 Patient's potassium is still high but stable at around 5.5 serum sodium did improve patient remains on defer liters of oxygen with 85% FiO2. 06/01/2020 Patient still remains on a 50 L of oxygen and 90% FiO2 on airvo, although patient clinically looks good denied any complaints at this time. 06/02/2020 . There is no change in the his oxygen requirements. obtain basic metabolic profile for tomorrow. 06/04/2020 Patient is presently on BiPAP 100% FiO2 patient appears to have some worsening in his overall respiratory status although patient clinically looks well doesn't like to wear BiPAP. Constitutional: Denied any fatigue denied any fever. Cardio vascular: denied any chest pain, palpitations Gastrointestinal denied any nausea vomiting Pulmonary: Mentioned in HPI Neurologic denied any new focal deficits All inpatient medications were reviewed and appropriate changes in these medications as dictated in the interval history and assessment and plan. Objective - Vital Signs Vital signs: Vital Signs Temp 98.6 F 06/04/20 09:50 Pulse 86 06/04/20 09:50 Resp 15 06/04/20 09:50 BP 128/67 06/04/20 09:50 Pulse Ox 92 L 06/04/20 09:50 Intake & Output 06/03/20 06/04/20 06/04/20 18:59 06:59 18:59 Output Total 600 Balance -600 Weight 64.5 kg Output: Urine 600 Other: Voiding Method Urinal Urinal # Voids 2 - Exam PHYSICAL EXAMINATION: GENERAL: The patient is alert and oriented x3, not in any acute distress. Well developed, well nourished. is on high flow oxygen HEENT: Pupils are round and equally reacting to light. EOMI. No scleral icterus. No conjunctival pallor. Normocephalic, atraumatic. No pharyngeal erythema. No thyromegaly. CARDIOVASCULAR: S1 and S2 present. No murmurs, rubs, or gallops. PULMONARY: Chest is clear to auscultation, no wheezing or crackles. ABDOMEN: Soft, nontender, nondistended, normoactive bowel sounds. No palpable organomegaly. MUSCULOSKELETAL: No joint swelling or deformity. EXTREMITIES: No cyanosis, clubbing, or pedal edema. NEUROLOGICAL: Gross neurological examination did not reveal any focal deficits. SKIN: No rashes. - Labs CBC & Chem 7: 06/03/20 04:49 06/03/20 04:49 Labs: Abnormal Lab Results - Last 24 Hours (Table) 06/03/20 06/04/20 06/04/20 Range/Units 20:44 07:20 11:35 POC Glucose (mg/dL) 122 H 107 H 108 H (75-99) mg/dL Assessment and Plan Plan: Acute bilateral covid pneumonia : Patient is in requirements have, patient remains on steroids, zinc, vitamin C pulmonary following the patient, monitor inflammatory markers the patient is presently on BiPAP Acute hypoxic respiratory failure secondary to above ischemic cardiomyopathy with ejection fraction 40-45% with wall hypokinesia, patient is a euvolemic at this time Severe pulmonary hypertension and moderate pulmonary regurgitation metabolic encephalopathy mild Acute kidney injury, Versus chronic kidney disease possible UTI history of urinary cancer status post surgery 2 Hyperlipidemia History of coronary artery disease DVT prophylaxis: Subcutaneous Lovenox GI Prophylaxis: Pepcid PT/OT: Evaluating Prognosis is guarded
[2020-06-04] MEDS: FUROSEMIDE 10 MG/ML 4 ML VIAL IV SCH (13:08)
[2020-06-04] MEDS: methylPREDNISolone SOD SUCCI 40 MG/ML 1 ML VIAL IV SCH ×2 (15:01→23:27)
[2020-06-04 16:27] LABS: Glucose,Whole Blood 110 mg/dL (75-99)
[2020-06-04 20:47] LABS: Glucose,Whole Blood 105 mg/dL (75-99)
[2020-06-05] MEDS: FAMOTIDINE 20 MG TAB PO SCH (06:44)
[2020-06-05] MEDS: ATORVASTATIN 80 MG TAB PO SCH (06:44)
[2020-06-05] MEDS: CHOLECALCIFEROL 10 MCG (400 IU) TABLET PO SCH (06:44)
[2020-06-05] MEDS: ASPIRIN 81 MG PO SCH (06:44)
[2020-06-05] MEDS: ASCORBIC ACID 500 MG TAB PO SCH (06:44)
[2020-06-05] MEDS: risperiDONE 2 MG TAB PO SCH (06:45)
[2020-06-05] MEDS: ZINC SULFATE 220 MG CAP PO SCH (06:45)
[2020-06-05 07:21] LABS: Glucose,Whole Blood 105 mg/dL (75-99)
[2020-06-05] MEDS: INSULIN ASPART (NovoLOG) 100 UNIT/ML VIAL SQ SCH ×4 (07:41→21:01)
[2020-06-05] MEDS: methylPREDNISolone SOD SUCCI 40 MG/ML 1 ML VIAL IV SCH ×3 (07:43→23:27)
[2020-06-05] MEDS: FUROSEMIDE 10 MG/ML 4 ML VIAL IV SCH (07:43)
[2020-06-05] MEDS: ENOXAPARIN 40 MG/0.4 ML SYRINGE SQ SCH (07:44)
[2020-06-05] MEDS: ALBUTEROL HFA INHALER INHALATION PRN ×3 (08:48→20:20)
[2020-06-05 11:20] LABS: Glucose,Whole Blood 100 mg/dL (75-99)
--- NOTE | 2020-06-05 13:24 | P.PN ---
Subjective Principal diagnosis: Acute hypoxic respiratory failure secondary to CoVID 19 pneumonia 75 years old male with past medical history of hyperlipidemia , coronary artery disease status post stent. Patient of Dr. Cole. His somewhat poor historian. Patient presents with dyspnea and a dry with no chest pain or abdominal pain or diarrhea. No headache or weakness or numbness. However he was complaining of from upper respiratory symptoms and sore throat as well. Patient also and he was confused, last time he got lost at [place] and he was taken to [facility] where he stayed there for 4-5 days for Covid infection as he states, he went home after that however he did not feel better. . He denies smoking, alcohol or illicit drugs Patient also states that he has history of urinary bladder cancer status post surgery [address] zee to 2 months ago as he states. He does not follow up with oncologist or has chemotherapy 05/27/2020 Patient is seen and evaluated in follow-up in the regular medical floor. He is currently sitting up in a chair at the bedside. Awake and alert in no acute distress. He remains on Arava high flow oxygen down to 30 L and 65% FiO2. Still desaturates with minimal activity. He's been afebrile. Hemodynamically stable. Blood glucose 200. The chest on 0.03. He remains on Lovenox, IV Solu- Medrol, vitamin supplements. Pulmonary service on board and recommending to titrate FiO2 as able; patient might be switched over to high flow nasal cannula 05/28/2020 Patient is seen and evaluated in follow-up on the regular medical floor. He is currently sitting up in a chair at the bedside. Awake and alert in no acute distress. He remains on AirVo high flow oxygen at 50 L and 85% FiO2. He had pulled it off at one point his O2 saturation dropped into the 70s. Subsequently required within minutes of replacing that device. He remains on Lovenox, IV Solu-Medrol, vitamin supplements. Patient is being followed by pulmonary service and recommending to continue Solu-Medrol, Lovenox and vitamin supplements; continue to titrate FiO2 down as able; recommending possible subacute rehab once stable for discharge 05/29/2020 Patient is seen and evaluated in room at bedside; remains on O2 with HFNC at 50%; remains on 55 L with SpO2 90 Lab review shows an upward trend in d-dimer from 1.27 on initial exam up to 1.44; potassium at 5.3; B UN/creatinine of 38/0.8 to; LDH trending down slowly down to 1242; patient remains on subcu Lovenox, IV Solu-Medrol and vitamin supplements; we will continue to trend inflammatory markers and continue to wean oxygen off as able; plan for discharge to skilled rehab once clinically stable 05/30/2020 Patient remains on Airvo presently 90% FiO2 with the oxygen flow rate of around 25 L patient clinically looks well at this time. Serum sodium remains at 133 potassium is 5.5. Patient will be given a dose of And patient was started on low potassium diet. 05/31/2020 Patient's potassium is still high but stable at around 5.5 serum sodium did improve patient remains on defer liters of oxygen with 85% FiO2. 06/01/2020 Patient still remains on a 50 L of oxygen and 90% FiO2 on airvo, although patient clinically looks good denied any complaints at this time. 06/02/2020 . There is no change in the his oxygen requirements. obtain basic metabolic profile for tomorrow. 06/04/2020 Patient is presently on BiPAP 100% FiO2 patient appears to have some worsening in his overall respiratory status although patient clinically looks well doesn't like to wear BiPAP. 06/05/2020 Patient is presently on BiPAP 100% FiO2. Patient has not been eating or drinking much because of the BiPAP and patient is bit concerned about it although patient is alert oriented 3 and doesn't have any complaints or doesn't have any shortness of breath. Constitutional: Denied any fatigue denied any fever. Cardio vascular: denied any chest pain, palpitations Gastrointestinal denied any nausea vomiting Pulmonary: Mentioned in HPI Neurologic denied any new focal deficits All inpatient medications were reviewed and appropriate changes in these medications as dictated in the interval history and assessment and plan. Objective - Vital Signs Vital signs: Vital Signs Temp 98.1 F 06/05/20 09:43 Pulse 55 L 06/05/20 09:43 Resp 29 H 06/05/20 09:43 BP 139/88 06/05/20 09:43 Pulse Ox 91 L 06/05/20 09:43 Intake & Output 06/04/20 06/05/20 06/05/20 18:59 06:59 18:59 Output Total 1300 Balance -1300 Weight 62.5 kg Output: Urine 1300 Other: Voiding Method Urinal Urinal Urinal # Voids 1 - Exam PHYSICAL EXAMINATION: GENERAL: The patient is alert and oriented x3, not in any acute distress. Well developed, well nourished. is on high flow oxygen HEENT: Pupils are round and equally reacting to light. EOMI. No scleral icterus. No conjunctival pallor. Normocephalic, atraumatic. No pharyngeal erythema. No thyromegaly. CARDIOVASCULAR: S1 and S2 present. No murmurs, rubs, or gallops. PULMONARY: Chest is clear to auscultation, no wheezing or crackles. ABDOMEN: Soft, nontender, nondistended, normoactive bowel sounds. No palpable organomegaly. MUSCULOSKELETAL: No joint swelling or deformity. EXTREMITIES: No cyanosis, clubbing, or pedal edema. NEUROLOGICAL: Gross neurological examination did not reveal any focal deficits. SKIN: No rashes. - Labs CBC & Chem 7: 06/03/20 04:49 06/03/20 04:49 Labs: Abnormal Lab Results - Last 24 Hours (Table) 06/04/20 06/04/20 06/05/20 Range/Units 16:24 20:45 07:07 POC Glucose (mg/dL) 110 H 105 H 105 H (75-99) mg/dL 06/05/20 Range/Units 11:17 POC Glucose (mg/dL) 100 H (75-99) mg/dL Assessment and Plan Plan: Acute bilateral covid pneumonia : Patient is in requirements have, patient remains on steroids, zinc, vitamin C pulmonary following the patient, monitor inflammatory markers the patient is presently on BiPAP 100% percent FiO2 Acute hypoxic respiratory failure secondary to above ischemic cardiomyopathy with ejection fraction 40-45% with wall hypokinesia, patient is a euvolemic patient received Lasix yesterday. Severe pulmonary hypertension and moderate pulmonary regurgitation metabolic encephalopathy mild Acute kidney injury, Versus chronic kidney disease possible UTI history of urinary cancer status post surgery 2 Hyperlipidemia History of coronary artery disease DVT prophylaxis: Subcutaneous Lovenox GI Prophylaxis: Pepcid PT/OT: Evaluating Prognosis is guarded
--- NOTE | 2020-06-05 15:40 | P.PN ---
Subjective Progress Note Date: 06/05/20 Principal diagnosis: COVID 19 pneumonia This is a very pleasant 75-year-old gentleman who follows with Dr. komal ward as his primary care provider. He has a history of hyperlipidemia, anxiety, bladder cancer with TURBT in January 2020. Approximately [address] ates he was doing well and was driving from [place] to [place] to get gas. That is the last thing he remembers. He somehow ended up at [facility] and transferred later to [facility] diagnosed with CoVID 19 infection. He states he was also told he had a myocardial infarction. He was there about 1 week and then discharged home. He was discharged on vitamin C, D and zinc. He is unsure if he received any other treatment for CoVID. He's been home about 3 days and then last night he was brought here by EMS after continuing with progressive weakness, shortness of breath, poor appetite. He lives with his daughter [place]. Chest x-ray reveals diffuse airspace opacities representing pulmonary edema versus infectious process. Echocardiogram reveals mild to moderately impaired left ventricular systolic function with ejection fraction 40-45%. Severe pulmonary hypertension. White count 2.7. Hemoglobin 14.6. Lymphocytes 0.2. D-dimer 0.64. Sodium 1:30. Potassium 5.7. Creatinine 1.24. LDH 2017. C-reactive protein 163. Troponin 0.64, 0.70. Urine with moderate leukocytes and high WBCs. Oscar virus by PCR detected. He's been initiated on vitamin C, vitamin D, zinc. Dexamethasone at 6 mg daily. Lovenox 40 mg subcu daily. He is also started on ceftriaxone and IV diuretics. He is seen today in consultation in the emergency room. He is currently awake and alert. Resting comfortably in bed. He is oriented 3. He is currently on a nonrebreather mask with O2 saturation of 91%. He is afebrile. Hemodynamically stable. On 05/30/2020 patient seen in follow-up medical surgical floor, patient remains on interval currently at 25 L and FiO2 of 90%, and partial nonrebreather mask his pulse ox is 88-94%, he looks comfortable, she is sitting up in the chair, no acute distress, no worsening dyspnea, no compressive chest pain, no cough or congestion. His chest x-ray shows similar interstitial and peripheral changes of Covid pneumonia. She remains on IV steroids in the form Solu-Medrol 60 mg every 6 hours, he is on prophylactic Lovenox 40 mg daily, he is on vitamins. Patient was not a candidate for Remdesivir, she was treated with standard treatm ent. He also received antibiotics for possibility of urinary tract infection. On 05/31/2020 patient seen in follow-up on medical floor, remains on interval at 45 L and FiO2 of 60%, and his pulse ox is greater than 94%, overall his FiO2 requirements are improving. No new chest x-ray today, no worsening dyspnea, in no acute distress, no fever or chills, no chest discomfort, no nausea or vomiting. Patient was not a candidate for Remdesivir, he was treated with Decadron, on prophylactic dose of Lovenox, and vitamins. D-dimer slightly improved on today's labs, 1.3, sodium is 134, and her serum electrolytes are within normal limits, B1 is 32, creatinine 0.8, LDH is 525, CRP is less than 0.4 On 06/01/2020 patient seen in follow-up on medical surgical floor, morning he had episode of resp distress, he remains on Airvo, at 50 L and FiO2 of 90%, in addition to 100% non-rebreather mask because of the earlier episode and the soles of desaturation into the 70s, 100% nonrebreather mask was removed, the flow was increased to 60 L and FiO2 was less than 90%, and his pulse ox is 89- 94%, patient is breathing comfortably, he states he is feeling much better since this morning, afebrile, no complaints of chest pain, she was outside the window for Remdesivir, he is receiving standard treatment in the form of Solu-Medrol, vitamins, and prophylactic Lovenox, his labs have been reviewed, showing d-dimer of 1.30, sodium is 134, the rest of electrolytes were unremarkable, BUN is 32, creatinine 0.8, limits her markers are improving, LDH is down to 525, and CRP is down to less than 0.4 on today's labs On 06/02/2020 patient seen in follow-up on medical surgical floor. Still requiring high flow oxygen and nonrebreather mask, Airvo is currently at 60 L and FiO2 of 90% in addition to 100% nonrebreather and his pulse ox is 93%, intermittently patient is experiencing respiratory distress, desaturates when he removes his nonrebreather mask into the 70s. At rest he is breathing comfortably, no acute distress, he did sit up in the chair today, he is currently back in bed, complains of chest discomfort, his been afebrile, hemodynamically has been stable. Chest x-ray today shows worsening infiltrates throughout both lung ruvalcaba. Sounds are positive for coarse crackles throughout his lung ruvalcaba. Clinically he does not appear to be fluid overload although his previous echocardiogram did show mild to moderate impairment of left ventricular systolic function and EF of 40-45%, no lower extremity swelling, no JVD. No nausea or vomiting, he is tolerating oral intake. On 06/03/2020 is seen in follow-up on medical surgical floor, this morning he again removed his Airvo and significantly desaturated, was in significant respiratory distress, even with the Airvo and her percent nonrebreather mask was only saturating 83%. Subsequently he was placed on BiPAP support, with pressures of 14/7 and FiO2 of 100%, he was given a dose of morphine, he continues on high-dose IV steroids 60 mg every 6 hours, liver he has been very slow to improve, as a matter fact he has not shown much improvement in terms of oxygenation improvement on the chest x-ray. Follow-up chest x-ray today shows p atchy bilateral airspace disease which is unchanged compared to yesterday's exam. His labs have been reviewed, showing orbital, 10.3, hemoglobin is 14.5, sodium is 135, potassium is 5.4, BUN is 29, creatinine 0.8, his last set of LDH and CRP was back on 05/31/2020 and was improving and was down to 525 for LDH and CRP of less than 0.4. After stabilizing patient's respiratory status with BiPAP support, steroids, anxiolytics, and morphine, patient is looking of breathing much easier. Compliant with BiPAP, registered safety engineer was placed at the bedside to monitor the patient and prevent him from removing his oxygen. I discussed CODE STATUS with the patient, who made it clear he does not want to be placed on life-support, intubation, or resuscitation. This was communicated to the patient's daughter on the phone, the family agrees with patient's decision, for now we'll continue supportive care On 06/05/2020 patient seen in follow-up on selective care, still remains on BiPAP, with pressures of 14 and 1700%, his pulse ox is a 91-93%, still Tachypneic, lung sounds reveal some crackles at bilateral bases, he is on IV Solu-Medrol 40 every 8 12 hours, patient was outside the window for Remdesivir, continues on prophylactic coagulation, doesn't seem to be confused, he has not and trying to remove the BiPAP support, registered safety engineer was discontinued, he is been compliant with treatment, he continues on daily dose of Lasix, recent chest x-ray today, proBNP is 619, his weight is down by 2 kg, a negative fluid balance, he wants to eat, for that reason we will alternate his BiPAP support with Airvo. His CODE STATUS is DO NOT RESUSCITATE, he has not worsened in the last 24 hours, has remained stable, we will try to give him a trial on high flow nasal cannula per Airvo. Objective - Vital Signs Vital signs: Vital Signs Temp 98.2 F 06/05/20 13:49 Pulse 54 L 06/05/20 13:49 Resp 32 H 06/05/20 13:49 BP 137/86 06/05/20 13:49 Pulse Ox 93 L 06/05/20 13:49 Intake & Output 06/04/20 06/05/20 06/05/20 18:59 06:59 18:59 Output Total 1300 Balance -1300 Weight 62.5 kg Output: Urine 1300 Other: Voiding Method Urinal Urinal Urinal # Voids 1 - Exam GENERAL EXAM: Alert, very pleasant, 75-year-old white male, placed on BiPAP support with pressures of 14/7 and FiO2 100%, appears to be much more comfortable, compliant with BiPAP HEAD: Normocephalic/atraumatic. EYES: Normal reaction of pupils, equal size. Conjunctiva pink, sclera white. NOSE: Clear with pink turbinates. THROAT: No erythema or exudates. NECK: No masses, no JVD, no thyroid enlargement, no adenopathy. CHEST: No chest wall deformity. Symmetrical expansion. LUNGS: Equal air entry with no crackles, wheeze, rhonchi or dullness. CVS: Regular rate and rhythm, normal S1 and S2, no gallops, no murmurs, no rubs ABDOMEN: Soft, nontender. No hepatosplenomegaly, normal bowel sounds, no guarding or rigidity. EXTREMITIES: No clubbing, no edema, no cyanosis, 2+ pulses and upper and lower extremities. MUSCULOSKELETAL: Muscle strength and tone normal. SPINE: No scoliosis or deformity SKIN: No rashes CENTRAL NERVOUS SYSTEM: Alert and oriented -3. No focal deficits, tone is normal in all 4 extremities. PSYCHIATRIC: Alert and oriented -3. Appropriate affect. Intact judgment and insight. - Labs CBC & Chem 7: 06/03/20 04:49 06/03/20 04:49 Labs: Abnormal Lab Results - Last 24 Hours (Table) 06/04/20 06/04/20 06/05/20 Range/Units 16:24 20:45 07:07 POC Glucose (mg/dL) 110 H 105 H 105 H (75-99) mg/dL 06/05/20 Range/Units 11:17 POC Glucose (mg/dL) 100 H (75-99) mg/dL Assessment and Plan Plan: Assessment: #1. Acute hypoxic respiratory failure secondary to COVID 19 pneumonia, was not candidate for Remdesivir #2. Increased inflammatory markers lymphopenia related to the above, improved #3. Recent hospitalization in [place] for COVID 19 infection for one week and patient was home for 3 days prior to returning to the hospital at [facility] #4. Recent myocardial infarction with stent placement #5. Suspect ischemic cardiomyopathy with ejection fraction of 40-45% #6. Troponin leak #7. Pulmonary hypertension #8. Hyperlipidemia #9. History of anxiety #10. History of bladder cancer status post TURBT in January 2020 Plan: Continue current medical treatment, will obtain follow-up chest x-ray tomorrow, wean FiO2 and given O2 saturations between 89-90%, may alternate BiPAP support with Airvo, no altered mentation, patient is compliant with treatment and BiPAP support. He wants to eat, no worsening dyspnea in the last 24 hours, continue current medical treatment, overall prognosis is poor and guarded, will continue supportive treatment. I performed a history & physical examination of the patient and discussed their management with my nurse practitioner, Nydia Oviedo. I reviewed the nurse julien mccall's note and agree with the documented findings and plan of care. Lung sounds are positive for diminished breath sounds The findings and the impression was discussed with the patient. I attest to the documentation by the nurse practitioner. Time with Patient: Less than 30
[2020-06-05] MEDS: MORPHINE SULFATE 2 MG/ML SYRINGE IVP PRN (15:55)
[2020-06-05 20:57] LABS: Glucose,Whole Blood 105 mg/dL (75-99)
[2020-06-06 07:04] LABS: Glucose,Whole Blood 97 mg/dL (75-99)
[2020-06-06 07:25] LABS: African American GFR (CKD) 77 (>60 ml/min/1.73 sqM); Anion Gap 3 mmol/L; Blood Urea Nitrogen 69 mg/dL (9-20); Calcium 8.5 mg/dL (8.4-10.2); Carbon Dioxide 33 mmol/L (22-30); Chloride 95 mmol/L (98-107); Glucose 104 mg/dL (74-99); Non-African American GFR(CKD) 66 (>60 ml/min/1.73 sqM); Sodium 131 mmol/L (137-145)
[2020-06-06] MEDS: INSULIN ASPART (NovoLOG) 100 UNIT/ML VIAL SQ SCH ×4 (08:11→19:58)
[2020-06-06] MEDS: ALBUTEROL HFA INHALER INHALATION PRN ×4 (08:14→20:37)
--- NOTE | 2020-06-06 08:14 | XR ---
EXAMINATION TYPE: XR chest 1V portable DATE OF EXAM: 06/06/2020 CLINICAL HISTORY: Difficulty breathing progress study. Worsening hypoxia / covid. TECHNIQUE: Single AP portable upright view of the chest is obtained. COMPARISON: Chest x-ray from 3 days earlier and older studies. FINDINGS: Persistent multifocal peripheral reticulonodular opacities bilaterally. Persistent bibasil ar opacities. Stable somewhat low lung volumes. Cardiac silhouette size stable and within normal limi ts. Osseous structures are intact. IMPRESSION: Persistent multifocal peripheral opacities consistent with covid-19 infection, some impro laureano aeration periphery right midlung noted since most recent study.
[2020-06-06] MEDS: risperiDONE 2 MG TAB PO SCH ×2 (08:52→09:04)
[2020-06-06] MEDS: FAMOTIDINE 20 MG TAB PO SCH (08:52)
[2020-06-06] MEDS: ATORVASTATIN 80 MG TAB PO SCH (08:53)
[2020-06-06] MEDS: methylPREDNISolone SOD SUCCI 40 MG/ML 1 ML VIAL IV SCH (09:04)
[2020-06-06] MEDS: ENOXAPARIN 40 MG/0.4 ML SYRINGE SQ SCH (09:04)
[2020-06-06] MEDS: ASPIRIN 81 MG PO SCH (09:04)
[2020-06-06] MEDS: FUROSEMIDE 10 MG/ML 4 ML VIAL IV SCH (09:04)
[2020-06-06] MEDS: ASCORBIC ACID 500 MG TAB PO SCH (09:04)
[2020-06-06] MEDS: CHOLECALCIFEROL 10 MCG (400 IU) TABLET PO SCH (09:04)
[2020-06-06] MEDS: ZINC SULFATE 220 MG CAP PO SCH (09:05)
[2020-06-06 11:58] LABS: Glucose,Whole Blood 123 mg/dL (75-99)
--- NOTE | 2020-06-06 12:07 | P.PN ---
Subjective Progress Note Date: 06/06/20 This is a very pleasant 75-year-old gentleman who follows with Dr. komal ward as his primary care provider. He has a history of hyperlipidemia, anxiety, bladder cancer with TURBT in January 2020. Approximately 10 days ago the patient states he was doing well and was driving from [place] to [place] to get gas. That is the last thing he remembers. He somehow ended up at [facility] and transferred later to [facility] diagnosed with CoVID 19 infection. He states he was also told he had a myocardial infarction. He was there about 1 week and then discharged home. He was discharged on vitamin C, D and zinc. He is unsure if he received any other treatment for CoVID. He's been home about 3 days and then last night he was brought here by EMS after continuing with progressive weakness, shortness of breath, poor appetite. He lives with his daughter [place]. Chest x-ray reveals diffuse airspace opacities representing pulmonary edema versus infectious process. Echocardiogram reveals mild to moderately impaired left ventricular systolic function with ejection fraction 40-45%. Severe pulmonary hypertension. White count 2.7. Hemoglobin 14.6. Lymphocytes 0.2. D-dimer 0.64. Sodium 1:30. Potassium 5.7. Creatinine 1.24. LDH 2017. C-reactive protein 163. Troponin 0.64, 0.70. Urine with moderate leukocytes and high WBCs. Oscar virus by PCR detected. He's been initiated on vitamin C, vitamin D, zinc. Dexamethasone at 6 mg daily. Lovenox 40 mg subcu daily. He is also started on ceftriaxone and IV diuretics. He is seen today in consultation in the emergency room. He is currently awake and alert. Resting comfortably in bed. He is oriented 3. He is currently on a nonrebreather mask with O2 saturation of 91%. He is afebrile. Hemodynamically stable. On 05/30/2020 patient seen in follow-up medical surgical floor, patient remains on interval currently at 25 L and FiO2 of 90%, and partial nonrebreather mask his pulse ox is 88-94%, he looks comfortable, she is sitting up in the chair, no acute distress, no worsening dyspnea, no compressive chest pain, no cough or congestion. His chest x-ray shows similar interstitial and peripheral changes of Covid pneumonia. She remains on IV steroids in the form Solu-Medrol 60 mg every 6 hours, he is on prophylactic Lovenox 40 mg daily, he is on vitamins. Patient was not a candidate for Remdesivir, she was treated with standard treatment. He also received antibiotics for possibility of urinary tract infection. On 05/31/2020 patient seen in follow-up on medical floor, remains on interval at 45 L and FiO2 of 60%, and his pulse ox is greater than 94%, overall his FiO2 requirements are improving. No new chest x-ray today, no worsening dyspnea, in no acute distress, no fever or chills, no chest discomfort, no nausea or vomiting. Patient was not a candidate for Remdesivir, he was treated with Decadron, on prophylactic dose of Lovenox, and vitamins. D-dimer slightly improved on today's labs, 1.3, sodium is 134, and her serum electrolytes are within normal limits, B1 is 32, creatinine 0.8, LDH is 525, CRP is less than 0.4 On 06/01/2020 patient seen in follow-up on medical surgical floor, morning he had episode of resp distress, he remains on Airvo, at 50 L and FiO2 of 90%, in addition to 100% non-rebreather mask because of the earlier episode and the soles of desaturation into the 70s, 100% nonrebreather mask was removed, the flow was increased to 60 L and FiO2 was less than 90%, and his pulse ox is 89- 94%, patient is breathing comfortably, he states he is feeling much better since this morning, afebrile, no complaints of chest pain, she was outside the window for Remdesivir, he is receiving standard treatment in the form of Solu-Medrol, vitamins, and prophylactic Lovenox, his labs have been reviewed, showing d-dimer of 1.30, sodium is 134, the rest of electrolytes were unremarkable, BUN is 32, creatinine 0.8, limits her markers are improving, LDH is down to 525, and CRP is down to less than 0.4 on today's labs On 06/02/2020 patient seen in follow-up on medical surgical floor. Still requiring high flow oxygen and nonrebreather mask, Airvo is currently at 60 L and FiO2 of 90% in addition to 100% nonrebreather and his pulse ox is 93%, intermittently patient is experiencing respiratory distress, desaturates when he removes his nonrebreather mask into the 70s. At rest he is breathing comfortably, no acute distress, he did sit up in the chair today, he is current ly back in bed, complains of chest discomfort, his been afebrile, hemodynamically has been stable. Chest x-ray today shows worsening infiltrates throughout both lung ruvalc[place]. Sounds are positive for coarse crackles throughout his lung ruvalc[place]. Clinically he does not appear to be fluid overload although his previous echocardiogram did show mild to moderate impairment of left ventricular systolic function and EF of 40-45%, no lower extremity swelling, no JVD. No nausea or vomiting, he is tolerating oral intake. On 06/03/2020 is seen in follow-up on medical surgical floor, this morning he again removed his Airvo and significantly desaturated, was in significant respiratory distress, even with the Airvo and her percent nonrebreather mask was only saturating 83%. Subsequently he was placed on BiPAP support, with pressures of 14/7 and FiO2 of 100%, he was given a dose of morphine, he katlyn nues on high-dose IV steroids 60 mg every 6 hours, liver he has been very slow to improve, as a matter fact he has not shown much improvement in terms of oxygenation improvement on the chest x-ray. Follow-up chest x-ray today shows patchy bilateral airspace disease which is unchanged compared to yesterday's exam. His labs have been reviewed, showing orbital, 10.3, hemoglobin is 14.5, sodium is 135, potassium is 5.4, BUN is 29, creatinine 0.8, his last set of LDH and CRP was back on 05/31/2020 and was improving and was down to 525 for LDH and CRP of less than 0.4. After stabilizing patient's respiratory status with BiPAP support, steroids, anxiolytics, and morphine, patient is looking of breathing much easier. Compliant with BiPAP, chief safety officer was placed at the bedside to monitor the patient and prevent him from removing his oxygen. I discussed CODE STATUS with the patient, who made it clear he does not want to be placed on life-support, intubation, or resuscitation. This was communicated to the patient's daughter on the phone, the family agrees with patient's decision, for now we'll continue supportive care On 06/05/2020 patient seen in follow-up on selective care, still remains on BiPAP, with pressures of 14 and 1700%, his pulse ox is a 91-93%, still Tachypneic, lung sounds reveal some crackles at bilateral bases, he is on IV Solu-Medrol 40 every 8 12 hours, patient was outside the window for Remdesivir, continues on prophylactic coagulation, doesn't seem to be confused, he has not and trying to remove the BiPAP support, chief safety officer was discontinued, he is been compliant with treatment, he continues on daily dose of Lasix, recent chest x-ray today, proBNP is 619, his weight is down by 2 kg, a negative fluid balance, he wants to eat, for that reason we will alternate his BiPAP support with Airvo. His CODE STATUS is DO NOT RESUSCITATE, he has not worsened in the last 24 hours, has remained stable, we will try to give him a trial on high flow nasal cannula per Airvo. On 06/06/2020, the patient remains on high flow oxygen and the 100% nonrebreather facemask. He has been very slow to progress and the chest x-ray still showing by the pulmonary infiltrates with a peripheral distribution. There is been some interval clearing of infiltrates in the upper lobes bilaterally. Nevertheless, the patient is still requiring high levels of oxygen. He remains on IV Solu Medrol 40 mg she will 8 hours. The patient is also on Lovenox 40 mg subcu every 24 hours. In terms of his blood work, the LDH level was not checked recently. Most recent levels have been essentially showing improvement in the LDH which was down to 525 from 05/31/2020. The patient is otherwise stable. No altered mentation. No nausea or vomiting. No other complaints otherwise. His current BMI is 23.5. Noted the patient was on BiPAP overnight and the patient is currently on 60 liters of oxygen with an FiO2 of 80% Objective - Vital Signs Vital signs: Vital Signs Temp 96.7 F L 06/06/20 10:00 Pulse 58 L 06/06/20 10:00 Resp 16 06/06/20 10:00 BP 112/72 06/06/20 10:00 Pulse Ox 92 L 06/06/20 10:00 Intake & Output 06/05/20 06/06/20 06/06/20 18:59 06:59 18:59 Output Total 750 Balance -750 Weight 62 kg Output: Urine 750 Other: Voiding Method Urinal Urinal # Voids 1 - Exam GENERAL EXAM: Alert, very pleasant, 75-year-old white male, placed on BiPAP support with pressures of 14/7 and FiO2 100%, appears to be much more comfortable, compliant with BiPAP, subsequently was switched to high flow oxygen at 6 L with an FiO2 of 80% and 100% nonrebreather facemask. Current pulse ox is around 95%. HEAD: Normocephalic/atraumatic. EYES: Normal reaction of pupils, equal size. Conjunctiva pink, sclera white. NOSE: Clear with pink turbinates. THROAT: No erythema or exudates. NECK: No masses, no JVD, no thyroid enlargement, no adenopathy. CHEST: No chest wall deformity. Symmetrical expansion. LUNGS: Equal air entry with no crackles, wheeze, rhonchi or dullness. CVS: Regular rate and rhythm, normal S1 and S2, no gallops, no murmurs, no rubs ABDOMEN: Soft, nontender. No hepatosplenomegaly, normal bowel sounds, no guarding or rigidity. EXTREMITIES: No clubbing, no edema, no cyanosis, 2+ pulses and upper and lower extremities. MUSCULOSKELETAL: Muscle strength and tone normal. SPINE: No scoliosis or deformity SKIN: No rashes CENTRAL NERVOUS SYSTEM: Alert and oriented -3. No focal deficits, tone is normal in all 4 extremities. PSYCHIATRIC: Alert and oriented -3. Appropriate affect. Intact judgment and insight. - Labs CBC & Chem 7: 06/03/20 04:49 06/06/20 06:16 Labs: Abnormal Lab Results - Last 24 Hours (Table) 06/05/20 06/06/20 06/06/20 Range/Units 20:56 06:16 11:57 Sodium 131 L (137-145) mmol/L Chloride 95 L (98-107) mmol/L Carbon Dioxide 33 H (22-30) mmol/L BUN 69 H (9-20) mg/dL Glucose 104 H (74-99) mg/dL POC Glucose (mg/dL) 105 H 123 H (75-99) mg/dL Assessment and Plan Plan: #1. Acute hypoxic respiratory failure secondary to COVID 19 pneumonia, was not candidate for Remdesivir, remains on IV Solu Medrol 40 mg every 8 hours. The patient remains on high flow oxygen at 6 L with an FiO2 of 80% and the patient is also utilizing 100% nonrebreather facemask. #2. Increased inflammatory markers lymphopenia related to the above, improved #3. Recent hospitalization in [place] for COVID 19 infection for one week and patient was home for 3 days prior to returning to the hospital at [facility] #4. Recent myocardial infarction with stent placement #5. Suspect ischemic cardiomyopathy with ejection fraction of 40-45% #6. Troponin leak #7. Pulmonary hypertension #8. Hyperlipidemia #9. History of anxiety #10. History of bladder cancer status post TURBT in January 2020 Plan: Continue current medical treatment, Extensive from today showing some limited improvement Continue high flow oxygen at 6 L with an FiO2 of 80% Stop the IV Solu Medrol put the patient on 40 mg of prednisone a daily basis The patient has been very slow to progress Clinically looks better today compared to yesterday and today before We'll continue to follow.
--- NOTE | 2020-06-06 12:34 | P.PN ---
Subjective Progress Note Date: 06/06/20 Acute hypoxic respiratory failure secondary to CoVID 19 pneumonia 75 years old male with past medical history of hyperlipidemia , coronary artery disease status post stent. Patient of Dr. Cole. His somewhat poor historian. Patient presents with dyspnea and a dry with no chest pain or abdominal pain or diarrhea. No headache or weakness or numbness. However he was complaining of from upper respiratory symptoms and sore throat as well. Patient also and he was confused, last time he got lost at [place] and he was taken to [facility] where he stayed there for 4-5 days for Covid infe ction as he states, he went home after that however he did not feel better. . He denies smoking, alcohol or illicit drugs Patient also states that he has history of urinary bladder cancer status post surgery [address] zee to 2 months ago as he states. He does not follow up with oncologist or has chemotherapy 05/27/2020 Patient is seen and evaluated in follow-up in the regular medical floor. He is currently sitting up in a chair at the bedside. Awake and alert in no acute distress. He remains on [place]rava high flow oxygen down to 30 L and 65% FiO2. Still desaturates with minimal activity. He's been afebrile. Hemodynamically stable. Blood glucose 200. The chest on 0.03. He remains on Lovenox, IV Solu- Medrol, vitamin supplements. Pulmonary service on board and recommending to titrate FiO2 as able; patient might be switched over to high flow nasal cannula 05/28/2020 Patient is seen and evaluated in follow-up on the regular medical floor. He is currently sitting up in a chair at the bedside. Awake and alert in no acute distress. He remains on AirVo high flow oxygen at 50 L and 85% FiO2. He had pulled it off at one point his O2 saturation dropped into the 70s. Subsequently required within minutes of replacing that device. He remains on Lovenox, IV Solu-Medrol, vitamin supplements. Patient is being followed by pulmonary service and recommending to continue Solu-Medrol, Lovenox and vitamin supplements; continue to titrate FiO2 down as able; recommending possible subacute rehab once stable for discharge 05/29/2020 Patient is seen and evaluated in room at bedside; remains on O2 with HFNC at 50%; remains on 55 L with SpO2 90 Lab review shows an upward trend in d-dimer from 1.27 on initial exam up to 1.44; potassium at 5.3; B UN/creatinine of 38/0.8 to; LDH trending down slowly down to 1242; patient remains on subcu Lovenox, IV Solu-Medrol and vitamin supplements; we will continue to trend inflammatory markers and continue to wean oxygen off as able; plan for discharge to skilled rehab once clinically stable 05/30/2020 Patient remains on Airvo presently 90% FiO2 with the oxygen flow rate of around 25 L patient clinically looks well at this time. Serum sodium remains at 133 p otassium is 5.5. Patient will be given a dose of And patient was started on low potassium diet. 05/31/2020 Patient's potassium is still high but stable at around 5.5 serum sodium did improve patient remains on defer liters of oxygen with 85% FiO2. 06/01/2020 Patient still remains on a 50 L of oxygen and 90% FiO2 on airvo, although patient clinically looks good denied any complaints at this time. 06/02/2020 . There is no change in the his oxygen requirements. obtain basic metabolic profile for tomorrow. 06/03/2020 Patient's oxygen requirements have increased and patient is now maintained on BiPAP as he continued to remove mask and nasal cannula multiple times. Discussed with the patient about CODE STATUS and patient will be no code. Pulmonary is following. 06/04/2020 Patient is presently on BiPAP 100% FiO2 patient appears to have some worsening in his overall respiratory status although patient clinically looks well doesn't like to wear BiPAP. 06/05/2020 Patient is presently on BiPAP 100% FiO2. Patient has not been eating or drinking much because of the BiPAP and patient is bit concerned about it although patient is alert oriented 3 and doesn't have any complaints or doesn't have any shortness of breath. 06/06/2020 Patient is seen this morning and has transitioned to Airvo along with nonrebreather at 15 L with oxygen saturations of 92%. Current settings are deli very of 60 with an FiO2 of 80%. Sodium is 131 with a potassium of 5.0 and current creatinine is 1.1 and blood sugars are being closely monitored. Pulmonary following and patient is being transitioned oral prednisone. Constitutional: Denied any fatigue denied any fever. Cardio vascular: denied any chest pain, palpitations Gastrointestinal denied any nausea vomiting Pulmonary: Denied any shortness of breath Neurologic denied any new focal deficits All inpatient medications were reviewed and appropriate changes in these medications as dictated in the interval history and assessment and plan. Objective - Vital Signs Vital signs: Vital Signs Temp 97.5 F L 06/06/20 06:00 Pulse 50 L 06/06/20 06:00 Resp 20 06/06/20 06:00 BP 121/78 06/06/20 06:00 Pulse Ox 94 L 06/06/20 06:00 Intake & Output 06/05/20 06/06/20 06/06/20 18:59 06:59 18:59 Output Total 750 Balance -750 Weight 62 kg Output: Urine 750 Other: Voiding Method Urinal Urinal # Voids 1 - Exam GENERAL: The patient is alert and oriented x3, not in any acute distress. Well developed, well nourished. Patient transitioned to Air long with nonrebreather and has been taken off BiPAP HEENT: Pupils are round and equally reacting to light. EOMI. No scleral icterus. No conjunctival pallor. Normocephalic, atraumatic. No pharyngeal erythema. No thyromegaly. CARDIOVASCULAR: S1 and S2 present. No murmurs, rubs, or gallops. PULMONARY: Diminished breath sounds with coarse bronchi noted ABDOMEN: Soft, nontender, nondistended, normoactive bowel sounds. No palpable organomegaly. MUSCULOSKELETAL: No joint swelling or deformity. EXTREMITIES: No cyanosis, clubbing, or pedal edema. NEUROLOGICAL: Gross neurological examination did not reveal any focal deficits. diffusely weak SKIN: No rashes. - Labs CBC & Chem 7: 06/03/20 04:49 06/06/20 06:16 Labs: Abnormal Lab Results - Last 24 Hours (Table) 06/05/20 06/05/20 06/06/20 Range/Units 11:17 20:56 06:16 Sodium 131 L (137-145) mmol/L Chloride 95 L (98-107) mmol/L Carbon Dioxide 33 H (22-30) mmol/L BUN 69 H (9-20) mg/dL Glucose 104 H (74-99) mg/dL POC Glucose (mg/dL) 100 H 105 H (75-99) mg/dL Assessment and Plan Assessment: Acute bilateral covid pneumonia : Patient oxygen requirements slightly improved and being transitioned back to Airvo long with nonrebreather and has been taken off the BiPAP this morning, patient remains on oral steroids, zinc, vitamin C pulmonary following Acute hypoxic respiratory failure secondary to above ischemic cardiomyopathy with ejection fraction 40-45% with wall hypokinesia, patient is a euvolemic at this time Severe pulmonary hypertension and moderate pulmonary regurgitation metabolic encephalopathy mild Acute kidney injury, Versus chronic kidney disease possible UTI Possible history of urinary cancer status post surgery 2 Hyperlipidemia History of coronary artery disease DVT prophylaxis: Subcutaneous Lovenox GI Prophylaxis: Pepcid Plan: Continue with current medications. Oxygen requirements have slightly improved and patient is now maintained on airvo and non-rebreather. Pulmonary is foll owing. Chest x-ray today shows persistent multifocal peripheral patient is consistent with Covid 19 infection, some improved aeration periphery might midlung as noted from previous study. labs within normal limits. Prognosis remains extremely poor and guarded.
[2020-06-06 16:37] LABS: Glucose,Whole Blood 198 mg/dL (75-99)
[2020-06-06 19:57] LABS: Glucose,Whole Blood 135 mg/dL (75-99)
[2020-06-07] MEDS: ALBUTEROL HFA INHALER INHALATION PRN ×4 (08:40→19:35)
[2020-06-07] MEDS: INSULIN ASPART (NovoLOG) 100 UNIT/ML VIAL SQ SCH ×4 (08:43→19:58)
[2020-06-07] MEDS: ENOXAPARIN 40 MG/0.4 ML SYRINGE SQ SCH (08:58)
[2020-06-07] MEDS: ATORVASTATIN 80 MG TAB PO SCH (08:58)
[2020-06-07] MEDS: ZINC SULFATE 220 MG CAP PO SCH (08:58)
[2020-06-07] MEDS: ASCORBIC ACID 500 MG TAB PO SCH (08:58)
[2020-06-07] MEDS: ASPIRIN 81 MG PO SCH (08:58)
[2020-06-07] MEDS: CHOLECALCIFEROL 10 MCG (400 IU) TABLET PO SCH (08:58)
[2020-06-07] MEDS: FUROSEMIDE 10 MG/ML 4 ML VIAL IV SCH (08:58)
[2020-06-07] MEDS: predniSONE 20 MG TAB PO SCH (08:58)
[2020-06-07] MEDS: FAMOTIDINE 20 MG TAB PO SCH (08:58)
[2020-06-07] MEDS: risperiDONE 2 MG TAB PO SCH (08:58)
--- NOTE | 2020-06-07 12:25 | P.PN ---
Subjective Progress Note Date: 06/07/20 This is a very pleasant 75-year-old gentleman who follows with Dr. komal ward as his primary care provider. He has a history of hyperlipidemia, anxiety, bladder cancer with TURBT in January 2020. Approximately 10 days ago the patient states he was doing well and was driving from [place] to [place] to get gas. That is the last thing he remembers. He somehow ended up at [facility] and transferred later to [facility] diagnosed with CoVID 19 infection. He states he was also told he had a myocardial infarction. He was there about 1 week and then discharged home. He was discharged on vitamin C, D and zinc. He is unsure if he received any other treatment for CoVID. He's been home about 3 days and then last night he was brought here by EMS after continuing with progressive weakness, shortness of breath, poor appetite. He lives with his daughter [place]. Chest x-ray reveals diffuse airspace opacities representing pulmonary edema versus infectious process. Echocardiogram reveals mild to moderately impaired left ventricular systolic function with ejection fraction 40-45%. Severe pulmonary hypertension. White count 2.7. Hemoglobin 14.6. Lymphocytes 0.2. D-dimer 0.64. Sodium 1:30. Potassium 5.7. Creatinine 1.24. LDH 2017. C-reactive protein 163. Troponin 0.64, 0.70. Urine with moderate leukocytes and high WBCs. Oscar virus by PCR detected. He's been initiated on vitamin C, vitamin D, zinc. Dexamethasone at 6 mg daily. Lovenox 40 mg subcu daily. He is also started on ceftriaxone and IV diuretics. He is seen today in consultation in the emergency room. He is currently awake and alert. Resting comfortably in bed. He is oriented 3. He is currently on a nonrebreather mask with O2 saturation of 91%. He is afebrile. Hemodynamically stable. On 05/30/2020 patient seen in follow-up medical surgical floor, patient remains on interval currently at 25 L and FiO2 of 90%, and partial nonrebreather mask his pulse ox is 88-94%, he looks comfortable, she is sitting up in the chair, no acute distress, no worsening dyspnea, no compressive chest pain, no cough or congestion. His chest x-ray shows similar interstitial and peripheral changes of Covid pneumonia. She remains on IV steroids in the form Solu-Medrol 60 mg every 6 hours, he is on prophylactic Lovenox 40 mg daily, he is on vitamins. Patient was not a candidate for Remdesivir, she was treated with standard treatment. He also received antibiotics for possibility of urinary tract infection. On 05/31/2020 patient seen in follow-up on medical floor, remains on interval at 45 L and FiO2 of 60%, and his pulse ox is greater than 94%, overall his FiO2 requirements are improving. No new chest x-ray today, no worsening dyspnea, in no acute distress, no fever or chills, no chest discomfort, no nausea or vomiting. Patient was not a candidate for Remdesivir, he was treated with Decadron, on prophylactic dose of Lovenox, and vitamins. D-dimer slightly improved on today's labs, 1.3, sodium is 134, and her serum electrolytes are within normal limits, B1 is 32, creatinine 0.8, LDH is 525, CRP is less than 0.4 On 06/01/2020 patient seen in follow-up on medical surgical floor, morning he had episode of resp distress, he remains on Airvo, at 50 L and FiO2 of 90%, in addition to 100% non-rebreather mask because of the earlier episode and the soles of desaturation into the 70s, 100% nonrebreather mask was removed, the flow was increased to 60 L and FiO2 was less than 90%, and his pulse ox is 89- 94%, patient is breathing comfortably, he states he is feeling much better since this morning, afebrile, no complaints of chest pain, she was outside the window for Remdesivir, he is receiving standard treatment in the form of Solu-Medrol, vitamins, and prophylactic Lovenox, his labs have been reviewed, showing d-dimer of 1.30, sodium is 134, the rest of electrolytes were unremarkable, BUN is 32, creatinine 0.8, limits her markers are improving, LDH is down to 525, and CRP is down to less than 0.4 on today's labs On 06/02/2020 patient seen in follow-up on medical surgical floor. Still requiring high flow oxygen and nonrebreather mask, Airvo is currently at 60 L and FiO2 of 90% in addition to 100% nonrebreather and his pulse ox is 93%, intermittently patient is experiencing respiratory distress, desaturates when he removes his nonrebreather mask into the 70s. At rest he is breathing comfortably, no acute distress, he did sit up in the chair today, he is current ly back in bed, complains of chest discomfort, his been afebrile, hemodynamically has been stable. Chest x-ray today shows worsening infiltrates throughout both lung [place]. Sounds are positive for coarse crackles throughout his lung ru[place]. Clinically he does not appear to be fluid overload although his previous echocardiogram did show mild to moderate impairment of left ventricular systolic function and EF of 40-45%, no lower extremity swelling, no JVD. No nausea or vomiting, he is tolerating oral intake. On 06/03/2020 is seen in follow-up on medical surgical floor, this morning he again removed his Airvo and significantly desaturated, was in significant respiratory distress, even with the Airvo and her percent nonrebreather mask was only saturating 83%. Subsequently he was placed on BiPAP support, with pressures of 14/7 and FiO2 of 100%, he was given a dose of morphine, he katlyn nues on high-dose IV steroids 60 mg every 6 hours, liver he has been very slow to improve, as a matter fact he has not shown much improvement in terms of oxygenation improvement on the chest x-ray. Follow-up chest x-ray today shows patchy bilateral airspace disease which is unchanged compared to yesterday's exam. His labs have been reviewed, showing orbital, 10.3, hemoglobin is 14.5, sodium is 135, potassium is 5.4, BUN is 29, creatinine 0.8, his last set of LDH and CRP was back on 05/31/2020 and was improving and was down to 525 for LDH and CRP of less than 0.4. After stabilizing patient's respiratory status with BiPAP support, steroids, anxiolytics, and morphine, patient is looking of breathing much easier. Compliant with BiPAP, fire safety inspector was placed at the bedside to monitor the patient and prevent him from removing his oxygen. I discussed CODE STATUS with the patient, who made it clear he does not want to be placed on life-support, intubation, or resuscitation. This was communicated to the patient's daughter on the phone, the family agrees with patient's decision, for now we'll continue supportive care On 06/05/2020 patient seen in follow-up on selective care, still remains on BiPAP, with pressures of 14 and 1700%, his pulse ox is a 91-93%, still Tachypneic, lung sounds reveal some crackles at bilateral bases, he is on IV Solu-Medrol 40 every 8 12 hours, patient was outside the window for Remdesivir, continues on prophylactic coagulation, doesn't seem to be confused, he has not and trying to remove the BiPAP support, fire safety inspector was discontinued, he is been compliant with treatment, he continues on daily dose of Lasix, recent chest x-ray today, proBNP is 619, his weight is down by 2 kg, a negative fluid balance, he wants to eat, for that reason we will alternate his BiPAP support with Airvo. His CODE STATUS is DO NOT RESUSCITATE, he has not worsened in the last 24 hours, has remained stable, we will try to give him a trial on high flow nasal cannula per Airvo. On 06/06/2020, the patient remains on high flow oxygen and the 100% nonrebreather facemask. He has been very slow to progress and the chest x-ray still showing by the pulmonary infiltrates with a peripheral distribution. There is been some interval clearing of infiltrates in the upper lobes bilaterally. Nevertheless, the patient is still requiring high levels of oxygen. He remains on IV Solu Medrol 40 mg she will 8 hours. The patient is also on Lovenox 40 mg subcu every 24 hours. In terms of his blood work, the LDH level was not checked recently. Most recent levels have been essentially showing improvement in the LDH which was down to 525 from 05/31/2020. The patient is otherwise stable. No altered mentation. No nausea or vomiting. No other complaints otherwise. His current BMI is 23.5. Noted the patient was on BiPAP overnight and the patient is currently on 60 liters of oxygen with an FiO2 of 80% 06/07/2020, the patient's condition essentially the same. He remains on high flow oxygen with a flow of 50 L and FiO2 of 90% in addition to 100% nonrebreather facemask.. Condition is essentially the same and unchanged since yesterday. The patient is still on the recliner and he is pulse ox is around 90% and he desaturated with limited amount of activity. I would say his overall pulmonary status is unchanged compared to yesterday. His sodium level is at 131 with a potassium level of 5, BUN of 69 with a creatinine of 1.1. He remains on Lovenox 40 mg subcu every 24 hours. He is on IV Lasix. He is also on a prednisone burst taper that was started yesterday. Objective - Vital Signs Vital signs: Vital Signs Temp 97.2 F L 06/07/20 10:00 Pulse 87 06/07/20 10:00 Resp 18 06/07/20 10:00 BP 116/73 06/07/20 10:00 Pulse Ox 94 L 06/07/20 10:00 Intake & Output 06/06/20 06/07/20 06/07/20 18:59 06:59 18:59 Weight 60.9 kg Other: Voiding Method Diaper Urinal Incontinent Diaper Incontinent # Voids 2 3 - Exam GENERAL EXAM: Alert, very pleasant, 75-year-old white male, currently off BiPAP on high flow oxygen at 15 L with an FiO2 of 90% on 100% nonrebreather facemask. HEAD: Normocephalic/atraumatic. EYES: Normal reaction of pupils, equal size. Conjunctiva pink, sclera white. NOSE: Clear with pink turbinates. THROAT: No erythema or exudates. NECK: No masses, no JVD, no thyroid enlargement, no adenopathy. CHEST: No chest wall deformity. Symmetrical expansion. LUNGS: Equal air entry with no crackles, wheeze, rhonchi or dullness. CVS: Regular rate and rhythm, normal S1 and S2, no gallops, no murmurs, no rubs ABDOMEN: Soft, nontender. No hepatosplenomegaly, normal bowel sounds, no guarding or rigidity. EXTREMITIES: No clubbing, no edema, no cyanosis, 2+ pulses and upper and lower extremities. MUSCULOSKELETAL: Muscle strength and tone normal. SPINE: No scoliosis or deformity SKIN: No rashes CENTRAL NERVOUS SYSTEM: Alert and oriented -3. No focal deficits, tone is normal in all 4 extremities. PSYCHIATRIC: Alert and oriented -3. Appropriate affect. Intact judgment and insight. - Labs CBC & Chem 7: 06/03/20 04:49 06/06/20 06:16 Labs: Abnormal Lab Results - Last 24 Hours (Table) 06/06/20 06/06/20 Range/Units 16:36 19:55 POC Glucose (mg/dL) 198 H 135 H (75-99) mg/dL Assessment and Plan Plan: #1. Acute hypoxic respiratory failure secondary to COVID 19 pneumonia, was not candidate for Remdesivir, remains on steroids in the patient is taking prednisone 40 mg by mouth daily. The patient remains on high flow oxygen at 50L with an FiO2 of 90% and the patient is also utilizing 100% nonrebreather facemask. #2. Increased inflammatory markers lymphopenia related to the above, improved #3. Recent hospitalization in [place] for COVID 19 infection for one week and patient was home for 3 days prior to returning to the hospital at [facility] #4. Recent myocardial infarction with stent placement #5. Suspect ischemic cardiomyopathy with ejection fraction of 40-45% #6. Troponin leak #7. Pulmonary hypertension #8. Hyperlipidemia #9. History of anxiety #10. History of bladder cancer status post TURBT in January 2020 Plan: Continue current medical treatment, No improvement since yesterday Continue high flow oxygen at 50 L with an FiO2 of 90% , 100% nonrebreather facemask prednisone a daily basis , 40 mg by mouth daily The patient has been very slow to progress Unchanged compared to yesterday We'll continue to follow.
[2020-06-07] MEDS ORDERED: QUEtiapine 25 MG TAB PO SCH (13:45)
[2020-06-07] MEDS ORDERED: QUEtiapine 25 MG TAB PO PRN (14:15)
--- NOTE | 2020-06-07 14:17 | P.PN ---
Subjective Progress Note Date: 06/07/20 Acute hypoxic respiratory failure secondary to CoVID 19 pneumonia 75 years old male with past medical history of hyperlipidemia , coronary artery disease status post stent. Patient of Dr. Cole. His somewhat poor historian. Patient presents with dyspnea and a dry with no chest pain or abdominal pain or diarrhea. No headache or weakness or numbness. However he was complaining of from upper respiratory symptoms and sore throat as well. Patient also and he was confused, last time he got lost at [place] and he was taken to [facility] where he stayed there for 4-5 days for Covid infe ction as he states, he went home after that however he did not feel better. . He denies smoking, alcohol or illicit drugs Patient also states that he has history of urinary bladder cancer status post surgery [address] zee to 2 months ago as he states. He does not follow up with oncologist or has chemotherapy 05/27/2020 Patient is seen and evaluated in follow-up in the regular medical floor. He is currently sitting up in a chair at the bedside. Awake and alert in no acute distress. He remains on Arava high flow oxygen down to 30 L and 65% FiO2. Still desaturates with minimal activity. He's been afebrile. Hemodynamically stable. Blood glucose 200. The chest on 0.03. He remains on Lovenox, IV Solu- Medrol, vitamin supplements. Pulmonary service on board and recommending to titrate FiO2 as able; patient might be switched over to high flow nasal cannula 05/28/2020 Patient is seen and evaluated in follow-up on the regular medical floor. He is currently sitting up in a chair at the bedside. Awake and alert in no acute distress. He remains on AirVo high flow oxygen at 50 L and 85% FiO2. He had pulled it off at one point his O2 saturation dropped into the 70s. Subsequently required within minutes of replacing that device. He remains on Lovenox, IV Solu-Medrol, vitamin supplements. Patient is being followed by pulmonary service and recommending to continue Solu-Medrol, Lovenox and vitamin supplements; continue to titrate FiO2 down as able; recommending possible subacute rehab once stable for discharge 05/29/2020 Patient is seen and evaluated in room at bedside; remains on O2 with HFNC at 50%; remains on 55 L with SpO2 90 Lab review shows an upward trend in d-dimer from 1.27 on initial exam up to 1.44; potassium at 5.3; B UN/creatinine of 38/0.8 to; LDH trending down slowly down to 1242; patient remains on subcu Lovenox, IV Solu-Medrol and vitamin supplements; we will continue to trend inflammatory markers and continue to wean oxygen off as able; plan for discharge to skilled rehab once clinically stable 05/30/2020 Patient remains on Airvo presently 90% FiO2 with the oxygen flow rate of around 25 L patient clinically looks well at this time. Serum sodium remains at 133 p otassium is 5.5. Patient will be given a dose of And patient was started on low potassium diet. 05/31/2020 Patient's potassium is still high but stable at around 5.5 serum sodium did improve patient remains on defer liters of oxygen with 85% FiO2. 06/01/2020 Patient still remains on a 50 L of oxygen and 90% FiO2 on airvo, although patient clinically looks good denied any complaints at this time. 06/02/2020 . There is no change in the his oxygen requirements. obtain basic metabolic profile for tomorrow. 06/03/2020 Patient's oxygen requirements have increased and patient is now maintained on BiPAP as he continued to remove mask and nasal cannula multiple times. Discussed with the patient about CODE STATUS and patient will be no code. Pulmonary is following. 06/04/2020 Patient is presently on BiPAP 100% FiO2 patient appears to have some worsening in his overall respiratory status although patient clinically looks well doesn't like to wear BiPAP. 06/05/2020 Patient is presently on BiPAP 100% FiO2. Patient has not been eating or drinking much because of the BiPAP and patient is bit concerned about it although patient is alert oriented 3 and doesn't have any complaints or doesn't have any shortness of breath. 06/06/2020 Patient is seen this morning and has transitioned to Airvo along with nonrebreather at 15 L with oxygen saturations of 92%. Current settings are deli very of 60 with an FiO2 of 80%. Sodium is 131 with a potassium of 5.0 and current creatinine is 1.1 and blood sugars are being closely monitored. Pulmonary following and patient is being transitioned oral prednisone. 06/07/2020 Patient is seen and evaluated this morning continues on Airvo along with nonrebreather and is sitting up in the chair. Patient denies any worsening shortness of breath although desaturates very quickly with minimal exertion. Nursing staff, patient has removed another IV and continues to take a breathing mask off. Will Add Seroquel and continue to monitor. Constitutional: Denied any fatigue denied any fever. Cardio vascular: denied any chest pain, palpitations Gastrointestinal denied any nausea vomiting Pulmonary: Denied any shortness of breath although continues to be extremely dyspneic with low saturations with minimal exertion Neurologic denied any new focal deficits All inpatient medications were reviewed and appropriate changes in these medications as dictated in the interval history and assessment and plan. Objective - Vital Signs Vital signs: Vital Signs Temp 97.4 F L 06/07/20 05:48 Pulse 73 06/07/20 05:48 Resp 20 06/07/20 02:00 BP 107/65 06/07/20 05:48 Pulse Ox 88 L 06/07/20 05:48 Intake & Output 06/06/20 06/07/20 06/07/20 18:59 06:59 18:59 Weight 60.9 kg Other: Voiding Method Diaper Incontinent # Voids 2 3 - Exam GENERAL: The patient is alert and oriented x2, not in any acute distress. Well developed, well nourished. Patient transitioned to Airvo long with nonrebreather, a continues to remove masks and needs constant reinforcement to keep the masks on HEENT: Pupils are round and equally reacting to light. EOMI. No scleral icterus. No conjunctival pallor. Normocephalic, atraumatic. No pharyngeal erythema. No thyromegaly. CARDIOVASCULAR: S1 and S2 present. No murmurs, rubs, or gallops. PULMONARY: Diminished breath sounds with coarse bronchi noted ABDOMEN: Soft, nontender, nondistended, normoactive bowel sounds. No palpable organomegaly. MUSCULOSKELETAL: No joint swelling or deformity. EXTREMITIES: No cyanosis, clubbing, or pedal edema. NEUROLOGICAL: Gross neurological examination did not reveal any focal deficits. diffusely weak SKIN: No rashes. - Labs CBC & Chem 7: 06/03/20 04:49 06/06/20 06:16 Labs: Abnormal Lab Results - Last 24 Hours (Table) 06/06/20 06/06/20 06/06/20 Range/Units 11:57 16:36 19:55 POC Glucose (mg/dL) 123 H 198 H 135 H (75-99) mg/dL Assessment and Plan Assessment: Acute bilateral covid pneumonia : Patient oxygen requirements slightly improved and being transitioned back to Airvo long with nonrebreather and has been taken off the BiPAP, patient remains on oral steroids, zinc, vitamin C pulmonary follo wing Acute hypoxic respiratory failure secondary to above ischemic cardiomyopathy with ejection fraction 40-45% with wall hypokinesia, patient is a euvolemic at this time Severe pulmonary hypertension and moderate pulmonary regurgitation metabolic encephalopathy mild Acute kidney injury, Versus chronic kidney disease possible UTI Possible history of urinary cancer status post surgery 2 Hyperlipidemia History of coronary artery disease DVT prophylaxis: Subcutaneous Lovenox GI Prophylaxis: Pepcid Plan: Continue with current medications. Oxygen requirements have slightly improved and patient is now maintained on airvo and non-rebreather. Patient continues to remove IVs and becomes confused and hypoxic and continues to remove nonrebreather and nasal cannula and needs continued reinforcement to keep the mask on. Pulmonary is following. Will add Seroquel. Prognosis remains extrem blanka poor and guarded.
[2020-06-07] MEDS: MORPHINE SULFATE 2 MG/ML SYRINGE IVP PRN ×2 (16:42→22:22)
[2020-06-08] MEDS: MORPHINE SULFATE 2 MG/ML SYRINGE IVP PRN ×2 (01:45→04:45)
[2020-06-08] MEDS: ALBUTEROL HFA INHALER INHALATION PRN ×4 (08:17→22:10)
[2020-06-08] MEDS: INSULIN ASPART (NovoLOG) 100 UNIT/ML VIAL SQ SCH ×4 (08:28→19:36)
[2020-06-08] MEDS: ENOXAPARIN 40 MG/0.4 ML SYRINGE SQ SCH (08:28)
[2020-06-08] MEDS: predniSONE 20 MG TAB PO SCH (08:29)
[2020-06-08] MEDS: ASPIRIN 81 MG PO SCH (08:29)
[2020-06-08] MEDS: FUROSEMIDE 10 MG/ML 4 ML VIAL IV SCH (08:29)
[2020-06-08] MEDS: ATORVASTATIN 80 MG TAB PO SCH (08:29)
[2020-06-08] MEDS: risperiDONE 2 MG TAB PO SCH (08:33)
[2020-06-08] MEDS: MORPHINE SULFATE 4 MG/ML SYRINGE IVP PRN ×2 (13:18→20:55)
[2020-06-08] MEDS: ASCORBIC ACID 500 MG TAB PO SCH (14:12)
[2020-06-08] MEDS: FAMOTIDINE 20 MG TAB PO SCH (14:13)
[2020-06-08] MEDS: ZINC SULFATE 220 MG CAP PO SCH (14:13)
[2020-06-08] MEDS: CHOLECALCIFEROL 10 MCG (400 IU) TABLET PO SCH (14:13)
--- NOTE | 2020-06-08 14:42 | P.PN ---
Subjective Progress Note Date: 06/08/20 Acute hypoxic respiratory failure secondary to CoVID 19 pneumonia 75 years old male with past medical history of hyperlipidemia , coronary artery disease status post stent. Patient of Dr. Cole. His somewhat poor historian. Patient presents with dyspnea and a dry with no chest pain or abdominal pain or diarrhea. No headache or weakness or numbness. However he was complaining of from upper respiratory symptoms and sore throat as well. Patient also and he was confused, last time he got lost at [place] and he was taken to [facility] where he stayed there for 4-5 days for Covid infe ction as he states, he went home after that however he did not feel better. . He denies smoking, alcohol or illicit drugs Patient also states that he has history of urinary bladder cancer status post surgery [address] zee to 2 months ago as he states. He does not follow up with oncologist or has chemotherapy 05/27/2020 Patient is seen and evaluated in follow-up in the regular medical floor. He is currently sitting up in a chair at the bedside. Awake and alert in no acute distress. He remains on Arava high flow oxygen down to 30 L and 65% FiO2. Still desaturates with minimal activity. He's been afebrile. Hemodynamically stable. Blood glucose 200. The chest on 0.03. He remains on Lovenox, IV Solu- Medrol, vitamin supplements. Pulmonary service on board and recommending to titrate FiO2 as able; patient might be switched over to high flow nasal cannula 05/28/2020 Patient is seen and evaluated in follow-up on the regular medical floor. He is currently sitting up in a chair at the bedside. Awake and alert in no acute distress. He remains on AirVo high flow oxygen at 50 L and 85% FiO2. He had pulled it off at one point his O2 saturation dropped into the 70s. Subsequently required within minutes of replacing that device. He remains on Lovenox, IV Solu-Medrol, vitamin supplements. Patient is being followed by pulmonary service and recommending to continue Solu-Medrol, Lovenox and vitamin supplements; continue to titrate FiO2 down as able; recommending possible subacute rehab once stable for discharge 05/29/2020 Patient is seen and evaluated in room at bedside; remains on O2 with HFNC at 50%; remains on 55 L with SpO2 90 Lab review shows an upward trend in d-dimer from 1.27 on initial exam up to 1.44; potassium at 5.3; B UN/creatinine of 38/0.8 to; LDH trending down slowly down to 1242; patient remains on subcu Lovenox, IV Solu-Medrol and vitamin supplements; we will continue to trend inflammatory markers and continue to wean oxygen off as able; plan for discharge to skilled rehab once clinically stable 05/30/2020 Patient remains on Airvo presently 90% FiO2 with the oxygen flow rate of around 25 L patient clinically looks well at this time. Serum sodium remains at 133 p otassium is 5.5. Patient will be given a dose of And patient was started on low potassium diet. 05/31/2020 Patient's potassium is still high but stable at around 5.5 serum sodium did improve patient remains on defer liters of oxygen with 85% FiO2. 06/01/2020 Patient still remains on a 50 L of oxygen and 90% FiO2 on airvo, although patient clinically looks good denied any complaints at this time. 06/02/2020 . There is no change in the his oxygen requirements. obtain basic metabolic profile for tomorrow. 06/03/2020 Patient's oxygen requirements have increased and patient is now maintained on BiPAP as he continued to remove mask and nasal cannula multiple times. Discussed with the patient about CODE STATUS and patient will be no code. Pulmonary is following. 06/04/2020 Patient is presently on BiPAP 100% FiO2 patient appears to have some worsening in his overall respiratory status although patient clinically looks well doesn't like to wear BiPAP. 06/05/2020 Patient is presently on BiPAP 100% FiO2. Patient has not been eating or drinking much because of the BiPAP and patient is bit concerned about it although patient is alert oriented 3 and doesn't have any complaints or doesn't have any shortness of breath. 06/06/2020 Patient is seen this morning and has transitioned to Airvo along with nonrebreather at 15 L with oxygen saturations of 92%. Current settings are deli very of 60 with an FiO2 of 80%. Sodium is 131 with a potassium of 5.0 and current creatinine is 1.1 and blood sugars are being closely monitored. Pulmonary following and patient is being transitioned oral prednisone. 06/07/2020 Patient is seen and evaluated this morning continues on Airvo along with nonrebreather and is sitting up in the chair. Patient denies any worsening shortness of breath although desaturates very quickly with minimal exertion. Nursing staff, patient has removed another IV and continues to take a breathing mask off. Will Add Seroquel and continue to monitor. 06/08/2020 Patient was unable to tolerate keeping the airvo and nonrebreather on and was placed back on BiPAP. Patient does have a sitter at the side of the bed as he continues to pull it to begin IVs and needs constant reinforcement on leaving those alone. Patient is currently 100% on the BiPAP and maintaining oxygen saturations between 93 and 97%. No labs today will repeat labs along with inflammatory markers and chest x-ray in the morning. Pulmonary is following. Constitutional: Denied any fatigue denied any fever. Cardio vascular: denied any chest pain, palpitations Gastrointestinal denied any nausea vomiting Pulmonary: Denied any shortness of breath although continues to be extremely dys pneic with low saturations with minimal exertion Neurologic denied any new focal deficits All inpatient medications were reviewed and appropriate changes in these medications as dictated in the interval history and assessment and plan. Objective - Vital Signs Vital signs: Vital Signs Temp 98.5 F 06/08/20 06:30 Pulse 80 06/08/20 08:44 Resp 17 06/08/20 08:44 BP 113/91 06/08/20 06:30 Pulse Ox 93 L 06/08/20 08:12 Intake & Output 06/07/20 06/08/20 06/08/20 18:59 06:59 18:59 Output Total 150 Balance -150 Weight 60.5 kg Output: Urine 150 Other: Voiding Method Urinal Urinal Urinal Diaper Diaper Diaper Incontinent Incontinent Incontinent # Voids 1 # Bowel Movements 0 - Exam GENERAL: The patient is alert and oriented x2, not in any acute distress. Anxious at times. Well developed, well nourished. Patient placed back on the BiPAP HEENT: Pupils are round and equally reacting to light. EOMI. No scleral icterus. No conjunctival pallor. Normocephalic, atraumatic. No pharyngeal erythema. No thyromegaly. CARDIOVASCULAR: S1 and S2 present. No murmurs, rubs, or gallops. PULMONARY: Diminished breath sounds with coarse bronchi noted ABDOMEN: Soft, nontender, nondistended, normoactive bowel sounds. No palpable organomegaly. MUSCULOSKELETAL: No joint swelling or deformity. EXTREMITIES: No cyanosis, clubbing, or pedal edema. NEUROLOGICAL: Gross neurological examination did not reveal any focal deficits. diffusely weak SKIN: No rashes. - Labs CBC & Chem 7: 06/03/20 04:49 06/06/20 06:16 Assessment and Plan Assessment: Acute bilateral covid pneumonia : Patient placed back on the BiPAP and 100%, patient remains on oral steroids, zinc, vitamin C pulmonary following Acute hypoxic respiratory failure secondary to above ischemic cardiomyopathy with ejection fraction 40-45% with wall hypokinesia, patient is a euvolemic at this time Severe pulmonary hypertension and moderate pulmonary regurgitation metabolic encephalopathy mild Acute kidney injury, Versus chronic kidney disease possible UTI Possible history of urinary cancer status post surgery 2 Hyperlipidemia History of coronary artery disease DVT prophylaxis: Subcutaneous Lovenox GI Prophylaxis: Pepcid Plan: Continue with current medications. Oxygen requirements worsened this patient continue to remove Airvo and nonrebreather and was placed back on BiPAP 100%. fence maker at bedside as patient continues to remove IVs and tubing and needs constant supervision and redirection. Prognosis continues to be poor and guarded and we'll continue to monitor closely. Repeat chest x-ray along with labs in the morning. Pulmonary is following.
--- NOTE | 2020-06-08 14:46 | P.PN ---
Subjective Progress Note Date: 06/08/20 Principal diagnosis: COVID 19 pneumonia This is a very pleasant 75-year-old gentleman who follows with Dr. komal ward as his primary care provider. He has a history of hyperlipidemia, anxiety, bladder cancer with TURBT in January 2020. Approximately [address] ates he was doing well and was driving from [place] to [place] to get gas. That is the last thing he remembers. He somehow ended up at [facility] and transferred later to [facility] diagnosed with CoVID 19 infection. He states he was also told he had a myocardial infarction. He was there about 1 week and then discharged home. He was discharged on vitamin C, D and zinc. He is unsure if he received any other treatment for CoVID. He's been home about 3 days and then last night he was brought here by EMS after continuing with progressive weakness, shortness of breath, poor appetite. He lives with his daughter [place]. Chest x-ray reveals diffuse airspace opacities representing pulmonary edema versus infectious process. Echocardiogram reveals mild to moderately impaired left ventricular systolic function with ejection fraction 40-45%. Severe pulmonary hypertension. White count 2.7. Hemoglobin 14.6. Lymphocytes 0.2. D-dimer 0.64. Sodium 1:30. Potassium 5.7. Creatinine 1.24. LDH 2017. C-reactive protein 163. Troponin 0.64, 0.70. Urine with moderate leukocytes and high WBCs. Oscar virus by PCR detected. He's been initiated on vitamin C, vitamin D, zinc. Dexamethasone at 6 mg daily. Lovenox 40 mg subcu daily. He is also started on ceftriaxone and IV diuretics. He is seen today in consultation in the emergency room. He is currently awake and alert. Resting comfortably in bed. He is oriented 3. He is currently on a nonrebreather mask with O2 saturation of 91%. He is afebrile. Hemodynamically stable. On 05/30/2020 patient seen in follow-up medical surgical floor, patient remains on interval currently at 25 L and FiO2 of 90%, and partial nonrebreather mask his pulse ox is 88-94%, he looks comfortable, she is sitting up in the chair, no acute distress, no worsening dyspnea, no compressive chest pain, no cough or congestion. His chest x-ray shows similar interstitial and peripheral changes of Covid pneumonia. She remains on IV steroids in the form Solu-Medrol 60 mg every 6 hours, he is on prophylactic Lovenox 40 mg daily, he is on vitamins. Patient was not a candidate for Remdesivir, she was treated with standard treatm ent. He also received antibiotics for possibility of urinary tract infection. On 05/31/2020 patient seen in follow-up on medical floor, remains on interval at 45 L and FiO2 of 60%, and his pulse ox is greater than 94%, overall his FiO2 requirements are improving. No new chest x-ray today, no worsening dyspnea, in no acute distress, no fever or chills, no chest discomfort, no nausea or vomiting. Patient was not a candidate for Remdesivir, he was treated with Decadron, on prophylactic dose of Lovenox, and vitamins. D-dimer slightly improved on today's labs, 1.3, sodium is 134, and her serum electrolytes are within normal limits, B1 is 32, creatinine 0.8, LDH is 525, CRP is less than 0.4 On 06/01/2020 patient seen in follow-up on medical surgical floor, morning he had episode of resp distress, he remains on Airvo, at 50 L and FiO2 of 90%, in addition to 100% non-rebreather mask because of the earlier episode and the soles of desaturation into the 70s, 100% nonrebreather mask was removed, the flow was increased to 60 L and FiO2 was less than 90%, and his pulse ox is 89- 94%, patient is breathing comfortably, he states he is feeling much better since this morning, afebrile, no complaints of chest pain, she was outside the window for Remdesivir, he is receiving standard treatment in the form of Solu-Medrol, vitamins, and prophylactic Lovenox, his labs have been reviewed, showing d-dimer of 1.30, sodium is 134, the rest of electrolytes were unremarkable, BUN is 32, creatinine 0.8, limits her markers are improving, LDH is down to 525, and CRP is down to less than 0.4 on today's labs On 06/02/2020 patient seen in follow-up on medical surgical floor. Still requiring high flow oxygen and nonrebreather mask, Airvo is currently at 60 L and FiO2 of 90% in addition to 100% nonrebreather and his pulse ox is 93%, intermittently patient is experiencing respiratory distress, desaturates when he removes his nonrebreather mask into the 70s. At rest he is breathing comfortably, no acute distress, he did sit up in the chair today, he is currently back in bed, complains of chest discomfort, his been afebrile, hemodynamically has been stable. Chest x-ray today shows worsening infiltrates throughout both lung ruvalcaba. Sounds are positive for coarse crackles throughout his lung ruvalcaba. Clinically he does not appear to be fluid overload although his previous echocardiogram did show mild to moderate impairment of left ventricular systolic function and EF of 40-45%, no lower extremity swelling, no JVD. No nausea or vomiting, he is tolerating oral intake. On 06/03/2020 is seen in follow-up on medical surgical floor, this morning he again removed his Airvo and significantly desaturated, was in significant respiratory distress, even with the Airvo and her percent nonrebreather mask was only saturating 83%. Subsequently he was placed on BiPAP support, with pressures of 14/7 and FiO2 of 100%, he was given a dose of morphine, he continues on high-dose IV steroids 60 mg every 6 hours, liver he has been very slow to improve, as a matter fact he has not shown much improvement in terms of oxygenation improvement on the chest x-ray. Follow-up chest x-ray today shows p atchy bilateral airspace disease which is unchanged compared to yesterday's exam. His labs have been reviewed, showing orbital, 10.3, hemoglobin is 14.5, sodium is 135, potassium is 5.4, BUN is 29, creatinine 0.8, his last set of LDH and CRP was back on 05/31/2020 and was improving and was down to 525 for LDH and CRP of less than 0.4. After stabilizing patient's respiratory status with BiPAP support, steroids, anxiolytics, and morphine, patient is looking of breathing much easier. Compliant with BiPAP, campus safety officer was placed at the bedside to monitor the patient and prevent him from removing his oxygen. I discussed CODE STATUS with the patient, who made it clear he does not want to be placed on life-support, intubation, or resuscitation. This was communicated to the patient's daughter on the phone, the family agrees with patient's decision, for now we'll continue supportive care On 06/05/2020 patient seen in follow-up on selective care, still remains on BiPAP, with pressures of 14 and 1700%, his pulse ox is a 91-93%, still Tachypneic, lung sounds reveal some crackles at bilateral bases, he is on IV Solu-Medrol 40 every 8 12 hours, patient was outside the window for Remdesivir, continues on prophylactic coagulation, doesn't seem to be confused, he has not and trying to remove the BiPAP support, campus safety officer was discontinued, he is been compliant with treatment, he continues on daily dose of Lasix, recent chest x-ray today, proBNP is 619, his weight is down by 2 kg, a negative fluid balance, he wants to eat, for that reason we will alternate his BiPAP support with Airvo. His CODE STATUS is DO NOT RESUSCITATE, he has not worsened in the last 24 hours, has remained stable, we will try to give him a trial on high flow nasal cannula per Airvo. On 06/08/2020 patient seen in follow-up on medical floor, he is currently back on BiPAP at pressures of 16/8 and FiO2 of her percent, his pulse ox is 92%, lung sounds reveal some minimal crackles at the bases, there is a campus safety officer at the bedside to prevent the patient from removing his BiPAP mask, but patient is awake and alert, he states his breathing is about the same, with no worsening, no complaints of chest pain, he has been very slow to progress, but does not seem to be confused. His last chest x-ray was a couple days ago showing persistent multifocal peripheral opacities. No recent labs, however his i nflammatory markers were improving, his last d-dimer was on 05/31/2020, she has not had a recent set of blood work in the last couple days, his Lovenox is 40 mg once daily, he is on prednisone 40 mg daily, he is on multivitamins, patient did not receive Remdesivir as the patient was outside the therapeutic window, he did receive Tocizilumab on 05/20/2020 Objective - Vital Signs Vital signs: Vital Signs Temp 97.5 F L 06/08/20 09:48 Pulse 76 06/08/20 09:48 Resp 20 06/08/20 09:48 BP 94/66 04/14/21 09:48 Pulse Ox 97 06/08/20 09:48 Intake & Output 06/07/20 06/08/20 06/08/20 18:59 06:59 18:59 Output Total 150 Balance -150 Weight 60.5 kg Output: Urine 150 Other: Voiding Method Urinal Urinal Urinal Diaper Diaper Diaper Incontinent Incontinent Incontinent # Voids 1 # Bowel Movements 0 - Exam GENERAL EXAM: Alert, very pleasant, 75-year-old white male, placed on BiPAP support with pressures of 14/8 and FiO2 100%, appears to be much more comfortable, compliant with BiPAP HEAD: Normocephalic/atraumatic. EYES: Normal reaction of pupils, equal size. Conjunctiva pink, sclera white. NOSE: Clear with pink turbinates. THROAT: No erythema or exudates. NECK: No masses, no JVD, no thyroid enlargement, no adenopathy. CHEST: No chest wall deformity. Symmetrical expansion. LUNGS: Equal air entry with no crackles, wheeze, rhonchi or dullness. CVS: Regular rate and rhythm, normal S1 and S2, no gallops, no murmurs, no rubs ABDOMEN: Soft, nontender. No hepatosplenomegaly, normal bowel sounds, no guarding or rigidity. EXTREMITIES: No clubbing, no edema, no cyanosis, 2+ pulses and upper and lower extremities. MUSCULOSKELETAL: Muscle strength and tone normal. SPINE: No scoliosis or deformity SKIN: No rashes CENTRAL NERVOUS SYSTEM: Alert and oriented -3. No focal deficits, tone is normal in all 4 extremities. PSYCHIATRIC: Alert and oriented -3. Appropriate affect. Intact judgment and insight. - Labs CBC & Chem 7: 06/03/20 04:49 06/06/20 06:16 Assessment and Plan Plan: Assessment: #1. Acute hypoxic respiratory failure secondary to COVID 19 pneumonia, was not candidate for Remdesivir, status post tocilizumab #2. Increased inflammatory markers lymphopenia related to the above, improved #3. Recent hospitalization in [place] for COVID 19 infection for one week and patient was home for 3 days prior to returning to the [facility] #4. Recent myocardial infarction with stent placement #5. Suspect ischemic cardiomyopathy with ejection fraction of 40-45% #6. Troponin leak #7. Pulmonary hypertension #8. Hyperlipidemia #9. History of anxiety #10. History of bladder cancer status post TURBT in January 2020 Plan: Continue prednisone, we will obtain a follow-up inflammatory markers, basic labs including CBC and CMP, patient has been very slow to progress, he is back on BiPAP today with FiO2 100%, oral prognosis is guarded, continue current dose Lovenox, will follow his clinical course, maintain safety precautions. I performed a history & physical examination of the patient and discussed their management with my nurse practitioner, Nydia Oviedo. I reviewed the nurse practitioner's note and agree with the documented findings and plan of care. Lung sounds are positive for diminished breath sounds The findings and the impression was discussed with the patient. I attest to the documentation by the nurse practitioner. Time with Patient: Less than 30
[2020-06-08] MEDS: LORazepam 2 MG/ML INJ IV PRN ×2 (16:07→23:21)
--- NOTE | 2020-06-08 16:38 | CDI ---
Documentation Clarification Form Date: 06/08/2020 04:13:53 PM From: Pooja Lindsey RN, CCDS Admit Date: 05/20/2020 02:05:00 AM Patient Name: Rob Milligan Visit Number: [id number] Discharge Date: ATTENTION: The Clinical Documentation Specialists (CDI) and [facility] Coding Staff appreciate your assistance in clarifying documentation. Please respond to the clarification below the line at the bottom and electronically sign. The CDI & [facility] Coding staff will review the response and follow-up if needed. Please note: Queries are made part of the Legal Health Record. If you have any questions, please contact the author of this message via ITS. Dr. Leia Fermin Unspecified CKD is documented in the H/P and subsequent progress notes. Additional clarification regarding the stage of CKD is requested. History/Risk Factors: Covid-19, Pneumonia, NSTEMI, Bladder cancer Patients Historical (02/14/2020) BUN 15 CR 0.97 GFR 78 Clinical Indicators: 75-year-old male present with cough, increased weakness and shortness of breath. He has been diagnosed with Covid 19. The progress note on 05/20/20 by pulmonary has documented poor appetite. 06/20/20 BUN 28 Creatinine 1.24, GFR 58 06/06/20 BUN 69 Creatinine 1.10 GFR 66 Treatment: Monitor I/O Monitor BUN, CR, GFR, lytes daily Please clarify the stage of the CKD, if known: [ ] CKD Stage 1 (GFR > 90) [ ] CKD Stage 2 (GFR 60-89) [ ] CKD Stage 3 (GFR 30-59) [ ] CKD Stage 3a (GFR 45-59) [ ] CKD Stage 3b (GFR 30-44) [ ] Other, please specify [ ] Unable to determine (Template Last revised: March 2020) No CKD MTDD
[2020-06-09] MEDS: MORPHINE SULFATE 4 MG/ML SYRINGE IVP PRN ×2 (01:40→15:25)
[2020-06-09] MEDS: ASCORBIC ACID 500 MG TAB PO SCH (07:29)
[2020-06-09] MEDS: ASPIRIN 81 MG PO SCH (07:29)
[2020-06-09] MEDS: ATORVASTATIN 80 MG TAB PO SCH (07:29)
[2020-06-09] MEDS: FAMOTIDINE 20 MG TAB PO SCH (07:29)
[2020-06-09] MEDS: predniSONE 20 MG TAB PO SCH (07:29)
[2020-06-09] MEDS: CHOLECALCIFEROL 10 MCG (400 IU) TABLET PO SCH (07:29)
[2020-06-09] MEDS: ZINC SULFATE 220 MG CAP PO SCH (07:30)
[2020-06-09] MEDS: risperiDONE 2 MG TAB PO SCH (07:30)
[2020-06-09] MEDS ORDERED: FUROSEMIDE 10 MG/ML 4 ML VIAL IV STA (07:30)
[2020-06-09] MEDS: ENOXAPARIN 40 MG/0.4 ML SYRINGE SQ SCH (07:35)
[2020-06-09] MEDS: ALBUTEROL HFA INHALER INHALATION PRN ×2 (07:57→11:53)
[2020-06-09 09:27] LABS: Basophils % (A) 0 %; Eosinophils # (A) 0.1 k/uL (0-0.7); Eosinophils % (A) 1 %; HGB 16.3 gm/dL (13.0-17.5); Lymphocytes # (A) 0.2 k/uL (1.0-4.8); Lymphocytes % (A) 2 %; MCH 28.8 pg (25.0-35.0); MCHC 33.9 g/dL (31.0-37.0); Mean Platelet Volume 7.5; Monocytes # (A) 0.5 k/uL (0-1.0); Monocytes % (A) 3 %; Neutrophils # (A) 13.7 k/uL (1.3-7.7); Neutrophils % (A) 94 %; RBC 5.65 m/uL (4.30-5.90); RDW 13.1 % (11.5-15.5); WBC 14.5 k/uL (3.8-10.6)
[2020-06-09 09:44] LABS: Platelet Count 153 k/uL (150-450)
--- NOTE | 2020-06-09 10:18 | XR ---
EXAMINATION TYPE: XR chest 1V portable DATE OF EXAM: 06/09/2020 COMPARISON: 06/06/2020 INDICATION: Covid TECHNIQUE: Single frontal view of the chest is obtained. FINDINGS: The heart size is normal. The pulmonary vasculature is normal. Mild diffuse infiltrate is present. IMPRESSION: 1. Scattered diffuse infiltrates in the bilateral lungs can be compatible with atypical pneumonia. Fi ndings are stable from comparison.
[2020-06-09 10:24] VITALS: BP 91/54; PULSE 87; TEMP 97.8
[2020-06-09 12:16] LABS: African American GFR (CKD) 43 (>60 ml/min/1.73 sqM); Anion Gap 10 mmol/L; Calcium 8.4 mg/dL (8.4-10.2); Carbon Dioxide 28 mmol/L (22-30); Chloride 98 mmol/L (98-107); Glucose 112 mg/dL (74-99); Non-African American GFR(CKD) 37 (>60 ml/min/1.73 sqM); Potassium 4.2 mmol/L (3.5-5.1); Sodium 136 mmol/L (137-145)
[2020-06-09 12:36] LABS: Blood Urea Nitrogen 110 mg/dL (9-20)
--- NOTE | 2020-06-09 12:40 | P.PN ---
Subjective Progress Note Date: 06/09/20 This is a very pleasant 75-year-old gentleman who follows with Dr. komal ward as his primary care provider. He has a history of hyperlipidemia, anxiety, bladder cancer with TURBT in January 2020. Approximately 10 days ago the patient states he was doing well and was driving from [place] to [place] to get gas. That is the last thing he remembers. He somehow ended up at [facility] and transferred later to [facility] diagnosed with CoVID 19 infection. He states he was also told he had a myocardial infarction. He was there about 1 week and then discharged home. He was discharged on vitamin C, D and zinc. He is unsure if he received any other treatment for CoVID. He's been home about 3 days and then last night he was brought here by EMS after continuing with progressive weakness, shortness of breath, poor appetite. He lives with his daughter [place]. Chest x-ray reveals diffuse airspace opacities representing pulmonary edema versus infectious process. Echocardiogram reveals mild to moderately impaired left ventricular systolic function with ejection fraction 40-45%. Severe pulmonary hypertension. White count 2.7. Hemoglobin 14.6. Lymphocytes 0.2. D-dimer 0.64. Sodium 1:30. Potassium 5.7. Creatinine 1.24. LDH 2017. C-reactive protein 163. Troponin 0.64, 0.70. Urine with moderate leukocytes and high WBCs. Oscar virus by PCR detected. He's been initiated on vitamin C, vitamin D, zinc. Dexamethasone at 6 mg daily. Lovenox 40 mg subcu daily. He is also started on ceftriaxone and IV diuretics. He is seen today in consultation in the emergency room. He is currently awake and alert. Resting comfortably in bed. He is oriented 3. He is currently on a nonrebreather mask with O2 saturation of 91%. He is afebrile. Hemodynamically stable. On 05/30/2020 patient seen in follow-up medical surgical floor, patient remains on interval currently at 25 L and FiO2 of 90%, and partial nonrebreather mask his pulse ox is 88-94%, he looks comfortable, she is sitting up in the chair, no acute distress, no worsening dyspnea, no compressive chest pain, no cough or congestion. His chest x-ray shows similar interstitial and peripheral changes of Covid pneumonia. She remains on IV steroids in the form Solu-Medrol 60 mg every 6 hours, he is on prophylactic Lovenox 40 mg daily, he is on vitamins. Patient was not a candidate for Remdesivir, she was treated with standard treatment. He also received antibiotics for possibility of urinary tract infection. On 05/31/2020 patient seen in follow-up on medical floor, remains on interval at 45 L and FiO2 of 60%, and his pulse ox is greater than 94%, overall his FiO2 requirements are improving. No new chest x-ray today, no worsening dyspnea, in no acute distress, no fever or chills, no chest discomfort, no nausea or vomiting. Patient was not a candidate for Remdesivir, he was treated with Decadron, on prophylactic dose of Lovenox, and vitamins. D-dimer slightly improved on today's labs, 1.3, sodium is 134, and her serum electrolytes are within normal limits, B1 is 32, creatinine 0.8, LDH is 525, CRP is less than 0.4 On 06/01/2020 patient seen in follow-up on medical surgical floor, morning he had episode of resp distress, he remains on Airvo, at 50 L and FiO2 of 90%, in addition to 100% non-rebreather mask because of the earlier episode and the soles of desaturation into the 70s, 100% nonrebreather mask was removed, the flow was increased to 60 L and FiO2 was less than 90%, and his pulse ox is 89- 94%, patient is breathing comfortably, he states he is feeling much better since this morning, afebrile, no complaints of chest pain, she was outside the window for Remdesivir, he is receiving standard treatment in the form of Solu-Medrol, vitamins, and prophylactic Lovenox, his labs have been reviewed, showing d-dimer of 1.30, sodium is 134, the rest of electrolytes were unremarkable, BUN is 32, creatinine 0.8, limits her markers are improving, LDH is down to 525, and CRP is down to less than 0.4 on today's labs On 06/02/2020 patient seen in follow-up on medical surgical floor. Still requiring high flow oxygen and nonrebreather mask, Airvo is currently at 60 L and FiO2 of 90% in addition to 100% nonrebreather and his pulse ox is 93%, intermittently patient is experiencing respiratory distress, desaturates when he removes his nonrebreather mask into the 70s. At rest he is breathing comfortably, no acute distress, he did sit up in the chair today, he is current ly back in bed, complains of chest discomfort, his been afebrile, hemodynamically has been stable. Chest x-ray today shows worsening infiltrates throughout both lung ruvalc[place]. Sounds are positive for coarse crackles throughout his lung ruvalc[place]. Clinically he does not appear to be fluid overload although his previous echocardiogram did show mild to moderate impairment of left ventricular systolic function and EF of 40-45%, no lower extremity swelling, no JVD. No nausea or vomiting, he is tolerating oral intake. On 06/03/2020 is seen in follow-up on medical surgical floor, this morning he again removed his Airvo and significantly desaturated, was in significant respiratory distress, even with the Airvo and her percent nonrebreather mask was only saturating 83%. Subsequently he was placed on BiPAP support, with pressures of 14/7 and FiO2 of 100%, he was given a dose of morphine, he katlyn nues on high-dose IV steroids 60 mg every 6 hours, liver he has been very slow to improve, as a matter fact he has not shown much improvement in terms of oxygenation improvement on the chest x-ray. Follow-up chest x-ray today shows patchy bilateral airspace disease which is unchanged compared to yesterday's exam. His labs have been reviewed, showing orbital, 10.3, hemoglobin is 14.5, sodium is 135, potassium is 5.4, BUN is 29, creatinine 0.8, his last set of LDH and CRP was back on 05/31/2020 and was improving and was down to 525 for LDH and CRP of less than 0.4. After stabilizing patient's respiratory status with BiPAP support, steroids, anxiolytics, and morphine, patient is looking of breathing much easier. Compliant with BiPAP, safety intern was placed at the bedside to monitor the patient and prevent him from removing his oxygen. I discussed CODE STATUS with the patient, who made it clear he does not want to be placed on life-support, intubation, or resuscitation. This was communicated to the patient's daughter on the phone, the family agrees with patient's decision, for now we'll continue supportive care On 06/05/2020 patient seen in follow-up on selective care, still remains on BiPAP, with pressures of 14 and 1700%, his pulse ox is a 91-93%, still Tachypneic, lung sounds reveal some crackles at bilateral bases, he is on IV Solu-Medrol 40 every 8 12 hours, patient was outside the window for Remdesivir, continues on prophylactic coagulation, doesn't seem to be confused, he has not and trying to remove the BiPAP support, safety intern was discontinued, he is been compliant with treatment, he continues on daily dose of Lasix, recent chest x-ray today, proBNP is 619, his weight is down by 2 kg, a negative fluid balance, he wants to eat, for that reason we will alternate his BiPAP support with Airvo. His CODE STATUS is DO NOT RESUSCITATE, he has not worsened in the last 24 hours, has remained stable, we will try to give him a trial on high flow nasal cannula per Airvo. On 06/08/2020 patient seen in follow-up on medical floor, he is currently back on BiPAP at pressures of 16/8 and FiO2 of her percent, his pulse ox is 92%, lung sounds reveal some minimal crackles at the bases, there is a safety intern at the bedside to prevent the patient from removing his BiPAP mask, but patient is awake and alert, he states his breathing is about the same, with no worsening, no complaints of chest pain, he has been very slow to progress, but does not seem to be confused. His last chest x-ray was a couple days ago showing persistent multifocal peripheral opacities. No recent labs, however his inflammatory markers were improving, his last d-dimer was on 05/31/2020, she has not had a recent set of blood work in the last couple days, his Lovenox is 40 mg once daily, he is on prednisone 40 mg daily, he is on multivitamins, patient did not receive Remdesivir as the patient was outside the therapeutic window, he did receive Tocizilumab on 05/20/2020 On , the patient is even looking worse compared to yesterday. He remains on a BiPAP and his unable to come off the BiPAP at all. He has become more lethargic somewhat weak. His struggling with his breathing even while in the BiPAP and currently the BiPAP setting is 16/8 with an FiO2 of 100%. The patient is less arousable. He cannot eat. He cannot drink. This pretty much laying down in bed while on the BiPAP to support his breathing. His current pulse ox is 92%. Degenerated tidal volume of the BiPAP is around 600 mL of the respiratory rate of 22. His minute ventilation is around 13 L per minute. Is showing stable bilateral pulmonary infiltrates consistent with COVID-19 related pneumonia. His blood work from today shows a d-dimer of 1.1 and his hemoglobin is 16.3 with a white cell count of 14.5. As stated earlier, the patient is a DNR/DNI CODE STATUS. He was on high flow oxygen which she was unable to desaturate and he decompensated on high flow oxygen and currently he has been on BiPAP for the past 48 hours. Unfortunately, he carries a very poor prognosis. The family was made aware of the family have been arriving to the hospital for further decisions. He may be considered for end-of-life care, comfort care measures. Objective - Vital Signs Vital signs: Vital Signs Temp 97.8 F 06/09/20 10:00 Pulse 87 06/09/20 10:00 Resp 22 06/09/20 10:00 BP 91/54 06/09/20 10:00 Pulse Ox 93 L 06/09/20 10:00 Intake & Output 06/08/20 06/09/20 06/09/20 18:59 06:59 18:59 Weight 61 kg Other: Voiding Method Urinal Urinal Diaper Diaper Incontinent Incontinent # Voids 3 0 # Bowel Movements 0 - Exam GENERAL EXAM: Alert, very pleasant, 75-year-old white male, currently off BiPAP on a BiPAP at a pressure of 16/8 with an FiO2 of 100%, unresponsive, not following any commands, white lethargic. HEAD: Normocephalic/atraumatic. EYES: Normal reaction of pupils, equal size. Conjunctiva pink, sclera white. NOSE: Clear with pink turbinates. THROAT: No erythema or exudates. NECK: No masses, no JVD, no thyroid enlargement, no adenopathy. CHEST: No chest wall deformity. Symmetrical expansion. LUNGS: Equal air entry with no crackles, wheeze, rhonchi or dullness. CVS: Regular rate and rhythm, normal S1 and S2, no gallops, no murmurs, no rubs ABDOMEN: Soft, nontender. No hepatosplenomegaly, normal bowel sounds, no guarding or rigidity. EXTREMITIES: No clubbing, no edema, no cyanosis, 2+ pulses and upper and lower extremities. MUSCULOSKELETAL: Muscle strength and tone normal. SPINE: No scoliosis or deformity SKIN: No rashes CENTRAL NERVOUS SYSTEM: Sponsored, grimaces only to painful stimulation. He is on a BiPAP with a full facemask. Synchronous with the BiPAP mask. No facial asymmetry. Pupils are equal and reactive to light. - Labs CBC & Chem 7: 06/09/20 08:45 04 06:16 Labs: Abnormal Lab Results - Last 24 Hours (Table) 06/09/20 06/09/20 Range/Units 08:45 08:45 WBC 14.5 H (3.8-10.6) k/uL Neutrophils # 13.7 H (1.3-7.7) k/uL Lymphocytes # 0.2 L (1.0-4.8) k/uL D-Dimer 1.14 H (<0.60) mg/L FEU Assessment and Plan Plan: #1. Acute hypoxic respiratory failure secondary to COVID 19 pneumonia, with development of progressive hypoxemia and respiratory failure. He stayed high flow. His been on BiPAP for the past 48 hours and the patient is currently at a BiPAP pressure of 16/8 with an FiO2 of 100%. Chest x-ray findings are consistent with diffuse bilateral pulmonary infiltrates consistent with Covid and irritated pneumonia. The patient has been treated with steroids. The patient has been on anticoagulants. The patient further decompensated and the patient's current condition is extremely poor, and clinically is become more lethargic, unresponsive, unable to eat, unable to drink and pain much BiPAP dependent. He has also developed an acute kidney injury and BUN is currently at 110 with a creatinine of 1.77. #2. Increased inflammatory markers lymphopenia related to the above, improved #3. Recent hospitalization in [place] for COVID 19 infection for one week and patient was home for 3 days prior to returning to the hospital at [facility] #4. Recent myocardial infarction with stent placement #5. Suspect ischemic cardiomyopathy with ejection fraction of 40-45% #6. Troponin leak #7. Pulmonary hypertension #8. Hyperlipidemia #9. History of anxiety #10. History of bladder cancer status post TURBT in January 2020 #11, acute kidney injury Plan: Stop Lasix Placed this patient on some IV fluids with normal saline at rate of 75 mL an hour Switch the steroids to IV Decadron set of oral prednisone. Continue Lovenox for DVT prophylaxis Continue BiPAP for respiratory support, currently on pressures of 16/8 with an FiO2 of 100% Contact the family, very reasonable to consider end-of-life., Comfort care measures for this patient. He carries a very poor prognosis.
[2020-06-09 12:48] LABS: C Reactive Protein 7.9 mg/L (<10.0)
[2020-06-09 13:21] LABS: LDH 1366 U/L (313-618)
--- NOTE | 2020-06-09 13:21 | P.PN ---
Subjective Progress Note Date: 06/09/20 Acute hypoxic respiratory failure secondary to CoVID 19 pneumonia 75 years old male with past medical history of hyperlipidemia , coronary artery disease status post stent. Patient of Dr. Cole. His somewhat poor historian. Patient presents with dyspnea and a dry with no chest pain or abdominal pain or diarrhea. No headache or weakness or numbness. However he was complaining of from upper respiratory symptoms and sore throat as well. Patient also and he was confused, last time he got lost at [place] and he was taken to [facility] where he stayed there for 4-5 days for Covid infe ction as he states, he went home after that however he did not feel better. . He denies smoking, alcohol or illicit drugs Patient also states that he has history of urinary bladder cancer status post surgery [address] zee to 2 months ago as he states. He does not follow up with oncologist or has chemotherapy 05/27/2020 Patient is seen and evaluated in follow-up in the regular medical floor. He is currently sitting up in a chair at the bedside. Awake and alert in no acute distress. He remains on [place]rava high flow oxygen down to 30 L and 65% FiO2. Still desaturates with minimal activity. He's been afebrile. Hemodynamically stable. Blood glucose 200. The chest on 0.03. He remains on Lovenox, IV Solu- Medrol, vitamin supplements. Pulmonary service on board and recommending to titrate FiO2 as able; patient might be switched over to high flow nasal cannula 05/28/2020 Patient is seen and evaluated in follow-up on the regular medical floor. He is currently sitting up in a chair at the bedside. Awake and alert in no acute distress. He remains on AirVo high flow oxygen at 50 L and 85% FiO2. He had pulled it off at one point his O2 saturation dropped into the 70s. Subsequently required within minutes of replacing that device. He remains on Lovenox, IV Solu-Medrol, vitamin supplements. Patient is being followed by pulmonary service and recommending to continue Solu-Medrol, Lovenox and vitamin supplements; continue to titrate FiO2 down as able; recommending possible subacute rehab once stable for discharge 05/29/2020 Patient is seen and evaluated in room at bedside; remains on O2 with HFNC at 50%; remains on 55 L with SpO2 90 Lab review shows an upward trend in d-dimer from 1.27 on initial exam up to 1.44; potassium at 5.3; B UN/creatinine of 38/0.8 to; LDH trending down slowly down to 1242; patient remains on subcu Lovenox, IV Solu-Medrol and vitamin supplements; we will continue to trend inflammatory markers and continue to wean oxygen off as able; plan for discharge to skilled rehab once clinically stable 05/30/2020 Patient remains on Airvo presently 90% FiO2 with the oxygen flow rate of around 25 L patient clinically looks well at this time. Serum sodium remains at 133 p otassium is 5.5. Patient will be given a dose of And patient was started on low potassium diet. 05/31/2020 Patient's potassium is still high but stable at around 5.5 serum sodium did improve patient remains on defer liters of oxygen with 85% FiO2. 06/01/2020 Patient still remains on a 50 L of oxygen and 90% FiO2 on airvo, although patient clinically looks good denied any complaints at this time. 06/02/2020 . There is no change in the his oxygen requirements. obtain basic metabolic profile for tomorrow. 06/03/2020 Patient's oxygen requirements have increased and patient is now maintained on BiPAP as he continued to remove mask and nasal cannula multiple times. Discussed with the patient about CODE STATUS and patient will be no code. Pulmonary is following. 06/04/2020 Patient is presently on BiPAP 100% FiO2 patient appears to have some worsening in his overall respiratory status although patient clinically looks well doesn't like to wear BiPAP. 06/05/2020 Patient is presently on BiPAP 100% FiO2. Patient has not been eating or drinking much because of the BiPAP and patient is bit concerned about it although patient is alert oriented 3 and doesn't have any complaints or doesn't have any shortness of breath. 06/06/2020 Patient is seen this morning and has transitioned to Airvo along with nonrebreather at 15 L with oxygen saturations of 92%. Current settings are deli very of 60 with an FiO2 of 80%. Sodium is 131 with a potassium of 5.0 and current creatinine is 1.1 and blood sugars are being closely monitored. Pulmonary following and patient is being transitioned oral prednisone. 06/07/2020 Patient is seen and evaluated this morning continues on Airvo along with nonrebreather and is sitting up in the chair. Patient denies any worsening shortness of breath although desaturates very quickly with minimal exertion. Nursing staff, patient has removed another IV and continues to take a breathing mask off. Will Add Seroquel and continue to monitor. 06/08/2020 Patient was unable to tolerate keeping the airvo and nonrebreather on and was placed back on BiPAP. Patient does have a sitter at the side of the bed as he continues to pull it to begin IVs and needs constant reinforcement on leaving those alone. Patient is currently 100% on the BiPAP and maintaining oxygen saturations between 93 and 97%. No labs today will repeat labs along with inflammatory markers and chest x-ray in the morning. Pulmonary is following. 06/09/2020 Patient is seen and evaluated this morning continues to be on the BiPAP and struggling to breathe. Patient is unable to remove the mask as he desats very quickly. Patient is lethargic and confused and continues to require a sitter for brief moments of waking up as he tries to remove the masks and any IV tubing. Discussed at length with family Beth who is his power of prosecuting attorney and also daughter [place] who will be coming to see the patient to make the final decision of possible comfort measures as his prognosis remains extremely poor and guarded. Review of systems: Unable to obtain as patient is lethargic and unarousable All inpatient medications were reviewed and appropriate changes in these medications as dictated in the interval history and assessment and plan. Objective - Vital Signs Vital signs: Vital Signs Temp 97.6 F 06/09/20 05:30 Pulse 77 06/09/20 05:30 Resp 19 06/09/20 05:30 BP 91/66 06/09/20 05:30 Pulse Ox 96 06/09/20 05:30 Intake & Output 06/08/20 06/09/20 06/09/20 18:59 06:59 18:59 Weight 61 kg Other: Voiding Method Urinal Urinal Diaper Diaper Incontinent Incontinent # Voids 3 0 # Bowel Movements 0 - Exam GENERAL: The patient is alert and oriented x0, appears to be in acute respiratory distress with maximum effort attempting to maintain saturations on BiPAP 100%. Anxious at times. Ill-appearing HEENT: Pupils are round and equally reacting to light. EOMI. No scleral icterus. No conjunctival pallor. Normocephalic, atraumatic. No pharyngeal erythema. No thyromegaly. CARDIOVASCULAR: S1 and S2 present. No murmurs, rubs, or gallops. PULMONARY: Diminished breath sounds with coarse bronchi noted ABDOMEN: Soft, nontender, nondistended, normoactive bowel sounds. No palpable organomegaly. MUSCULOSKELETAL: No joint swelling or deformity. EXTREMITIES: No cyanosis, clubbing, or pedal edema. NEUROLOGICAL: Unable to completely assess this patient is lethargic and obtunded. diffusely weak SKIN: No rashes. - Labs CBC & Chem 7: 06/09/20 08:45 06/09/20 08:45 Assessment and Plan Assessment: Acute bilateral covid pneumonia : Continues on the BiPAP and 100%, patient remains on IV steroids, zinc, vitamin C pulmonary following Acute hypoxic respiratory failure secondary to above ischemic cardiomyopathy with ejection fraction 40-45% with wall hypokinesia, patient is a euvolemic at this time Severe pulmonary hypertension and moderate pulmonary regurgitation metabolic encephalopathy mild Acute kidney injury, Versus chronic kidney disease possible UTI Possible history of urinary cancer status post surgery 2 Hyperlipidemia History of coronary artery disease DVT prophylaxis: Subcutaneous Lovenox GI Prophylaxis: Pepcid No code Plan: Continue with current medications. Oxygen requirements worsened this patient continues on BiPAP 100%. chore tender at bedside as patient continues to remove IVs and tubing and needs constant supervision and redirection when awake. Patient is extremely lethargic and obtunded and not responding appropriately to any commands. Patient is not eating and unable to tolerate anything by mouth. Lengthy discussion was had with the family and sister Bhumika who is the power of prosecuting attorney and his daughter [place] will be coming to see the patient today. Possible comfort care measures which is appropriate. Prognosis continues to be poor and guarded and we'll continue to monitor closely. Pulmonary is following.
[2020-06-09] MEDS: LORazepam 2 MG/ML INJ IV PRN ×2 (14:20→16:49)
[2020-06-09] MEDS: SODIUM CHLORIDE 0.9% 1,000 ML IV SCH (15:51)
[2020-06-09] MEDS: MORPHINE SULFATE 2 MG/ML SYRINGE IVP PRN (16:08)
[2020-06-09] MEDS ORDERED: HYDROmorphone 1 MG/ML 1 ML SYRINGE IVP PRN (16:44)
[2020-06-09] MEDS ORDERED: ACETAMINOPHEN TAB 325 MG TAB PO PRN (16:44)
[2020-06-09] MEDS ORDERED: HYDROcodone/APAP 5-325MG 1 EACH TAB PO PRN (16:44)
[2020-06-09] MEDS ORDERED: ONDANSETRON 4 MG/2 ML VIAL IVP PRN (16:44)
[2020-06-09] MEDS ORDERED: HYDROmorphone 0.5 MG/0.5 ML SYRINGE IVP PRN (16:44)
[2020-06-09] MEDS ORDERED: ATROPINE OPHTH SOLN 1% 5ML BTL SUBLINGUAL PRN (16:44)
[2020-06-09] MEDS ORDERED: LORazepam 2 MG/ML INJ IV PRN (16:44)
[2020-06-09] MEDS ORDERED: SCOPOLAMINE 1.5MG/72HR PATCH TRANSDERM SCH (16:45)
[2020-06-09] MEDS ORDERED: MORPHINE SULFATE (100 MG/2 ML) 100 MG in SODIUM CHLORIDE 0.9% 100 ML IV SCH (17:15)
[2020-06-09] MEDS: MORPHINE SULFATE 4 MG/ML SYRINGE IV PRN ×4 (17:41→19:32)
[2020-06-09 23:22] VITALS: RESP 13
[2020-06-10] MEDS: SODIUM CHLORIDE 0.9% 1,000 ML IV SCH (01:15)
[2020-06-10] MEDS ORDERED: DEXAMETHASONE SOD PHOSPHATE 10 MG/ML 1 ML VIAL IV SCH (09:00)
--- NOTE | 2020-06-15 13:48 | P.DS ---
Providers Date of admission: 05/20/20 02:05 Expected date of discharge: 06/10/20 Attending physician: Marino Ornelas Consults: 05/20/20 08:58 Consult Physician Urgent Consulting Provider: Dexter Breaux Consult Reason/Comments: elevated troponin, cad Do you want consulting provider notified?: Yes Placement Type Exists?: Yes Consult Physician Urgent Consulting Provider: Jerri Perez Consult Reason/Comments: covid pna Do you want consulting provider notified?: Yes Placement Type Exists?: Yes [facility] [place] [facility] Course: Final diagnosis Acute bilateral covid pneumonia : Continues on the BiPAP and 100%, patient remains on IV steroids, zinc, vitamin C pulmonary following Acute hypoxic respiratory failure secondary to above ischemic cardiomyopathy with ejection fraction 40-45% with wall hypokinesia, patient is a euvolemic at this time Severe pulmonary hypertension and moderate pulmonary regurgitation metabolic encephalopathy mild Acute kidney injury, Versus chronic kidney disease possible UTI Possible history of urinary cancer status post surgery 2 Hyperlipidemia History of coronary artery disease DVT prophylaxis: Subcutaneous Lovenox GI Prophylaxis: Pepcid No code Discharge disposition Patient has on 06/10/2020 and time of was 0400 per nursing documentation. Hospital course This is a 75-year-old male who was recently admitted with shortness of breath along with upper respiratory symptoms and a sore throat that had been worsening. Patient was confused and was taken to an outside facility and transferred here for further evaluation patient was maintained on high flow oxygen and continued to be severely dyspneic and confused. Pulmonary following closely patient was maintained on Airvo and nonrebreather and continue to deteriorate and was placed on BiPAP. Patient was on BiPAP for a few days with no improvement and respiratory status continued to deteriorate. Family visited the patient and requesting comfort care measures and patient was placed on comfort. Patient has . Please refer to previous dictations for further HPI. Patient Condition at Discharge: Poor Plan - Discharge Summary Discharge Rx Participant: Yes New Discharge Prescriptions: No Action risperiDONE [RisperDAL] 2 mg PO DAILY Aspirin [Adult Low Dose Aspirin EC] 81 mg PO DAILY Zinc 50 mg PO DAILY Atorvastatin Calcium [Lipitor] 80 mg PO DAILY Cholecalciferol [Vitamin D3 (10 Mcg = 400 Iu)] 10 mcg PO DAILY Ascorbic Acid [Vitamin C] 250 mg PO DAILY Discharge Medication List Aspirin [Adult Low Dose Aspirin EC] 81 mg PO DAILY 08/23/15 [History] risperiDONE [RisperDAL] 2 mg PO DAILY 08/23/15 [History] Ascorbic Acid [Vitamin C] 250 mg PO DAILY 05/20/20 [History] Atorvastatin Calcium [Lipitor] 80 mg PO DAILY 05/20/20 [History] Cholecalciferol [Vitamin D3 (10 Mcg = 400 Iu)] 10 mcg PO DAILY 05/20/20 [History] Zinc 50 mg PO DAILY 05/20/20 [History] Follow up Appointment(s)/Referral(s): Tyler Harding DO [STAFF PHYSICIAN] - 2 Weeks Rich Cole DO [Primary Care Provider] - 1 Week Discharge Disposition: - Preliminary Cause of Preliminary Cause of : COVID-19 pneumonia
== END 2020-06-10 06:51 | disposition expired | DRG 177 ==
LOC: EC 23:55 → 4SSUR 05-20 02:05 → 3SCARD 05-20 08:53 → 2SICU 05-22 11:04 → 4SSUR 05-23 21:54
PROVIDERS: ADMIT Hospitalist; ATTEND Hospitalist
PROC: XW033H5 Introduction of Tocilizumab into Peripheral Vein, Percutaneous Approach, New Technology Group 5 (ICD-10-PCS; principal; 2020-05-20)
PROC: 5A0945A Assistance with Respiratory Ventilation, 24-96 Consecutive Hours, High Flow/Velocity Cannula (ICD-10-PCS; 2020-05-20)
PROC: 5A09557 Assistance with Respiratory Ventilation, Greater than 96 Consecutive Hours, Continuous Positive Airway Pressure (ICD-10-PCS; 2020-05-23)
DX: U07.1 COVID-19 (principal); J12.82 Pneumonia due to coronavirus disease 2019; J96.01 Acute respiratory failure with hypoxia; G93.41 Metabolic encephalopathy; I50.21 Acute systolic (congestive) heart failure; I21.4 Non-ST elevation (NSTEMI) myocardial infarction; N17.9 Acute kidney failure, unspecified; J98.11 Atelectasis; N39.0 Urinary tract infection, site not specified; I27.20 Pulmonary hypertension, unspecified; I11.0 Hypertensive heart disease with heart failure; F20.9 Schizophrenia, unspecified; F44.81 Dissociative identity disorder; Z51.5 Encounter for palliative care; Z66 Do not resuscitate; D72.810 Lymphocytopenia; I25.10 Atherosclerotic heart disease of native coronary artery without angina pectoris; I37.1 Nonrheumatic pulmonary valve insufficiency; E78.5 Hyperlipidemia, unspecified; I25.5 Ischemic cardiomyopathy; R00.1 Bradycardia, unspecified; N42.9 Disorder of prostate, unspecified; F41.1 Generalized anxiety disorder; T50.906A Underdosing of unspecified drugs, medicaments and biological substances, initial encounter; Z91.128 Patient's intentional underdosing of medication regimen for other reason; I25.2 Old myocardial infarction; R32 Unspecified urinary incontinence; Z79.82 Long term (current) use of aspirin; Z79.899 Other long term (current) drug therapy; Z86.79 Personal history of other diseases of the circulatory system; Z95.5 Presence of coronary angioplasty implant and graft; Z85.51 Personal history of malignant neoplasm of bladder; Z98.42 Cataract extraction status, left eye; Z98.41 Cataract extraction status, right eye; Z96.1 Presence of intraocular lens; Z87.39 Personal history of other diseases of the musculoskeletal system and connective tissue; Z87.2 Personal history of diseases of the skin and subcutaneous tissue; Z87.891 Personal history of nicotine dependence; Z98.890 Other specified postprocedural states; Y63.6 Underdosing and nonadministration of necessary drug, medicament or biological substance; Z80.9 Family history of malignant neoplasm, unspecified
CPT/HCPCS: 71045; 80048; 80053; 81001; 82550; 82553; 82728; 83615; 83625; 83735; 83880; 84145; 84484; 85025; 85027; 85379; 86140; 87635; 93005; 93308; 94640; 94660; 94760; 96374; 96375; 99285